=== PATIENT | female | born 1970 | race Two or more races ===

== ENCOUNTER → 2020-07-09 09:18 | Outpatient (BNVA) | payer MEDICAID, SELFPAY | PROVIDERS: PCP Nurse Practitioner Family; Visit Provider Internal Medicine Gastroenterology | DX: Z76.89 Persons encountering health services in other specified circumstances (principal) ==

== ENCOUNTER → 2020-07-12 07:48 | Outpatient (BNV) | payer MEDICAID, SELFPAY | PROVIDERS: PCP Nurse Practitioner Family; Visit Provider Internal Medicine | DX: I26.99 Other pulmonary embolism without acute cor pulmonale (principal) | CPT/HCPCS: 99213; 99214 ==

== ENCOUNTER → 2020-08-25 08:44 | Outpatient (REF) | payer MEDICAID, SELFPAY | LOC: HO.SL 08:44 | PROVIDERS: Visit Provider Nurse Practitioner Family | DX: G47.33 Obstructive sleep apnea (adult) (pediatric) (principal) | CPT/HCPCS: 95806 ==

== ENCOUNTER → 2020-10-22 08:18 | Outpatient (BNVA) | payer MEDICAID, SELFPAY | PROVIDERS: PCP Dentist; Visit Provider Internal Medicine Gastroenterology ==

== ENCOUNTER 2020-12-10 19:39 | Emergency (ER) | payer MEDICAID, SELFPAY ==
--- NOTE | ~2020-12-10 | XR_ITS ---
EXAMINATION: XR CHEST CLINICAL INFORMATION: Chest pain COMPARISON: Chest x-ray 12/18/2018 TECHNIQUE: Frontal view of the chest was obtained. FINDINGS: No significant abnormality is noted involving the heart, lungs, mediastinum, bony thorax or soft tissues. XR/XR chest 1V IMPRESSION: Unremarkable chest examination.
[2020-12-10 19:46] VITALS: BP 127/69; PULSE 76; RESP 16; TEMP 36.6; O2SAT 100; BMI 40.6
--- NOTE | 2020-12-10 19:53 | ECG_ITS ---
Test Reason : CHEST PAIN Blood Pressure : / mmHG Vent. Rate : 071 BPM Atrial Rate : 071 BPM P-R Int : 150 ms QRS Dur : 080 ms QT Int : 410 ms P-R-T Axes : 037 046 053 degrees QTc Int : 445 ms Normal sinus rhythm Normal ECG When compared with ECG of 18-DEC-2018 12:48, No significant change was found Referred By: Generic ED Physician Electronically Signed By:J CARLOS JIM
--- NOTE | 2020-12-10 20:22 | PC.NURSE ---
multimedia technician at bedside obtaining EKG. IV and labs obtained and sent for analysis. Awaiting primary MD ashley.
[2020-12-10 20:26] LABS: MANUAL DIFF FLAG NO
[2020-12-10 20:28] LABS: Basophils Absolute Auto 0.1 X10*3/uL (0.0-0.2); Basophils Percent Auto 0.6 % (0-2); Eosinophils Absolute Auto 0.2 X10*3/uL (0.0-0.4); Eosinophils Percent Auto 2.1 % (0-4); Hemoglobin 14.3 g/dl (12.0-16.0); Imm Gran Abs Auto 0.06 X10*3/uL (0.00-0.03); Imm Gran Pct Auto 0.6 % (0.0-0.4); Lymphocytes Absolute Auto 2.9 X10*3/uL (1.2-4.9); Lymphocytes Percent Auto 31.2 % (20-40); Mean Corpuscular HGB Conc 31.8 g/dl (31.0-35.0); Mean Corpuscular Volume 85.1 fL (80-98); Monocytes Absolute Auto 0.5 X10*3/uL (0.1-1.2); Neutrophils Absolute Auto 5.6 X10*3/uL (2.0-8.3); Neutrophils Percent Auto 60.5 % (45-73); Platelet Count 333 X10*3/uL (160-400); Red Blood Count 5.29 X10*6/uL (4.20-5.50); Red Cell Distribution Width 14.2 % (11.0-16.0); White Blood Count 9.3 X10*3/uL (4.8-10.8)
[2020-12-10 20:36] LABS: D Dimer 226 NG/ML
--- NOTE | 2020-12-10 21:01 | PC.NURSE ---
Provider at bedside with director of parks and recreation for primary eval.
[2020-12-10 21:02] LABS: Anion Gap 15 (12-20); Blood Urea Nitrogen 9 mg/dL (9-16); Calcium 9.2 mg/dL (8.4-10.2); Carbon Dioxide 20 mmol/L (22-29); Chloride 110 mmol/L (96-108); Creatinine Clr Calc Pharmacy 101.2; Estimated Glomerular Filt Rate > 60; Glucose Random 75 mg/dL (60-115); Potassium 4.4 mmol/L (3.3-5.1); Sodium 141 mmol/L (135-145)
--- NOTE | 2020-12-10 21:05 | ED.CHESTPAIN ---
HPI - Chest Pain General Chief Complaint: Chest Pain Stated Complaint: CHEST PAIN Time Seen by Provider: 12/10/20 20:59 Source: patient Mode of arrival: ambulatory History of Present Illness HPI narrative: 50-year-old female with a past medical history of hyperlipidemia, iron deficiency anemia, prediabetes, PE, vitamin B12 and D deficiency, presenting to the ED complaining of intermittent left-sided chest pain/pressure radiating down left arm since this morning. Admits pain waxes and wanes. Pain worse with deep inspiration. Denies SOB, nausea, vomiting, numbness, tingling, recent travel, oral OCP use, cigarette smoking. Patient is not on anticoagulation. MD complaint: chest pain Related Data Home Medications Medication Instructions Recorded Confirmed duloxetine 30 mg PO BID 07/12/20 07/12/20 ferrous sulfate 325 mg PO BID 07/12/20 07/12/20 Previous Rx's Medication Instructions Recorded tranexamic acid 650 mg tablet 1,300 mg PO BID #20 tab 06/18/20 pantoprazole 40 mg tablet,delayed 40 mg PO DAILY #30 tab 11/25/20 release Allergies Allergy/AdvReac Type Severity Reaction Status Date / Time No Known Allergies Allergy Verified 12/10/20 19:45 Review of Systems Review of Systems: Constitutional: No Fever, No Chills Cardiovascular: + Chest Pain, No SOB, No Dyspnea on Exertion, No Orthopnea, No Edema Respiratory: No Cough, No Sputum, No Wheezing, No Dyspnea Gastrointestinal: No Nausea, No Vomiting, No Diarrhea, No Abdominal pain Genitourinary: No Dysuria, No Hematuria, No Flank Pain Musculoskeletal: No joint pain, No Myalgias Skin: No Skin Lesions, No rash Neuro: No Weakness, No Numbness, No Paresthesias, No Dizziness Yes all other systems are reviewed and are negative PMFSH Past Medical History Attestation statement: The following information was validated with the patient. Medical History (Updated 12/10/20 @ 22:12 by CHETAN Perez) Hypertriglyceridemia STEVEN (iron deficiency anemia) Pre-diabetes Pulmonary embolism Sleep apnea Vitamin B12 deficiency Vitamin D deficiency Surgical History (Updated 07/13/20 @ 07:41 by Sumaya Gray MD) deliv NOS-unsp History of colonoscopy Hx of endoscopy Family History Family History (Updated 10/22/20 @ 08:22 by MARISSA Horta) Father No problems noted. Mother No problems noted. Paternal Uncle Stomach cancer Social History Social History (Updated 10/22/20 @ 08:23 by MARISSA Horta) Household Members: Spouse, Children and Other Alcohol intake: current Alcohol intake frequency: does not drink Smoking Status: Never smoker Advance Directives: No Advance Directives Information Provided: No Physical Exam Vital Signs: Vital Signs: Last Vital Signs Temp 97.8 F 12/10/20 19:46 Pulse 64 12/10/20 21:51 Resp 18 12/10/20 21:51 BP 112/60 12/10/20 21:51 Pulse Ox 100 12/10/20 21:51 Body Mass Index 40.6 Const: General: cooperative, healthy appearing and no acute distress Orientation/consciousness: patient oriented x3 Limitations: no limitations HENMT: Head: Yes normal to inspection Ears: hearing grossly normal bilaterally General nose exam: Normal external nose present Face and sinus: Yes normal facial exam Eyes: General: appearance normal, both eyes and all related structures EOM: EOMs intact bilaterally Neck: Neck: Yes normal visual inspection and Yes no meningeal signs Chest: Other: Left anterior chest wall tender to palpation reproducing subjective complaint Chest palpation & inspection: normal inspection of the chest, no crepitus and tenderness Resp: Effort & Inspection: normal respiratory effort Auscultation: clear to auscultation bilaterally, no crackles, no rales, no rhonchi and no wheezes Cardio: Rate: regular rate Heart sounds: S1 normal heart sound present and S2 normal heart sound present GI: Inspection: Yes normal to inspection Palpation (GI): Soft to palpation, nontender, no guarding and not rigid Skin: Rashes: no rashes Wounds: no wounds Neuro: General: patient oriented x3 and no meningeal signs Gait exam (Neuro): Normal gait present Extrem: General: Yes normal to inspection, Yes no pedal edema and Yes no calf tenderness Course Course Course Narrative: -no leukocytosis, troponin negative, D-dimer WNL XR chest 1V IMPRESSION: Unremarkable chest examination >> 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 Worrisome signs and symptoms and strict return precautions discussed, she verbalized understanding feel safe for discharge home MDM - Chest Pain MDM Narrative Medical decision making narrative: 50-year-old female with a past medical history of hyperlipidemia, iron deficiency anemia, prediabetes, PE, vitamin B12 and D deficiency, presenting to the ED complaining of intermittent left-sided chest pain/pressure radiating down left arm since this morning. On exam VSS, NAD/well-appearing, CP reproducible on exam, lungs CTA, no calf tenderness or LE edema. Concern for atypical ACS vs PE. Rule out pneumonia. Unlikely CHF Plan: EKG, labs, D-dimer, CXR, reassess Medical Records Data Attestation: I reviewed the patient's medical records. Lab Data Attestation: I reviewed the patient's lab results. Result diagrams: 12/10/20 20:21 12/10/20 20:21 Labs: Lab Results 12/10/20 12/10/20 12/10/20 Range/Units 20: 20:21 20:21 WBC 9.3 (4.8-10.8) X10*3/uL RBC 5.29 (4.20-5.50) X10*6/uL Hgb 14.3 (12.0-16.0) g/dl Hct 45.0 (37-47) % MCV 85.1 (80-98) fL MCH 27.0 (27.0-33.0) pg MCHC 31.8 (31.0-35.0) g/dl RDW 14.2 (11.0-16.0) % Plt Count 333 (160-400) X10*3/uL MPV 10.0 (9.4-12.3) fL Immature Gran % (Auto) 0.6 H (0.0-0.4) % Neut % (Auto) 60.5 (45-73) % Lymph % (Auto) 31.2 (20-40) % Adams % (Auto) 5.0 (2-11) % Eos % (Auto) 2.1 (0-4) % Baso % (Auto) 0.6 (0-2) % Lymph # (Auto) 2.9 (1.2-4.9) X10*3/uL Adams # (Auto) 0.5 (0.1-1.2) X10*3/uL Eos # (Auto) 0.2 (0.0-0.4) X10*3/uL Baso # (Auto) 0.1 (0.0-0.2) X10*3/uL Abs Immat Gran (auto) 0.06 H (0.00-0.03) X10*3/uL Absolute Neuts (auto) 5.6 (2.0-8.3) X10*3/uL Absolute Nucleated RBC 0.000 (0.0-0.012) X10*3/uL Nucleated RBC % (auto) 0.0 (0.0-0.2) /100WBC D-Dimer NG/ML Sodium 141 (135-145) mmol/L Potassium 4.4 (3.3-5.1) mmol/L Chloride 110 H (96-108) mmol/L Carbon Dioxide 20 L (22-29) mmol/L Anion Gap 15 (12-20) BUN 9 (9-16) mg/dL Creatinine 0.71 (0.5-1.4) mg/dL Estim Creat Clear Calc 101.2 Estimated GFR > 60 Random Glucose 75 (60-115) mg/dL Calcium 9.2 (8.4-10.2) mg/dL Troponin I High Sens < 3.5 (<3.5-17.0) ng/L 12/10/20 Range/Units 20:21 WBC (4.8-10.8) X10*3/uL RBC (4.20-5.50) X10*6/uL Hgb (12.0-16.0) g/dl Hct (37-47) % MCV (80-98) fL MCH (27.0-33.0) pg MCHC (31.0-35.0) g/dl RDW (11.0-16.0) % Plt Count (160-400) X10*3/uL MPV (9.4-12.3) fL Immature Gran % (Auto) (0.0-0.4) % Neut % (Auto) (45-73) % Lymph % (Auto) (20-40) % Adams % (Auto) (2-11) % Eos % (Auto) (0-4) % Baso % (Auto) (0-2) % Lymph # (Auto) (1.2-4.9) X10*3/uL Adams # (Auto) (0.1-1.2) X10*3/uL Eos # (Auto) (0.0-0.4) X10*3/uL Baso # (Auto) (0.0-0.2) X10*3/uL Abs Immat Gran (auto) (0.00-0.03) X10*3/uL Absolute Neuts (auto) (2.0-8.3) X10*3/uL Absolute Nucleated RBC (0.0-0.012) X10*3/uL Nucleated RBC % (auto) (0.0-0.2) /100WBC D-Dimer 226 NG/ML Sodium (135-145) mmol/L Potassium (3.3-5.1) mmol/L Chloride (96-108) mmol/L Carbon Dioxide (22-29) mmol/L Anion Gap (12-20) BUN (9-16) mg/dL Creatinine (0.5-1.4) mg/dL Estim Creat Clear Calc Estimated GFR Random Glucose (60-115) mg/dL Calcium (8.4-10.2) mg/dL Troponin I High Sens (<3.5-17.0) ng/L ECG Data ECG #1: Attestation: I personally reviewed and interpreted this ECG as follows: ECG interpretation date: 12/10/20 ECG interpretation time: 20:12 Interpretation: EKG normal sinus rhythm with rate of 71. QTC 445. No STEMI/nonischemic Discharge Plan Discharge Clinical Impression: Atypical chest pain Patient Disposition: Home, Self-Care Instructions: Chest Pain (ED) Additional Instructions: Your blood work and chest x-ray were reassuring today in the ED. It is important that you follow-up with her primary care doctor as well as Cardiology. If her symptoms persist or worsen, become more constant or severe please return to the ED. Ferguson an?lisis de bob y radiograf?a de t?rax fueron tranquilizadores hoy en el servicio de urgencias. Es importante que realice un seguimiento con ferguson m?dico de atenci?n primaria y con Cardiolog?a. Si penny s?ntomas persisten o empeoran, se vuelven m?s constantes o severos, regrese al servicio de urgencias. Prescriptions: No Action tranexamic acid 650 mg tablet 1,300 mg PO BID Qty: 20 RF: 2 pantoprazole 40 mg tablet,delayed release (DR/EC) 40 mg PO DAILY Qty: 30 RF: 3 ferrous sulfate 325 mg (65 mg iron) Tablet 325 mg PO BID RF: 0 duloxetine 30 mg Capsule,Delayed Release(Dr/Ec) 30 mg PO BID RF: 0 Referrals: Leonard Rincon MD [Physician] - 5 days Print Language: Kazakh
[2020-12-10 21:09] LABS: Troponin-I High Sensitivity < 3.5 ng/L (<3.5-17.0)
[2020-12-10 21:51] VITALS: BP 112/60; PULSE 64; RESP 18; O2SAT 100
== END 2020-12-10 22:38 | disposition home or self-care (01) ==
PROVIDERS: Emergency Provider Emergency Medicine
DX: R07.89 Other chest pain (principal); E78.5 Hyperlipidemia, unspecified; R73.03 Prediabetes; Z86.711 Personal history of pulmonary embolism
CPT/HCPCS: 36415; 71045; 80048; 84484; 85025; 85379; 93005; 99283; 99284

== ENCOUNTER → 2020-12-29 12:36 | Outpatient (BNVA) | payer MEDICAID, SELFPAY | PROVIDERS: Visit Provider Internal Medicine | DX: I26.99 Other pulmonary embolism without acute cor pulmonale (principal); R07.2 Precordial pain | CPT/HCPCS: 99202 ==

== ENCOUNTER → 2021-01-28 13:55 | Outpatient (REF) | payer MEDICAID, SELFPAY ==
--- NOTE | 2021-01-28 13:59 | CA_ITS ---
Transthoracic Echocardiogram Patient (Last, First, Middle): Barb Conklin, Gender: Female Date of : 1970 Age: 50 Procedure Date: 01/28/2021 Procedure Type: Transthoracic Echocardiogram Location: OP Height: 154.94 cm Weight: 97.98 kg BSA: 1.95 m2 Heart Rate: bpm BP: 122 / 80 mmHg Sexton Helper: Referring MD: Leonard Rincon MD Symptoms: R07.2 - Precordial pain Study Quality: Fair ECG Rhythm: Sinus Conclusions: - Normal biventricular function. - Cannot rule out basal inferior wall motion abnormality. Findings Left Ventricle Normal left ventricular size and systolic function. There is mildly increased left ventricular wall thickness. The visually estimated ejection fraction is between 60-65%. There is evidence of regional wall motion abnormalities. Diastolic function is normal for age. Wall Motion Rest Echo Findings The basal inferior segment is akinetic. Right Ventricle Normal right ventricular cavity size and systolic function. Atria Both atria are normal in size. There is no evidence of interatrial shunt by color Doppler. Aortic Valve Normal aortic valve structure and function. There is no aortic valve stenosis. There is no aortic valve regurgitation. Mitral Valve Normal mitral valve structure and function. There is no mitral valve regurgitation. There is no mitral valve stenosis. Pulmonic Valve Normal pulmonic valve structure and function. There is no pulmonic valve regurgitation. Tricuspid Valve Normal tricuspid valve structure and function. There is no tricuspid valve regurgitation. Normal right atrial pressure. There is no evidence of pulmonary hypertension. Great Vessels All visible segments of the aorta are normal in size. The visualized portions of the pulmonary artery and branches are normal. Venous The inferior vena cava is normal in size and collapses greater than 50% with inspiration. Pericardium/Pleural There is no evidence of pericardial effusion. Prior Study Comparison No prior study available for comparison. Measurements 2D Linear Measurements IVSd: 1.13 0.6-0.9/0.6-1.0 cm LVIDd: 3.64 3.9-5.3/4.2-5.9 cm LVIDd Index: 1.87 2.4-3.2/2.2-3.1 cm/m2 LVIDs: 2.41 2.0-3.6 cm LVPWd: 1.11 0.7-1.1 cm Ao Root: 2.70 2.1-3.5 cm LA Diam: 3.10 2.7-3.8/3.0-4.0 cm LAIDs Index: 1.59 1.5-2.3 cm/m2 LV Mass: 161.27 67-162/88-224 g LV Mass Index: 82.70 43-95/49-115 g/m2 LVOT Diam: 2.00 3.0+(-)1.3 cm 2D Systolic Function EF 4C: 52.30 >55% EF 2C: 60.80 >55% EF BiP: 58.00 >55% Mitral Valve MV Pk E: 0.93 MV PK A: 0.56 MV Decel Time: 163.00 E/A: 1.70 E'Lateral: 15.90 E'Medial: 8.81 E/E' Med: 10.50 E/E' Lat: 5.80 PHT: 48.00 MVA PHT: 4.58 Decel Potter: 5.69 Aortic Valve AoV Pk Vishnu: 1.22 AoV Mn Vishun: 0.78 AoV VTI: 0.30 AoV Pk Grad: 6.00 Aov Mn Grad: 3.00 ADELINA Cont.VTI: 2.50 LVOT LVOT Pk Vishnu: 1.04 LVOT Mn Vishnu: 0.60 LVOT VTI: 0.24 LVOT Pk Grad: 4.00 LVOT Mn Grad: 2.00 LVOT Diam: 2.00 LVOT Area: 3.14 Diastolic Function MV Pk E: 0.93 MV Pk A: 0.56 E/A: 1.70 E'Medial: 8.81 E/E' Med: 10.50 E' Laterial: 15.90 E/E' Lat: 5.80 Tricuspid Valve TR Pk Vishnu: 2.38 TR Pk Grad: 23.00 Great Vessels Aorta Ao Root-2D: 2.70 2.0-3.7 cm Ao Asc: 2.90 2.1-3.4 cm Pulmonary Valve PV Pk Vishnu: 0.88 Peak PV Grad: 3.00 Updated in Other Vendor System with Status of Final Iván Jurado MD electronically signed on 01/29/2021 5:06:52 PM with status of Final
== END ==
LOC: HO.CARD 13:55
PROVIDERS: Visit Provider Internal Medicine
DX: R07.2 Precordial pain (principal)
CPT/HCPCS: 93306

== ENCOUNTER → 2021-02-03 07:50 | Outpatient (REF) | payer MEDICAID, SELFPAY ==
--- NOTE | ~2021-02-03 | NM_ITS ---
Exercise Myocardial perfusion study Indication: Precordial chest pain to evaluate for myocardial ischemia Technique: The patient was brought in for an exercise perfusion study on 02/03/2021. Patient performed exercise as per Remington protocol and was injected 35 mCi of sestamibi was given intravenously one target HR was achieved. Images were obtained using the SPECT gamma camera interlaced with the gating device. Images were obtained in supine position. Resting perfusion study was performed on 02/08/2021. Patient was administered 35 mCi of sestamibi intravenously at rest. Images were then obtained in supine position. Images obtained with and without CT attenuation. Total DLP 129 mGy-cm. Images were processed with the software and compared side to side in short axis, horizontal long axis and vertical long axis views. Findings: The stress perfusion study showed nonattenuated images show normal uptake of radiotracer in all segments of LV myocardium. Attenuation corrected images show mildly reduced uptake in the apex of the myocardium.. The gated study shows normal LV systolic function with calculated LVEF of greater than 70 %. LV cavity is normal in in size. The gated study shows normal systolic wall thickening and contraction of all segments. There is no transient ischemic dilation. Resting study shows no change in perfusion pattern compared to stress perfusion study. Gating at rest reveals normal systolic wall motion with ejection fraction at 74%. The findings are consistent with normal myocardial perfusion. NM/NM cardiolite stress test Impression: 1. Normal myocardial perfusion 2. Gated LVEF is greater than 70% 3. Transient ischemic dilatation not present Stress EKG is negative for ischemia
--- NOTE | 2021-02-03 07:54 | CA_ITS ---
Acquisition Time: 2021-02-03 07:56:02 Total Exercise Time: 00:05:01 Test Indications: CP Medications: SEE CHART Protocol: MICHAEL Max HR: 155 BPM 91% of Pred: 170 BPM Max BP: 154/064 mmHG Max Work Load: 7.0 METS Exercise stress test with exercise 5 min 1 sec of Michael protocol, without anginal symptoms, without arrythmia, with normotensive response to exercise, without EKG changes meeting criteria for ischemia. Nuclear images pending. Test reviewed with Dr Cole. Referred By: Leonard Rincon Overread By: IRINA OVALLE
== END ==
LOC: HO.CARD 07:50
PROVIDERS: Visit Provider Internal Medicine
DX: R07.2 Precordial pain (principal)
CPT/HCPCS: 78452; 93017; A9500

== ENCOUNTER 2021-02-10 14:33 | Outpatient (REF) | payer MEDICAID, SELFPAY ==
--- NOTE | ~2021-02-10 | CT_ITS ---
EXAMINATION: CT ANGIOGRAM CHEST WITHOUT AND WITH CONTRAST (CT PULMONARY ANGIOGRAM FOR PE) CLINICAL INFORMATION: Left chest pain. Prior history PE. COMPARISON: Chest radiograph 12/10/2020, CTA chest 12/18/2018 TECHNIQUE: Prior to contrast administration, noncontrast localization images were obtained. Subsequently, multidetector volumetric imaging was performed from the thoracic inlet to below the diaphragms following the administration of 75 mL Omnipaque 350 intravenous contrast. No contrast reaction reported. Sagittal, coronal, and MIP oblique sagittal reformatted images were obtained on the CT workstation, uploaded to PACS, and reviewed. This CT examination was performed using dose optimization techniques as appropriate, variously including the following: *Automated exposure control *Adjustment of mA and/or kV according to patient size (this includes techniques or standardized protocols for targeted exams where dose is matched to indication/reason for exam; i.e. extremities or head) *Use of iterative reconstruction technique DLP: 177 mGy-cm FINDINGS: QUALITY OF STUDY/CONTRAST BOLUS: Satisfactory PULMONARY ARTERIES: No central or segmental pulmonary emboli. The small segmental emboli right lower lobe noted on prior CT 2019 are no longer demonstrated. THORACIC AORTA: No aneurysm or dissection. LUNG: No airspace consolidation or groundglass opacities. No mass. PLEURA: No pleural effusion or pneumothorax. MEDIASTINUM: Normal heart size. No pericardial effusion. No hilar or mediastinal lymphadenopathy. No evidence of septal bowing or right heart strain. CHEST WALL/AXILLA: No axillary or internal mammary lymphadenopathy. OSSEOUS STRUCTURES: No acute or suspicious osseous abnormality. UPPER ABDOMEN: There is some fatty infiltration in the mid body pancreas similar to prior exam. No peripancreatic inflammatory changes. Gallstone again noted. Prior gastric bypass surgery. No reflux of contrast into the hepatic veins to suggest elevated right heart pressures. CT/CT angio chest IMPRESSION: 1. No pulmonary embolism. Prior right lower lobe segmental PE on CT 2019 no longer demonstrated. 2. No thoracic aorta aneurysmal enlargement or dissection. 3. Lungs clear. No pneumothorax, infiltrate, or effusion. VTE: negative
[2021-02-10] MEDS: iohexoL 350 MG/ML 100 ML INFUS..BTL IV (15:57)
== END 2021-02-10 14:34 | disposition home or self-care (01) ==
LOC: HO.CT 14:33
PROVIDERS: Visit Provider Internal Medicine
DX: I26.99 Other pulmonary embolism without acute cor pulmonale (principal)
CPT/HCPCS: 71275; Q9967

== ENCOUNTER → 2021-02-25 11:27 | Outpatient (BNVA) | payer MEDICAID, SELFPAY | PROVIDERS: Visit Provider Advanced Practice Midwife ==

== ENCOUNTER → 2021-03-21 14:59 | Outpatient (REF) | payer MEDICAID, SELFPAY ==
--- NOTE | 2021-03-21 15:03 | CA_ITS ---
Transthoracic Echocardiogram Patient (Last, First, Middle): Barb Conklin, Gender: Female Date of : 1970 Age: 50 Procedure Date: 03/21/2021 Procedure Type: Transthoracic Echocardiogram Location: OP Height: 154.94 cm Weight: 97.07 kg BSA: 1.94 m2 Heart Rate: bpm BP: 114 / 70 mmHg Chief Physical Therapist: [facility] MD: Leonard Rincon MD Symptoms: R07.2 - Precordial pain Study Quality: Fair ECG Rhythm: Sinus Conclusions: - The left ventricular systolic function is normal. The calculated ejection fraction is 71% by biplane method. - There is no evidence of regional wall motion abnormalities. Findings Left Ventricle Normal left ventricular cavity size. The left ventricular systolic function is normal. The calculated ejection fraction is 71% by biplane method. There is no evidence of regional wall motion abnormalities. Prior Study Comparison Changes noted compared to prior study dated: 01/28/2021. Previously described wall motion abnormality not seen. Measurements 2D Systolic Function EF 4C: 72.60 >55% EF 2C: 69.40 >55% EF BiP: 70.80 >55% Updated in Other Vendor System with Status of Final Leonard Rincon MD electronically signed on 03/22/2021 12:33:19 PM with status of Final
== END ==
LOC: HO.CARD 14:59
PROVIDERS: Visit Provider Internal Medicine
DX: R07.2 Precordial pain (principal)
CPT/HCPCS: 93308; Q9957

== ENCOUNTER → 2021-03-29 14:18 | Outpatient (BNVA) | payer MEDICAID, SELFPAY | PROVIDERS: PCP Registered Nurse; Visit Provider Internal Medicine | DX: R07.2 Precordial pain (principal); Z86.711 Personal history of pulmonary embolism | CPT/HCPCS: 99212 ==

== ENCOUNTER → 2021-04-22 09:20 | Outpatient (BNVA) | payer MEDICAID, SELFPAY | PROVIDERS: Visit Provider Internal Medicine Gastroenterology ==

== ENCOUNTER → 2021-07-11 08:06 | Outpatient (REF) | payer MEDICAID, SELFPAY ==
--- NOTE | ~2021-07-11 | NM_ITS ---
EXAMINATION: NM RADIONUCLIDE SOLID FOOD GASTRIC EMPTYING 4-HOUR STUDY CLINICAL INFORMATION: Early satiety. COMPARISON: None. TECHNIQUE: A standard meal consisting of 4 oz of Egg Beaters brand tagged with 0.87 microcuries Tc-99m Sulfur Colloid, 8 oz water and 2 slices of toast with jelly was administered orally to the patient. Images were obtained using a dual head gamma camera in the anterior and posterior projections over of the stomach immediately post ingestion and at hourly intervals up to 4 hours post ingestion. The anterior and posterior counts at each time interval were averaged using the geometric mean and expressed as percentage of the immediate post ingestion counts. FINDINGS: There is good visualization of activity in the stomach immediately post ingestion. As the study progresses, there is good clearance of activity from the stomach and visualization of progressively increasing small bowel activity. By the end of the study, there is almost no retention noted in the stomach. Retention in the stomach at each time interval was: 1 hour - 28% (normal 37%-90%) 2 hours - 11% (normal 30%-60%) 3 hours - 1% 4 hours - None NM/NC gastric emptying study IMPRESSION: Normal 4-hour solid food gastric emptying study.
== END ==
LOC: HO.NUCMED 08:06
PROVIDERS: Visit Provider Internal Medicine Gastroenterology
DX: R68.81 Early satiety (principal)
CPT/HCPCS: 78264; A9541

== ENCOUNTER 2021-08-04 15:46 | Outpatient (REF) | payer MEDICAID, SELFPAY ==
--- NOTE | ~2021-08-04 | MM_ITS ---
EXAMINATION: MM SCREENING DIGITAL BREAST TOMOSYNTHESIS, BILATERAL CLINICAL INFORMATION: Screening. Asymptomatic. The lifetime risk of breast cancer based on the Tyrer-Cuzick Model is 11%. COMPARISON: Mammography: 01/07/2019, 10/03/2017, 09/21/2016 TECHNIQUE: Digital breast tomosynthesis is performed in both the craniocaudal and mediolateral oblique views along with computer-aided detection (CAD). Synthesized 2D images are generated from the tomosynthesis. Additional right MLO view is provided. FINDINGS: There are scattered areas of fibroglandular density (ACR BI-RADS breast composition Category b). There are no significant masses, abnormal calcifications, or other abnormalities. Skin contours are smooth. MM/MM tomosynthesis screening BI IMPRESSION: No mammographic evidence of malignancy. ASSESSMENT: BI-RADS 1: Negative RECOMMENDATION: Routine annual mammography screening. This patient's information was entered into a reminder system with a target due date for their next mammogram.
== END 2021-08-04 15:47 | disposition home or self-care (01) ==
LOC: HO.MAMMO 15:46
PROVIDERS: PCP Nurse Practitioner Primary Care; Visit Provider Nurse Practitioner Primary Care
DX: Z12.31 Encounter for screening mammogram for malignant neoplasm of breast (principal)
CPT/HCPCS: 77063; 77067

== ENCOUNTER 2021-11-18 17:46 | Outpatient (REF) | payer MEDICAID, SELFPAY ==
--- NOTE | ~2021-11-18 | MR_ITS ---
EXAMINATION: MR LUMBAR SPINE WITHOUT CONTRAST CLINICAL INFORMATION: 51-year-old with low back pain. COMPARISON: None TECHNIQUE: MRI of the lumbar spine was obtained using routine sequences without contrast. FINDINGS: CORONAL ALIGNMENT: Normal. SAGITTAL ALIGNMENT: There is trace anterolisthesis at L4-L5 without spondylolysis. Lumbar lordotic curvature is maintained. LUMBOSACRAL JUNCTION: Normal. Rudimentary S1-S2 intervertebral disc space. VERTEBRAL BODIES: Normal height. DISC SPACES AND ENDPLATES: Intervertebral disc space heights are remarkable for slight disc space height loss at L4-L5 with mild disc desiccation. There is disc desiccation at L5-S1 without significant disc space height loss. Mild anterior marginal spondylosis is noted throughout the lumbar spine and there is moderate anterior marginal spondylosis at T12-L1 and T11-T12. Endplates appear intact. SPINAL CANAL: Mildly prominent epidural fat at the lumbosacral junction. BONE MARROW: No significant marrow-replacing process or bone marrow edema. 1.9 cm benign vertebral hemangioma in the L3 vertebral body noted. CONUS MEDULLARIS: Terminates at L1. Morphology and signal is normal. INTRADURAL NERVE ROOTS: Within normal limits. L5-S1: Mild disc bulging noted with a central transverse annular fissure confined to the anterior epidural fat without thecal sac encroachment or neural impingement. Mild right-sided and moderate left-sided facet arthropathy is noted with no significant canal or neural foraminal stenosis. L4-L5: Slight unroofing of the posterior disc margin related to mild degenerative spondylolisthesis. No significant disc bulge or herniation. Moderate left-sided and moderate to severe right-sided facet arthropathy noted with mild ligamentum flavum thickening without significant canal stenosis. Mild foraminal narrowing noted on the right, with facet spurring abutting the exiting right L4 nerve root. L3-L4: No significant disc bulge or herniation. Mild facet arthropathy noted bilaterally. No canal or neural foraminal stenosis. L2-L3: No disc bulge or herniation. No significant facet arthrosis. Mild ligament of flavum thickening noted. No canal or neural foraminal stenosis. L1-L2: No disc bulge or herniation. No facet arthrosis, canal or neural foraminal stenosis. There is bilateral facet arthrosis at T12-L1 and T11-T12 without significant canal or neural foraminal stenosis. PARASPINAL/RETROPERITONEAL: The paravertebral soft tissues are unremarkable. MR/MR lumbar spine wo con IMPRESSION: 1. Mild grade 1 degenerative spondylolisthesis at L4-L5, with discogenic degenerative changes at L4-L5 and L5-S1 and multilevel thoracolumbar spondylosis. 2. Mild disc bulging with central to right paramedian transverse annular fissuring at L5-S1 without neural impingement or thecal sac encroachment . 3. Multilevel bilateral facet arthropathy, most apparent at L5-S1 and L4-L5 with mild right-sided foraminal narrowing at L4-L5, with facet spurring abutting the exiting right L4 nerve root. No significant spinal canal stenosis.
== END 2021-11-18 17:47 | disposition home or self-care (01) ==
LOC: HO.MRI 17:46
PROVIDERS: Visit Provider Nurse Practitioner Primary Care
DX: M54.50 Low back pain, unspecified (principal)
CPT/HCPCS: 72148

== ENCOUNTER 2022-01-19 08:39 | Outpatient (REF) | payer MEDICAID, SELFPAY ==
[2022-01-19 09:17] LABS: Hematocrit 37.7 % (37.0-47.0); Hemoglobin 11.3 g/dl (12.0-16.0); Mean Corpuscular Hemoglobin 22.4 pg (27.0-33.0); Mean Corpuscular Volume 74.8 fL (80.0-98.0); Mean Platelet Volume 9.1 fL (9.4-12.3); Platelet Count 448 X10*3/uL (160-400); Red Blood Count 5.04 X10*6/uL (4.20-5.50); Red Cell Distribution Width 17.8 % (11.0-16.0); White Blood Count 8.9 X10*3/uL (4.8-10.8)
[2022-01-19 09:24] LABS: Estimated Average Glucose 123 mg/dL; Hemoglobin A1C 125.3793 umol/L; Hemoglobin A1c % 5.9 %
[2022-01-19 09:38] LABS: Anion Gap 12 (12-20); Blood Urea Nitrogen 10 mg/dL (9-16); Carbon Dioxide 26 mmol/L (22-29); Chloride 107 mmol/L (96-108); Cholesterol 203 mg/dL; Estimated Glomerular Filt Rate > 60; Glucose Random 98 mg/dL (60-115); HDL Cholesterol 48 mg/dL; LDL Cholesterol Calculated 123 mg/dl; Potassium 4.6 mmol/L (3.3-5.1); Sodium 140 mmol/L (135-145); Triglycerides 161 mg/dL
[2022-01-19 10:01] LABS: Free T4 (Free Thyroxine) 0.92 ng/dL (0.71-1.85); Thyroid Stimulating Hormone 2.29 uIU/mL (0.32-4.0); Vitamin D 25-OH Total 20.5 ng/mL (>30)
[2022-01-19 10:22] LABS: Creatinine Urine 103.55 mg/dL; Microalbum/Creatinine Ratio Ur 4.8 ug/mg cr
[2022-01-19 11:03] LABS: Vitamin B12 198 pg/mL (200-900)
== END 2022-01-19 08:40 | disposition home or self-care (01) ==
LOC: HO.LAB 08:39
PROVIDERS: PCP Nurse Practitioner Primary Care; Visit Provider Nurse Practitioner Primary Care
DX: Z00.00 Encounter for general adult medical examination without abnormal findings (principal); R73.03 Prediabetes; L65.9 Nonscarring hair loss, unspecified; E78.1 Pure hyperglyceridemia
CPT/HCPCS: 36415; 80048; 80061; 82043; 82306; 82607; 82746; 83036; 84439; 84443; 85027

== ENCOUNTER 2022-02-01 13:49 | Outpatient (REF) | payer MEDICAID, SELFPAY ==
[2022-02-01 17:26] LABS: CT PCR NOT DETECTED (Not Detect.); NG PCR NOT DETECTED (Not Detect.)
[2022-02-02 13:50] LABS: BV Int Neg Control Negative (Negative); BV Int Pos Control Positive (Positive)
[2022-02-08 19:06] LABS: HPV mRNA E6/E7 rflx Not Detected (Not Detected)
== END 2022-02-01 13:50 | disposition home or self-care (01) ==
LOC: HO.LAB 13:49
PROVIDERS: Visit Provider Advanced Practice Midwife
DX: Z01.419 Encounter for gynecological examination (general) (routine) without abnormal findings (principal); Z11.3 Encounter for screening for infections with a predominantly sexual mode of transmission; Z11.51 Encounter for screening for human papillomavirus (HPV)
CPT/HCPCS: 87480; 87491; 87510; 87591; 87624; 87660; 88142

== ENCOUNTER 2022-02-04 09:28 | Outpatient (REF) | payer MEDICAID, SELFPAY ==
[2022-02-07 04:04] LABS: HBsAGNum1 0.19 S/CO (0.00-0.99); HIV AB/AG Nonreactive (Nonreactive); HIV Num 1 0.07 S/CO (0.00-0.99); ~HepC Num1 0.06 S/CO (0.00-0.79); ~Hepatitis C Antibody Nonreactive (Nonreactive)
[2022-02-07 04:05] LABS: Hepatitis B Surface Antigen Negative (Negative)
[2022-02-08 06:23] LABS: Syphilis Screen Nonreactive (Nonreactive)
== END 2022-02-04 09:29 | disposition home or self-care (01) ==
LOC: HO.LAB 09:28
PROVIDERS: PCP Nurse Practitioner Primary Care; Visit Provider Advanced Practice Midwife
DX: Z30.46 Encounter for surveillance of implantable subdermal contraceptive (principal)
CPT/HCPCS: 36415; 86780; 86803; 87340; 87389

== ENCOUNTER → 2022-02-23 13:04 | Outpatient (BNVA) | payer MEDICAID, SELFPAY | PROVIDERS: PCP Nurse Practitioner Primary Care; Visit Provider Advanced Practice Midwife | DX: Z30.46 Encounter for surveillance of implantable subdermal contraceptive (principal); B37.3 Candidiasis of vulva and vagina | CPT/HCPCS: 99212 ==

== ENCOUNTER → 2022-02-27 09:41 | Outpatient (BNVA) | payer MEDICAID, SELFPAY | PROVIDERS: PCP Nurse Practitioner Primary Care; Visit Provider Advanced Practice Midwife | DX: B37.3 Candidiasis of vulva and vagina (principal) | CPT/HCPCS: 99212 ==

== ENCOUNTER → 2022-05-08 13:19 | Outpatient (BNVA) | payer MEDICAID, SELFPAY | PROVIDERS: PCP Nurse Practitioner Primary Care; Visit Provider Internal Medicine Gastroenterology | DX: R68.81 Early satiety (principal) | CPT/HCPCS: 99212 ==

== ENCOUNTER → 2022-05-10 10:23 | Outpatient (BNVA) | payer MEDICAID, SELFPAY | PROVIDERS: PCP Nurse Practitioner Primary Care; Visit Provider Advanced Practice Midwife | DX: Z30.46 Encounter for surveillance of implantable subdermal contraceptive (principal); Z32.02 Encounter for pregnancy test, result negative | CPT/HCPCS: 11983; 81025; 99212; J7307 ==

== ENCOUNTER → 2022-05-17 19:30 | Outpatient (REF) | payer MEDICAID, SELFPAY | LOC: HO.SL 19:30 | PROVIDERS: Visit Provider Otolaryngology | DX: G47.33 Obstructive sleep apnea (adult) (pediatric) (principal) | CPT/HCPCS: 95811 ==

== ENCOUNTER 2022-09-22 07:14 | Outpatient (REF) | payer MEDICARE, SELFPAY | END 2022-09-22 07:15 | disposition home or self-care (01) | LOC: HO.HOSX 07:14 | PROVIDERS: Visit Provider Physician Assistant | DX: Z13.89 Encounter for screening for other disorder (principal) ==

== ENCOUNTER 2022-10-11 07:44 | Day surgery (SDC) | payer MEDICAID, SELFPAY ==
[2022-10-06 14:04] VITALS: BMI 45.7
[2022-10-11 07:52] VITALS: BMI 46.3
[2022-10-11 08:11] VITALS: BP 136/84; PULSE 98; RESP 16; TEMP 36.3; O2SAT 100
[2022-10-11] MEDS: Lactated Ringers 1,000 ML 80 ML IVCONT (08:18)
--- NOTE | 2022-10-11 08:31 | MHC.SHP ---
Pre-Procedural Eval Section A Date of Service: 10/11/22 Section B Chief Complaint: Early satiety, Epigastric pain Details of Present Illness: hx of polyps Relevant Family History (Specify if Yes): No Relevant Social History: None Present Medications: see Short Stay Collaborative assessment Medical History: Significant History (Fibromyalgia Hypertriglyceridemia STEVEN (iron deficiency anemia) Pre-diabetes Pulmonary embolism Sleep apnea Vitamin B12 deficiency Vitamin D deficiency) History of Previous Operations: Relevant previous surgery/procedure and date(s) ( deliv NOS-unsp Gastric bypass status for obesity History of colonoscopy Hx of endoscopy) Allergies: Allergies Allergy/AdvReac Type Severity Reaction Status Date / Time No Known Allergies Allergy Verified 10/11/22 08:11 Review of Systems Sugical H&P ROS: Negative: Constitution, Cardiovascular, Respiratory, Neurological, Psychiatric, Hem-Onc, Allergic/Immunologic, Gastrointestinal, Genitourinary, Musculoskeletal, Integumentary, Endocrine and Eyes/Ears/Nose/Throat Exam Surgical H&P Exam: Normal: HEENT, Normal: Heart, Normal: Lungs, Normal: Extremities, Normal: Abdomen, Normal: Skin and Normal: Neurological Plan Diagnosis/Plan: Unchanged I have reviewed the history and physical and performed a pertinent physical examination on my patient. No changes have occurred unless specified. Time Spent With Patient Time: Total time managing care of this patient today ____ minutes.
--- NOTE | 2022-10-11 08:33 | P.OP_ITS ---
Operative Note Operative Note Date of Service: 10/11/22 Narrative: Operative Information Procedure Description: EGD, Colonoscopy Indication: hx of atrophic gastritis, colon polyps Anesthesia: MAC FLEXIBLE TRANSORAL UPPER GASTROINTESTINAL ENDOSCOPY AND COLONOSCOPY PROCEDURE NOTE UPPER ENDOSCOPY Consent: Indications for the procedure and potential complications of bleeding, perforation, reaction to medications and missed diagnosis were discussed with the patient and informed consent was obtained. Instrument: Olympus GIF H 190 J mid size upper endoscope Monitoring: Vital signs and clinical assessment, continuous EKG monitoring, Pulse oximetry, Carbon Dioxide monitoring and blood pressure monitoring were done throughout the procedure. Procedure: The patient was placed in the left lateral decubitis position and pre-procedure medications were administered and a bite block was placed. The endoscope was inserted into the mouth and advanced under direct vision to the third part of duodenum. A careful inspection was made as the upper endoscope was withdrawn including a retroflexed examination of the proximal stomach; Findings and interventions are described below. Findings: Larynx:normal Esophagus: GE junction at 38 cm, diaphragm hiatus at 38 cm, irregular Z line, possible Barretts with mild esophagitis, bx taken from GEJ and distal esophagus Stomach: s/p sleeve gastrectomy, patchy erythema. Biopsies were obtained from antrum, angularis, body and fundus in separate jars. Grade 2 flap valve on retroflexed examination of the cardia. Duodenum: Normal bulb and descending duodenum, bx taken Intervention: Biopsies as noted above COLONOSCOPY Instrument: Olympus variable stiffness pediatric scope 190L Colonoscopy Monitoring: Vital signs and clinical assessment, continuous EKG monitoring, Pulse oximetry, Carbon Dioxide monitoring and blood pressure monitoring were done throughout the procedure. Colon withdrawal time was 11 minutes. Procedure: The patient was placed in the left lateral decubitis position and pre-procedure medications were administered. After a digital rectal examination of the ano-rectum, the video colonoscope was inserted into the rectum and advanced through the colon to the cecum/TI. The colonoscope was slowly withdrawn in a retrograde panoramic fashion and the colon mucosa was carefully examined including a retroflexed view of the rectum. Findings and interventions are described below. Procedure Difficulty:moderate due to looping and prep Findings: Terminal Ileum-not intubated Cecum:normal Ascending Colon: normal Transverse Colon -normal Descending Colon:normal Sigmoid Colon: normal Rectum: Retroflexion with small internal hemorrhoids, grade I Anorectum - normal Colon preparation: [place] Bowel Preparation Scale Right colon; 1-2 Transverse colon: 2 Left colon; 1 (0 = Unprepared colon segment with mucosa not seen due to solid stool that cannot be cleared. 1 = Portion of mucosa of the colon segment seen, but other areas of the colon segment not well seen due to staining, residual stool and/or opaque liquid. 2 = Minor amount of residual staining, small fragments of stool and/or opaque liquid, but mucosa of colon segment seen well. 3 = Entire mucosa of colon segment seen well with no residual staining, small fragments of stool or opaque liquid) Impression and Post Procedure Diagnosis: Endoscopy Findings: gastritis 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 s/p sleeve gastrectomy Colonoscopy Findings: internal hemorrhoids Plan: Await Pathology results Repeat Colonoscopy in 1 year due to fair to poor prep or earlier if clinically indicated High fiber diet leaflet avoid straining at stool, epsom salts and sitz bath, anusol supps or cream Above findings were reviewed with the patient and relevant handouts were provided if indicated.
--- NOTE | 2022-10-11 08:35 | PC.NURSE ---
Patient ate a single hot dog at [address] Christianson made aware.
--- NOTE | 2022-10-11 09:01 | HO.ANESPROP2 ---
HPI - Anesthesia Eval Consult details Narrative: morbid obese , smoker, asthma, ate hot dogs yesterday and comes for upper endo and colon . smoked today . swedish only speaking [facility] Active Problems Active Problems: All Active Problems (Updated 10/11/22 @ 08:13 by Nica John) Menorrhagia (Acute) Epigastric abdominal pain (Acute) Pulmonary embolism (Chronic) Precordial chest pain (Acute) Vaginal yeast infection (Acute) Early satiety (Acute) Encounter for gynecological examination with Papanicolaou smear of cervix (Acute) Screen for sexually transmitted diseases (Acute) Encounter for monitoring of etonogestrel implant (Acute) Encounter for removal and reinsertion of Nexplanon (Acute) Past Medical History Medical History (Updated 10/11/22 @ 08:13 by Nica John) Fibromyalgia Hypertension Hypertriglyceridemia STEVEN (iron deficiency anemia) Pre-diabetes Pulmonary embolism Sleep apnea Vitamin B12 deficiency Vitamin D deficiency Family History Family History Father No problems noted. Mother Stomach cancer Paternal Uncle Stomach cancer Pancreatic cancer Throat cancer Maternal Aunt Breast cancer Family history of problems with anesthesia: No Surgical History Surgical History (Updated 10/11/22 @ 08:02 by Nica John) deliv NOS-unsp Gastric bypass status for obesity H/O hernia repair History of colonoscopy Hx of endoscopy Social History Social History Household Members: Spouse and Children Housing: House Are you a primary career development associate to a significant other at home: No Do you presently have visiting nurse or other home services: No Alcohol intake: former Patient Tobacco Use Status: Current everyday Tobacco user Tobacco use type: Cigarette Cigarettes Per Day: 5 Years Smoked: 30 Smoked in Last 30 Days: Yes Use of substances other than those prescribed or required for medical reasons: No Are you DNR?: No Advance Directives: No Advance Directives Information Provided: Yes service: No Current occupational status: unemployed Meds Allergies Allergy/AdvReac Type Severity Reaction Status Date / Time No Known Allergies Allergy Verified 10/11/22 08:11 Active Medications: Current Medications Lactated Ringer's (Lr) 1,000 mls @ 80 mls/hr IVCONT .[id number] TESSY Last Admin: 10/11/22 08:18 Dose: 80 mls/hr Home Medications Medication Instructions Recorded Confirmed Last Taken Type acetaminophen 500 mg capsule 1,000 mg PO Q6H PRN Pain 12/29/20 10/11/22 Unknown History albuterol sulfate 90 mcg/actuation 1 inh inhalation Q4-6H PRN Wheezing 02/25/21 10/11/22 Unknown History breath activated powder inhaler,sensor clonazepam 0.25 mg disintegrating 0.25 mg PO DAILY 02/25/21 10/11/22 10/11/22 05:45 History tablet cyclobenzaprine 5 mg tablet 5 mg PO BEDTIME 02/25/21 10/11/22 Unknown History etonogestrel 68 mg subdermal See Rx Instructions .Route .COMPLEX 02/25/21 10/11/22 Unknown History implant (Nexplanon) topiramate 25 mg sprinkle capsule 25 mg PO DAILY 02/25/21 10/11/22 Unknown History (Topamax) sumatriptan succinate 50 mg tablet 1 tab PO DAILY migraine 07/12/21 10/11/22 Unknown History amlodipine 5 mg tablet 1 tab PO QAM 01/11/22 10/11/22 10/11/22 05:45 History ferrous sulfate 325 mg (65 mg 1 tab PO BID 01/11/22 10/11/22 10/11/22 05:45 History iron) tablet (FeroSul) gabapentin 400 mg capsule 1 cap PO TID 01/11/22 10/11/22 10/11/22 05:45 History cholecalciferol (vitamin D3) 50 50 mcg PO DAILY 02/01/22 10/11/22 10/11/22 05:45 History mcg (2,000 unit) capsule (Vitamin D3) duloxetine 30 mg capsule,delayed 30 mg PO DAILY 02/01/22 10/11/22 Unknown History release lidocaine 5 % topical patch 1 patch topical DAILY 02/01/22 10/11/22 Unknown History (Lidoderm) calcium citrate 1 tab PO QAM 04/18/22 10/11/22 10/11/22 05:45 History docusate sodium 100 mg capsule 1 cap PO DIRECTED 04/18/22 10/11/22 Unknown History (Dulcolax Stool Softener (docusate)) prazosin 1 mg capsule (Minipress) 1 mg PO BEDTIME 04/18/22 10/11/22 Unknown History cyanocobalamin (vitamin B-12) 1,000 mcg PO QPM 05/08/22 10/11/22 10/11/22 05:45 History 1,000 mcg tablet divalproex 250 mg tablet,extended 250 mg PO BID 05/08/22 10/11/22 10/11/22 05:45 History release 24 hr Exam Exam Date and Time: October 11, 2022900 Height,Weight and Vital Signs: Height 5 ft 1 in Weight 111.13 kg Last Vital Signs Temp 97.3 F 10/11/22 08:11 Pulse 98 10/11/22 08:11 Resp 16 10/11/22 08:11 BP 136/84 10/11/22 08:11 Pulse Ox 100 10/11/22 08:11 O2 Del Method 10/11/22 08:11 Airway Mallampati Class: II TM Dist: >3cm Neck ROM: Full Heart: rrr Lungs: diminished breath sounds Assessment and Plan Assessment Anesthesia Assessment: Anesthesia Plan Discussed and Chart Reviewed Final Anesthetic Review Family History of Problems with Anesthesia: No NPO: Yes (Ate hot dogs yesterday noon) ASA Class: III Final Preanesthetic Review: No Changes in Pt Med Stat, Meds/Allgs Chart Reviewed, Consent Obtained/Reviewed and Anes Risks/Benef Reviewed Patient Risk: Intermediate Procedure Risk: Intermediate Anesthetic Plan Anesthetic Plan: MAC: Disposition: Standard PACU
[2022-10-11 09:18] VITALS: BP 111/78; PULSE 97; RESP 18; TEMP 36.1; O2SAT 99
[2022-10-11 09:33] VITALS: BP 121/82; PULSE 94; RESP 16; TEMP 36.2; O2SAT 100
== END 2022-10-11 10:30 ==
LOC: HO.SSS 07:44
PROVIDERS: PCP Nurse Practitioner Primary Care; Visit Provider Internal Medicine Gastroenterology
PROC: (CPT 45378; principal; 2022-10-11 09:10)
DX: Z12.11 Encounter for screening for malignant neoplasm of colon (principal); Z86.010 Personal history of colon polyps; R68.81 Early satiety; K64.0 First degree hemorrhoids; K29.40 Chronic atrophic gastritis without bleeding; K20.80 Other esophagitis without bleeding; K22.89 Other specified disease of esophagus; K44.9 Diaphragmatic hernia without obstruction or gangrene; Z98.84 Bariatric surgery status; D50.9 Iron deficiency anemia, unspecified; I26.99 Other pulmonary embolism without acute cor pulmonale; R73.03 Prediabetes; E78.1 Pure hyperglyceridemia; M79.7 Fibromyalgia; E55.9 Vitamin D deficiency, unspecified; G47.30 Sleep apnea, unspecified; Z79.899 Other long term (current) drug therapy; F17.210 Nicotine dependence, cigarettes, uncomplicated
CPT/HCPCS: 45378; 43239; 88305; 88342

== ENCOUNTER → 2022-10-23 12:23 | Outpatient (BNVA) | payer MEDICAID, SELFPAY | PROVIDERS: PCP Nurse Practitioner Primary Care; Visit Provider Internal Medicine Gastroenterology | DX: J02.9 Acute pharyngitis, unspecified (principal); R10.13 Epigastric pain | CPT/HCPCS: 99212 ==

== ENCOUNTER 2022-11-10 09:35 | Outpatient (RCR) | payer MEDICAID, SELFPAY | END 2023-02-08 14:00 | disposition home or self-care (01) | LOC: HO.PT 09:35 | PROVIDERS: PCP Nurse Practitioner Primary Care; Visit Provider Nurse Practitioner Primary Care | DX: M79.7 Fibromyalgia (principal); M25.562 Pain in left knee; M25.561 Pain in right knee ==

== ENCOUNTER 2022-11-14 09:06 | Outpatient (REF) | payer MEDICAID, SELFPAY ==
--- NOTE | ~2022-11-14 | US_ITS ---
EXAMINATION: US ABDOMEN COMPLETE CLINICAL INFORMATION: Epigastric pain. COMPARISON: CT abdomen and pelvis 07/15/2012. Renal ultrasound 10/10/2010. TECHNIQUE: Real-time imaging of the abdominal viscera. FINDINGS: PANCREAS: Visualized portions of the pancreas are unremarkable. The pancreatic tail is obscured by bowel gas. ABDOMINAL AORTA: The proximal, mid, and distal segments are normal in caliber. INFERIOR VENA CAVA: Visualized portions are normal. LIVER: Liver is enlarged measuring 20.0 cm. The liver contour is normal. Mild diffuse increased echogenicity of liver parenchyma. No focal hepatic lesion. There is no intrahepatic biliary duct dilatation seen. GALLBLADDER: The gallbladder is physiologically distended. Multiple impacted gallstones are present. No evidence of gallbladder wall thickening or pericholecystic fluid. Positive sonographic Nelson's sign. COMMON BILE DUCT: Normal in caliber measuring 0.5 cm in diameter. RIGHT KIDNEY: Normal. No hydronephrosis. No renal calculi or focal parenchymal lesions. The kidney measures 10.4 cm in maximum dimension. LEFT KIDNEY: Normal. No hydronephrosis. No renal calculi or focal parenchymal lesions. The kidney measures 11.2 cm in maximum dimension. SPLEEN: Normal. The spleen measures 9.3 cm in maximum dimension. FREE FLUID: None. US/US abdomen complete IMPRESSION: 1. Cholelithiasis with positive sonographic Nelson's sign. No gallbladder wall thickening or pericholecystic fluid. Findings are equivocal for acute cholecystitis. 2. Hepatomegaly. Mild diffuse increased echogenicity of liver parenchyma likely reflects hepatic steatosis. The report will be called to the ordering clinician by a [facility] [employer].
== END 2022-11-14 09:07 | disposition home or self-care (01) ==
LOC: HO.US 09:06
PROVIDERS: PCP Nurse Practitioner Primary Care; Visit Provider Internal Medicine Gastroenterology
DX: R10.13 Epigastric pain (principal)
CPT/HCPCS: 76700

== ENCOUNTER 2022-12-11 11:00 | Outpatient (RCR) | payer MEDICAID, SELFPAY | END 2023-01-16 13:58 | disposition home or self-care (01) | LOC: HO.PT 11:00 | PROVIDERS: PCP Nurse Practitioner Primary Care; Visit Provider Nurse Practitioner Primary Care | DX: M17.0 Bilateral primary osteoarthritis of knee (principal) | CPT/HCPCS: 97110; 97140; 97161; 97164 ==

== ENCOUNTER 2022-12-13 10:14 | Emergency (ER) | payer MEDICAID, SELFPAY ==
--- NOTE | ~2022-12-13 | XR_ITS ---
EXAMINATION: XR CHEST CLINICAL INFORMATION: Chest pain COMPARISON: February 10, 2021 and December 10, 2020 TECHNIQUE: 2 views of the chest were obtained. FINDINGS: No significant abnormality is noted involving the heart, lungs, mediastinum, bony thorax or soft tissues. XR/XR chest 2V IMPRESSION: No acute disease.
[2022-12-13 10:30] VITALS: BP 152/87; PULSE 87; RESP 18; TEMP 36.4; O2SAT 98; BMI 46.3
--- NOTE | 2022-12-13 10:32 | ECG_ITS ---
Test Reason : cp to arm Blood Pressure : / mmHG Vent. Rate : 081 BPM Atrial Rate : 081 BPM P-R Int : 134 ms QRS Dur : 086 ms QT Int : 384 ms P-R-T Axes : 010 029 044 degrees QTc Int : 446 ms Normal sinus rhythm Normal ECG When compared with ECG of 10-DEC-2020 20:12, No significant change was found Referred By: Generic ED Physician Electronically Signed By:J CARLOS JIM
[2022-12-13 16:52] VITALS: BP 101/54; RESP 16; TEMP 36.8; O2SAT 100
--- NOTE | 2022-12-13 17:01 | ED.CHESTPAIN ---
HPI - Chest Pain General Chief Complaint: Chest Pain Stated Complaint: L Shoulder Arm Pain No Injury Time Seen by Provider: 12/13/22 16:48 Source: patient, family, RN notes reviewed and rocket engine mechanic ( interpreting services was present, but the patient preferred to use family) Mode of arrival: ambulatory Limitations: language barrier History of Present Illness HPI narrative: 52-year-old female presents for evaluation of left-sided chest pain that radiates to her left arm and shoulder. she noticed the pain initially yesterday afternoon the pain was mild and she did not do anything but went to bed and when she woke up this morning the pain was worse currently the pain is 7/10 and worse with deep breathing denies any cough, shortness of breath the patient reports that she had a history of PE approximately 2 years ago but is not currently anticoagulated denies any leg swelling Related Data Home Medications Medication Instructions Recorded Confirmed acetaminophen 500 mg capsule 1,000 mg PO Q6H PRN Pain 12/29/20 10/11/22 albuterol sulfate 90 mcg/actuation 1 inh inhalation Q4-6H PRN Wheezing 02/25/21 10/11/22 breath activated powder inhaler,sensor clonazepam 0.25 mg disintegrating 0.25 mg PO DAILY 02/25/21 10/11/22 tablet cyclobenzaprine 5 mg tablet 5 mg PO BEDTIME 02/25/21 10/11/22 etonogestrel 68 mg subdermal See Rx Instructions .Route .COMPLEX 02/25/21 10/11/22 implant (Nexplanon) topiramate 25 mg sprinkle capsule 25 mg PO DAILY 02/25/21 10/11/22 (Topamax) sumatriptan succinate 50 mg tablet 1 tab PO DAILY migraine 07/12/21 10/11/22 amlodipine 5 mg tablet 1 tab PO QAM 01/11/22 10/11/22 ferrous sulfate 325 mg (65 mg 1 tab PO BID 01/11/22 10/11/22 iron) tablet (FeroSul) cholecalciferol (vitamin D3) 50 50 mcg PO DAILY 02/01/22 10/11/22 mcg (2,000 unit) capsule (Vitamin D3) duloxetine 30 mg capsule,delayed 30 mg PO DAILY 02/01/22 10/11/22 release lidocaine 5 % topical patch 1 patch topical DAILY 02/01/22 10/11/22 (Lidoderm) calcium citrate 1 tab PO QAM 04/18/22 10/11/22 docusate sodium 100 mg capsule 1 cap PO DIRECTED 04/18/22 10/11/22 (Dulcolax Stool Softener (docusate)) prazosin 1 mg capsule (Minipress) 1 mg PO BEDTIME 04/18/22 10/11/22 cyanocobalamin (vitamin B-12) 1,000 mcg PO QPM 05/08/22 10/11/22 1,000 mcg tablet divalproex 250 mg tablet,extended 250 mg PO BID 05/08/22 10/11/22 release 24 hr gabapentin 600 mg tablet 600 mg PO TID 11/29/22 11/29/22 Previous Rx's Medication Instructions Recorded pantoprazole 40 mg tablet,delayed 40 mg PO QAM #30 tabs 05/08/22 release Allergies Allergy/AdvReac Type Severity Reaction Status Date / Time No Known Allergies Allergy Verified 11/29/22 10:29 Review of Systems Constitutional: Constitutional: Reports as per HPI, Denies chills, Denies fatigue, Denies fever(s) and Denies headache(s) ENT: Denies headache(s) Cardiovascular: Cardiovascular: Reports chest pain and Denies dyspnea Respiratory: Respiratory: Denies cough, Reports pain on inspiration and Denies dyspnea Gastrointestinal: Gastrointestinal: Denies abdominal pain, Denies constipation and Denies vomiting Genitourinary: Genitourinary: Denies dysuria Neurologic: Denies headache(s) and Denies focal weakness Endocrine: Endocrine: Denies fatigue [facility] Past Medical History Medical History (Updated 12/13/22 @ 19:58 by Peter Rizzo) Fibromyalgia Hypertension Hypertriglyceridemia STEVEN (iron deficiency anemia) Pre-diabetes Pulmonary embolism Sleep apnea Vitamin B12 deficiency Vitamin D deficiency Surgical History deliv NOS-unsp Gastric bypass status for obesity H/O hernia repair History of colonoscopy Hx of endoscopy Family History Family History Father No problems noted. Mother Stomach cancer Paternal Uncle Stomach cancer Pancreatic cancer Throat cancer Maternal Aunt Breast cancer Social History Social History Household Members: Spouse and Children Housing: House Are you a primary care tech to a significant other at home: No Do you presently have visiting nurse or other home services: No Alcohol intake: former Patient Tobacco Use Status: Current everyday Tobacco user Tobacco use type: Cigarette Cigarettes Per Day: 5 Years Smoked: 30 Advance Directives: No Advance Directives Information Provided: Yes service: No Current occupational status: unemployed Physical Exam Vital Signs: Vital Signs: Last Vital Signs Temp 98.6 F 12/13/22 18:31 Pulse 75 12/13/22 18:31 Resp 16 12/13/22 18:31 BP 111/62 12/13/22 18:31 Pulse Ox 100 12/13/22 18:31 O2 Del Method Room Air 12/13/22 18:31 BMI result Body Mass Index 46.3 Const: General: healthy appearing, comfortable, no acute distress, alert and awake Nutritional Appearance: well nourished Orientation/consciousness: patient oriented x3 HEENT: Head: Yes normocephalic and Yes atraumatic Neck: Neck: Yes full ROM Chest: Other: patient does have left anterior chest wall tenderness without crepitus or deformity Resp: Effort & Inspection: normal respiratory effort, able to speak in complete sentences, no audible wheezes and not labored Auscultation: clear to auscultation bilaterally Cardio: Rate: regular rate Rhythm: regular rhythm GI: Inspection: No distended Palpation (GI): Soft to palpation, not firm, nontender, no guarding and not rigid Auscultation: normoactive bowel sounds Skin: General skin exam: no rashes or lesions noted and elasticity normal Neuro: General: patient oriented x3 Cranial nerves: Yes Bilaterally intact EOM present Cognition (Neuro): normal cognition Course Reevaluation(s) Reevaluation #1: labs unremarkable including a negative D-dimer, the patient is stable for discharge. patient's family reports the patient has a son who was recently had leg amputation so she is helping him get around and helping lift him which may cause a left chest strain. Time: 19:57 Medical Decision Making Medical Decision Making MDM Narrative: 52-year-old female presents for evaluation of chest pain that radiates to her left arm. The pain is reminiscent of when she was diagnosed with a PE couple of years ago. We will check labs including troponin and a D-dimer. The patient has no other risk factors except for history of PE, her vital signs are stable she is not tachycardic or hypoxic. Patient's EKG is sinus rhythm at a rate of 81 beats per minute. No ischemic changes when compared to December of 2020. ACS is less likely, for troponin is negative and this is ruled out her pain started 24 hours ago. it is reassuring that her pain is reproducible on exam Differential Diagnosis chest wall pain ACS less likely PE Muscle strain Anxiety GERD Lab Data [facility] Lab Attestation statement: I reviewed the patient's lab results. 12/13/22 18:33 12/13/22 18:33 Labs: Lab Results 12/13/22 12/13/22 12/13/22 Range/Units 18:33 18:33 18:33 WBC 9.2 (4.8-10.8) X10*3/uL RBC 4.92 (4.20-5.50) X10*6/uL Hgb 11.5 L (12.0-16.0) g/dl Hct 36.2 L (37.0-47.0) % MCV 73.6 L (80.0-98.0) fL MCH 23.4 L (27.0-33.0) pg MCHC 31.8 (31.0-35.0) g/dl RDW 16.1 H (11.0-16.0) % Plt Count 508 H (160-400) X10*3/uL MPV 9.0 L (9.4-12.3) fL Immature Gran % (Auto) 0.5 H (0.0-0.4) % Neut % (Auto) 55.8 (45-73) % Lymph % (Auto) 32.5 (20-40) % [place] % (Auto) 6.1 (2-11) % Eos % (Auto) 4.3 H (0-4) % Baso % (Auto) 0.8 (0-2) % Lymph # (Auto) 3.0 (1.2-4.9) X10*3/uL [place] # (Auto) 0.6 (0.1-1.2) X10*3/uL Eos # (Auto) 0.4 (0.0-0.4) X10*3/uL Baso # (Auto) 0.1 (0.0-0.2) X10*3/uL Abs Immat Gran (auto) 0.05 H (0.00-0.03) X10*3/uL Absolute Neuts (auto) 5.2 (2.0-8.3) x10*3/uL Absolute Nucleated RBC 0.000 (0.0-0.012) X10*3/uL Nucleated RBC % (auto) 0.0 (0.0-0.2) /100WBC PT (10.0-13.1) SEC INR (0.9-1.1) APTT (26.0-36.4) SEC D-Dimer High Sensitivty 159 NG/ML Sodium 141 (135-145) mmol/L Potassium 4.3 (3.3-5.1) mmol/L Chloride 108 (96-108) mmol/L Carbon Dioxide 25 (22-29) mmol/L Anion Gap 12 (12-20) BUN 6 L (9-16) mg/dL Creatinine 0.72 (0.5-1.4) mg/dL Estim Creat Clear Calc 105.5 Estimated GFR > 60 Random Glucose 98 (60-115) mg/dL Calcium 9.4 (8.4-10.2) mg/dL Total Bilirubin 0.7 (0.0-1.0) mg/dL AST 17 (5-31) U/L ALT 20 (0-31) U/L Alkaline Phosphatase 114 (39-117) U/L Troponin I High Sens (<3.5-17.0) ng/L B-Natriuretic Peptide (<100) pg/mL Total Protein 7.1 (6.5-8.0) g/dL Albumin 3.9 (3.5-5.0) g/dL Lipase 51 (8-78) U/L 12/13/22 12/13/22 12/13/22 Range/Units 18:33 18:33 18:33 WBC (4.8-10.8) X10*3/uL RBC (4.20-5.50) X10*6/uL Hgb (12.0-16.0) g/dl Hct (37.0-47.0) % MCV (80.0-98.0) fL MCH (27.0-33.0) pg MCHC (31.0-35.0) g/dl RDW (11.0-16.0) % Plt Count (160-400) X10*3/uL MPV (9.4-12.3) fL Immature Gran % (Auto) (0.0-0.4) % Neut % (Auto) (45-73) % Lymph % (Auto) (20-40) % [place] % (Auto) (2-11) % Eos % (Auto) (0-4) % Baso % (Auto) (0-2) % Lymph # (Auto) (1.2-4.9) X10*3/uL [place] # (Auto) (0.1-1.2) X10*3/uL Eos # (Auto) (0.0-0.4) X10*3/uL Baso # (Auto) (0.0-0.2) X10*3/uL Abs Immat Gran (auto) (0.00-0.03) X10*3/uL Absolute Neuts (auto) (2.0-8.3) x10*3/uL Absolute Nucleated RBC (0.0-0.012) X10*3/uL Nucleated RBC % (auto) (0.0-0.2) /100WBC PT 11.7 (10.0-13.1) SEC INR 1.0 (0.9-1.1) APTT 26.5 (26.0-36.4) SEC D-Dimer High Sensitivty NG/ML Sodium (135-145) mmol/L Potassium (3.3-5.1) mmol/L Chloride (96-108) mmol/L Carbon Dioxide (22-29) mmol/L Anion Gap (12-20) BUN (9-16) mg/dL Creatinine (0.5-1.4) mg/dL Estim Creat Clear Calc Estimated GFR Random Glucose (60-115) mg/dL Calcium (8.4-10.2) mg/dL Total Bilirubin (0.0-1.0) mg/dL AST (5-31) U/L ALT (0-31) U/L Alkaline Phosphatase (39-117) U/L Troponin I High Sens 8.2 (<3.5-17.0) ng/L B-Natriuretic Peptide < 10 (<100) pg/mL Total Protein (6.5-8.0) g/dL Albumin (3.5-5.0) g/dL Lipase (8-78) U/L Discharge Plan Discharge Clinical Impression: Chest pain Patient Disposition: Home, Self-Care Instructions: Chest Wall Pain (ED) Additional Instructions: your workup in the emergency department today was reassuring. Your pain related to a muscle strain use ibuprofen or Tylenol for the pain and follow-up with your primary doctor Prescriptions: No Action sumatriptan succinate 50 mg tablet 1 tab PO DAILY amlodipine 5 mg tablet 1 tab PO QAM ferrous sulfate [FeroSul] 325 mg (65 mg iron) tablet 1 tab PO BID prazosin [Minipress] 1 mg Capsule 1 mg PO BEDTIME docusate sodium [Dulcolax Stool Softener (dss)] 100 mg capsule 1 cap PO DIRECTED calcium citrate 250 mg calcium tablet 1 tab PO QAM gabapentin 600 mg tablet 600 mg PO TID acetaminophen 500 mg capsule 1,000 mg PO Q6H PRN (Reason: Pain) Nexplanon 68 mg implant See Rx Instructions .ROUTE .COMPLEX Rx Instructions: unit placed in left arm. cyclobenzaprine 5 mg tablet 5 mg PO BEDTIME topiramate [Topamax] 25 mg capsule, sprinkle 25 mg PO DAILY albuterol sulfate 90 mcg/actuation aero powdr breath act w/sensor 1 inh inhalation Q4-6H PRN (Reason: Wheezing) clonazepam 0.25 mg tablet,disintegrating 0.25 mg PO DAILY cholecalciferol (vitamin D3) [Vitamin D3] 50 mcg (2,000 unit) capsule 50 mcg PO DAILY duloxetine 30 mg capsule,delayed release(DR/EC) 30 mg PO DAILY lidocaine [Lidoderm] 5 % adhesive patch,medicated 1 patch topical DAILY Rx Instructions: leave on most painful area for up to 12 hrs cyanocobalamin (vitamin B-12) 1,000 mcg tablet 1,000 mcg PO QPM divalproex 250 mg tablet extended release 24 hr 250 mg PO BID pantoprazole 40 mg tablet,delayed release (DR/EC) 40 mg PO QAM Qty: 30 3RF
[2022-12-13 18:31] VITALS: BP 111/62; PULSE 75; RESP 16; TEMP 37; O2SAT 100
[2022-12-13 18:48] LABS: MANUAL DIFF FLAG NO
[2022-12-13 18:57] LABS: Basophils Absolute Auto 0.1 X10*3/uL (0.0-0.2); Basophils Percent Auto 0.8 % (0-2); Eosinophils Absolute Auto 0.4 X10*3/uL (0.0-0.4); Eosinophils Percent Auto 4.3 % (0-4); Hematocrit 36.2 % (37.0-47.0); Hemoglobin 11.5 g/dl (12.0-16.0); Imm Gran Abs Auto 0.05 X10*3/uL (0.00-0.03); Imm Gran Pct Auto 0.5 % (0.0-0.4); Lymphocytes Percent Auto 32.5 % (20-40); Mean Corpuscular HGB Conc 31.8 g/dl (31.0-35.0); Mean Corpuscular Hemoglobin 23.4 pg (27.0-33.0); Mean Corpuscular Volume 73.6 fL (80.0-98.0); Monocytes Absolute Auto 0.6 X10*3/uL (0.1-1.2); Monocytes Percent Auto 6.1 % (2-11); Neutrophils Absolute Auto 5.2 x10*3/uL (2.0-8.3); Neutrophils Percent Auto 55.8 % (45-73); Platelet Count 508 X10*3/uL (160-400); Red Blood Count 4.92 X10*6/uL (4.20-5.50); Red Cell Distribution Width 16.1 % (11.0-16.0); White Blood Count 9.2 X10*3/uL (4.8-10.8)
[2022-12-13 19:07] LABS: Alanine Aminotransferase 20 U/L (0-31); Albumin Level 3.9 g/dL (3.5-5.0); Alkaline Phosphatase 114 U/L (39-117); Anion Gap 12 (12-20); Aspartate Amino Transferase 17 U/L (5-31); Bilirubin Total 0.7 mg/dL (0.0-1.0); Blood Urea Nitrogen 6 mg/dL (9-16); Calcium 9.4 mg/dL (8.4-10.2); Carbon Dioxide 25 mmol/L (22-29); Chloride 108 mmol/L (96-108); Creatinine Clr Calc Pharmacy 105.5; Estimated Glomerular Filt Rate > 60; Glucose Random 98 mg/dL (60-115); Lipase 51 U/L (8-78); Potassium 4.3 mmol/L (3.3-5.1); Sodium 141 mmol/L (135-145); Total Protein 7.1 g/dL (6.5-8.0)
[2022-12-13 19:08] LABS: Prothrombin Time 11.7 SEC (10.0-13.1)
[2022-12-13 19:11] LABS: D Dimer High Sensitivity 159 NG/ML; Partial Thromboplastin Time 26.5 SEC (26.0-36.4)
[2022-12-13 19:14] LABS: B Type Natriuretic Peptide < 10 pg/mL (<100)
[2022-12-13 19:15] LABS: Troponin-I High Sensitivity 8.2 ng/L (<3.5-17.0)
[2022-12-13 20:05] VITALS: BP 130/71; PULSE 76; RESP 17; TEMP 37.1; O2SAT 97
== END 2022-12-13 20:06 | disposition home or self-care (01) ==
PROVIDERS: Physician Assistant; Emergency Provider Internal Medicine; PCP Nurse Practitioner Primary Care
DX: R07.9 Chest pain, unspecified (principal); R06.02 Shortness of breath; F17.210 Nicotine dependence, cigarettes, uncomplicated; Z79.899 Other long term (current) drug therapy
CPT/HCPCS: 36415; 71046; 80053; 83690; 83880; 84484; 85025; 85379; 85610; 85730; 93005; 99283; 99284

== ENCOUNTER → 2022-12-27 10:58 | Outpatient (BNVA) | payer MEDICAID, SELFPAY | PROVIDERS: PCP Nurse Practitioner Primary Care; Visit Provider Surgery | DX: K80.20 Calculus of gallbladder without cholecystitis without obstruction (principal); K43.9 Ventral hernia without obstruction or gangrene; E66.01 Morbid (severe) obesity due to excess calories; Z68.42 Body mass index [BMI] 45.0-49.9, adult; Z98.84 Bariatric surgery status | CPT/HCPCS: 99202 ==

== ENCOUNTER 2023-02-19 12:43 | Outpatient (REF) | payer MEDICAID, SELFPAY ==
--- NOTE | ~2023-02-19 | MM_ITS ---
EXAMINATION: MM SCREENING DIGITAL BREAST TOMOSYNTHESIS, BILATERAL CLINICAL INFORMATION: Screening. Asymptomatic. The lifetime risk of breast cancer based on the Tyrer-Cuzick Model is 10.2%. COMPARISON: Mammography: This study is compared with prior exams dating back to 2018. TECHNIQUE: Digital breast tomosynthesis is performed in both the craniocaudal and mediolateral oblique views along with computer-aided detection (CAD). Synthesized 2D images are generated from the tomosynthesis. FINDINGS: The breasts are almost entirely fatty (ACR BI-RADS breast composition Category a). There are no significant masses, abnormal calcifications, or other abnormalities. MM/MM tomosynthesis screening BI IMPRESSION: No mammographic evidence of malignancy. ASSESSMENT: BI-RADS BI-RADS 1 - Negative RECOMMENDATION: Routine annual mammography screening. 1 year F/U This examination should not preclude the clinical evaluation of a suspicious palpable abnormality. This patient's information was entered into a reminder system with a target due date for their next mammogram.
== END 2023-02-19 12:44 | disposition home or self-care (01) ==
LOC: HO.MAMMO 12:43
PROVIDERS: PCP Nurse Practitioner Primary Care; Visit Provider Registered Nurse
DX: Z12.31 Encounter for screening mammogram for malignant neoplasm of breast (principal)
CPT/HCPCS: 77063; 77067

== ENCOUNTER → 2023-02-19 13:45 | Outpatient (BNV) | payer MEDICAID, SELFPAY | PROVIDERS: PCP Nurse Practitioner Primary Care; Visit Provider Radiology Diagnostic Radiology | DX: Z12.31 Encounter for screening mammogram for malignant neoplasm of breast (principal) | CPT/HCPCS: 77063; 77067 ==

== ENCOUNTER 2023-03-13 11:06 | Outpatient (REF) | payer MEDICAID, SELFPAY | END 2023-03-13 11:07 | disposition home or self-care (01) | LOC: HO.MDS 11:06 | PROVIDERS: Visit Provider Internal Medicine | DX: D50.8 Other iron deficiency anemias (principal) | CPT/HCPCS: 96365; J1756 ==

== ENCOUNTER 2023-03-22 02:00 | Outpatient (REF) | payer MEDICAID, SELFPAY | END 2023-03-22 02:01 | disposition home or self-care (01) | LOC: HO.MDS 02:00 | PROVIDERS: Visit Provider Internal Medicine | DX: D50.8 Other iron deficiency anemias (principal) | CPT/HCPCS: 96365; J1756 ==

== ENCOUNTER 2023-03-23 11:26 | Outpatient (AMB) | payer MEDICAID, SELFPAY ==
--- NOTE | 2023-03-23 11:29 | MHC.OFFVIS ---
Intake Vital Signs 03/23/23 11:33 Height 5 ft 1 in Weight 245 lb BMI 46.3 BP 133/67 Blood Pressure Location Lt brachial Position Sitting Pulse 90 Intake Visit Reasons: 4 month follow up Intake Note: Patient follow up for epigastric pain. Patient cc: abdominal pain, acid reflex and between diarrhea and constipation. Denies any other GI issues. Jack Machine Operator Required: Yes Jack Machine Operator Name: [facility] interpeter Accompanied by: Self / Same As Patient Allergies No Known Allergies Allergy (Verified 03/23/23 11:29) HPI 4 month follow up HPI Details 52 yr old f here for f/u ? RECAP: ? She had labs 02/2019 with HGB 11, and iron sat 5 %, ferritin 35. Hx of gastric bypass ? 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 work up ongoing with hematology, on xarelto ? grand dad and paternal and mother uncle with stomach cancer ? she also has heavy periods ? never had EGD or colonoscopy ? denied abdo pain unless eats rice or overeats in epigastrium ? [employer] shows h pylori in past, but she doesn;t knwo anything about it ? EGD/colonoscopy; diverticulosis, hemerrhoids with red wood, polyp, atrophic gastritis, mild esophagitis, bx:::mild chronic gastritis, no h pylori ? capsule-- normal ? (rept colon in 2-3 yrs due to fair prep) ? ? ? labs: 02/2020 ? HGB 10.4 ? MCV--72.8 ? plts: 458 ? iron sat 5% ? I reviewed results with her, and she was going to see enterprise application architect for menorrhagia, ? endorses heavy periods, clots, uses 5-6/day pads for 13 days! ? was on iron supplements ? ? ? labs:03/2020 ? HGB- 10 ? MCV 72 ? pls 451 ?? ? labs: 07/2020 HGB 13.5 plt 317 wcc 6.7 I placed her on tranexamic acid whilst she was awaiting enterprise application architect review, she felt this helped reduce her heavy periods and was improved after she stopped xarelto for PTE I increased her PPI dose to pantoprazole 40 mg daily due to upset stomach, possibly related to her grandmothers but she stopped this as her heartburn improved GES 07/26: rapid emptying EGD/colo: 10/2022 Endoscopy Findings: gastritis 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 s/p sleeve gastrectomy Colonoscopy Findings: internal hemorrhoids path: moderate inflammation stomach, GEJ inflammation ?INTERIM: She has ongoing crampy upper abd pains, epigastrium and RUQ worse with greasy foods, appetite and weight are stable no blood in stool, no melena she is getting IV iron due to anemia from periods EXAM: GENERAL: The patient is well developed and nontoxic. VITAL SIGNS:see workflow HEENT: Nonicteric sclerae, PERRLA, EOMI. Oropharynx red. Moist mucous membranes. Conjunctivae appear well perfused. No thyroid mass. CHEST: Chest wall is nontender. HEART: Regular rate and rhythm without murmurs. LUNGS: Clear to auscultation bilaterally. ABDOMEN: Soft, positive bowel sounds, tender RUQ, no organomegaly.no flank tenderness SKIN: No rash, no excessive bruising, petechiae, or purpura. NEUROLOGIC: Cranial nerves II-XII intact without motor/sensory deficit. ? Assessment & Plan 1/ Gastritis, ran out of PPI-was helping 2/ Abdominal pain, suspected 2/2 gallstones ? Plan: 1/ Reviewed Dr Neil note, still not had CT_-will talk to his office about it 2/ refilled on PPI 3/ advised on low fat diet, in interim [facility] Medical History Fibromyalgia Hypertension Hypertriglyceridemia STEVEN (iron deficiency anemia) Morbid obesity Pre-diabetes Pulmonary embolism Sleep apnea Ventral hernia Vitamin B12 deficiency Vitamin D deficiency Surgical History deliv NOS-unsp Gastric bypass status for obesity H/O hernia repair History of colonoscopy Hx of endoscopy Family History Father No problems noted. Mother Stomach cancer Paternal Uncle Stomach cancer Pancreatic cancer Throat cancer Maternal Aunt Breast cancer Social History Household Members: Spouse and Children Housing: House Are you a primary transitional care manager to a significant other at home: No Do you presently have visiting nurse or other home services: No Alcohol intake: former Patient Tobacco Use Status: Current everyday Tobacco user Tobacco use type: Cigarette Cigarettes Per Day: 5 Years Smoked: 30 service: No Current occupational status: unemployed Female Reproductive History Menstrual Age of Menarche: 10 Physical Exam Vital Signs: Last Vital Signs Pulse 90 03/23/23 11:33 BP 133/67 03/23/23 11:33 BMI result Body Mass Index 46.3 Assessment & Plan Assessment & Plan (1) Gallstone: Code(s): K80.20 - Calculus of gallbladder without cholecystitis without obstruction (2) Epigastric abdominal pain: Code(s): R10.13 - Epigastric pain Medications: Refilled pantoprazole 40 mg PO QAM 90 tabs 3RF Coding Level of Care Code Est Pt Level 3 (73139) Diagnoses Gallstone K80.20 Epigastric abdominal pain R10.13
[2023-03-23 11:33] VITALS: BP 133/67; PULSE 90; BMI 46.3
== END 2023-03-23 12:05 | disposition home or self-care (01) ==
PROVIDERS: PCP Nurse Practitioner Primary Care; Visit Provider Internal Medicine Gastroenterology
DX: K80.20 Calculus of gallbladder without cholecystitis without obstruction (principal); R10.13 Epigastric pain
CPT/HCPCS: 99213

== ENCOUNTER → 2023-03-23 11:26 | Outpatient (BNVA) | payer MEDICAID, SELFPAY | PROVIDERS: PCP Nurse Practitioner Primary Care; Visit Provider Internal Medicine Gastroenterology | DX: K80.20 Calculus of gallbladder without cholecystitis without obstruction (principal); R10.13 Epigastric pain | CPT/HCPCS: 99212 ==

== ENCOUNTER 2023-03-29 13:40 | Outpatient (REF) | payer MEDICAID, SELFPAY | END 2023-03-29 13:41 | disposition home or self-care (01) | LOC: HO.MDS 13:40 | PROVIDERS: Visit Provider Internal Medicine | DX: D50.8 Other iron deficiency anemias (principal) | CPT/HCPCS: 96365; J1756 ==

== ENCOUNTER 2023-05-01 09:15 | Outpatient (REF) | payer MEDICAID, SELFPAY ==
--- NOTE | ~2023-05-01 | CT_ITS ---
EXAMINATION: CT ABDOMEN AND PELVIS WITHOUT CONTRAST CLINICAL INFORMATION: Ventral hernia without obstruction or gangrene. COMPARISON: CT abdomen and pelvis 07/15/2012. TECHNIQUE: Multidetector volumetric imaging was performed from the superior aspect of the liver through the pubic symphysis. Sagittal and coronal reformatted images were obtained on the technologist's workstation. This CT examination was performed using dose optimization techniques as appropriate, variously including the following: *Automated exposure control *Adjustment of mA and/or kV according to patient size (this includes techniques or standardized protocols for targeted exams where dose is matched to indication/reason for exam; i.e. extremities or head) *Use of iterative reconstruction technique DLP: 798 mGy-cm FINDINGS: LUNG BASES: The visualized lung bases are unremarkable. LIVER, GALLBLADDER, AND BILIARY TREE: The liver is normal in size, shape, and attenuation. No focal hepatic lesion or biliary ductal dilatation is present. Cholelithiasis. PANCREAS: No discrete pancreatic mass. No ductal dilatation. SPLEEN: Normal ADRENAL GLANDS: No adrenal mass. KIDNEYS AND URETERS: Punctate nonobstructing calculus in the lower pole of the left kidney. No focal renal lesion. No hydroureteronephrosis. BLADDER: Unremarkable. GASTROINTESTINAL TRACT: Sleeve gastrectomy. The small bowel is normal in caliber. The appendix appears normal. The large bowel is unremarkable. ABDOMINAL WALL: The patient has undergone ventral hernia repair since the prior study of 07/15/2012. There is a questionable small fat-containing periumbilical hernia. Nonspecific soft tissue nodule in the subcutaneous fat 1.2 x 1.1 cm in size an approximately 2.3 cm above the umbilicus. This could possibly represent a suture granuloma given the presence of prior surgery. Clinical correlation is necessary. LYMPH NODES: No adenopathy. VASCULAR: No aortic aneurysm. Minimal aortoiliac atherosclerosis. Duplicated infrarenal IVC. PELVIC VISCERA: Unremarkable. OSSEOUS STRUCTURES: Degenerative changes in the spine. CT/CT abdomen pelvis wo IV con IMPRESSION: Previous ventral hernia repair. Questionable small fat-containing periumbilical hernia. Nonspecific 1.2 cm soft tissue nodule in the subcutaneous fat 2 cm above the umbilicus. This may represent a suture granuloma given the presence of prior surgery. Clinical correlation is necessary. Fleischner guidelines were followed.
== END 2023-05-01 09:16 | disposition home or self-care (01) ==
LOC: HO.CT 09:15
PROVIDERS: PCP Nurse Practitioner Primary Care; Visit Provider Surgery
DX: K43.9 Ventral hernia without obstruction or gangrene (principal)
CPT/HCPCS: 74176

== ENCOUNTER 2023-05-10 10:01 | Outpatient (AMB) | payer MEDICAID, SELFPAY ==
--- NOTE | 2023-05-10 10:12 | MHC.OFFVIS ---
Intake Intake Visit Reasons: Ct-Scan follow-up Intake Note: This patient presents for a follow-up assessment for Ct-Scan results. Patient c/o; reports no changes. Swimming Pool Installer And Servicer Required: Yes Swimming Pool Installer And Servicer Language: Filling Machine Operator Name: Melva Information Interpreted: non-clinical & clinical Accompanied by: Self / Same As Patient Allergies No Known Allergies Allergy (Verified 05/10/23 10:17) Medication List - Last Reconciled 05/10/23 by Anmol Neil MD acetaminophen 1,000 mg PO Q6H PRN albuterol sulfate 90 mcg/actuation 1 inh inhalation Q4-6H PRN amlodipine 1 tab PO QAM calcium citrate 1 tab PO QAM cholecalciferol (vitamin D3) (Vitamin D3) 50 mcg PO DAILY clonazepam 0.25 mg PO DAILY cyanocobalamin (vitamin B-12) 1,000 mcg PO QPM cyclobenzaprine 5 mg PO BEDTIME divalproex ER 250 mg PO BID docusate sodium (Dulcolax Stool Softener (docusate)) 1 cap PO DIRECTED duloxetine 30 mg PO DAILY etonogestrel (Nexplanon) unit placed in left arm. ferrous sulfate (FeroSul) 1 tab PO BID gabapentin 600 mg PO TID lidocaine 5% (Lidoderm) 1 patch topical DAILY pantoprazole 40 mg PO QAM prazosin (Minipress) 1 mg PO BEDTIME sumatriptan succinate 1 tab PO DAILY topiramate (Topamax) 25 mg PO DAILY HPI Ct-Scan follow-up HPI Details I had seen her last Dec, 2022 because of what she felt was a recurrence of her incisional hernia on the area above the umbilicus. She has a history of gastric bypass surgery and had hernia surgeries thereafter. She felt that she had recurrence of this hernia as she was having some pain on that area periodically I had sent her for a CT scan therefore to evaluate this. She says she continues to have that periodic pain localized on the same area with some induration. She denies GI complaints. She also had noted to have gallstones but she states that she does not have any issues with regards to the right upper quadrant. [facility] Medical History (Updated 04/17/23 @ 11:50 by [employer] [place]) Ventral hernia Morbid obesity Hypertension Fibromyalgia Vitamin D deficiency Pre-diabetes Hypertriglyceridemia Vitamin B12 deficiency Sleep apnea STEVEN (iron deficiency anemia) Pulmonary embolism Surgical History H/O hernia repair Gastric bypass status for obesity deliv NOS-unsp Hx of endoscopy History of colonoscopy Family History Father No problems noted. Mother Stomach cancer Paternal Uncle Stomach cancer Pancreatic cancer Throat cancer Maternal Aunt Breast cancer Social History Household Members: Spouse and Children Housing: House Are you a primary ocular care technician to a significant other at home: No Do you presently have visiting nurse or other home services: No Alcohol intake: former Patient Tobacco Use Status: Current everyday Tobacco user Tobacco use type: Cigarette Cigarettes Per Day: 5 Years Smoked: 30 service: No Current occupational status: unemployed Female Reproductive History Menstrual Age of Menarche: 10 Review of Systems Const Denies chills and Denies fever(s) Card Denies chest pain Resp Denies cough GI Denies nausea and Denies vomiting Denies post void dribbling Physical Exam Const Other: Morbidly obese General: comfortable and no acute distress Resp Effort & Inspection: normal respiratory effort Cardio Rate: regular rate GI Other: Obese, Palpation (GI): Soft to palpation, not firm, nontender (Some tenderness on the area about the umbilicus with no obvious hernia or f) and no guarding Assessment & Plan Assessment & Plan (1) Ventral hernia: Code(s): K43.9 - Ventral hernia without obstruction or gangrene Plan: I have reviewed her CAT scan this does not reveal any recurrent hernia on the area just above the umbilicus. There was note of what may be a suture granuloma on this area however. I explained to her that she does not require any surgery at this time for this area of her previous hernia repair. (2) Gallstone: Code(s): K80.20 - Calculus of gallbladder without cholecystitis without obstruction Plan: She does have a known history of gallstones. She says she does not have any problems with the right upper quadrant this time. I did tell her that if this becomes symptomatic, she will benefit from cholecystectomy. She does have morbid obesity after previous bypass surgery. She says she is actually interested in an intragastric balloon device for weight loss and she is waiting for a call back from the weight management clinic for this. Coding Level of Care Code Est Pt Level 3 (33069) Diagnoses Ventral hernia K43.9 Gallstone K80.20
== END 2023-05-10 10:27 | disposition home or self-care (01) ==
PROVIDERS: PCP Nurse Practitioner Primary Care; Visit Provider Surgery
DX: K43.9 Ventral hernia without obstruction or gangrene (principal); K80.20 Calculus of gallbladder without cholecystitis without obstruction
CPT/HCPCS: 99213

== ENCOUNTER → 2023-05-10 10:01 | Outpatient (BNVA) | payer MEDICAID, SELFPAY | PROVIDERS: PCP Nurse Practitioner Primary Care; Visit Provider Surgery | DX: K43.2 Incisional hernia without obstruction or gangrene (principal); K80.20 Calculus of gallbladder without cholecystitis without obstruction; Z98.84 Bariatric surgery status | CPT/HCPCS: 99212 ==

== ENCOUNTER 2023-05-30 10:25 | Outpatient (AMB) | payer MEDICAID, SELFPAY ==
--- NOTE | 2023-05-30 10:38 | MHC.OFFVIS ---
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 She is doing well with no concerns. Confirms hot flashes. Attempting to eat a healthy diet with calcium and vitamin D and stays active with exercise walking and going up and down stairs. Currently sexually active. Denies any vaginal dryness or irritation. STI testing offered; she accepts. Last pap smear; 02/01/2022. Last mammogram; 02/19/2023. Colonoscopy is UTD. Denies any family history of breast, ovarian or colon cancer. Confirms a history of smoking. Patient has a significant medical history of a pulmonary embolism in 12/18/2018. She was prescribed Xarelto but is not longer taking it. She reports bleeding for one month and then two months with no bleeding. She does not want to remove the Nexplanon due to concerns for getting . During the time the Nexplanon was she confirms longer bleeding patterns lasting for about 10 days. Since reinsertion of the Nexplanon she is not bleeding. Confirms weight gain with the Nexplanon. Confirms hot flashes. Reports chronic pain on the right lower quadrant pain. [facility] Medical History Ventral hernia Morbid obesity Hypertension Fibromyalgia Vitamin D deficiency Pre-diabetes Hypertriglyceridemia Vitamin B12 deficiency Sleep apnea STEVEN (iron deficiency anemia) Pulmonary embolism Surgical History H/O hernia repair Gastric bypass status for obesity deliv NOS-unsp Hx of endoscopy History of colonoscopy Family History Father No problems noted. Mother Stomach cancer Paternal Uncle Stomach cancer Pancreatic cancer Throat cancer Maternal Aunt Breast cancer Paternal Aunt Breast cancer Paternal Uncle Stomach cancer Maternal Grandmother Colon cancer Social History Household Members: Spouse and Children Housing: House Are you a primary rn progressive care unit to a significant other at home: No Do you presently have visiting nurse or other home services: No Alcohol intake: former Patient Tobacco Use Status: Current everyday Tobacco user Tobacco use type: Cigarette Cigarettes Per Day: 5 Years Smoked: 30 service: No Current occupational status: unemployed Sexual orientation: Straight/Heterosexual Gender identity: Female Female Reproductive History Menstrual Age of Menarche: 10 control method: implanted (Nexplanon 05/27) Total pregnancies: 5 Full term: 3 Number of Living Children: 3 Ab spontaneous: 2 Date of last pap smear: 02/01/22 (neg pap and hpv) Date of Mammogram: 02/19/23 (Birad 1) Review of Systems Const All systems reviewed & are unremarkable except as noted in HPI and below GI Reports abdominal pain (right lower quadrant) Reports other (small irritation lower left labia) Physical Exam Vital Signs: Last Vital Signs BP 122/80 05/30/23 10:39 BMI result Body Mass Index 44.6 Const General: cooperative, healthy appearing, no acute distress, well developed and alert Nutritional Appearance: obese (rounded) Orientation/consciousness: patient oriented x3 HEENT Head: Yes normal to inspection Eyes General: appearance normal, both eyes and all related structures Neck Neck: Yes normal visual inspection Thyroid: Thyroid normal Chest Chest palpation & inspection: normal inspection of the chest Breast/axilla inspection: normal inspection of the breasts (no puckering, dimpling, peau de orange, retraction, discharge, masses) Breast/axilla palpation: normal palpation of the breasts Resp Effort & Inspection: normal respiratory effort GI Inspection: Yes normal to inspection Palpation (GI): Soft to palpation Rectal Exam - Female: deferred General: Yes bladder normal to inspection and Yes bladder normal to palpation External Female Exam: normal external appearance and normal appearance of the urethra Speculum Exam - Vagina: normal appearance of the vagina, normal palpation and other (left lower labia small divot on the skin) Speculum Exam - Cervix: normal palpation Bimanual exam- vagina & uterus: normal bimanual exam, normal palpation, uterine size normal, bladder normal to palpation and normal palpation Bimanual Exam- Adnexa, other: normal adnexae and no masses Skin General skin exam: no rashes or lesions noted Neuro General: patient oriented x3 Cognition (Neuro): normal cognition Extrem General: Yes normal to inspection Psych Attitude: cooperative Thought process: Normal thought process present Assessment & Plan Assessment & Plan (1) Encounter for annual routine gynecological examination: Code(s): Z01.419 - Encounter for gynecological examination (general) (routine) without abnormal findings Plan: STD blood work ordered. Await results and treat accordingly. We discussed a warm compress to be applied to the lower left labia for the small divot noted on exam. ANNUAL: Discussed: Current recommendations for pap smears per ASCCP guidelines. Breast awareness and periodic self breast exams. Encouraged yearly mammograms. Maintaining a healthy lifestyle including a well balanced diet including Calcium and Vitamin D and routine exercise. Contact office with any PMB. All of her questions and concerns were addressed to the best of my ability. She will return in one year for AG. (2) Hot flashes: Code(s): R23.2 - Flushing Plan: Counseled on hot flashes. Discussed work up including FSH and TSH. She is agreeable and will have workup done. Avoid spicy foods and alcohol. Wear light, layered clothing. Sleep with fan on. Can also try a cooling pillow or mattress. Stay well hydrated. Return in 1-2 weeks for test results. (3) Pelvic pain: Code(s): R10.2 - Pelvic and perineal pain Plan: Discussed work up including pelvic US. She agrees to have work up done. Pelvic US ordered. Will await results and treat accordingly. Instructed to go to ER with any increased pain. Can take Tylenol and use heating pad prn for pain. Return in 2 weeks for test results. Orders: Orders Follicle Stimulating Hormone Today R23.2 - Flushing Syphilis Screen Today Z20.2 - Contact with and (suspected) exposure to infections with a predominantly sexual mode of transmission Bacterial Vaginosis Panel Today R10.2 - Pelvic and perineal pain CT NG by PCR Today R10.2 - Pelvic and perineal pain Thyroid Stimulating Hormone Today R23.2 - Flushing US pelvic and transvaginal Today R10.2 - Pelvic and perineal pain Hepatitis C Antibody Today Z20.2 - Contact with and (suspected) exposure to infections with a predominantly sexual mode of transmission Hepatitis B Core Antibody Today Z20.2 - Contact with and (suspected) exposure to infections with a predominantly sexual mode of transmission HIV Ab/Ag Today Z20.2 - Contact with and (suspected) exposure to infections with a predominantly sexual mode of transmission Coding Level of Care Code Est Pt Prev Care 40-64y(32919) Diagnoses Encounter for annual routine gynecological examination Z01.419 Hot flashes R23.2 Pelvic pain R10.2
[2023-05-30 10:39] VITALS: BP 122/80; BMI 44.6
== END 2023-05-30 11:26 | disposition home or self-care (01) ==
PROVIDERS: PCP Nurse Practitioner Primary Care; Visit Provider Advanced Practice Midwife
DX: Z01.419 Encounter for gynecological examination (general) (routine) without abnormal findings (principal); R23.2 Flushing; R10.2 Pelvic and perineal pain
CPT/HCPCS: 99396

== ENCOUNTER 2023-05-30 10:25 | Outpatient (REF) | payer MEDICAID, SELFPAY ==
[2023-05-30 13:04] LABS: HBc Num1 0.09 S/CO (0.00-0.79); HIV AB/AG Nonreactive (Nonreactive); HIV Num 1 0.04 S/CO (0.00-0.99); Hepatitis B Core Antibody Nonreactive (Nonreactive); ~HepC Num1 0.06 S/CO (0.00-0.79); ~Hepatitis C Antibody Nonreactive (Nonreactive)
[2023-05-30 13:06] LABS: Syphilis Screen Nonreactive (Nonreactive)
[2023-05-30 18:46] LABS: CT PCR NOT DETECTED (Not Detect.); NG PCR NOT DETECTED (Not Detect.)
[2023-05-31 13:38] LABS: BV Int Neg Control Negative (Negative); BV Int Pos Control Positive (Positive)
[2023-06-01 08:14] LABS: Follicle Stimulating Hormone 19.4 mIU/mL
== END 2023-05-30 10:26 | disposition home or self-care (01) ==
LOC: HO.LAB 10:25
PROVIDERS: PCP Nurse Practitioner Primary Care; Visit Provider Advanced Practice Midwife
DX: Z01.419 Encounter for gynecological examination (general) (routine) without abnormal findings (principal); R10.2 Pelvic and perineal pain; R23.2 Flushing; Z20.2 Contact with and (suspected) exposure to infections with a predominantly sexual mode of transmission
CPT/HCPCS: 0353U; 36415; 83001; 86704; 86780; 86803; 87389; 87480; 87510; 87660; 99396

== ENCOUNTER 2023-05-30 11:34 | Outpatient (REF) | payer MEDICAID, SELFPAY | END 2023-05-30 11:35 | disposition home or self-care (01) | LOC: HO.LNP 11:34 | PROVIDERS: Visit Provider Advanced Practice Midwife | DX: Z13.89 Encounter for screening for other disorder (principal) ==

== ENCOUNTER 2023-06-20 10:46 | Outpatient (REF) | payer MEDICAID, SELFPAY ==
--- NOTE | ~2023-06-20 | US_ITS ---
EXAMINATION: US PELVIC AND TRANSVAGINAL CLINICAL INFORMATION: Pelvic and perineal pain COMPARISON: CT abdomen and pelvis 05/01/2023. TECHNIQUE: Ultrasound of the pelvis is performed using both transabdominal and transvaginal transducers along with Doppler. Transvaginal imaging is performed due to inadequate visualization transabdominally. FINDINGS: Uterus: The uterus is anteverted and measures 11.1 x 3.5 x 4.3 cm for a volume of 87.5 mL. The double wall endometrial thickness is 5 mm. The uterus is smooth in contour and has normal myometrial echogenicity. No visible fibroid. Nabothian cysts are present. Trace fluid is present in the endocervical canal. Adnexa: Both ovaries are visualized. There is normal color flow to the adnexa. There is no ovarian torsion. There is no pelvic ascites or fluid collection. Right ovary measures 3.2 x 1.9 x 1.2 cm for a volume of 3.8 mL. Left ovary measures 2.4 x 1.8 x 1.0 cm for a volume of 2.3 mL. US/US pelvic and transvaginal IMPRESSION: Negative study.
== END 2023-06-20 10:47 | disposition home or self-care (01) ==
LOC: HO.US 10:46
PROVIDERS: PCP Nurse Practitioner Primary Care; Visit Provider Advanced Practice Midwife
DX: R10.2 Pelvic and perineal pain (principal)
CPT/HCPCS: 76830; 76856

== ENCOUNTER 2023-07-06 11:04 | Outpatient (AMB) | payer MEDICAID, SELFPAY ==
[2023-07-06 11:05] VITALS: BP 112/76; BMI 44.6
--- NOTE | 2023-07-06 11:05 | MHC.OFFVIS ---
Intake Vital Signs 07/06/23 11:05 Height 5 ft 1 in Weight 235 lb 14.314 oz BMI 44.6 BP 112/76 Intake Visit Reasons: US follow up/ Follow up Hydropress Operator Required: Yes Hydropress Operator Language: [employer] Director Name: Rosa ANN Information Interpreted: non-clinical & clinical Air Valve Mechanic: Air Valve Mechanic Present Accompanied by: Self / Same As Patient Allergies No Known Allergies Allergy (Verified 07/06/23 11:06) Is last menstrual period known: No (Nexplanon) HPI HPI Comments History of Present Illness Details Patient is here for an ultrasound follow-up due to right lower quadrant pain intermittently. She has a Nexplanon implant which is placed low near the axillary area she states it did not migrate anywhere, it is where it was placed. History of mother and brother thromboembolic disorders. She has a known history of pulmonary embolus. [facility] Medical History Ventral hernia Morbid obesity Hypertension Fibromyalgia Vitamin D deficiency Pre-diabetes Hypertriglyceridemia Vitamin B12 deficiency Sleep apnea STEVEN (iron deficiency anemia) Pulmonary embolism Surgical History H/O hernia repair Gastric bypass status for obesity deliv NOS-unsp Hx of endoscopy History of colonoscopy Family History (Updated 07/06/23 @ 13:37 by Rosa Oliver [facility]) Father No problems noted. Mother Stomach cancer Blood disorder Paternal Uncle Stomach cancer Pancreatic cancer Throat cancer Maternal Aunt Breast cancer Paternal Aunt Breast cancer Paternal Uncle Stomach cancer Maternal Grandmother Colon cancer Brother Blood disorder Social History Household Members: Spouse and Children Housing: House Are you a primary child day care provider to a significant other at home: No Do you presently have visiting nurse or other home services: No Alcohol intake: former Patient Tobacco Use Status: Current everyday Tobacco user Tobacco use type: Cigarette Cigarettes Per Day: 5 Years Smoked: 30 service: No Current occupational status: unemployed Sexual orientation: Straight/Heterosexual Gender identity: Female Female Reproductive History Menstrual Age of Menarche: 10 control method: implanted Review of Systems ENT Reports no additional complaints Neuro Reports no additional complaints Psych Reports no additional complaints Endo Reports no additional complaints Physical Exam Vital Signs: Last Vital Signs BP 112/76 07/06/23 11:05 BMI result Body Mass Index 44.6 Extrem Other: Nexplanon implants found in the upper inner left humerus area near sulcus, closer to the axillary region. Office Procedures Contraception Insert/Removal Details Details: The patient is here today for a Nexplanon insertion. She was counseled regarding the risks and benefits for the Nexplanon device. She denies any risks to . Anticipatory guidance for the insertion procedure was reviewed. The urine test is negative. The consent form was signed and the patient request that the Nexplanon device be removed today. Insert X plan on removal Nexplanon Removal Procedure: The patient was placed in a supine position with her non dominant left hand resting under her head. The insertion site was located: 8-10cm from the medial epicondyle notch of the humerus, posterior to the sulcus, between the triceps and biceps muscle. The area of the previous implant was identified and the distal tip located. This area was cleansed with an alcohol prep and 1 ml of 1% Lidocaine on a 25 gauge needle and syringe was utilized for adequate anesthesia to the insertion site. After ascertaining adequate anesthesia, the area was prepped with Betadine solution. The skin over the distal tip was incised with a #11 blade scalpel and the capsule was located and entered freeing the implant from the canal. The implant was removed with a gentle tug using a mosquito clamp and removed intact. Direct pressure was applied to the insertion site for hemostasis, minimal bleeding was observed. Steri strips, Tegaderm covering, gauze pads, and Anastasiia wrap dressing were secured with paper tape. The patient tolerated the procedure well and left the office in good condition. Nexplanon Post-insertion Care: You can expect mild tenderness, swelling, and bruising from the area. If no allergies, you may use a mild over the counter analgesic like Tylenol or Advil (follow the manufacturers recommendations on dosing and frequency of use). Call the office if any symptoms and including: fever (over 100.4), flu like symptoms, signs of infection-redness, pus drainage, pain (beyond usual healing), for any medical changes, suspected , heavy or prolonged vaginal bleeding Use a back up method of contraception. Keep the pressure dressing on and clean and dry for 24 hours, then remove it. You may take the steri strips and Tegaderm off in 5-7days, or sooner if peeling off on its own. [address]195 - Removal Results Reviewed Results Reviewed: [address] [address] Ultrasound Report Signed Patient: Barb Conklin MR#: [id number] : 1970 Acct:[id number] Age/Sex: 52 / F ADM Date: 06/20/23 Loc: HO.US Attending Dr: Narda Byrd CNM Ordering Physician: Narda Byrd CNM Date of Service: 06/20/23 Procedure(s): US pelvic and transvaginal Accession Number(s): [id number] cc: Narda Byrd CNM; CAROLINA BAILEY NP~ EXAMINATION: US PELVIC AND TRANSVAGINAL CLINICAL INFORMATION: Pelvic and perineal pain COMPARISON: CT abdomen and pelvis 05/01/2023. TECHNIQUE: Ultrasound of the pelvis is performed using both transabdominal and transvaginal transducers along with Doppler. Transvaginal imaging is performed due to inadequate visualization transabdominally. FINDINGS: Uterus: The uterus is anteverted and measures 11.1 x 3.5 x 4.3 cm for a volume of 87.5 mL. The double wall endometrial thickness is 5 mm. The uterus is smooth in contour and has normal myometrial echogenicity. No visible fibroid. Nabothian cysts are present. Trace fluid is present in the endocervical canal. Adnexa: Both ovaries are visualized. There is normal color flow to the adnexa. There is no ovarian torsion. There is no pelvic ascites or fluid collection. Right ovary measures 3.2 x 1.9 x 1.2 cm for a volume of 3.8 mL. Left ovary measures 2.4 x 1.8 x 1.0 cm for a volume of 2.3 mL. US/US pelvic and transvaginal IMPRESSION: Negative study. Assessment & Plan Assessment & Plan (1) Encounter to discuss test results: Code(s): Z71.2 - Person consulting for explanation of examination or test findings Plan: Patient was counseled about risks of control category 3 per CDC guidelines. She opts to have the Nexplanon implant removed. She agrees to have an FSH drawn after 7 days of removal. And will return to the office for plan of care. Observe for bleeding at this time. (2) Nexplanon removal: Code(s): Z30.46 - Encounter for surveillance of implantable subdermal contraceptive Plan: See procedure note. Plan Options if needed for BC would include ParaGard. Obtain FSH in 7-10 days. Patient scheduled for follow-up in 2 weeks. All of her questions and concerns were addressed to the best of my ability and shared decision making. She is agreeable to the plan of care. Orders: Orders Follicle Stimulating Hormone Today R23.2 - Flushing Coding Level of Care Code Procedure Only Diagnoses Encounter to discuss test results Z71.2 Nexplanon removal Z30.46 CPT Codes Details - Contraception: 13416 - Removal ([id number])
== END 2023-07-06 12:27 | disposition home or self-care (01) ==
PROVIDERS: PCP Nurse Practitioner Primary Care; Visit Provider Advanced Practice Midwife
DX: Z71.2 Person consulting for explanation of examination or test findings (principal); Z30.46 Encounter for surveillance of implantable subdermal contraceptive
CPT/HCPCS: 11982

== ENCOUNTER → 2023-07-06 11:04 | Outpatient (BNVA) | payer MEDICAID, SELFPAY | PROVIDERS: PCP Nurse Practitioner Primary Care; Visit Provider Advanced Practice Midwife | DX: Z30.46 Encounter for surveillance of implantable subdermal contraceptive (principal); Z71.2 Person consulting for explanation of examination or test findings | CPT/HCPCS: 11982 ==

== ENCOUNTER 2023-07-16 07:13 | Outpatient (REF) | payer MEDICAID, SELFPAY ==
[2023-07-16 09:10] LABS: Thyroid Stimulating Hormone 2.97 uIU/mL (0.32-4.0)
[2023-07-17 10:03] LABS: Follicle Stimulating Hormone 22.8 mIU/mL
== END 2023-07-16 07:14 | disposition home or self-care (01) ==
LOC: HO.LAB 07:13
PROVIDERS: PCP Nurse Practitioner Primary Care; Visit Provider Advanced Practice Midwife
DX: R23.2 Flushing (principal)
CPT/HCPCS: 36415; 83001; 84443

== ENCOUNTER 2023-07-20 09:44 | Outpatient (AMB) | payer MEDICAID, SELFPAY ==
--- NOTE | 2023-07-20 10:03 | A.OFFVIS_ITS ---
Intake Vital Signs 07/20/23 10:06 Height 5 ft 1 in Weight 222 lb 10.67 oz BMI 42.1 BP 124/82 Intake Visit Reasons: Lab results Cook Syrup Maker Required: Yes Cook Syrup Maker Language: Valve Steamer Name: Rosa ANN Information Interpreted: non-clinical & clinical Customer Resource Specialist: Customer Resource Specialist Present Accompanied by: Self / Same As Patient Allergies No Known Allergies Allergy (Verified 07/20/23 10:07) Is last menstrual period known: Yes HPI HPI Comments History of Present Illness Details Patient is here today for lab follow-up. She recently had her Nexplanon removed. No menses since. She is still concerned if there was a chance of . PFSH Medical History Ventral hernia Morbid obesity Hypertension Fibromyalgia Vitamin D deficiency Pre-diabetes Hypertriglyceridemia Vitamin B12 deficiency Sleep apnea STEVEN (iron deficiency anemia) Pulmonary embolism Surgical History H/O hernia repair Gastric bypass status for obesity deliv NOS-unsp Hx of endoscopy History of colonoscopy Family History Father No problems noted. Mother Stomach cancer Blood disorder Paternal Uncle Stomach cancer Pancreatic cancer Throat cancer Maternal Aunt Breast cancer Paternal Aunt Breast cancer Paternal Uncle Stomach cancer Maternal Grandmother Colon cancer Brother Blood disorder Social History Household Members: Spouse and Children Housing: House Are you a primary intensive care unit nurse to a significant other at home: No Do you presently have visiting nurse or other home services: No Alcohol intake: former Patient Tobacco Use Status: Current everyday Tobacco user Tobacco use type: Cigarette Cigarettes Per Day: 5 Years Smoked: 30 service: No Current occupational status: unemployed Sexual orientation: Straight/Heterosexual Gender identity: Female Female Reproductive History Menstrual Age of Menarche: 10 Review of Systems Const All systems reviewed & are unremarkable except as noted in HPI and below Endo Reports no additional complaints Physical Exam Vital Signs: Last Vital Signs BP 124/82 07/20/23 10:06 BMI result Body Mass Index 42.1 Const General: cooperative, healthy appearing and no acute distress Psych Appearance: well kempt Attitude: cooperative Thought process: Normal thought process present Assessment & Plan Assessment & Plan (1) Encounter to discuss test results: Code(s): Z71.2 - Person consulting for explanation of examination or test findings Plan: Discussed: TSH-2.97, FSH-22.8 Ranges reviewed with patient. Advised to continue to use condoms for now if suspected any risk to did do a home test and follow-up here for evaluation. Also monitor if there is any bleeding cycling if anything irregular are abnormally spaced she would was advised to call for further evaluation including a possible EMB. All of her questions and concerns were addressed to the best of my ability and shared decision making. She is agreeable to the plan of care. Return to the office May 2024 for annual exam or p.r.n. Coding Level of Care Code Est Pt Level 3 (85793) Diagnoses Encounter to discuss test results Z71.2
[2023-07-20 10:06] VITALS: BP 124/82; BMI 42.1
== END 2023-07-20 10:47 | disposition home or self-care (01) ==
PROVIDERS: PCP Nurse Practitioner Primary Care; Visit Provider Advanced Practice Midwife
DX: Z71.2 Person consulting for explanation of examination or test findings (principal)
CPT/HCPCS: 99213

== ENCOUNTER → 2023-07-20 09:44 | Outpatient (BNVA) | payer MEDICAID, SELFPAY | PROVIDERS: PCP Nurse Practitioner Primary Care; Visit Provider Advanced Practice Midwife | DX: Z71.2 Person consulting for explanation of examination or test findings (principal) | CPT/HCPCS: 99212 ==

== ENCOUNTER 2023-07-23 10:01 | Outpatient (AMB) | payer MEDICAID, SELFPAY ==
[2023-07-23 10:20] VITALS: BP 140/71; PULSE 87; BMI 44.2
--- NOTE | 2023-07-23 10:20 | A.OFFVIS_ITS ---
Intake Vital Signs 07/23/23 10:20 Height 5 ft 1 in Weight 233 lb 11.04 oz BMI 44.2 BP 140/71 H Blood Pressure Location Lt brachial Position Sitting Pulse 87 Intake Visit Reasons: 4 month fu Intake Note: Barb presents in the office as a 4 month follow up. CC: She states that she is not having any concerns at this time that have have to do with the stomach or her esophagus. She is having pains in the lower let hip. She states that it goes all the way down to her left foot. The right leg she has a vein that is coming out in her leg that is concerning her. Sampler Ovens Required: Yes Sampler Ovens Name: Juan [id number] Allergies No Known Allergies Allergy (Verified 07/23/23 10:21) HPI 4 month fu HPI Details 52 yr old f here for f/u RECAP: She had labs 02/2019 with HGB 11, and iron sat 5 %, ferritin 35. Hx of gastric bypass she also had acute spontanoeus PTE 12/2018, no precipitants, no smoking hx work up ongoing with hematology, on xarelto grand dad and paternal and mother uncle with stomach cancer she also has heavy periods never had EGD or colonoscopy denied abdo pain unless eats rice or overeats in epigastrium meditech shows h pylori in past, but she doesn;t knwo anything about it EGD/colonoscopy; diverticulosis, hemerrhoids with red wood, polyp, atrophic gastritis, mild esophagitis, bx:::mild chronic gastritis, no h pylori capsule-- normal (rept colon in 2-3 yrs due to fair prep) I placed her on tranexamic acid 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, she felt this helped reduce her heavy periods and was improved after she stopped xarelto for PTE I increased her PPI dose to pantoprazole 40 mg daily due to upset stomach, possibly related to her grandmothers but she stopped this as her heartburn improved TESTS: GES 07/26: rapid emptying EGD/colo: 10/2022 Endoscopy Findings: gastritis 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 s/p sleeve gastrectomy Colonoscopy Findings: internal hemorrhoids path: moderate inflammation stomach, GEJ inflammation INTERIM: her stomach is doing much better with PPI main concern is pain from her left side into her leg and a varicose vein on her right leg--occ numbness in left leg she has no issues with walking but can be painful never had PT for hips or back no nausea or vomiting no diarrhea or constipation no periods for last few months no perineal numbness, can control bladder and bowels EXAM: GENERAL: The patient is overweight VITAL SIGNS:see workflow HEENT: Nonicteric sclerae, PERRLA, EOMI. Oropharynx red. Moist mucous membranes. Conjunctivae appear well perfused. No thyroid mass. CHEST: Chest wall is nontender. HEART: Regular rate and rhythm without murmurs. LUNGS: Clear to auscultation bilaterally. ABDOMEN: Soft, positive bowel sounds, tender RUQ, no organomegaly.no flank tenderness SKIN: tender bruised vein around back of her right knee NEUROLOGIC: Cranial nerves II-XII intact without motor/sensory deficit. MS: leg raise reduced left leg--gives pain--tender lower back Assessment & Plan 1/ Gastritis, controlled wt PPI 2/ Varicose vein, thrombophelbitis 3/ sciatica Plan: 1/ cont with PPI--should be on MV and Vi t D supplement 2/ refer vascular for rx of varicose vei ns, can try diclofenac gel meantime 3/ refer PT for her sciatica, PFSH Medical History Ventral hernia Morbid obesity Hypertension Fibromyalgia Vitamin D deficiency Pre-diabetes Hypertriglyceridemia Vitamin B12 deficiency Sleep apnea STEVEN (iron deficiency anemia) Pulmonary embolism Surgical History H/O hernia repair Gastric bypass status for obesity deliv NOS-unsp Hx of endoscopy History of colonoscopy Family History Father No problems noted. Mother Stomach cancer Blood disorder Paternal Uncle Stomach cancer Pancreatic cancer Throat cancer Maternal Aunt Breast cancer Paternal Aunt Breast cancer Paternal Uncle Stomach cancer Maternal Grandmother Colon cancer Brother Blood disorder Social History Household Members: Spouse and Children Housing: House Are you a primary health care sanitary technician to a significant other at home: No Do you presently have visiting nurse or other home services: No Alcohol intake: former Patient Tobacco Use Status: Current everyday Tobacco user Tobacco use type: Cigarette Cigarettes Per Day: 5 Years Smoked: 30 service: No Current occupational status: unemployed Sexual orientation: Straight/Heterosexual Gender identity: Female Female Reproductive History Menstrual Age of Menarche: 10 Physical Exam Vital Signs: Last Vital Signs Pulse 87 07/23/23 10:20 BP 140/71 H 07/23/23 10:20 BMI result Body Mass Index 44.2 Assessment & Plan Assessment & Plan (1) Varicose veins of both lower extremities with pain: Code(s): I83.813 - Varicose veins of bilateral lower extremities with pain Plan: Assessment & Plan 1/ Gastritis, controlled wt PPI 2/ Varicose vein, thrombophelbitis 3/ sciatica Plan: 1/ cont with PPI 2/ refer vascular for rx of varicose veins, can try diclofenac gel meantime 3/ refer PT for her sciatica, (2) Sciatica: Code(s): M54.30 - Sciatica, unspecified side Plan: Assessment & Plan 1/ Gastritis, controlled wt PPI 2/ Varicose vein, thrombophelbitis 3/ sciatica Plan: 1/ cont with PPI 2/ refer vascular for rx of varicose veins, can try diclofenac gel meantime 3/ refer PT for her sciatica, (3) Gastritis: Code(s): K29.70 - Gastritis, unspecified, without bleeding Plan: Assessment & Plan 1/ Gastritis, controlled wt PPI 2/ Varicose vein, thrombophelbitis 3/ sciatica Plan: 1/ cont with PPI 2/ refer vascular for rx of varicose veins, can try diclofenac gel meantime 3/ refer PT for her sciatica, Orders: Orders PT Evaluation and Treatment Today I83.813 - Varicose veins of bilateral lower extremities with pain, K29.70 - Gastritis, unspecified, without bleeding, M54.30 - Sciatica, unspecified side Referrals Vascular Surgery Referral I83.813 - Varicose veins of bilateral lower extremities with pain, K29.70 - Gastritis, unspecified, without bleeding, M54.30 - Sciatica, unspecified side Medications: New diclofenac sodium 1% (Arthritis Pain (diclofenac)) apply to single knee, ankle, foot; for foot includes sole/toes/top of foot 4 grams topical QID 100 grams 0RF Coding Level of Care Code Est Pt Level 4 (69915) Diagnoses Varicose veins of both lower extremities with pain I83.813 Sciatica M54.30 Gastritis K29.70
== END 2023-07-23 11:03 | disposition home or self-care (01) ==
PROVIDERS: PCP Nurse Practitioner Primary Care; Visit Provider Internal Medicine Gastroenterology
DX: I83.813 Varicose veins of bilateral lower extremities with pain (principal); M54.30 Sciatica, unspecified side; K29.70 Gastritis, unspecified, without bleeding
CPT/HCPCS: 99214

== ENCOUNTER → 2023-07-23 10:01 | Outpatient (BNVA) | payer MEDICAID, SELFPAY | PROVIDERS: PCP Nurse Practitioner Primary Care; Visit Provider Internal Medicine Gastroenterology | DX: I83.813 Varicose veins of bilateral lower extremities with pain (principal); M54.30 Sciatica, unspecified side; K29.70 Gastritis, unspecified, without bleeding | CPT/HCPCS: 99212 ==

== ENCOUNTER 2023-08-04 16:42 | Emergency (ER) | payer MEDICAID, SELFPAY ==
[2023-08-04] VITALS (7 sets, daily range): BP systolic 120–147; BP diastolic 64–86; PULSE 74–86; RESP 15–24; TEMP 36.6–37.1; O2SAT 94–98; BMI 44.4
--- NOTE | 2023-08-04 | ECG_ITS ---
Test Reason : HIGH TROPONIN Blood Pressure : / mmHG Vent. Rate : 074 BPM Atrial Rate : 074 BPM P-R Int : 124 ms QRS Dur : 080 ms QT Int : 422 ms P-R-T Axes : 047 043 069 degrees QTc Int : 468 ms Normal sinus rhythm Normal ECG When compared with ECG of 04-AUG-2023 17:05, No significant change was found Referred By: Tulio Mckeon Electronically Signed By:J CARLOS IJM
--- NOTE | ~2023-08-04 | CT_ITS ---
EXAMINATION: CT HEAD WITHOUT CONTRAST CLINICAL INFORMATION: Headache. COMPARISON: CT brain dated 06/17/2019. TECHNIQUE: Contiguous axial imaging was performed from the skull base to vertex without intravenous administration of contrast. This CT examination was performed using dose optimization techniques as appropriate, variously including the following: *Automated exposure control *Adjustment of mA and/or kV according to patient size (this includes techniques or standardized protocols for targeted exams where dose is matched to indication/reason for exam; i.e. extremities or head) *Use of iterative reconstruction technique DLP: 686 mGy-cm FINDINGS: There is no acute intracranial hemorrhage or evidence of territorial infarction. No abnormal mass effect or midline shift is seen. Monique to white matter differentiation is well preserved. There is no abnormal attenuation within the brain parenchyma. The ventricles are normal in size. No extra-axial fluid collections are identified. The calvarium and scalp soft tissues are normal. The middle ear cavity and mastoid air cells are clear. The visualized paranasal sinuses are clear. CT/CT head/brain wo IV con IMPRESSION: No acute intracranial pathology.
--- NOTE | ~2023-08-04 | XR_ITS ---
EXAMINATION: CHEST 2 VIEWS CLINICAL INFORMATION: Chest pain. COMPARISON: 12/13/2022. TECHNIQUE: PA and lateral views of the chest obtained. FINDINGS: The lungs are well expanded. No focal infiltrate, effusion, edema, or pneumothorax. Cardiac and mediastinal silhouettes are within normal limits for technique. No acute bony abnormality seen XR/XR chest 2V IMPRESSION: No evidence of acute disease
--- NOTE | 2023-08-04 16:58 | ECG_ITS ---
Test Reason : CP Blood Pressure : / mmHG Vent. Rate : 093 BPM Atrial Rate : 093 BPM P-R Int : 126 ms QRS Dur : 076 ms QT Int : 372 ms P-R-T Axes : 047 012 055 degrees QTc Int : 462 ms Normal sinus rhythm Normal ECG When compared with ECG of 13-DEC-2022 10:31, No significant change was found Referred By: Peter Rizzo Electronically Signed By:J CARLOS JIM
[2023-08-04 18:33] LABS: MANUAL DIFF FLAG NO
[2023-08-04 18:34] LABS: Basophils Absolute Auto 0.1 X10*3/uL (0.0-0.2); Basophils Percent Auto 0.6 % (0-2); Eosinophils Absolute Auto 0.3 X10*3/uL (0.0-0.4); Eosinophils Percent Auto 2.3 % (0-4); Hematocrit 46.6 % (37.0-47.0); Hemoglobin 15.1 g/dl (12.0-16.0); Imm Gran Abs Auto 0.07 X10*3/uL (0.00-0.03); Imm Gran Pct Auto 0.6 % (0.0-0.4); Lymphocytes Absolute Auto 2.7 X10*3/uL (1.2-4.9); Lymphocytes Percent Auto 24.7 % (20-40); Mean Corpuscular HGB Conc 32.4 g/dl (31.0-35.0); Mean Corpuscular Hemoglobin 27.2 pg (27.0-33.0); Mean Platelet Volume 8.8 fL (9.4-12.3); Monocytes Absolute Auto 0.5 X10*3/uL (0.1-1.2); Monocytes Percent Auto 4.9 % (2-11); Neutrophils Absolute Auto 7.3 x10*3/uL (2.0-8.3); Neutrophils Percent Auto 66.9 % (45-73); Platelet Count 467 X10*3/uL (160-400); Red Blood Count 5.55 X10*6/uL (4.20-5.50); White Blood Count 10.9 X10*3/uL (4.8-10.8)
[2023-08-04 18:47] LABS: Alanine Aminotransferase 46 U/L (0-31); Albumin Level 4.2 g/dL (3.5-5.0); Alkaline Phosphatase 107 U/L (39-117); Anion Gap 16 (12-20); Aspartate Amino Transferase 38 U/L (5-31); Bilirubin Total 0.5 mg/dL (0.0-1.0); Blood Urea Nitrogen 8 mg/dL (9-16); Calcium 9.7 mg/dL (8.4-10.2); Carbon Dioxide 26 mmol/L (22-29); Chloride 105 mmol/L (96-108); Creatinine Clr Calc Pharmacy 93.8; Estimated Glomerular Filt Rate > 60; Glucose Random 135 mg/dL (60-115); Potassium 4.6 mmol/L (3.3-5.1); Sodium 142 mmol/L (135-145); Total Protein 8.3 g/dL (6.5-8.0)
[2023-08-04 19:03] LABS: Troponin-I High Sensitivity 385.6 ng/L (<3.5-17.0)
--- NOTE | 2023-08-04 19:41 | ED_ITS ---
HPI - Chest Pain General Chief Complaint: Chest Pain Stated Complaint: Chest pain Time Seen by Provider: 08/04/23 19:24 Source: patient and family Mode of arrival: ambulatory Limitations: no limitations History of Present Illness HPI narrative: 52-year-old female came in for evaluation of chest pain. Started at 04:30 today pain is localized to the left side of the chest, pain is intermittent comes and goes, reach to 10/10, no radiation, pain is worse with touching her left side of the chest and movement or taking a deep breath, no clear relieving factors, no fever, no chills. Patient is complaining of occipital headache started about 2 hours ago while she is waiting in the waiting room, no nausea, no vomiting, no neck stiffness, no photophobia. Related Data Home Medications Medication Instructions Recorded Confirmed albuterol sulfate 90 mcg/actuation 1 inh inhalation Q4-6H PRN Wheezing 02/25/21 05/10/23 breath activated powder inhaler,sensor clonazepam 0.25 mg disintegrating 0.25 mg PO DAILY 02/25/21 05/10/23 tablet cyclobenzaprine 5 mg tablet 5 mg PO BEDTIME 02/25/21 05/10/23 etonogestrel 68 mg subdermal See Rx Instructions .Route .COMPLEX 02/25/21 05/10/23 implant (Nexplanon) sumatriptan succinate 50 mg tablet 1 tab PO DAILY migraine 07/12/21 05/10/23 ferrous sulfate 325 mg (65 mg 1 tab PO BID 01/11/22 05/10/23 iron) tablet (FeroSul) duloxetine 30 mg capsule,delayed 30 mg PO DAILY 02/01/22 05/10/23 release lidocaine 5 % topical patch 1 patch topical DAILY 02/01/22 05/10/23 (Lidoderm) docusate sodium 100 mg capsule 1 cap PO DIRECTED 04/18/22 05/10/23 (Dulcolax Stool Softener (docusate)) prazosin 1 mg capsule (Minipress) 1 mg PO BEDTIME 04/18/22 05/10/23 cyanocobalamin (vitamin B-12) 1,000 mcg PO QPM 05/08/22 05/10/23 1,000 mcg tablet divalproex 250 mg tablet,extended 250 mg PO BID 05/08/22 05/10/23 release 24 hr gabapentin 600 mg tablet 600 mg PO TID 11/29/22 05/10/23 acetaminophen 650 mg 650 mg PO Q8H PRN mild pain 07/23/23 tablet,extended release amlodipine 10 mg tablet 10 mg PO QAM 07/23/23 calcium carbonate 600 mg-vitamin 1 tab PO QAM 07/23/23 D3 10 mcg (400 unit) tablet fluticasone propionate 50 2 spray intranasal DAILY 07/23/23 mcg/actuation nasal spray,suspension Previous Rx's Medication Instructions Recorded pantoprazole 40 mg tablet,delayed 40 mg PO QAM #90 tabs 03/23/23 release diclofenac sodium 1 % topical gel 4 g topical QID #100 grams 07/23/23 (Arthritis Pain (diclofenac)) Allergies Allergy/AdvReac Type Severity Reaction Status Date / Time No Known Allergies Allergy Verified 08/04/23 18:18 Review of Systems 2 Review of Systems: All other systems are reviewed and are negative Constitutional: Reports as per HPI and Reports no additional constitutional complaints Eyes: Reports as per HPI and Reports no additional eye complaints Reports system reviewed and no additional complaints, except as documented Cardiovascular: Reports as per HPI and Reports no additional cardiovascular complaints Respiratory: Reports as per HPI and Reports no additional respiratory complaints Gastrointestinal: Reports as per HPI and Reports no additional gastrointestinal complaints Genitourinary: Reports no additional female genitourinary complaints Musculoskeletal: Reports no additional musculoskeletal complaints Skin/Breast: Reports system reviewed and no additional complaints, except as docu Psychiatric: Reports no additional psychiatric complaints Endocrine: Reports no additional endocrine complaints Hematologic/Lymphatic: Reports no additional hematologic/lymphatic complaints Allergic/Immunologic: Reports no additional allergic/immunologic complaints Reports system reviewed and no additional complaints, except as documented and Reports Abnormal speech present [facility] Past Medical History Medical History Ventral hernia Morbid obesity Hypertension Fibromyalgia Vitamin D deficiency Pre-diabetes Hypertriglyceridemia Vitamin B12 deficiency Sleep apnea STEVEN (iron deficiency anemia) Pulmonary embolism Surgical History H/O hernia repair Gastric bypass status for obesity deliv NOS-unsp Hx of endoscopy History of colonoscopy Family History Family History Father No problems noted. Mother Stomach cancer Blood disorder Paternal Uncle Stomach cancer Pancreatic cancer Throat cancer Maternal Aunt Breast cancer Paternal Aunt Breast cancer Paternal Uncle Stomach cancer Maternal Grandmother Colon cancer Brother Blood disorder Social History Social History Household Members: Spouse and Children Housing: House Are you a primary managed care liaison to a significant other at home: No Do you presently have visiting nurse or other home services: No Alcohol intake: former Patient Tobacco Use Status: Current everyday Tobacco user Tobacco use type: Cigarette Cigarettes Per Day: 5 Years Smoked: 30 Advance Directives: No Advance Directives Information Provided: No service: No Current occupational status: unemployed Sexual orientation: Straight/Heterosexual Gender identity: Female Physical Exam 2 Vital Signs: Vital Signs: Last Vital Signs Temp 97.9 F 08/04/23 22:45 Pulse 86 08/05/23 00:11 Resp 24 H 08/04/23 22:45 BP 133/75 08/05/23 00:11 Pulse Ox 94 08/04/23 22:45 O2 Del Method Room Air 08/04/23 22:45 BMI result Body Mass Index 44.4 Vital signs have been reviewed and appear to be correct. Blood pressure elevated. Heart rate normal. Respiratory rate normal. Temperature normal. Oxygen saturation normal. Appearance: Alert. Oriented X3. No acute distress. Head: Normal external exam. Normocephalic. Atraumatic. No Schumacher signs noted. No raccoon eyes noted Eyes: PERRLA. EOMI. Conjunctiva and sclera normal. Eyelids normal. ENT: TM's Normal. Pharynx normal. Uvula midline. Moist mucous membranes. No trismus noted. No drooling noted. No muffled voice noted. Neck: Normal inspection. Neck supple. FROM. No adenopathy. Thyroid Normal. No meningeal signs. No neck mass noted. CVS: Normal heart rate and rhythm. Heart sound normal. No murmurs noted. Pulses normal throughout. Respiratory: No respiratory distress. Painless inspiration. Breath sounds normal. No wheezes/rales/rhonchi noted. Chest nontender. No accessory muscle usage noted or decreased air movement noted. Abdomen: Soft and nontender. Bowel sounds normal in all 4 quadrants. No distention noted. No organomegaly noted. No visible injury noted. Back: No CVA tenderness. Full range of motion noted. Skin: Skin warm and dry. Normal skin color. Normal skin turgor. No rashes/lesions/lacerations noted. Extremities: No lower extremity edema. Extremities exhibit normal range of motion. Extremities nontender. Neuro: Oriented X 3. Cranial nerve exam: II-XII are grossly intact No motor deficit. No sensory deficit. Reflexes normal. Course Reevaluation(s) Reevaluation #1: Non ST-elevation [place] with normal EKG and elevated troponin. Case discussed with Dr. Rincon advised to transfer to [facility]. Case discussed with Dr. Gonsalez at [facility] who accepted the patient recommended to start the patient on heparin/nitro drip Had a head CT for the headache before start on heparin to rule out intracranial bleed. Time: 21:15 Medications Administered Generic Name Dose Route Start Last Admin Trade Name Freq PRN Reason Stop Dose Admin Heparin Sodium/Sodium Chloride 25,000 unit in 250 mls @ 0 mls/hr 08/04/23 21:00 08/04/23 21:48 Heparin Sodium,Porcine/1/2ns IVCONT 9.38 units/kg/hr .Q0M TESSY 10 mls/hr Administration Protocol Per Protocol Nitroglycerin/Dextrose 100 mg in 250 mls @ 0 mls/hr 08/04/23 23:15 08/05/23 00:11 Nitroglycerin/D5w IVCONT 40 mcg/min .Q0M TESSY 6 mls/hr Titration Protocol Per Protocol Discontinued Medications Generic Name Dose Route Start Last Admin Trade Name Freq PRN Reason Stop Dose Admin Aspirin 81 mg 08/04/23 20:53 08/04/23 21:40 Aspirin 81 Mg Tab.Chew PO 08/04/23 20:54 81 mg ONCE ONE Administration Heparin Sodium (Porcine) 4,000 unit 08/04/23 20:53 08/04/23 21:38 Heparin Sodium,Porcine 5,000 Unit/Ml Vial IVPUSH 08/04/23 20:54 4,000 unit ONCE ONE Administration Morphine Sulfate 1 mg 08/04/23 21:11 08/04/23 21:39 Morphine Sulfate 2 Mg/Ml Cartridge IVPUSH 08/04/23 21:12 1 mg ONCE ONE Administration Protocol Nitroglycerin 0.5 inch 08/04/23 20:53 08/04/23 21:32 Nitroglycerin 2 % Oint 1 Gm Packet TRANSDERMA 08/04/23 20:54 0.5 inch ONCE ONE Administration Ondansetron HCl 4 mg 08/04/23 21:50 08/04/23 21:51 Ondansetron Hcl 4 Mg/2 Ml Vial IVPUSH 08/04/23 21:51 4 mg ONCE ONE Administration Medical Decision Making Differential Diagnosis Differential Diagnoses: The differential diagnosis associated with the presentation includes (Non ST-elevation NJ, electrolyte abnormality, intracranial bleed, severe anemia.) Admission/Observation Consideration of admission/observation: Escalation of care including admission/observation considered Consult Healthcare Provider Management of the patient was discussed with: [employer]er (Dr. Rincon/Dr. Gonsalez) Lab Data MDM Lab Attestation statement: I reviewed the patient's lab results. 08/04/23 21:36 08/04/23 18:29 Labs: Lab Results 08/04/23 08/04/23 Range/Units 18:29 21:36 WBC 10.9 H 10.3 (4.8-10.8) X10*3/uL RBC 5.55 H 5.38 (4.20-5.50) X10*6/uL Hgb 15.1 D 14.6 (12.0-16.0) g/dl Hct 46.6 D 44.4 (37.0-47.0) % MCV 84.0 82.5 (80.0-98.0) fL MCH 27.2 27.1 (27.0-33.0) pg MCHC 32.4 32.9 (31.0-35.0) g/dl RDW 15.0 15.0 (11.0-16.0) % Plt Count 467 H 445 H (160-400) X10*3/uL MPV 8.8 L 8.8 L (9.4-12.3) fL Immature Gran % (Auto) 0.6 H (0.0-0.4) % Neut % (Auto) 66.9 (45-73) % Lymph % (Auto) 24.7 (20-40) % Mckenzie % (Auto) 4.9 (2-11) % Eos % (Auto) 2.3 (0-4) % Baso % (Auto) 0.6 (0-2) % Lymph # (Auto) 2.7 (1.2-4.9) X10*3/uL Mckenzie # (Auto) 0.5 (0.1-1.2) X10*3/uL Eos # (Auto) 0.3 (0.0-0.4) X10*3/uL Baso # (Auto) 0.1 (0.0-0.2) X10*3/uL Abs Immat Gran (auto) 0.07 H (0.00-0.03) X10*3/uL Absolute Neuts (auto) 7.3 (2.0-8.3) x10*3/uL Absolute Nucleated RBC 0.000 0.000 (0.0-0.012) X10*3/uL Nucleated RBC % (auto) 0.0 0.0 (0.0-0.2) /100WBC PT 12.7 (11.1-13.3) SEC INR 1.0 (0.9-1.1) aPTT Heparin Protocol 27.6 L (53-77.9) SEC Sodium 142 (135-145) mmol/L Potassium 4.6 (3.3-5.1) mmol/L Chloride 105 (96-108) mmol/L Carbon Dioxide 26 (22-29) mmol/L Anion Gap 16 (12-20) BUN 8 L (9-16) mg/dL Creatinine 0.79 (0.5-1.4) mg/dL Estim Creat Clear Calc 93.8 Estimated GFR > 60 Random Glucose 135 H (60-115) mg/dL Calcium 9.7 (8.4-10.2) mg/dL Total Bilirubin 0.5 (0.0-1.0) mg/dL AST 38 H (5-31) U/L ALT 46 H (0-31) U/L Alkaline Phosphatase 107 (39-117) U/L Troponin I High Sens 385.6 H* D 619.3 H* D (<3.5-17.0) ng/L Total Protein 8.3 H (6.5-8.0) g/dL Albumin 4.2 (3.5-5.0) g/dL Independent Interpretation I performed an independent interpretation of an: Plain X-Ray (No acute intrathoracic pathology.) and CT Scan (Head: No acute intracranial pathology.) Radiology Impression Discussion of test interpretation with radiology: I have reviewed the radiologist's reading. Chronic Conditions Patient?s care impacted by: Hypertension and Other (Cigarette smoking history) Critical Care Time Critical Care Time Critical Care Time: Yes Total Critical Care Time: 60 Attestation: I spent 60 minutes providing critical care service to the patient, this including time spent at the bedside to evaluate the patient, reassess the patient, monitoring vital signs, review labs, and radiographic studies, counseling the patient/family, discussing the case with consultants, disposition the patient. Discharge Plan Discharge Clinical Impression: Non-ST elevated myocardial infarction (non-STEMI), Headache Patient Disposition: [facility] Transfer Details: M5 Prescriptions: No Action sumatriptan succinate 50 mg tablet 1 tab PO DAILY ferrous sulfate [FeroSul] 325 mg (65 mg iron) tablet 1 tab PO BID prazosin [Minipress] 1 mg Capsule 1 mg PO BEDTIME docusate sodium [Dulcolax Stool Softener (dss)] 100 mg capsule 1 cap PO DIRECTED gabapentin 600 mg tablet 600 mg PO TID Nexplanon 68 mg implant See Rx Instructions .ROUTE .COMPLEX Rx Instructions: unit placed in left arm. cyclobenzaprine 5 mg tablet 5 mg PO BEDTIME albuterol sulfate 90 mcg/actuation aero powdr breath act w/sensor 1 inh inhalation Q4-6H PRN (Reason: Wheezing) clonazepam 0.25 mg tablet,disintegrating 0.25 mg PO DAILY duloxetine 30 mg capsule,delayed release(DR/EC) 30 mg PO DAILY lidocaine [Lidoderm] 5 % adhesive patch,medicated 1 patch topical DAILY Rx Instructions: leave on most painful area for up to 12 hrs cyanocobalamin (vitamin B-12) 1,000 mcg tablet 1,000 mcg PO QPM divalproex 250 mg tablet extended release 24 hr 250 mg PO BID pantoprazole 40 mg tablet,delayed release (DR/EC) 40 mg PO QAM Qty: 90 3RF amlodipine 10 mg tablet 10 mg PO QAM calcium carbonate-vitamin D3 600 mg-10 mcg (400 unit) tablet 1 tab PO QAM fluticasone propionate 50 mcg/actuation spray,suspension 2 spray intranasal DAILY acetaminophen 650 mg tablet extended release 650 mg PO Q8H PRN (Reason: mild pain) diclofenac sodium [Arthritis Pain (diclofenac)] 1 % gel 4 g topical QID Qty: 100 0RF Rx Instructions: apply to single knee, ankle, foot; for foot includes sole/toes/top of foot
[2023-08-04] MEDS: Nitroglycerin 2 % Oint 1 GM Packet 0.5 INCH TRANSDERMA (21:32)
[2023-08-04] MEDS: Heparin Sodium,Porcine 5,000 UNIT/ML VIAL 4000 UNIT IVPUSH (21:38)
[2023-08-04] MEDS: Morphine Sulfate 2 MG/ML CARTRIDGE 1 MG IVPUSH (21:39)
[2023-08-04] MEDS: Aspirin 81 MG TAB.CHEW PO (21:40)
[2023-08-04 21:47] LABS: Hematocrit 44.4 % (37.0-47.0); Hemoglobin 14.6 g/dl (12.0-16.0); Mean Corpuscular HGB Conc 32.9 g/dl (31.0-35.0); Mean Corpuscular Hemoglobin 27.1 pg (27.0-33.0); Mean Corpuscular Volume 82.5 fL (80.0-98.0); Mean Platelet Volume 8.8 fL (9.4-12.3); Platelet Count 445 X10*3/uL (160-400); Red Blood Count 5.38 X10*6/uL (4.20-5.50); White Blood Count 10.3 X10*3/uL (4.8-10.8)
[2023-08-04] MEDS: Heparin Sodium,Porcine/1/2NS 25,000 UNIT/250 ML IV.SOLN 10 UNIT IVCONT (21:48)
[2023-08-04] MEDS: ondansetron HCL 4 MG/2 ML VIAL IVPUSH (21:51)
[2023-08-04 21:52] LABS: Prothrombin Time 12.7 SEC (11.1-13.3)
[2023-08-04 21:55] LABS: PTT Heparin Drip 27.6 SEC (53-77.9)
[2023-08-04 22:13] LABS: Troponin-I High Sensitivity 619.3 ng/L (<3.5-17.0)
--- NOTE | 2023-08-04 22:28 | PC.NURSE ---
Report to Howie ROSARIO at [facility]
[2023-08-04] MEDS: Nitroglycerin/D5W 100 MG/250 ML INFUS..BTL IVCONT (23:46)
[2023-08-05 00:11] VITALS: BP 133/75; PULSE 86
== END 2023-08-05 00:35 | disposition short-term general hospital (02) ==
PROVIDERS: Emergency Provider Emergency Medicine; PCP Nurse Practitioner Primary Care
DX: I21.4 Non-ST elevation (NSTEMI) myocardial infarction (principal); R07.89 Other chest pain; R51.9 Headache, unspecified; F17.210 Nicotine dependence, cigarettes, uncomplicated; Z71.6 Tobacco abuse counseling; Z79.899 Other long term (current) drug therapy
CPT/HCPCS: 36415; 70450; 71046; 80053; 84484; 85025; 85027; 85610; 85730; 93005; 96365; 96375; 99285; J1644; J2270; J2305; J2405

== ENCOUNTER → 2023-08-04 16:58 | Outpatient (BNV) | payer MEDICAID, SELFPAY | PROVIDERS: Emergency Provider Emergency Medicine; PCP Nurse Practitioner Primary Care; Visit Provider Internal Medicine | DX: R07.9 Chest pain, unspecified (principal); R79.89 Other specified abnormal findings of blood chemistry | CPT/HCPCS: 93010 ==

== ENCOUNTER 2023-09-04 09:17 | Outpatient (AMB) | payer MEDICAID, SELFPAY ==
--- NOTE | 2023-09-04 09:22 | A.OFFVIS_ITS ---
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 Pt states both of her legs become painful after walking a longer period of time. Pt denies any swelling. 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 Complaints include pain over varicosities, swelling of lower extremities, cramping, fatigue, and heaviness of the lower extremities. It has been affecting there daily activities including walking. It is noted more so in left leg. Smoke 3-4 cigarettes daily Patient denies any previous venous surgery or injections. Patient was on Xarelto for PE dating back to 12/18/2018 Patient denies any history of phlebitis. Trial of compression includes - [id number] They now present for vascular evaluation regarding their varicose veins. [facility] Medical History Ventral hernia Morbid obesity Hypertension Fibromyalgia Vitamin D deficiency Pre-diabetes Hypertriglyceridemia Vitamin B12 deficiency Sleep apnea STEVEN (iron deficiency anemia) Pulmonary embolism Surgical History H/O hernia repair Gastric bypass status for obesity deliv NOS-unsp Hx of endoscopy History of colonoscopy Family History Father No problems noted. Mother Stomach cancer Blood disorder Paternal Uncle Stomach cancer Pancreatic cancer Throat cancer Maternal Aunt Breast cancer Paternal Aunt Breast cancer Paternal Uncle Stomach cancer Maternal Grandmother Colon cancer Brother Blood disorder Social History Household Members: Spouse and Children Housing: House Are you a primary home care specialist to a significant other at home: No Do you presently have visiting nurse or other home services: No Alcohol intake: former Patient Tobacco Use Status: Current everyday Tobacco user Tobacco use type: Cigarette Years Smoked: 30 Use of substances other than those prescribed or required for medical reasons: No Have you been hit, kicked, punched, or otherwise hurt by someone within the past year? If so, by whom?: No Do you feel safe in your current relationship?: Yes Do you have thoughts of harming others: None Do you have a plan to hurt others: No Plan Do you have the means to hurt others: No Recently lost weight without trying: No service: No Current occupational status: unemployed Sexual orientation: Straight/Heterosexual Gender identity: Female Female Reproductive History Menstrual Age of Menarche: 10 Review of Systems Const Reports as per HPI ENT Reports no additional complaints Card Denies chest pain, Denies chest pain at rest and Denies chest pain with activity Resp Denies chest congestion and Denies cough GI Reports no additional complaints Musc Details: pain over varicosities, aching of lower extremities, swelling, cramping, heaviness and tiredness, itching Denies abnormal gait Skin/Breast Reports pruritus and Denies wounds Neuro Reports no additional complaints and Denies abnormal gait Psych Denies no additional complaints Physical Exam Vital Signs: Last Vital Signs Pulse 74 09/04/23 09:23 BP 134/70 09/04/23 09:23 Pulse Ox 99 09/04/23 09:23 Oxygen Delivery Method Room Air 09/04/23 09:23 BMI result Body Mass Index 44.4 Const General: cooperative, healthy appearing and comfortable Orientation/consciousness: oriented to person, oriented to place and oriented to time Neck Carotids: no bruits Chest Chest palpation & inspection: normal inspection of the chest and normal palpation of entire chest wall Resp Effort & Inspection: normal respiratory effort and able to speak in complete sentences Cardio Rate: regular rate Heart sounds: S1 normal heart sound present and S2 normal heart sound present Peripheral pulses: Peripheral pulses 2+ throughout GI Inspection: Yes normal to inspection Skin Other: +2 edema, large rope-like varicosities greater than 4 mm CEAP Classification C4 - skin color changes Ep - Etiology Primary As - superficial veins P - reflux General skin exam: dry skin Neuro General: oriented to person, oriented to place and oriented to time Extrem Right lower extremity: full ROM, normal capillary refill and edema Left lower extremity: full ROM, normal capillary refill and edema Psych Mental Status: mental status grossly normal Assessment & Plan Assessment & Plan (1) Varicose veins of left lower extremity with inflammation: Code(s): I83.12 - Varicose veins of left lower extremity with inflammation Plan: In short, the patient has evidence of venous insufficiency. I have discussed the pathophysiology with the patient. In addition I have provided informati onal material regarding venous disease to the patient. We have discussed conservative measures including compression, elevation, and exercise. I have also provided a handout regarding appropriate use of compression stockings and where to purchase good compression stockings as well. I have taken the liberty of ordering venous insufficiency testing with the patient. They will follow up with me after testing. The patient had an opportunity to ask questions regarding the treatment plan. All questions were answered. Imaging studies, laboratory studies and physical exam results were discussed and reviewed in detail. No major barriers to understanding were identified. The patient expressed understanding and agreement with the above treatment plan. The patient is aware they should conta ct our office by phone for worsening of the current condition or the appearance of new symptoms. Thank you for allowing me to participate in the vascular care of this patient. If you have any questions or concerns regarding the treatment for the above condition please do not hesitate to contact me. The office telephone contact is [phone]. This note is constructed using voice recognition software. While every effort has been made to ensure accuracy, disbursement clerk errors may have been included. Thank you for allowing me to participate in the care of your patient. Yours sincerely, Daniel Pierson MD, FACS, R.P.V.I. Coding Level of Care Code New Pt Level 4 (58436) Diagnoses Varicose veins of left lower extremity with inflammation I83.12
[2023-09-04 09:23] VITALS: BP 134/70; PULSE 74; O2SAT 99; BMI 44.4
== END 2023-09-04 09:42 | disposition home or self-care (01) ==
PROVIDERS: PCP Nurse Practitioner Primary Care; Visit Provider Surgery Vascular Surgery
DX: I83.12 Varicose veins of left lower extremity with inflammation (principal)
CPT/HCPCS: 99203

== ENCOUNTER → 2023-09-04 09:17 | Outpatient (BNVA) | payer MEDICAID, SELFPAY | PROVIDERS: PCP Nurse Practitioner Primary Care; Visit Provider Surgery Vascular Surgery | DX: I83.12 Varicose veins of left lower extremity with inflammation (principal) | CPT/HCPCS: 99202 ==

== ENCOUNTER 2023-09-07 07:21 | Outpatient (REF) | payer MEDICAID, SELFPAY ==
[2023-09-07 08:27] LABS: Estimated Average Glucose 131 mg/dL; Hemoglobin A1c % 6.2 % (<6.0)
[2023-09-07 08:54] LABS: Alanine Aminotransferase 34 U/L (0-31); Alkaline Phosphatase 101 U/L (39-117); Aspartate Amino Transferase 25 U/L (5-31); Bilirubin Direct 0.3 mg/dL (0.0-0.5); Bilirubin Total 0.7 mg/dL (0.0-1.0); Cholesterol 125 mg/dL (<200); Glucose Random 149 mg/dL (60-115); HDL Cholesterol 31 mg/dL (>40); LDL Cholesterol Calculated 50 mg/dL (<100); Total Protein 7.4 g/dL (6.5-8.0); Triglycerides 223 mg/dL (<150)
[2023-09-07 11:15] LABS: Reflex LDLD? No
== END 2023-09-07 07:22 | disposition home or self-care (01) ==
LOC: HO.LAB 07:21
PROVIDERS: PCP Nurse Practitioner Primary Care; Visit Provider Internal Medicine
DX: R73.03 Prediabetes (principal); I21.4 Non-ST elevation (NSTEMI) myocardial infarction
CPT/HCPCS: 36415; 80061; 80076; 82947; 83036

== ENCOUNTER 2023-09-14 08:00 | Outpatient (RCR) | payer MEDICAID, SELFPAY ==
--- NOTE | 2023-08-24 12:02 | MHC.PT.EP ---
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 THE Pt HAS DECR POSTURAL AWARENESS W POSTERIOR CHAIN TISSUE TENSION; STRENGTH DEFICITS OIN MIDBACK/ LUMBOPELVIC/ POST RC; (+) TTP JOVANA THORACOLUMB PS MM, AND FLUCTUATING PAIN IN HER MID> LOW BACK. SHE WOULD BENEFIT FROM PT, Pt REQUESTING 1 x WK, TO ADDRESS THE ABOVE, IMPROVE POSTURE/ BODY MECH TO REDUCE TISSUE TENSION AND DEV A HEP FOR SX SELF-MGMT. 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 Manual therapy to restore motion and function. Therapeutic exercise to improve strength and flexibility. Neuromuscular re-education for posture and balance. Therapeutic activities to return to functional activities of daily living. Electronically signed by: ALEXANDREA MARCOS,PT Please sign and return to therapist. Thank you for your referral.
--- NOTE | 2023-11-30 11:54 | MHC.PT.DC ---
[facility] [place] [facility] [place] [facility] [place] [facility] [address] Chris Magana [address] [phone] F: [phone] F: [phone] F: [phone] F: [phone] Physical Therapy Discharge Report Diagnosis: BACK PAIN WITH SCIATICA; VARICOSE VEINS, GASTRITIS Date of Surgery: Date of Evaluation: 08/24/23 Date of Discharge: 11/30/23 Treatments to Date: 3 Cancellations to Date: 0 No Shows to Date: 0 Discharge Status: Achieved Goals Improved Function Independent with HEP Discharge Summary: EFRAIN MET HER PT GOALS AT THIS TIME->GOOD PERF OF EXS/STRETCHES AND SHE HAS RETURNED TO THE GYM ON FRIDAYS WITH HER DTR. SHE AGREES WITH DISCHARGE FROM PT AT THIS TIME- SHE FEELS HER LBP IS SIGNIFICANTLY LESS AND HAS BEEN ABLE TO INCREASE HER ACTIVITY TOLERANCE. Electronically signed by: ALEXANDREA MARCOS,PT Please sign and return to therapist. Thank you for your referral.
== END 2023-11-30 11:55 | disposition home or self-care (01) ==
LOC: HO.PT 08:00
PROVIDERS: PCP Nurse Practitioner Primary Care; Visit Provider Internal Medicine Gastroenterology
DX: M54.30 Sciatica, unspecified side (principal); I83.813 Varicose veins of bilateral lower extremities with pain; K29.70 Gastritis, unspecified, without bleeding
CPT/HCPCS: 97110; 97162; 97530

== ENCOUNTER 2023-09-25 07:36 | Outpatient (AMB) | payer MEDICAID, SELFPAY ==
[2023-09-25 08:43] VITALS: BP 110/68; BMI 43.3
--- NOTE | 2023-09-25 08:43 | A.OFFVIS_ITS ---
Intake Vital Signs 09/25/23 08:43 Height 5 ft 1 in Weight 229 lb 4.492 oz BMI 43.3 BP 110/68 Blood Pressure Location Lt brachial Position Sitting Intake Visit Reasons: [facility] dc fu 4-6 wks Intake Note: [facility] follow up Burn Crew Member Required: Yes Burn Crew Member Language: Staff Nurse Anesthetist Name: [id number] Accompanied by: Self / Same As Patient Allergies No Known Allergies Allergy (Verified 09/25/23 08:45) Medication List - Last Reviewed 09/25/23 by Callie Mi acetaminophen ER 650 mg PO Q8H PRN albuterol sulfate 90 mcg/actuation 1 inh inhalation Q4-6H PRN aspirin (Adult Aspirin Regimen) 81 mg PO DAILY atorvastatin 40 mg PO BEDTIME calcium carbonate-vitamin D3 600 mg-10 mcg (400 unit) 1 tab PO QAM clonazepam 0.25 mg PO DAILY cyanocobalamin (vitamin B-12) 1,000 mcg PO QPM cyclobenzaprine 5 mg PO BEDTIME diclofenac sodium 1% (Arthritis Pain (diclofenac)) 4 grams topical QID divalproex ER 250 mg PO BID docusate sodium (Dulcolax Stool Softener (docusate)) 1 cap PO DIRECTED duloxetine 30 mg PO DAILY ferrous sulfate (FeroSul) 1 tab PO BID fluticasone propionate 50 mcg/actuation 2 sprays intranasal DAILY gabapentin 600 mg PO TID lidocaine 5% (Lidoderm) 1 patch topical DAILY metformin 500 mg PO BID metoprolol succinate ER 25 mg PO DAILY pantoprazole 40 mg PO QAM prazosin (Minipress) 1 mg PO BEDTIME sumatriptan succinate 1 tab PO DAILY HPI HPI Comments History of Present Illness Details Barb is here for follow-up after recent hospitalization at [facility]. Recently hospitalized for NSTEMI. Intermittent chest pain for about 3 days prior to presentation. Echocardiogram with wall motion abnormality in the apex. Subsequently, underwent cardiac catheterization. She was noted to have LAD disease but not clearly thought to be the culprit. No interventions performed. Then discharged for outpatient care. She states she is feeling fine. No new symptoms. Otherwise, history of spontaneous right lower lobe pulmonary embolism in 2019. Took Xarelto for some time that time. [facility] Medical History (Updated 09/25/23 @ 09:02 by Leonard Rincon MD) Atherosclerotic cardiovascular disease Ventral hernia Morbid obesity Hypertension Fibromyalgia Vitamin D deficiency Pre-diabetes Hypertriglyceridemia Vitamin B12 deficiency Sleep apnea STEVEN (iron deficiency anemia) Pulmonary embolism Surgical History H/O hernia repair Gastric bypass status for obesity deliv NOS-unsp Hx of endoscopy History of colonoscopy Family History Father No problems noted. Mother Stomach cancer Blood disorder Paternal Uncle Stomach cancer Pancreatic cancer Throat cancer Maternal Aunt Breast cancer Paternal Aunt Breast cancer Paternal Uncle Stomach cancer Maternal Grandmother Colon cancer Brother Blood disorder Social History Household Members: Spouse and Children Housing: House Are you a primary anesthesiologist and critical care to a significant other at home: No Do you presently have visiting nurse or other home services: No Alcohol intake: former Patient Tobacco Use Status: Current everyday Tobacco user Tobacco use type: Cigarette Years Smoked: 30 service: No Current occupational status: unemployed Sexual orientation: Straight/Heterosexual Gender identity: Female Female Reproductive History Menstrual Age of Menarche: 10 Review of Systems Const Denies weakness ENT Denies dizziness Card Denies chest pain, Denies chest pain with activity, Denies syncope, Denies rapid heart rate, Denies pedal edema, Denies edema, Denies leg edema, Denies lighthe adedness, Denies palpitations, Denies dyspnea, Denies dyspnea on exertion and Denies orthopnea Resp Denies cough, Denies dyspnea and Denies dyspnea on exertion GI Denies hematochezia and Denies change in stool character Musc Denies abnormal gait, Denies muscle cramps, Denies muscle weakness, Denies numbness, Denies radiating pain into limb and Denies tingling Neuro Denies abnormal gait, Denies dizziness, Denies syncope, Denies numbness, Denies tingling and Denies weakness Endo Denies palpitations Physical Exam Vital Signs: Last Vital Signs BP 110/68 09/25/23 08:43 BMI result Body Mass Index 43.3 Const General: comfortable and no acute distress Orientation/consciousness: patient oriented x3 HEENT Other: Unremarkable Head: Yes normal to inspection Neck Neck: Yes normal visual inspection Chest Chest palpation & inspection: normal inspection of the chest Resp Auscultation: clear to auscultation bilaterally Cardio Palpation: normal PMI Heart sounds: S1 normal heart sound present, S2 normal heart sound present, no gallops, no murmurs and no rubs GI Palpation (GI): Soft to palpation Back/Spine/Pelvis Other: unremarkable Skin General skin exam: no rashes or lesions noted Neuro General: patient oriented x3 Extrem General: Yes normal to inspection Psych Mental Status: mental status grossly normal Assessment & Plan Assessment & Plan (1) Atherosclerotic cardiovascular disease: Code(s): I25.10 - Atherosclerotic heart disease of [place] coronary artery without angina pectoris (2) Non-ST elevated myocardial infarction (non-STEMI): Code(s): I21.4 - Non-ST elevation (NSTEMI) myocardial infarction Plan Cardiac data reviewed. Peak troponin 620. Echocardiogram with LVEF of 55-60%. Distal apex hypokinetic. Otherwise un remarkable. Cardiac catheterization 08/2023-mid LAD 60% stenosis but with normal flow. IFR was within normal limits. Patient was apparently still having chest pain even though flow is normal and hence etiology was not very clear. Otherwise normal coronary arteries. For medications, continue aspirin. Statins. Beta-blockers. Smoking cessation. We will pursue an exercise stress perfusion imaging study to assess the degree of ischemia in the LAD territory, as recommended by the cath team. Echocardiogram to reassess for wall motion-if any recovery or not. Follow-up after the above. Orders: Orders CA echo transthoracic complete Today I25.10 - Atherosclerotic heart disease of [place] coronary artery without angina pectoris CA stress test Today I25.10 - Atherosclerotic heart disease of [place] coronary artery without angina pectoris, R07.2 - Precordial pain NM cardiolite stress test Today I25.10 - Atherosclerotic heart disease of [place] coronary artery without angina pectoris, R07.2 - Precordial pain Coding Level of Care Code Est Pt Level 4 (25827) Diagnoses Atherosclerotic cardiovascular disease I25.10 Non-ST elevated myocardial infarction (non-STEMI) I21.4
== END 2023-09-25 09:11 | disposition home or self-care (01) ==
PROVIDERS: PCP Nurse Practitioner Primary Care; Visit Provider Internal Medicine
DX: I25.10 Atherosclerotic heart disease of native coronary artery without angina pectoris (principal); I21.4 Non-ST elevation (NSTEMI) myocardial infarction
CPT/HCPCS: 99214

== ENCOUNTER → 2023-09-25 07:36 | Outpatient (BNVA) | payer MEDICAID, SELFPAY | PROVIDERS: PCP Nurse Practitioner Primary Care; Visit Provider Internal Medicine | DX: I25.10 Atherosclerotic heart disease of native coronary artery without angina pectoris (principal); I21.4 Non-ST elevation (NSTEMI) myocardial infarction | CPT/HCPCS: 99212 ==

== ENCOUNTER 2023-10-05 07:46 | Outpatient (REF) | payer MEDICAID, SELFPAY ==
--- NOTE | ~2023-10-05 | US_ITS ---
EXAMINATION: US LOWER EXTREMITY VENOUS (REFLUX EXAM), BILATERAL CLINICAL INDICATION: Lower extremity varicose veins with inflammation COMPARISON: None. TECHNIQUE: Color flow triplex imaging and compression Doppler was performed to evaluate both the deep and the superficial systems bilaterally. To evaluate the superficial system, the examination was performed in the upright position. Color-flow Doppler ultrasound and compression ultrasound were utilized. In addition, maneuvers were utilized to demonstrate reflux. FINDINGS: 1. DEEP VENOUS ULTRASOUND OF THE RIGHT LOWER EXTREMITY: Common Femoral Vein: Compressible, normal respiratory variation and augmented flow. Femoral Vein: Compressible, normal color flow and augmentation. Popliteal Vein: Compressible, normal augmentation. Deep Reflux: There is no evidence of reflux in the deep system in either the common femoral vein, superficial femoral or the popliteal vein. There is no evidence of a Zamudio's cyst. 2. SUPERFICIAL ULTRASOUND WITH DOPPLER OF RIGHT LOWER EXTREMITY: GREAT SAPHENOUS VEIN: Saphenofemoral Junction: 0.6 cm; Reflux: 0 ms Proximal Thigh: 0.6 cm; Reflux: 0 ms Mid Thigh: 0.3 cm; Reflux: 0 ms Above Knee: 0.3 cm; Reflux: 0 ms At Knee: 0.4 cm; Reflux: 0 ms Below Knee: 0.3 cm; Reflux: 0 ms Mid Calf: 0.2 cm; Reflux: 0 ms Ankle: 0.2 cm; Reflux: 0 ms DUPLICATED MEDIAL GREAT SAPHENOUS VEIN: Diameter: 0.4 cm Reflux: None DUPLICATED LATERAL GREAT SAPHENOUS VEIN: Diameter: None imaged Reflux: NA SMALL SAPHENOUS VEIN: Saphenopopliteal Junction: 0.1 cm; Reflux: 0 ms Proximal: 0.2 cm; Reflux: 0 ms Distal: 0.2 cm; Reflux: 0 ms VEIN OF GIACOMINI: Size: NA Reflux: NA PERFORATORS: Location: None significant Size: NA Reflux: NA VARICOSITIES: Location: Proximal thigh Size: 0.3 cm Reflux: None 3. DEEP VENOUS ULTRASOUND OF THE LEFT LOWER EXTREMITY: Common Femoral Vein: Compressible, normal respiratory variation and augmented flow. Femoral Vein: Compressible, normal color flow and augmentation. Popliteal Vein: Compressible, normal augmentation. Deep Reflux: There is no evidence of reflux in the deep system in either the common femoral vein, superficial femoral or the popliteal vein. There is no evidence of a Zamudio's cyst. 4. SUPERFICIAL ULTRASOUND WITH DOPPLER OF LEFT LOWER EXTREMITY: GREAT SAPHENOUS VEIN: Saphenofemoral Junction: 0.7 cm; Reflux: 0 ms Proximal Thigh: Duplicated with 0.4 and 0.4 cm; Reflux: 0 ms Mid Thigh: 0.3 cm; Reflux: 0 ms Above Knee: 0.3 cm; Reflux: 0 ms At Knee: 0.3 cm; Reflux: 0 ms Below Knee: 0.2 cm; Reflux: 0 ms Mid Calf: 0.1 cm; Reflux: 0 ms Ankle: 0.2 cm; Reflux: 0 ms DUPLICATED MEDIAL GREAT SAPHENOUS VEIN: Diameter: None imaged Reflux: NA DUPLICATED LATERAL GREAT SAPHENOUS VEIN: Diameter: None imaged Reflux: NA SMALL SAPHENOUS VEIN: Saphenopopliteal Junction: 0.1 cm; Reflux: 0 ms Proximal: 0.2 cm; Reflux: 0 ms Distal: 0.3 cm; Reflux: 0 ms VEIN OF GIACOMINI: Size: NA Reflux: NA PERFORATORS: Location: None significant Size: NA Reflux: NA VARICOSITIES: Location: None significant Size: NA Reflux: NA US/US venous duplex LE BI IMPRESSION: Right: No significant venous insufficiency or reflux in the great saphenous vein or small saphenous vein Left: No significant venous insufficiency or reflux in the great saphenous vein or small saphenous vein
[2023-10-05 09:27] LABS: Estimated Average Glucose 131 mg/dL; Hemoglobin A1C 151.7602 umol/L; Hemoglobin A1c % 6.2 % (<6.0)
[2023-10-05 09:31] LABS: Creatinine Urine 146.87 mg/dL
[2023-10-05 09:33] LABS: Alanine Aminotransferase 38 U/L (0-31); Alkaline Phosphatase 108 U/L (39-117); Anion Gap 14 (12-20); Aspartate Amino Transferase 27 U/L (5-31); Bilirubin Total 0.8 mg/dL (0.0-1.0); Blood Urea Nitrogen 12 mg/dL (9-16); Calcium 9.3 mg/dL (8.4-10.2); Carbon Dioxide 25 mmol/L (22-29); Chloride 108 mmol/L (96-108); Cholesterol 151 mg/dL (<200); Estimated Glomerular Filt Rate > 60; Glucose Random 110 mg/dL (60-115); HDL Cholesterol 33 mg/dL (>40); LDL Cholesterol Calculated 71 mg/dL (<100); Sodium 143 mmol/L (135-145); Total Protein 7.5 g/dL (6.5-8.0); Triglycerides 235 mg/dL (<150)
== END 2023-10-05 07:47 | disposition home or self-care (01) ==
LOC: HO.US 07:46
PROVIDERS: Absent Provider Nurse Practitioner Primary Care; PCP Nurse Practitioner Primary Care; Visit Provider Surgery Vascular Surgery
DX: E11.69 Type 2 diabetes mellitus with other specified complication (principal); E78.5 Hyperlipidemia, unspecified; I10 Essential (primary) hypertension; I83.12 Varicose veins of left lower extremity with inflammation
CPT/HCPCS: 36415; 80053; 80061; 82043; 82570; 83036; 93970

== ENCOUNTER → 2023-10-29 07:37 | Outpatient (REF) | payer MEDICAID, SELFPAY ==
--- NOTE | ~2023-10-29 | NM_ITS ---
EXERCISE MYOCARDIAL PERFUSION STUDY INDICATION: Chest pain, assess for coronary disease and ischemia TECHNIQUE: The patient was brought in for an exercise perfusion study on 10/29/2023. Patient performed exercise as per [facility]ington protocol and was injected 25 mCi of sestamibi once target heart rate was achieved. Images were obtained using the SPECT gamma camera interlaced with the gating device. Images were obtained in supine position. Resting perfusion study was performed on 10/31/2023. Patient was administered 25 mCi of sestamibi intravenously at rest. Images were then obtained in supine position. Images were processed with the software and compared side to side in short axis, horizontal long axis and vertical long axis views. Total DLP 187mGy-cm. FINDINGS: Raw images were reviewed. The stress perfusion study showed no significant perfusion abnormality. Both uncorrected as well as CT attenuation corrected images were reviewed. The gated study shows normal LV systolic function with calculated LVEF of 68%. LV cavity is normal in size. The gated study shows normal wall thickening and contraction of segments. Resting study shows no significant perfusion abnormality. Gating at rest reveals normal wall motion with ejection fraction at 68%. The findings are consistent with no reversible or fixed perfusion abnormality. VT/NM cardiolite stress test IMPRESSION: 1. Myocardial perfusion imaging study shows normal myocardial perfusion. 2. Gated LVEF is 58% during stress and rest. 3. Transient ischemic dilatation not present. EKG component of the test reported separately.
--- NOTE | 2023-10-29 07:47 | CA_ITS ---
Acquisition Time: 2023-10-29 09:02:14 Total Exercise Time: 00:06:36 Test Indications: Chest Pain Medications: SEE H Protocol: MICHAEL Max HR: 164 BPM 98% of Pred: 167 BPM Max BP: 140/080 mmHG Max Work Load: 7.9 METS Exercise stress test exercise 6 min 36 sec of Michael protocol achieving 98% MPHR, with mild SOB, no chest discomfort, without arrhythmias, with normotensive response to exercise, without EKG changes. Breathing returned to normal with rest.Nuclear images pending. Test reviewed with Dr. Jurado. Referred By: Leonard Rincon Overread By: Fabiola Hardy
--- NOTE | 2023-10-29 07:47 | CA_ITS ---
Transthoracic Echocardiogram Patient (Last, First, Middle): Barb Conklin, Gender: Female Date of : 1970 Age: 53 Procedure Date: 10/29/2023 Procedure Type: Transthoracic Echocardiogram Location: OP Height: 154.94 cm Weight: 104.33 kg BSA: 2.00 m2 Heart Rate: bpm BP: 122 / 80 mmHg Type Soldering Machine Tender: Referring MD: Leonard Rincon MD Symptoms: I25.10 - Atherosclerotic heart disease of [place] coronary artery without... Study Quality: Adequate ECG Rhythm: Sinus Conclusions: - The left ventricular systolic function is normal. The calculated ejection fraction is 60% by biplane method. - No obvious valvular pathology seen on this study. Findings Left Ventricle Normal left ventricular cavity size. There is mildly increased left ventricular wall thickness. The left ventricular systolic function is normal. The calculated ejection fraction is 60% by biplane method. There is no evidence of regional wall motion abnormalities. Diastolic function is normal for age. Right Ventricle Normal right ventricular cavity size. There is low normal right ventricular systolic function. Atria Both atria are normal in size. Aortic Valve There is a normal trileaflet aortic valve. There is no aortic valve stenosis. There is no aortic valve regurgitation. Mitral Valve The mitral valve appears normal. There is no mitral valve regurgitation. There is no mitral valve stenosis. Pulmonic Valve The pulmonic valve is likely normal. Tricuspid Valve Normal tricuspid valve structure. There is mild tricuspid valve regurgitation. There is no evidence of pulmonary hypertension. Great Vessels The asc aorta is normal in size. Venous The inferior vena cava is normal in size and collapses greater than 50% with inspiration. Pericardium/Pleural There is no evidence of pericardial effusion. Prior Study Comparison No significant change compared to prior study dated: 03/21/2021. Recommendations, Care & Conclusions No obvious valvular pathology seen on this study. Measurements 2D Linear Measurements IVSd: 1.07 0.6-0.9/0.6-1.0 cm LVIDd: 3.67 3.9-5.3/4.2-5.9 cm LVIDd Index: 1.84 2.4-3.2/2.2-3.1 cm/m2 LVIDs: 2.55 2.0-3.6 cm LVPWd: 1.03 0.7-1.1 cm Ao Root: 2.70 2.1-3.5 cm LA Diam: 3.40 2.7-3.8/3.0-4.0 cm LAIDs Index: 1.70 1.5-2.3 cm/m2 LV Mass: 148.38 67-162/88-224 g LV Mass Index: 74.19 43-95/49-115 g/m2 LVOT Diam: 1.90 3.0+(-)1.3 cm 2D Systolic Function EF 4C: 62.70 >55% EF 2C: 58.90 >55% EF BiP: 60.20 >55% Mitral Valve MV Pk E: 0.77 MV PK A: 0.57 MV Decel Time: 142.00 E/A: 1.30 E'Lateral: 10.10 E'Medial: 8.70 E/E' Med: 8.90 E/E' Lat: 7.60 PHT: 42.00 MVA PHT: 5.24 Decel Murray: 5.42 Aortic Valve AoV Pk Vishnu: 1.30 AoV Mn Vishnu: 0.86 AoV VTI: 0.31 AoV Pk Grad: 7.00 Aov Mn Grad: 3.00 ADELINA Cont.VTI: 2.09 LVOT LVOT Pk Vishnu: 1.00 LVOT Mn Vishnu: 0.66 LVOT VTI: 0.23 LVOT Pk Grad: 4.00 LVOT Mn Grad: 2.00 LVOT Diam: 1.90 LVOT Area: 2.84 Diastolic Function MV Pk E: 0.77 MV Pk A: 0.57 E/A: 1.30 E'Medial: 8.70 E/E' Med: 8.90 E' Laterial: 10.10 E/E' Lat: 7.60 Right Ventricle TAPSE (mm): 19.00 TVS' Vishnu: 9.00 Tricuspid Valve TR Pk Vishnu: 2.43 TR Pk Grad: 24.00 RA Press: 3.00 RVSP: 27.00 Great Vessels Aorta Ao Root-2D: 2.70 2.0-3.7 cm Ao Asc: 2.80 2.1-3.4 cm Pulmonary Valve PV Pk Vishnu: 0.84 Peak PV Grad: 3.00 Updated in Other Vendor System with Status of Final Leonard Rincon MD electronically signed on 10/29/2023 12:27:53 PM with status of Final
== END ==
LOC: HO.CARD 07:37
PROVIDERS: PCP Nurse Practitioner Primary Care; Visit Provider Internal Medicine
DX: I25.10 Atherosclerotic heart disease of native coronary artery without angina pectoris (principal); R07.2 Precordial pain
CPT/HCPCS: 78452; 93017; 93306; A9500

== ENCOUNTER → 2023-10-29 07:47 | Outpatient (BNV) | payer MEDICAID, SELFPAY | PROVIDERS: PCP Nurse Practitioner Primary Care; Visit Provider Internal Medicine | DX: R07.9 Chest pain, unspecified (principal) | CPT/HCPCS: 78452; 93016; 93018; 93350 ==

== ENCOUNTER 2023-11-13 07:49 | Outpatient (REF) | payer MEDICAID, SELFPAY ==
[2023-11-13 11:44] LABS: Alanine Aminotransferase 38 U/L (0-31); Albumin Level 4.1 g/dL (3.5-5.0); Alkaline Phosphatase 100 U/L (39-117); Anion Gap 13 (12-20); Aspartate Amino Transferase 29 U/L (5-31); Bilirubin Total 0.8 mg/dL (0.0-1.0); Blood Urea Nitrogen 9 mg/dL (9-16); Calcium 9.7 mg/dL (8.4-10.2); Carbon Dioxide 23 mmol/L (22-29); Chloride 109 mmol/L (96-108); Cholesterol 183 mg/dL (<200); Estimated Glomerular Filt Rate > 60; Glucose Random 88 mg/dL (60-115); HDL Cholesterol 36 mg/dL (>40); LDL Cholesterol Calculated 86 mg/dL (<100); Potassium 4.3 mmol/L (3.3-5.1); Sodium 141 mmol/L (135-145); Total Protein 7.8 g/dL (6.5-8.0); Triglycerides 307 mg/dL (<150)
== END 2023-11-13 07:50 | disposition home or self-care (01) ==
LOC: HO.LAB 07:49
PROVIDERS: PCP Nurse Practitioner Primary Care; Visit Provider Nurse Practitioner Family
DX: R07.2 Precordial pain (principal); I25.10 Atherosclerotic heart disease of native coronary artery without angina pectoris; I21.4 Non-ST elevation (NSTEMI) myocardial infarction; I10 Essential (primary) hypertension; Z98.890 Other specified postprocedural states
CPT/HCPCS: 36415; 80053; 80061; 99212

== ENCOUNTER 2023-11-13 07:49 | Outpatient (AMB) | payer MEDICAID, SELFPAY ==
[2023-11-13 08:42] VITALS: BP 114/72; PULSE 67; BMI 43.2
--- NOTE | 2023-11-13 08:42 | MHC.OFFVIS ---
Intake Vital Signs 11/13/23 08:42 Height 5 ft 1 in Weight 228 lb 6.382 oz BMI 43.2 BP 114/72 Blood Pressure Location Rt brachial Position Sitting Pulse 67 Pulse Source Pulse Oximeter Intake Visit Reasons: 2 month follow up Lotus Notes Administrator Required: Yes Lotus Notes Administrator Language: Anode Rebuilder Name: [facility] Allergies No Known Allergies Allergy (Verified 11/13/23 08:44) Medication List - Last Reconciled 11/13/23 by MICHAEL Luna acetaminophen ER 650 mg PO Q8H PRN albuterol sulfate 90 mcg/actuation 1 inh inhalation Q4-6H PRN aspirin (Adult Aspirin Regimen) 81 mg PO DAILY atorvastatin 40 mg PO BEDTIME calcium carbonate-vitamin D3 600 mg-10 mcg (400 unit) 1 tab PO QAM clonazepam 0.25 mg PO DAILY cyanocobalamin (vitamin B-12) 1,000 mcg PO QPM cyclobenzaprine 5 mg PO BEDTIME diclofenac sodium 1% 4 - 6 grams topical QID PRN divalproex ER 250 mg PO BID docusate sodium (Dulcolax Stool Softener (docusate)) 1 cap PO DIRECTED duloxetine 30 mg PO DAILY ferrous sulfate (FeroSul) 1 tab PO BID fluticasone propionate 50 mcg/actuation 2 sprays intranasal DAILY gabapentin 600 mg PO TID lidocaine 5% (Lidoderm) 1 patch topical DAILY metformin 500 mg PO BID metoprolol succinate ER 25 mg PO DAILY pantoprazole 40 mg PO QAM prazosin (Minipress) 1 mg PO BEDTIME sumatriptan succinate 1 tab PO DAILY HPI 2 month follow up HPI Details Barb is a 53-year-old female past medical history hypertension, pre diabetes, hyperlipidemia, obesity who presented to [facility] with chest discomfort and ruled in for NSTEMI, who was transferred to [facility] and underwent cardiac catheterization showing only moderate LAD stenosis with normal IFR. She was managed medically. On last visit a nuclear stress test and echocardiogram were ordered and she now presents for follow-up. Today she reports she has been feeling well with no concerning symptoms. She has not had recurrent chest discomfort. She has no shortness of breath, palpitations, lightheadedness, presyncope, syncope, PND, orthopnea or edema. She is taking meds as directed. She tells me she goes to the gym routinely and using bike and treadmill. Certified patient relations representative used. PFSH Medical History Atherosclerotic cardiovascular disease Ventral hernia Morbid obesity Hypertension Fibromyalgia Vitamin D deficiency Pre-diabetes Hypertriglyceridemia Vitamin B12 deficiency Sleep apnea STEVEN (iron deficiency anemia) Pulmonary embolism Surgical History H/O hernia repair Gastric bypass status for obesity deliv NOS-unsp Hx of endoscopy History of colonoscopy Family History Father No problems noted. Mother Stomach cancer Blood disorder Paternal Uncle Stomach cancer Pancreatic cancer Throat cancer Maternal Aunt Breast cancer Paternal Aunt Breast cancer Paternal Uncle Stomach cancer Maternal Grandmother Colon cancer Brother Blood disorder Social History Household Members: Spouse and Children Housing: House Are you a primary career based intervention coordinator to a significant other at home: No Do you presently have visiting nurse or other home services: No Alcohol intake: former Patient Tobacco Use Status: Current everyday Tobacco user Tobacco use type: Cigarette Years Smoked: 30 service: No Current occupational status: unemployed Sexual orientation: Straight/Heterosexual Gender identity: Female Female Reproductive History Menstrual Age of Menarche: 10 Review of Systems Const All systems reviewed & are unremarkable except as noted in HPI and below ENT Denies dizziness Card Denies chest pain, Denies chest pain at rest, Denies chest pain with activity, Denies rapid heart rate, Denies pedal edema, Denies edema, Denies leg edema, Denies lightheadedness, Denies palpitations, Denies dyspnea, Denies dyspnea on exertion and Denies orthopnea Resp Denies cough, Denies dyspnea and Denies dyspnea on exertion GI Denies hematochezia and Denies change in stool character Musc Denies abnormal gait, Denies limited range of motion, Denies muscle cramps, Denies muscle weakness, Denies numbness, Denies radiating pain into limb, Denies stiffness and Denies tingling Neuro Denies abnormal gait, Denies dizziness, Denies numbness and Denies tingling Endo Denies palpitations Physical Exam Vital Signs: Last Vital Signs Pulse 67 11/13/23 08:42 BP 114/72 11/13/23 08:42 BMI result Body Mass Index 43.2 Const General: cooperative, healthy appearing, comfortable and no acute distress Orientation/consciousness: patient oriented x3 Neck Neck: Yes normal visual inspection and Yes no JVD Resp Effort & Inspection: normal respiratory effort Auscultation: clear to auscultation bilaterally, no crackles, no rales, no rhonchi and no wheezes Cardio Jugular venous distension: no JVD Rate: regular rate Rhythm: regular rhythm Heart sounds: S1 normal heart sound present, S2 normal heart sound present, no murmurs and no rubs Neuro General: patient oriented x3 Extrem General: Yes normal to inspection and No no pedal edema Psych Appearance: grossly normal Mental Status: mental status grossly normal Speech and movement: Normal speech and movement present Assessment & Plan Assessment & Plan (1) Non-ST elevated myocardial infarction (non-STEMI): Code(s): I21.4 - Non-ST elevation (NSTEMI) myocardial infarction Plan: Presented to [facility] [id number] with chest discomfort. She ruled in for NSTEMI. Troponin 619.3. She was managed medically then transferred to [facility] where she underwent cardiac catheterization on 08/07/2023 showing moderate mid LAD stenosis with normal IFR. Unclear if this was the cause of her NSTEMI. She was still having chest discomfort with visible normal flow. She was managed medically. Outpatient nuclear stress test done on 10/31/2023 showed normal myocardial perfusion imaging, EF 58%. An echocardiogram done 10/29/2023 showed EF 60%, no valve abnormalities and no regional wall motion abnormalities. At this time she denies any anginal sounding symptoms. She will continue on aspirin indefinitely. Continue atorvastatin with ideal LDL goal less than 70. Continue metoprolol. Ongoing physical activity as tolerated. Will order fasting lipids and LFTs. Patient informed. Signs and symptoms of angina reviewed with her. Cardiology follow-up 6 months, sooner if needed (2) Precordial chest pain: Code(s): R07.2 - Precordial pain Plan: As above (3) Hypertension: Code(s): I10 - Essential (primary) hypertension Plan: Well controlled at this time. No medication changes have been made. (4) S/P cardiac catheterization: Comment: 08/07/2023, mid LAD 65% stenosis, MARTIN 3 flow, remaining vessels normal Code(s): Z98.890 - Other specified postprocedural states Plan: As above Plan Time spent on chart review, documentation, interview and assessment Orders: Orders Comprehensive Met. Panel Today I25.10 - Atherosclerotic heart disease of chilkoot coronary artery without angina pectoris Lipid Panel Today I25.10 - Atherosclerotic heart disease of chilkoot coronary artery without angina pectoris Medications: New atorvastatin 40 mg PO BEDTIME 90 tabs 3RF aspirin (Adult Aspirin Regimen) 81 mg PO DAILY 90 tabs 3RF metoprolol succinate ER 25 mg PO DAILY 90 tabs 3RF Coding Level of Care Code Est Pt Level 3 (28042) Diagnoses Non-ST elevated myocardial infarction (non-STEMI) I21.4 Precordial chest pain R07.2 Hypertension I10 S/P cardiac catheterization Z98.890 Time Spent (min) 24
== END 2023-11-13 09:16 | disposition home or self-care (01) ==
PROVIDERS: PCP Nurse Practitioner Primary Care; Visit Provider Nurse Practitioner Family
DX: I21.4 Non-ST elevation (NSTEMI) myocardial infarction (principal); R07.2 Precordial pain; I10 Essential (primary) hypertension; Z98.890 Other specified postprocedural states
CPT/HCPCS: 99213

== ENCOUNTER 2023-12-03 08:34 | Outpatient (AMB) | payer MEDICAID, SELFPAY ==
[2023-12-03 08:39] VITALS: BP 97/57; PULSE 66; BMI 42.9
--- NOTE | 2023-12-03 08:39 | A.OFFVIS_ITS ---
Vital Signs 12/03/23 08:39 Height 5 ft 1 in Weight 227 lb 1.218 oz BMI 42.9 BP 97/57 L Blood Pressure Location Rt brachial Position Sitting Pulse 66 Intake Visit Reasons: 4 month follow up Intake Note: Barb presents in the office as a 4 month follow up. CC: She is not having any concerns at this time. Industrial Arts Teacher Required: Yes Industrial Arts Teacher Name: Kimberlee [id number] Allergies No Known Allergies Allergy (Verified 12/03/23 09:01) HPI HPI 4 month follow up: Details: 52 yr old f here for f/u RECAP: She had labs 02/2019 with HGB 11, and iron sat 5 %, ferritin 35. Hx of gastric bypass she also had acute spontanoeus PTE 12/2018, no precipitants, no smoking hx work up ongoing with hematology, on xarelto grand dad and paternal and mother uncle with stomach cancer she also has heavy periods never had EGD or colonoscopy denied abdo pain unless eats rice or overeats in epigastrium meditech shows h pylori in past, but she doesn;t knwo anything about it EGD/colonoscopy; diverticulosis, hemerrhoids with red wood, polyp, atro phic gastritis, mild esophagitis, bx:::mild chronic gastritis, no h pylori capsule-- normal (rept colon in 2-3 yrs due to fair prep) I placed her on tranexamic acid whilst she was awaiting fundraiser review, she felt this helped reduce her heavy periods and was improved after she stopped xarelto for PTE I increased her PPI dose to pantoprazole 40 mg daily due to upset stomach, possibly related to her grandmothers but she stopped this as her heartburn improved TESTS: GES 07/26: rapid emptying EGD/colo: 10/2022 Endoscopy Findings: gastritis 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 Oropharynx red. Moist mucous membranes. Conjunctivae appear well perfused. No thyroid mass. CHEST: Chest wall is nontender. HEART: Regular rate and rhythm without murmurs. LUNGS: Clear to auscultation bilaterally. ABDOMEN: Soft, positive bowel sounds, tender RUQ, no organomegaly.no flank ten derness SKIN: tender bruised vein around back of her right knee NEUROLOGIC: Cranial nerves II-XII intact without motor/sensory deficit. MS: leg raise reduced left leg--gives pain--tender lower back Assessment & Plan 1/ Gastritis, controlled wt PPI 2/ fatty liver 3/ asymptomatic gallstones Plan: 1/ cont with PPI--taking MV and Vit D supplement 2/ can repeat US and LFT next year, advised on weight loss, low fat diet, more veg and exercise PFSH Medical History Atherosclerotic cardiovascular disease Ventral hernia Morbid obesity Hypertension Fibromyalgia Vitamin D deficiency Pre-diabetes Hypertriglyceridemia Vitamin B12 deficiency Sleep apnea STEVEN (iron deficiency anemia) Pulmonary embolism Surgical History H/O hernia repair Gastric bypass status for obesity deliv NOS-unsp Hx of endoscopy History of colonoscopy Family History Father No problems noted. Mother Stomach cancer Blood disorder Paternal Uncle Stomach cancer Pancreatic cancer Throat cancer Maternal Aunt Breast cancer Paternal Aunt Breast cancer Paternal Uncle Stomach cancer Maternal Grandmother Colon cancer Brother Blood disorder Social History Household Members: Spouse and Children Housing: House Are you a primary pet care attendant to a significant other at home: No Do you presently have visiting nurse or other home services: No Alcohol intake: former Patient Tobacco Use Status: Current everyday Tobacco user Tobacco use type: Cigarette Years Smoked: 30 service: No Current occupational status: unemployed Sexual orientation: Straight/Heterosexual Gender identity: Female Female Reproductive History Menstrual Age of Menarche: 10 Physical Exam Vital Signs: Last Vital Signs Pulse 66 12/03/23 08:39 BP 97/57 L 12/03/23 08:39 BMI result Body Mass Index 42.9 Assessment & Plan Assessment & Plan (1) NAFLD (nonalcoholic fatty liver disease): Code(s): K76.0 - Fatty (change of) liver, not elsewhere classified Category: Medical Plan: see above Coding Level of Care Code Est Pt Level 3 (62836) Diagnoses NAFLD (nonalcoholic fatty liver disease) K76.0
== END 2023-12-03 09:31 | disposition home or self-care (01) ==
PROVIDERS: PCP Nurse Practitioner Primary Care; Referring Provider Nurse Practitioner Primary Care; Visit Provider Internal Medicine Gastroenterology
DX: K76.0 Fatty (change of) liver, not elsewhere classified (principal)
CPT/HCPCS: 99213

== ENCOUNTER → 2023-12-03 08:34 | Outpatient (BNVA) | payer MEDICAID, SELFPAY | PROVIDERS: PCP Nurse Practitioner Primary Care; Visit Provider Internal Medicine Gastroenterology | DX: K76.0 Fatty (change of) liver, not elsewhere classified (principal); Z98.890 Other specified postprocedural states; Z98.84 Bariatric surgery status | CPT/HCPCS: 99212 ==

== ENCOUNTER 2024-01-22 12:07 | Outpatient (AMB) | payer MEDICAID, SELFPAY ==
--- NOTE | 2024-01-22 13:16 | A.OFFVIS_ITS ---
Intake Visit Reasons: f/u s/p 10/05/23 Intake Note: Patient presents for follow up 10/05/23 . Patient has no complaints. Accompanied by: Child Allergies No Known Allergies Allergy (Verified 01/22/24 13:17) HPI HPI f/u s/p 10/05/23: Details: Very pleasant 53-year-old female presents for follow-up regarding venous disease. She does have a prior history of a PE dating back to 2019 and she does have some swelling and heaviness of the lower extremities. She now presents for follow-up with venous insufficiency testing. Her main concern has been some spider telangiectasias. She is now for routine follow-up. [facility] Medical History Atherosclerotic cardiovascular disease Ventral hernia Morbid obesity Hypertension Fibromyalgia Vitamin D deficiency Pre-diabetes Hypertriglyceridemia Vitamin B12 deficiency Sleep apnea STEVEN (iron deficiency anemia) Pulmonary embolism Surgical History H/O hernia repair Gastric bypass status for obesity deliv NOS-unsp Hx of endoscopy History of colonoscopy Family History Father No problems noted. Mother Stomach cancer Blood disorder Paternal Uncle Stomach cancer Pancreatic cancer Throat cancer Maternal Aunt Breast cancer Paternal Aunt Breast cancer Paternal Uncle Stomach cancer Maternal Grandmother Colon cancer Brother Blood disorder Social History Household Members: Spouse and Children Housing: House Are you a primary patient care director to a significant other at home: No Do you presently have visiting nurse or other home services: No Alcohol intake: former Patient Tobacco Use Status: Current everyday Tobacco user Tobacco use type: Cigarette Years Smoked: 30 service: No Current occupational status: unemployed Sexual orientation: Straight/Heterosexual Gender identity: Female Female Reproductive History Menstrual Age of Menarche: 10 Review of Systems Const All systems reviewed & are unremarkable except as noted in HPI and below Reports no additional complaints ENT Reports Normal hearing present Card Denies chest pain, Denies chest pain at rest, Denies chest pain with activity and Denies pedal edema Resp Denies cough GI Denies abdominal pain Musc Denies abnormal gait, Denies muscle cramps and Denies radiating pain into limb Skin/Breast Denies skin ulcer and Denies wounds Neuro Reports Normal hearing present and Denies abnormal gait Psych Reports no additional complaints Physical Exam Const General: cooperative, healthy appearing and comfortable Orientation/consciousness: oriented to person, oriented to place and oriented to time HEENT Head: Yes normal to inspection Neck Neck: Yes normal visual inspection Carotids: no bruits Chest Chest palpation & inspection: normal inspection of the chest Resp Effort & Inspection: normal respiratory effort and able to speak in complete sentences Auscultation: clear to auscultation bilaterally, no crackles, no rales, no rhonchi and no wheezes Cardio Rate: regular rate Rhythm: regular rhythm Heart sounds: S1 normal heart sound present and S2 normal heart sound present Bruits: no carotid bruits Peripheral pulses: Peripheral pulses 2+ throughout GI Inspection: Yes normal to inspection Skin Wounds: no wounds Hair: normal Neuro General: oriented to person, oriented to place and oriented to time Cranial nerves: Yes CN's II-XII intact bilaterally and Yes Normal hearing present Cognition (Neuro): normal cognition Motor exam (neuro): 5/5 motor strength present throughout Extrem Other: venous exam: +1 edema with some spider telangiectasias General: No clubbing, No cyanosis and Yes edema Psych Appearance: grossly normal Mental Status: mental status grossly normal Speech and movement: Normal speech and movement present Results Reviewed Results Reviewed: Brief summary of venous insufficiency testing is as follows: right great saphenous vein: negative right small saphenous vein: negative right accessory vein: none present left great saphenous vein: negative left small saphenous vein: negative left accessory vein: none present Please note there is no evidence of any venous aneurysms or significant tortuosity Assessment & Plan Assessment & Plan (1) Varicose veins of left lower extremity with inflammation: Code(s): I83.12 - Varicose veins of left lower extremity with inflammation Category: Medical Plan: In short patient is negative for any significant venous insufficiency. I do believe that she may have an element of deep reflux due to her prior history of DVT/PE. At the current time would only recommend conservative measures including compression elevation and exercise. She did demonstrate some concern about her spider telangiectasias but that would be more of a cosmetic issue. At the current time no intervention is indicated. She will follow up with us on an as-needed basis. Thank you for allowing us to assist in her care. Coding Level of Care Code Est Pt Level 3 (10787) Diagnoses Varicose veins of left lower extremity with inflammation I83.12
== END 2024-01-22 13:27 | disposition home or self-care (01) ==
LOC: HO.HVS 12:07
PROVIDERS: PCP Nurse Practitioner Primary Care; Visit Provider Surgery Vascular Surgery
DX: I83.12 Varicose veins of left lower extremity with inflammation (principal)
CPT/HCPCS: 99213

== ENCOUNTER → 2024-01-22 12:07 | Outpatient (BNVA) | payer MEDICAID, SELFPAY | PROVIDERS: PCP Nurse Practitioner Primary Care; Visit Provider Surgery Vascular Surgery | DX: I83.12 Varicose veins of left lower extremity with inflammation (principal) | CPT/HCPCS: 99212 ==

== ENCOUNTER 2024-02-25 11:50 | Outpatient (REF) | payer MEDICAID, SELFPAY | END 2024-02-25 11:51 | disposition home or self-care (01) | LOC: HO.MAMMO 11:50 | PROVIDERS: PCP Nurse Practitioner Primary Care; Visit Provider Nurse Practitioner Primary Care | DX: Z12.31 Encounter for screening mammogram for malignant neoplasm of breast (principal) | CPT/HCPCS: 77063; 77067 ==

== ENCOUNTER → 2024-02-25 12:45 | Outpatient (BNV) | payer MEDICAID, SELFPAY | PROVIDERS: PCP Nurse Practitioner Primary Care; Visit Provider Radiology Diagnostic Radiology | DX: Z12.31 Encounter for screening mammogram for malignant neoplasm of breast (principal) | CPT/HCPCS: 77063; 77067 ==

== ENCOUNTER 2024-04-22 18:16 | Outpatient (REF) | payer MEDICAID, SELFPAY ==
[2024-04-23 13:14] LABS: Bacterial Vaginosis PCR POSITIVE (Negative); Candida Group PCR NOT DETECTED (Not Detect); Candida glab krusei PCR NOT DETECTED (Not Detect); Trichomonas vaginalis PCR NOT DETECTED (Not Detect)
== END 2024-04-22 18:17 | disposition home or self-care (01) ==
LOC: HO.LNP 18:16
PROVIDERS: Visit Provider Advanced Practice Midwife
DX: N90.89 Other specified noninflammatory disorders of vulva and perineum (principal)
CPT/HCPCS: 0352U

== ENCOUNTER 2024-05-15 12:54 | Outpatient (AMB) | payer MEDICAID, SELFPAY ==
[2024-05-15 12:57] VITALS: BP 90/62; PULSE 79; BMI 42.2
--- NOTE | 2024-05-15 12:57 | MHC.OFFVIS ---
Vital Signs 05/15/24 12:57 Height 5 ft 1 in Weight 223 lb 1.725 oz BMI 42.2 BP 90/62 Blood Pressure Location Rt brachial Position Sitting Pulse 79 Pulse Source Pulse Oximeter Intake Visit Reasons: r/s from am Deposit Clerk Required: Yes Deposit Clerk Language: Counselor Supervisor Name: ania Allergies No Known Allergies Allergy (Verified 05/15/24 13:00) Medication List - Last Reconciled 05/15/24 by MICHAEL Luna acetaminophen ER 650 mg PO Q8H PRN albuterol sulfate 90 mcg/actuation 1 inh inhalation Q4-6H PRN aspirin (Adult Aspirin Regimen) 81 mg PO DAILY atorvastatin 80 mg PO BEDTIME calcium carbonate-vitamin D3 600 mg-10 mcg (400 unit) 1 tab PO QAM clonazepam 0.25 mg PO DAILY cyanocobalamin (vitamin B-12) 1,000 mcg PO QPM cyclobenzaprine 5 mg PO BEDTIME diclofenac sodium 1% 4 - 6 grams topical QID PRN divalproex ER 250 mg PO BID docusate sodium (Dulcolax Stool Softener (docusate)) 1 cap PO DIRECTED duloxetine 30 mg PO DAILY ezetimibe (Zetia) 10 mg PO DAILY ferrous sulfate (FeroSul) 1 tab PO BID fluticasone propionate 50 mcg/actuation 2 sprays intranasal DAILY gabapentin 600 mg PO TID lidocaine 5% (Lidoderm) 1 patch topical DAILY metformin 500 mg PO BID metoprolol succinate ER 25 mg PO DAILY pantoprazole 40 mg PO QAM prazosin (Minipress) 1 mg PO BEDTIME sumatriptan succinate 1 tab PO DAILY HPI HPI r/s from am: Details: Barb is a 53-year-old female past medical history hypertension, pre diabetes, hyperlipidemia, obesity who presented to [facility] [place]/04[place] with chest discomfort and ruled in for NSTEMI, who was transferred to [facility] and underwent cardiac catheterization showing only moderate LAD stenosis with normal IFR. She was managed medically. An outpt nuclear stress test was normal. She now presents for follow-up. Today she reports she has been feeling well with no concerning symptoms. She has not had any chest discomfort at rest or with exertion. She has no shortness of breath, lightheadedness, presyncope, syncope, PND, orthopnea or edema.On one day a few weeks ago, she recalls feeling her heart beating fast and hard for a few minutes. She drinks 1 caffeinated drink per day. She is taking meds as directed. She has not been doing anything exertional recently. She does her housework. Certified analytics intern used. [facility] Medical History Atherosclerotic cardiovascular disease Ventral hernia Morbid obesity Hypertension Fibromyalgia Vitamin D deficiency Pre-diabetes Hypertriglyceridemia Vitamin B12 deficiency Sleep apnea STEVEN (iron deficiency anemia) Pulmonary embolism Surgical History H/O hernia repair Gastric bypass status for obesity deliv NOS-unsp Hx of endoscopy History of colonoscopy Family History Father No problems noted. Mother Stomach cancer Blood disorder Paternal Uncle Stomach cancer Pancreatic cancer Throat cancer Maternal Aunt Breast cancer Paternal Aunt Breast cancer Paternal Uncle Stomach cancer Maternal Grandmother Colon cancer Brother Blood disorder Social History Household Members: Spouse and Children Housing: House Are you a primary floor care specialist to a significant other at home: No Do you presently have visiting nurse or other home services: No Alcohol intake: former Patient Tobacco Use Status: Current everyday Tobacco user Tobacco use type: Cigarette Years Smoked: 30 service: No Current occupational status: unemployed Sexual orientation: Straight/Heterosexual Gender identity: Female Female Reproductive History Menstrual Age of Menarche: 10 Review of Systems Const All systems reviewed & are unremarkable except as noted in HPI and below ENT Denies dizziness Card Denies chest pain, Denies chest pain at rest, Denies chest pain with activity, Reports rapid heart rate (on one occassion few weeks ago), Denies pedal edema, Denies edema, Denies leg edema, Denies lightheadedness, Denies palpitations, Denies dyspnea, Denies dyspnea on exertion and Denies orthopnea Resp Denies cough, Denies dyspnea and Denies dyspnea on exertion GI Denies hematochezia and Denies change in stool character Musc Denies abnormal gait, Denies limited range of motion, Denies muscle cramps, Denies muscle weakness, Denies numbness, Denies radiating pain into limb, Denies stiffness and Denies tingling Neuro Denies abnormal gait, Denies dizziness, Denies numbness and Denies tingling Endo Denies palpitations Physical Exam Vital Signs: Last Vital Signs Pulse 79 05/15/24 12:57 BP 90/62 05/15/24 12:57 BMI result Body Mass Index 42.2 Const General: cooperative, healthy appearing, comfortable and no acute distress Orientation/consciousness: patient oriented x3 Neck Neck: Yes normal visual inspection and Yes no JVD Resp Effort & Inspection: normal respiratory effort Auscultation: clear to auscultation bilaterally, no crackles, no rales, no rhonchi and no wheezes Cardio Jugular venous distension: no JVD Rate: regular rate Rhythm: regular rhythm Heart sounds: S1 normal heart sound present, S2 normal heart sound present, no murmurs and no rubs Neuro General: patient oriented x3 Extrem General: Yes normal to inspection and No no pedal edema Psych Appearance: grossly normal Mental Status: mental status grossly normal Speech and movement: Normal speech and movement present Assessment & Plan Assessment & Plan (1) Non-ST elevated myocardial infarction (non-STEMI): Code(s): I21.4 - Non-ST elevation (NSTEMI) myocardial infarction Category: Medical Plan: Presented to [facility] 08/04/23 with chest discomfort. She ruled in for NSTEMI. Troponin 619.3. She was managed medically then transferred to [facility] where she underwent cardiac catheterization on 08/07/2023 showing moderate mid LAD stenosis with normal IFR. Unclear if this was the cause of her NSTEMI. She was still having chest discomfort with visible normal flow. She was managed medically. Outpatient nuclear stress test done on 10/31/2023 showed normal myocardial perfusion imaging, EF 58%. An echocardiogram done 10/29/2023 showed EF 60%, no valve abnormalities and no regional wall motion abnormalities. Today she reports that she has been doing well since her last visit in November. She denies chest discomfort at rest or with activity. Diagnosis of nonobstructive coronary artery disease reviewed with her. Risk factor modification discussed. Continue on aspirin indefinitely. Continue atorvastatin with ideal LDL goal less than 70. Labs done 11/13/2023 showed LDL 86. Will add Zetia 10 mg daily with fasting lipid profile in 2-3 months. Continue metoprolol. Blood pressure on low side, asymptomatic. Recheck done by me 98/62. Continue physical activity as tolerated. Signs and symptoms of angina reviewed with her. Cardiology follow-up 6 months, sooner if needed (2) Hypertension: Code(s): I10 - Essential (primary) hypertension Category: Medical Plan: BP low, asymptomatic. Continue low-dose metoprolol. Discussed good hydration. (3) S/P cardiac catheterization: Comment: 08/07/2023, mid LAD 65% stenosis, MARTIN 3 flow, remaining vessels normal Code(s): Z98.890 - Other specified postprocedural states Category: Surgical Plan: As above Plan Time spent on chart review, documentation, interview and assessment Orders: Orders Lipid Panel 2 Months I83.12 - Varicose veins of left lower extremity with inflammation Comprehensive Met. Panel 2 Months I25.10 - Atherosclerotic heart disease of [place] coronary artery without angina pectoris Medications: New ezetimibe (Zetia) New Cholesterol lowering medication 10 mg PO DAILY 30 tabs 6RF Coding Level of Care Code Est Pt Level 4 (04490) Complex EM visit Add On G2211 Diagnoses Non-ST elevated myocardial infarction (non-STEMI) I21.4 Hypertension I10 S/P cardiac catheterization Z98.890 Time Spent (min) 28
== END 2024-05-15 13:32 | disposition home or self-care (01) ==
PROVIDERS: PCP Nurse Practitioner Primary Care; Visit Provider Nurse Practitioner Family
DX: I21.4 Non-ST elevation (NSTEMI) myocardial infarction (principal); I10 Essential (primary) hypertension; Z98.890 Other specified postprocedural states
CPT/HCPCS: 99214

== ENCOUNTER → 2024-05-15 12:54 | Outpatient (BNVA) | payer MEDICAID, SELFPAY | PROVIDERS: PCP Nurse Practitioner Primary Care; Visit Provider Nurse Practitioner Family | DX: I10 Essential (primary) hypertension (principal); I21.4 Non-ST elevation (NSTEMI) myocardial infarction; R73.03 Prediabetes; E78.5 Hyperlipidemia, unspecified; E66.9 Obesity, unspecified; I83.12 Varicose veins of left lower extremity with inflammation; I25.10 Atherosclerotic heart disease of native coronary artery without angina pectoris; F17.210 Nicotine dependence, cigarettes, uncomplicated; Z68.41 Body mass index [BMI] 40.0-44.9, adult; Z98.890 Other specified postprocedural states | CPT/HCPCS: 99212 ==

== ENCOUNTER 2024-07-01 05:33 | Outpatient (REF) | payer MEDICAID, SELFPAY ==
--- NOTE | 2024-07-01 | EMG_ITS ---
Bilateral median and ulnar motor and sensory studies were performed. Bilateral radial sensory and median and lateral antecubital brachial sensory studies were performed and needle examination was performed. IMPRESSION: 1. Mild to moderate right and mild left median neuropathy across carpal tunnel. 2. Bilateral Vinicio-Sanam anastomoses are normal variant. MD NATHEN Andrade/CELESTINO / [phone]
== END 2024-07-01 05:34 | disposition home or self-care (01) ==
LOC: HO.NEURO 05:33
PROVIDERS: PCP Nurse Practitioner Primary Care; Visit Provider Nurse Practitioner Primary Care
DX: R20.0 Anesthesia of skin (principal); R20.2 Paresthesia of skin
CPT/HCPCS: 95886; 95913

== ENCOUNTER 2024-07-22 10:04 | Outpatient (REF) | payer MEDICAID, SELFPAY ==
[2024-07-22 18:14] LABS: Bacterial Vaginosis PCR NEGATIVE (Negative); Candida Group PCR NOT DETECTED (Not Detect); Candida glab krusei PCR NOT DETECTED (Not Detect); Trichomonas vaginalis PCR NOT DETECTED (Not Detect)
== END 2024-07-22 10:05 | disposition home or self-care (01) ==
LOC: HO.LNP 10:04
PROVIDERS: PCP Nurse Practitioner Primary Care; Visit Provider Advanced Practice Midwife
DX: Z01.419 Encounter for gynecological examination (general) (routine) without abnormal findings (principal); N89.8 Other specified noninflammatory disorders of vagina
CPT/HCPCS: 0352U; 99396

== ENCOUNTER 2024-07-22 10:04 | Outpatient (AMB) | payer MEDICAID, SELFPAY ==
--- NOTE | 2024-07-22 10:19 | MHC.OFFVIS ---
Vital Signs 07/22/24 10:22 Height 5 ft 1 in Weight 227 lb BMI 42.9 BP 100/62 Intake Visit Reasons: Annual Supervisor Lending Activities Required: Yes Supervisor Lending Activities Language: Hide Curer Services: Supervisor Lending Activities Present Supervisor Lending Activities Name: Rosa Information Interpreted: non-clinical & clinical Media Reconciliation Specialist: Media Reconciliation Specialist Present (Rosa) Allergies No Known Allergies Allergy (Verified 07/22/24 10:22) HPI Comments Details: She is a postmenopausal woman presenting for her annual senior research engineer examination. She is doing well with concerns: Rash under the breast and groins prone to yeast infections of the skin. Currently sexually active. Denies any vaginal dryness or irritation. STI testing offered; she declines. Attempting to eat a healthy diet with calcium and vitamin D and stays active with exercise. Last pap smear; 2021. Last mammogram; 2023. Colonoscopy is UTD. Family history of breast and colon cancer. [facility] Medical History Atherosclerotic cardiovascular disease Ventral hernia Morbid obesity Hypertension Fibromyalgia Vitamin D deficiency Pre-diabetes Hypertriglyceridemia Vitamin B12 deficiency Sleep apnea STEVEN (iron deficiency anemia) Pulmonary embolism Surgical History H/O hernia repair Gastric bypass status for obesity deliv NOS-unsp Hx of endoscopy History of colonoscopy Family History Father No problems noted. Mother Stomach cancer Blood disorder Paternal Uncle Stomach cancer Pancreatic cancer Throat cancer Maternal Aunt Breast cancer Paternal Aunt Breast cancer Paternal Uncle Stomach cancer Maternal Grandmother Colon cancer Brother Blood disorder Social History Household Members: Spouse and Children Housing: House Are you a primary rental boats caretaker to a significant other at home: No Do you presently have visiting nurse or other home services: No Alcohol intake: former Patient Tobacco Use Status: Current everyday Tobacco user Tobacco use type: Cigarette Cigarettes Per Day: 5 Years Smoked: 30 service: No Current occupational status: unemployed Sexual orientation: Straight/Heterosexual Gender identity: Female Female Reproductive History Menstrual Age of Menarche: 10 Total pregnancies: 5 Full term: 3 Number of Living Children: 3 Ab spontaneous: 2 Date of last pap smear: 02/01/22 (neg pap and hpv) Date of Mammogram: 02/25/24 (Birad 1) Review of Systems Const All systems reviewed & are unremarkable except as noted in HPI and below Reports as per HPI Eyes Reports no additional complaints ENT Reports no additional complaints Card Reports no additional complaints Resp Reports no additional complaints GI Reports as per HPI and Reports no additional complaints Reports as per HPI Musc Reports no additional complaints Skin/Breast Reports as per HPI Neuro Reports no additional complaints Psych Reports no additional complaints Endo Reports no additional complaints Duncan/Lymph Reports no additional complaints Aller/Immun Reports no additional complaints Physical Exam Const General: cooperative, healthy appearing, no acute distress, well developed and alert Orientation/consciousness: patient oriented x3 HEENT Head: Yes normal to inspection Eyes General: appearance normal, both eyes and all related structures Neck Neck: Yes normal visual inspection Thyroid: Thyroid normal Chest Chest palpation & inspection: normal inspection of the chest and other (no puckering, dimpling, peau de orange, retraction, discharge, masses) Breast/axilla inspection: normal inspection of the breasts Breast/axilla palpation: normal palpation of the breasts Resp Effort & Inspection: normal respiratory effort GI Inspection: Yes normal to inspection, Yes Abdominal panniculus present (Rash under fold) and Yes obesity Palpation (GI): Soft to palpation Rectal Exam - Female: deferred General: Yes bladder normal to palpation External Female Exam: normal external appearance and normal appearance of the urethra Speculum Exam - Vagina: normal appearance of the vagina, normal palpation, abnormal vaginal discharge (Increased white discharge) and vagina atrophic Speculum Exam - Cervix: normal appearance of the cervix and normal palpation Bimanual exam- vagina & uterus: normal bimanual exam, normal palpation, uterine size normal, bladder normal to palpation, normal palpation and non-tender Bimanual Exam- Adnexa, other: no masses Skin Other: Fungal appearing rash under the breast and in the pannus fold Rashes: no rashes Neuro General: patient oriented x3 Cognition (Neuro): normal cognition Extrem General: Yes normal to inspection Psych Attitude: cooperative Thought process: Normal thought process present Assessment & Plan Assessment & Plan (1) Encounter for well woman exam with routine gynecological exam: Code(s): Z01.419 - Encounter for gynecological examination (general) (routine) without abnormal findings Category: Medical (2) Family history of breast cancer: Code(s): Z80.3 - Family history of malignant neoplasm of breast Category: Medical Plan Discussed: Current recommendations for pap smears per ASCCP guidelines. Breast awareness, periodic self breast exams and yearly mammogram. Maintain a healthy lifestyle, well balanced diet including Calcium 1,200 mg and Vitamin D 600 IU daily, and routine exercise. Contact the office with any postmenopausal bleeding. Treat for a skin fungal with topical cream, BV panel obtained, await results for plan of care. Patient verbalizes understanding and agrees to the plan of care. She was given opportunity to ask questions and all questions were answered to the best of my ability. RTO in 1 year for annual senior research engineer exam. This note is constructed using voice recognition software. While every effort has been made to ensure accuracy, information operator errors may have been included. Orders: Orders Bacterial Vaginosis Panel Today N89.8 - Other specified noninflammatory disorders of vagina Referrals Breast Surgery Referral Z80.3 - Family history of malignant neoplasm of breast Medications: New clotrimazole-betamethasone 1-0.05 % 1 appl topical BID 7 days 45 grams 1RF fungal rash Coding Level of Care Code Est Pt Prev Care 40-64y(91652) Diagnoses Encounter for well woman exam with routine gynecological exam Z01.419 Family history of breast cancer Z80.3
[2024-07-22 10:22] VITALS: BP 100/62; BMI 42.9
== END 2024-07-22 10:51 | disposition home or self-care (01) ==
PROVIDERS: PCP Nurse Practitioner Primary Care; Visit Provider Advanced Practice Midwife
DX: Z01.419 Encounter for gynecological examination (general) (routine) without abnormal findings (principal); Z80.3 Family history of malignant neoplasm of breast
CPT/HCPCS: 99396

== ENCOUNTER 2024-07-29 13:09 | Outpatient (AMB) | payer MEDICAID, SELFPAY ==
--- NOTE | 2024-07-29 13:25 | A.OFFVIS_ITS ---
Vital Signs 07/29/24 13:34 Height 5 ft 1 in Weight 246 lb BMI 46.5 BP 106/58 L Blood Pressure Location Lt brachial Position Sitting Pulse 87 Intake Visit Reasons: Family history of malignant neoplasm of breast Intake Note: Patient seen in office for family history of malignant neoplasm of breast. Pt c/o: denies any concerns regarding her breast, has fm hx of multiple cancer, is interested in genetic testing mm:02/25/24 Senior Business Objects Developer Required: Yes Senior Business Objects Developer Language: Roadability Machine Operator Services: Senior Business Objects Developer Present Senior Business Objects Developer Name: Luz ANN Information Interpreted: non-clinical & clinical Industrial Registered Nurse: Industrial Registered Nurse Present Accompanied by: Self / Same As Patient Allergies No Known Allergies Allergy (Verified 07/29/24 13:33) HPI Comments Details: 53-year-old female patient with a strong family history of breast cancer, stomach cancer, colon cancer and pancreatic cancer. She has a past history of fibromyalgia, morbid obesity, vitamin-D deficiency, iron deficiency anemia, pulmonary embolism, obstructive sleep apnea. She denies any current breast symptoms or previous history of breast surgery. She is 5 para 3 living children, and 2 spontaneous abortions. She reports her mother developed stomach cancer a paternal uncle developed pancreatic and stomach cancer, a maternal aunt with breast cancer, paternal aunt with breast cancer, and a maternal grandmother with colon cancer. She is uncertain if any of a relative's underwent genetic testing. She denies any current breast symptoms including pain, skin changes, nipple discharge or palpable masses. Her last mammogram dated 02/25/2024 revealed no mammographic evidence of malignancy (BI-RADS 1). She presents today to discuss genetic testing given her strong family history of cancers. [facility] Medical History Family history of breast cancer Atherosclerotic cardiovascular disease Ventral hernia Morbid obesity Hypertension Fibromyalgia Vitamin D deficiency Pre-diabetes Hypertriglyceridemia Vitamin B12 deficiency Sleep apnea STEVEN (iron deficiency anemia) Pulmonary embolism Surgical History H/O hernia repair Gastric bypass status for obesity deliv NOS-unsp Hx of endoscopy History of colonoscopy Family History Father No problems noted. Mother Stomach cancer Blood disorder Paternal Uncle Stomach cancer Pancreatic cancer Throat cancer Maternal Aunt Breast cancer Paternal Aunt Breast cancer Paternal Uncle Stomach cancer Maternal Grandmother Colon cancer Brother Blood disorder Social History Household Members: Spouse and Children Housing: House Are you a primary day care attendant to a significant other at home: No Do you presently have visiting nurse or other home services: No Alcohol intake: former Patient Tobacco Use Status: Current everyday Tobacco user Tobacco use type: Cigarette Cigarettes Per Day: 5 Years Smoked: 30 service: No Current occupational status: unemployed Sexual orientation: Straight/Heterosexual Gender identity: Female Female Reproductive History Menstrual Age of Menarche: 10 Review of Systems Const All systems reviewed & are unremarkable except as noted in HPI and below Denies chills, Denies fever(s), Denies headache(s), Denies poor appetite and Denies weakness ENT Denies headache(s) Card Denies chest pain, Denies irregular heart rhythm, Denies palpitations and Denies dyspnea Resp Denies cough, Denies excessive phlegm production and Denies dyspnea GI Denies abdominal pain, Denies bloating, Denies change in bowel habits, Denies constipation, Denies heartburn, Denies diarrhea, Denies nausea and Denies vomiting Denies urinary frequency Musc Reports back pain, Denies muscle weakness and Denies numbness Skin/Breast Denies changing lesions and Denies unusual bruising Neuro Denies headache(s), Denies numbness, Denies paresthesias and Denies weakness Psych Denies anxiety and Denies depression Endo Denies palpitations Duncan/Lymph Denies lymphadenopathy Physical Exam Const General: cooperative and no acute distress Nutritional Appearance: well nourished Orientation/consciousness: patient oriented x3 Limitations: no limitations HEENT Head: Yes normocephalic and Yes atraumatic Ears: hearing grossly normal bilaterally Chest Other: Left breast: No skin change, no nipple retraction, no nipple discharge, no palpable mass, no enlarged lymph nodes. Right breast: No skin change, no nipple retraction, no nipple discharge, no palpable mass, no enlarged lymph nodes Resp Effort & Inspection: normal respiratory effort, no audible wheezes, no cough and no respiratory distress Cardio Jugular venous distension: no JVD GI Inspection: Yes normal to inspection Skin Other: Warm, dry, no rash Neuro General: patient oriented x3 Extrem General: Yes no clubbing, cyanosis or edema Assessment & Plan Assessment & Plan (1) Family history of breast cancer: Code(s): Z80.3 - Family history of malignant neoplasm of breast Category: Medical Plan 53-year-old female patient with a strong family history of multiple cancers including breast, gastric, and colon cancers. Examination today revealed no suspicious findings in either breast and her most recent mammogram of 02/25/2024 revealed no mammographic evidence of malignancy (BI-RADS 1). I recommended proceeding with genetic testing and reviewed the procedure, risks and alternatives. She agrees to the testing and will set up another appointment to review the results. Coding Level of Care Code New Pt Level 4 (41654) Diagnoses Family history of breast cancer Z80.3
[2024-07-29 13:34] VITALS: BP 106/58; PULSE 87; BMI 46.5
== END 2024-07-29 13:46 | disposition home or self-care (01) ==
PROVIDERS: PCP Nurse Practitioner Primary Care; Visit Provider Surgery
DX: Z80.3 Family history of malignant neoplasm of breast (principal)
CPT/HCPCS: 99204

== ENCOUNTER → 2024-07-29 13:09 | Outpatient (BNVA) | payer MEDICAID, SELFPAY | PROVIDERS: PCP Nurse Practitioner Primary Care; Visit Provider Surgery | DX: Z80.3 Family history of malignant neoplasm of breast (principal) | CPT/HCPCS: 99202 ==

== ENCOUNTER → 2024-08-12 10:23 | Outpatient (BNVA) | payer MEDICAID, SELFPAY | PROVIDERS: PCP Nurse Practitioner Primary Care; Visit Provider Surgery ==

== ENCOUNTER 2024-08-29 09:24 | Outpatient (AMB) | payer MEDICAID, SELFPAY ==
--- NOTE | 2024-08-29 09:30 | MHC.OFFVIS ---
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 She expresses difficulty with lifting, gripping, and grasping. This causes difficulty with her daily activities such as opening jars/bottles and holding objects in her hand which she has dropped due to not being able to grasp. Hx of diabetes. Last A1c is unknown. EMG done on 07/01/2024 IMPRESSION: 1. Mild to moderate right and mild left median neuropathy across carpal tunnel. 2. Bilateral Vinicio-Sanam anastomoses are normal variant. 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 She expresses difficulty with lifting, gripping, and grasping. This causes difficulty with her daily activities such as opening jars/bottles and holding objects in her hand which she has dropped due to not being able to grasp. Hx of diabetes. Last A1c is unknown. EMG done on 07/01/2024 IMPRESSION: 1. Mild to moderate right and mild left median neuropathy across carpal tunnel. 2. Bilateral Vinicio-Sanam anastomoses are normal variant. [facility]LY [facility] Medical History Family history of breast cancer Atherosclerotic cardiovascular disease Ventral hernia Morbid obesity Hypertension Fibromyalgia Vitamin D deficiency Pre-diabetes Hypertriglyceridemia Vitamin B12 deficiency Sleep apnea STEVEN (iron deficiency anemia) Pulmonary embolism Surgical History H/O hernia repair Gastric bypass status for obesity deliv NOS-unsp Hx of endoscopy History of colonoscopy Family History Father No problems noted. Mother Stomach cancer Blood disorder Paternal Uncle Stomach cancer Pancreatic cancer Throat cancer Maternal Aunt Breast cancer Paternal Aunt Breast cancer Paternal Uncle Stomach cancer Maternal Grandmother Colon cancer Brother Blood disorder Social History Household Members: Spouse and Children Housing: House Are you a primary care center manager to a significant other at home: No Do you presently have visiting nurse or other home services: No Alcohol intake: former Patient Tobacco Use Status: Current everyday Tobacco user Tobacco use type: Cigarette Cigarettes Per Day: 5 Years Smoked: 30 service: No Current occupational status: unemployed Sexual orientation: Straight/Heterosexual Gender identity: Female Female Reproductive History Menstrual Age of Menarche: 10 Review of Systems Const All systems reviewed & are unremarkable except as noted in HPI and below Physical Exam Vital Signs: BMI result Body Mass Index 42.5 Extrem Other: Neuro: Normal sensation of the tips of all digits in the office today No thenar or intrinsic wasting. Good APB muscle firing and good finger cross. Vascular: Capillary refill brisk. ROM: Patient can make a fist and extend all their digits. Skin: No lacerations or abrasions noted. General: No ecchymosis. No erythema or evidence of infection. Assessment & Plan Assessment & Plan (1) Bilateral carpal tunnel syndrome: Code(s): G56.03 - Carpal tunnel syndrome, bilateral upper limbs Category: Medical Plan 1. Bilateral carpal tunnel syndrome Symptoms intermittent, daily, worse at night Patient is educated about this condition Patient is educated about the treatment options available, namely surgery After long discussion and patient education for what the surgery would entail, preoperative preparation, and recovery period, the patient states that she would like to have some time to think about whether or not she would like to pursue surgical intervention at this time Patient was educated on the potential risks of prolonging the treatment time table for carpal tunnel syndrome, namely dense numbness and increased risk of not getting normal sensation back Patient states understanding of these risks Patient will follow-up when she has made her decision about whether she would like to pursue carpal tunnel surgery or not, sooner with any acute concerns Coding Level of Care Code New Pt Level 4 (83159) Diagnoses Bilateral carpal tunnel syndrome G56.03
[2024-08-29 09:33] VITALS: BMI 42.5
== END 2024-08-29 09:53 | disposition home or self-care (01) ==
PROVIDERS: PCP Nurse Practitioner Primary Care
DX: G56.03 Carpal tunnel syndrome, bilateral upper limbs (principal)
CPT/HCPCS: 99204

== ENCOUNTER → 2024-08-29 09:24 | Outpatient (BNVA) | payer MEDICAID, SELFPAY | PROVIDERS: PCP Nurse Practitioner Primary Care | DX: G56.03 Carpal tunnel syndrome, bilateral upper limbs (principal) | CPT/HCPCS: 99212 ==

== ENCOUNTER 2024-09-23 09:39 | Outpatient (AMB) | payer MEDICAID, SELFPAY ==
--- OUTSIDE RECORDS SUMMARY | 2024-09-23 10:22 | XMS_ITS | Encounter Summary ---
Author Organization [employer] [facility] Address [address] [place] [address] [address] [place] [address] Care Team Providers Care Piping Drafter Name Role Phone Clarisa Mars Primary Care Provider [phone] Reason for Visit * Reason Comments Med Refill Encounter Details Date Type Department Care Team ([facility] Contact Info) Description 10/21/2022 Refill [facility] MEDICINE [address] [place] [address] Clarisa Mars ANP [address] [place] [address] Social History Tobacco Use Types Packs/Day Years Used Date Smoking Tobacco: Every Day Cigarettes 0.3 0.5 Passive Smoke Exposure: Current Smokeless Tobacco: Former Alcohol Use Standard Drinks/Week Comments Never 0 (1 standard drink = 0.6 oz pur e alcohol) Socially Comments Unknown Sex and Gender Information Value Date Recorded Sex Assigned at Female 06/05/2022 10:15 AM EDT Legal Sex Female 10:15 AM EDT Gender Identity Female 06/05/2022 10:15 AM EDT Sexual Orientation Straight 06/05/2022 10 :15 AM EDT COVID-19 Exposure Response Date Recorded In the last 10 days, have yo u been in contact with someone who was confirmed or suspected to have Coronavirus/COVID-19? No / Unsure 10/03/2022 10:05 AM EST documented as of this encounter Plan of Treatment Upcoming Encounters Date Type Department Care Team ([facility] Contact Info) Description 09/24/2024 8:00 AM EST Office Visit [facility] ADULT DENTAL [address] [place] [address] Guille Arce, DDS [address] [place] [address] 09/29/2024 10:00 AM EST Office Visit [facility] ADULT DENTAL [address] [place] [address] Gladys Dunne, DDS [address] [place] [address] 10/13/2024 9:00 AM EDT Office Visit [facility] OPTOMETRY [address] [place] [address] Mandy Roy, OD [address] [place] [address] 03/05/2025 8:00 AM EDT Office Visit [facility] ADULT DENTAL [address] [place] [address] Hannah Ernst documented as of this encounter Visit Diagnoses Not on filedocumented in this encounter Care Teams Piping Drafter Relationship Specialty Start Date End Date Clarisa Mars ANP [address] [place] [address] PCP - General Family Medicine 03/25/21 documented as of this encounter
--- OUTSIDE RECORDS SUMMARY | 2024-09-23 10:22 | XMS_ITS | Encounter Summary ---
Author Organization [employer] Address [address] [facility] [address] [place] [address] Care Team Providers Care Director Of Community Education Name Role Phone Clarisa Mars ANDREEA Primary Care Provider [phone] Reason for Visit * Reason Comments Med Refill Encounter Details Date Type Department Care Team ([facility] st Contact Info) Description 09/01/2024 Refill [facility] MEDICINE [address] [place] [address] Kashif Piedra MD [address] [place] [address] Prediabetes Social History Tobacco Use Types Packs/Day Years Used Date Smoking Tobacco: Every Day Cigarettes Passive Smoke Exposure: Past Smokeless Tobacco: Former Alcohol Use Standard Drinks/Week Comments Never 0 (1 standard drink = 0.6 oz pur e alcohol) Socially Depression Answer Date Recorded Patient Health Questionnaire-9 Score 8 02/29/2024 Patient Health Questionnaire-9 Score 8 02/29/2024 Last PHQ-9: Questionnaire Data Not on file 0 02/29/2024 Housing Stability Answer Date Recorded What is your housing situation today? I have tato caraballo 05/21/[address] you li ve. Do you have problems with any of the following? None of the above 05/21/2023 Food Insecurity Answer Date Recorded Within the past 12 months, y ou worried that your food would run out before you got money to buy more: Never True 08/09/2023 Within the past 12 months,th e food you bought just didn't last and you didn't have enough money to get more: Never True 11/2023 Transportation Answer Date Recorded In the past 12 months, has l ack of transportation kept you from medical appts, meetings, work or from getting things needed for daily living? No 05/21/2023 Utilities Answer Date Recorded In the past 12 months, has t he electric, gas, oil or water company threatened to shut off services in your home? No 05/21/2023 Depression Answer Date Recorded Patient Health Questionnaire-2 Score 2 02/29/2024 Comments No Sex and Gender Information Value Date Recorded Sex Assigned at Female 06/05/2022 10:15 AM EDT Legal Sex Female 10:15 AM EDT Gender Identity Female 06/05/2022 10:15 AM EDT Sexual Orientation Straight 06/05/2022 10 :15 AM EDT documented as of this encounter Plan of Treatment Upcoming Encounters Date Type Department Care Team (Late st Contact Info) Description 09/24/2024 8:00 AM EST Office Visit [facility] ADULT DENTAL [address] [place] [address] Guille Arce, DDS [address] [place] [address] 09/29/2024 10:00 AM EST Office Visit [facility] ADULT DENTAL [address] [place] [address] Gladys Dunne, DDS [address] [place] [address] 10/13/2024 9:00 AM EDT Office Visit [facility] OPTOMETRY [address] [place] [address] Kirill, Mandy, OD [address] [place] [address] 03/05/2025 8:00 AM EDT Office Visit [facility] ADULT DENTAL [address] [place] [address] Hannah Ernst documented as of this encounter Goals Goal Patient Goal Type Associated Problems Recent Progress Patient-Stated? Author Blood Pressure < 140/90 Blood Pressure 121/84( 025 10:08 AM EST) No Delores Romero, PharmD documented as of this encounter Visit Diagnoses Diagnosis Prediabetes Other abnormal glucose documented in this encounter Additional Health Concerns Assessment Noted Time PHQ-9 Depression Total Score: 8 02/29/20 24 9:53 AM EDT documented as of this encounter Care Teams Director Of Community Education Relationship Specialty Start Date End Date Clarisa Mars ANP [address] [place] [address] PCP - General Family Medicine 03/25/21 documented as of this encounter
--- NOTE | 2024-09-23 10:23 | A.OFFVIS_ITS ---
Vital Signs 09/23/24 10:33 Height 5 ft 1 in Weight 225 lb BMI 42.5 BP 133/60 Blood Pressure Location Lt brachial Pulse 68 Intake Visit Reasons: genetic testing results Intake Note: Patient is seen in office for genetic testing results. Pt c/o: here for results Chief Radiology Required: Yes Chief Radiology Language: Napper Tender Services: Chief Radiology Present Chief Radiology Name: Chey ANN Information Interpreted: non-clinical & clinical Caltrans Equipment Operator: Caltrans Equipment Operator Present Accompanied by: Self / Same As Patient Allergies No Known Allergies Allergy (Verified 09/23/24 10:34) HPI Comments Details: 53-year-old female patient with a strong family history of breast cancer, stomach cancer, colon cancer and pancreatic cancer. She has a past history of fibromyalgia, morbid obesity, vitamin-D deficiency, iron deficiency anemia, pulmonary embolism, obstructive sleep apnea. She denies any current breast symptoms or previous history of breast surgery. She is 5 para 3 living children, and 2 spontaneous abortions. She reports her mother developed stomach cancer a paternal uncle developed pancreatic and stomach cancer, a maternal aunt with breast cancer, paternal aunt with breast cancer, and a maternal grandmother with colon cancer. She is uncertain if any of a relative's underwent genetic testing. She denies any current breast symptoms including pain, skin changes, nipple discharge or palpable masses. Her last mammogram dated 02/25/2024 revealed no mammographic evidence of malignancy (BI-RADS 1). She returns today to review her genetic testing which was performed on 08/12/2024. This revealed no clinically significant mutations and no variance of uncertain significance. Her breast cancer risk score for her remaining lifetime was calculated at 8.8 % which was well below the 20% threshold of high risk. She was provided with a copy of this genetic testing for her records. [facility] Medical History Family history of breast cancer Atherosclerotic cardiovascular disease Ventral hernia Morbid obesity Hypertension Fibromyalgia Vitamin D deficiency Pre-diabetes Hypertriglyceridemia Vitamin B12 deficiency Sleep apnea STEVEN (iron deficiency anemia) Pulmonary embolism Surgical History H/O hernia repair Gastric bypass status for obesity deliv NOS-unsp Hx of endoscopy History of colonoscopy Family History Father No problems noted. Mother Stomach cancer Blood disorder Paternal Uncle Stomach cancer Pancreatic cancer Throat cancer Maternal Aunt Breast cancer Paternal Aunt Breast cancer Paternal Uncle Stomach cancer Maternal Grandmother Colon cancer Brother Blood disorder Social History Household Members: Spouse and Children Housing: House Are you a primary healthcare facility administrator to a significant other at home: No Do you presently have visiting nurse or other home services: No Alcohol intake: former Patient Tobacco Use Status: Current everyday Tobacco user Tobacco use type: Cigarette Cigarettes Per Day: 5 Years Smoked: 30 service: No Current occupational status: unemployed Sexual orientation: Straight/Heterosexual Gender identity: Female Female Reproductive History Menstrual Age of Menarche: 10 Review of Systems Const All systems reviewed & are unremarkable except as noted in HPI and below Physical Exam Vital Signs: Last Vital Signs Pulse 68 09/23/24 10:33 BP 133/60 09/23/24 10:33 BMI result Body Mass Index 42.5 Const Other: Exam deferred Assessment & Plan Assessment & Plan (1) Family history of breast cancer: Code(s): Z80.3 - Family history of malignant neoplasm of breast Category: Medical Plan 54-year-old female patient with a family history of breast cancer presenting to review the genetic testing performed on 08/12/2024. Genetic testing revealed no clinically significant mutations and no variance of unknown significance. Her breast cancer risk score was 8.8% well below the 20% threshold of high risk. I recommended routine screening including yearly clinical breast examination and annual mammograms. She should follow up as needed. Coding Level of Care Code Est Pt Level 3 (70785) Diagnoses Family history of breast cancer Z80.3
--- OUTSIDE RECORDS SUMMARY | 2024-09-23 10:23 | XMS_ITS | Clinical Summary ---
Author Organization [employer] Address [address] [facility] [address] [place] [address] Care Team Providers Care Retail Office Associate Name Role Phone Carolina Bailey Primary Care Provider [phone] Allergies No known active allergies Medications divalproex (Depakote ER) 250 MG 24 hr tablet Take 250 mg by mouth 2 times daily. Do not crush, chew, or split. Active Diclofenac Sodium 1 % gel APPLY 4 GRAMS TO 1 KNEE, ANKLE, OR FOOT FOUR TIMES DAILY NEEDED 023 Active pantoprazole (ProtoNix) 40 MG EC tablet Take 40 mg by mouth in the morning. 023 Active Aspirin Low Dose 81 MG EC tabletIndications :NSTEMI (non-ST elevated myocardial infarction) (CMS/HCC) Take 1 tablet (81 mg) by mouth in the morning. 30 tablet 3 024 Active Blood Glucose Monitoring Suppl (FreeStyle Lite) w/Device kitIndications:Pr ediabetes 1 Device in the morning. 1 kit 024 Active Ventolin HFA 108 (90 Base) MCG/ACT inhaler INHALE 2 PUFFS BY MOUTH EVERY 4 TO 6 HOURS NEEDED 18 g 024 Active metoprolol succinate XL (Toprol-XL) 25 MG 24 hr tabletIndications :NSTEMI (non-ST elevated myocardial infarction) (CMS/HCC) TAKE 1 TABLET BY MOUTH EVERY MORNING 90 tablet 024 Active Icosapent Ethyl (Vascepa) 1 g capsuleIndication s:Hypertriglyceri demia Take 2 capsules (2 g) by mouth with breakfast and with evening meal. 120 capsule 11 024 2024 Active metFORMIN XR (Glucophage-XR) 500 MG 24 hr tabletIndications :Type 2 diabetes mellitus with hyperlipidemia (CMS/HCC) (CMS/HCC) TAKE 1 TABLET TWICE DAILY IN THE MORNING AND IN THE EVENING. DO NOT BREAK, CRUSH, DISSOLVE OR CHEW 90 tablet 3 024 Active cyclobenzaprine (Flexeril) 5 MG tabletIndications :Fibromyalgia TAKE 1 TABLET BY MOUTH AT BEDTIME 30 tablet 2 024 Active gabapentin (Neurontin) 300 MG capsuleIndication s:Fibromyalgia Take 1 capsule (300 mg) by mouth at bedtime. In addition to 600mg TID doses 90 capsule 1 024 2024 Active isosorbide mononitrate ER (Imdur) 60 MG 24 hr tablet Take 60 mg by mouth in the morning. Active rizatriptan (Maxalt) 10 MG tablet TAKE 1 TABLET BY MOUTH ONCE DAILY NEEDED FOR MIGRAINE Active atorvastatin (Lipitor) 80 MG tablet Take 80 mg by mouth at bedtime. Active cyanocobalamin (Vitamin B-12) 1000 MCG tabletIndications :Cyanocobalamin deficiency TAKE 1 TABLET BY MOUTH EVERY EVENING 90 tablet 1 024 Active gabapentin (Neurontin) 600 MG tabletIndications :Fibromyalgia TAKE 1 TABLET BY MOUTH THREE TIMES DAILY IN THE MORNING, EVENING, AND BEDTIME 90 tablet 2 024 Active DULoxetine (Cymbalta) [address] capsuleIndication s:Depression, unspecified depression type TAKE 1 CAPSULE BY MOUTH TWICE DAILY IN THE MORNING AND IN THE EVENING 60 capsule 2 024 Active acetaminophen (Tylenol 8 Hour) 650 MG ER tabletIndications :Fibromyalgia TAKE 1 TABLET EVERY 8 HOURS NEEDED MOST PAINFUL AREA 90 tablet 1 024 Active nitroglycerin (Nitrostat) 0.4 MG SL tabletIndications :Chest pain, unspecified type DISSOLVE 1 TABLET UNDER THE TONGUE EVERY 5 MINUTES NEEDED FOR CHEST PAIN. CALL 911 IF NO RELIEF 25 tablet 1 024 Active Calcium Carb-Cholecalcife rol 600-10 MG-MCG tabletIndications :Vitamin D deficiency TAKE 1 TABLET BY MOUTH EVERY MORNING 90 tablet 1 024 Active docusate sodium (Colace) 100 MG capsuleIndication s:Constipation, unspecified constipation type TAKE 1 CAPSULE BY MOUTH TWICE DAILY IN THE MORNING AND IN THE EVENING 180 capsule 3 024 Active prazosin (Minipress) 1 MG capsuleIndication s:Depression, unspecified depression type TAKE 2 CAPSULES BY MOUTH AT BEDTIME 180 capsule 1 024 Active TRUEplus Lancets 33G miscIndications:P rediabetes TEST BLOOD SUGAR IN THE MORNING DIRECTED 100 each 3 025 Active clotrimazole (Lotrimin) 1 % creamIndications: Intertrigo APPLY TOPICALLY TO THE AFFECTED AREA(S) TWICE DAILY NEEDED FOR RASH 30 g 025 Active Dulaglutide (Trulicity) 0.75 MG/0.5ML solution auto-injectorIndi cations:Type 2 diabetes mellitus with hyperlipidemia (CMS/HCC) (CMS/HCC) Inject 0.5 mL under the skin 1 (one) time per week. 2 mL 025 Active fluticasone (Flonase) 50 MCG/ACT nasal spray Administer 2 sprays into each nostril in the morning. 023 2024 Discontinued(M ed list cleanup (will not trigger notification to Pharmacy)) FreeStyle lancetsIndication s:Prediabetes 1 each by Other route in the morning. 100 each 3 024 2024 Discontinued clotrimazole (Lotrimin) 1 % creamIndications: Intertrigo APPLY TOPICALLY TO THE AFFECTED AREA(S) TWICE DAILY NEEDED FOR RASH 30 g 024 2024 Discontinued(R eorder (will not trigger notification to Pharmacy)) lidocaine (Lidoderm) 5 % patch APPLY 1 PATCH TOPICALLY TO SKIN, LEAVE ON FOR 12 HOURS AND OFF FOR 12 HOURS DIRECTED 30 patch 2 024 2024 Discontinued(M ed list cleanup (will not trigger notification to Pharmacy)) acetaminophen (Tylenol 8 Hour) 650 MG ER tablet Take 1 tablet (650 mg) by mouth every 8 (eight) hours if needed for moderate pain for up to 10 days. Do not crush, chew, or split. 15 tablet 025 2024 Dulaglutide (Trulicity) 0.75 MG/0.5ML solution auto-injectorIndi cations:Type 2 diabetes mellitus with hyperlipidemia (CMS/HCC) (CMS/HCC) Inject 0.5 mL under the skin 1 (one) time per week. 2 mL 025 2024 Discontinued(R eorder (will not trigger notification to Pharmacy)) Active Problems Problem Noted Date Diagnosed Date Caries of cervical margin of tooth 07/25/2024 Varicose veins of both lower extremities with in flammation 02/29/2024 Overview (06/05/2024): Has seen Dr. Pierson 01/2024 who noted negative for any significant venous insufficiency. I do believe that she may have an element of deep reflux due to her prior history of DVT/PE. At the current time would only recommend conservative measures including compression elevation and exercise. Did have US that showed significant venous insufficiency on R. History of pulmonary embolism 02/29/2024 Overview (02/29/2024): From Heme This is a 53-year-old woman with spontaneous right lower lobe small pulmonary emboli diagnosed in December 2018. This occurred spontaneously, her only risk factor being obesity. No family history of thromboembolism. She has had both endoscopy and colonoscopy in 2018. Thrombophilia workup was negative. D-dimer not elevated. She discontinued Xarelto in July 2019. CT angiogram performed in February 2021 showed no pulmonary embolism, prior right lower lobe segmental PE no longer demonstrated. She had non ST elevated SD in July 2023. She is now on baby aspirin. [....] 3. Thrombocytosis. She has persistent thrombocytosis in spite of correction of iron deficiency anemia. She recently had an SD and has a history of pulmonary embolism which raises suspicion for myeloproliferative disorder such as essential thrombocytosis. JAK2 mutations as well as reflex testing for CALR/MPL mutations were all negative. Hospital discharge follow-up 08/21/2023 Assessment & Plan (08/21/2023 9:48 AM EST): Patient of Carolina DORAN here for a HDF Patient [place] [facility] [place] c/o left sided chest pain which started on day of arrival. Described as 10/10, no radiation, worse with movement and breathing. EKG was normal with elevated troponin (619.3 ng/L and 385.6 ng/L) believed to be NSTEMI. Patient started on heparin/nitroglycerin drip and was transferred [place] [facility] Pt was admitted [place] [facility] [place] 08/04/23-08/07/23 as [place] [facility] [place] concerns of [place]. Initial EKG unremarkable, ECG showed hypokinesis of distal apex. Troponin 90 ng/L, Developed mild CP treated with NTG drip which was complicated by hypotension and tachycardia which resolved with weaning of drip. Hypotension continued and amlodipine was discontinued. Performed cardiac cath on 08/07/23 which was also unremarkable outside of moderate stenosis of mid LAD which did not explain patient symptoms with no evidence of NSTEMI. Patient started on aspirin and metoprolol, and recommended to follow with cardiology. He was recommended to start high intensity statin however no rx was sent to the Pharmacy Also found to have A1c of 6.6% and recommended to follow up outpatient. Patient discharged home with self-care. NSTEMI (non-ST elevated myocardial infarction) 0 08/21/2023 Overview (02/29/2024): presented [place] [facility] [place] with chest discomfort and ruled in for NSTEMI, Troponin 619.3, who was transferred to [facility] and underwent cardiac catheterization showing moderate LAD stenosis with normal IFR. She was managed medically. Outpatient nuclear stress test done on 10/31/2023 showed normal myocardial perfusion imaging, EF 58%. An echocardiogram done 10/29/2023 showed EF 60%, no valve abnormalities and no regional wall motion abnormalities. She is to cont on ASA indefinitely, atorvastatin w/ LDL goal < 70, metoprolol Follows w/ [facility] [place] Myles Kapadia NP 12/28/23 communication from Pt's cost specialist 11/30/23: normal myocardial perfusion imaging on 10/30 stress test. Cath 08/07/23 showed moderate LAD stenosis with normal IFR. An echocardiogram done 10/29/2023 showed EF 60%, no valve abnormalities and no regional wall motion abnormalities. No clear findings of ischemia. Can try SL nitroglycerin for sx, cont ASA and atorvastatin, DAPT not indicated. If BP allows, can trial amlodipine as 2nd antianginal. Assessment & Plan (08/21/2023 9:56 AM EST): Patient of Carolina Schwarz ANP here for a HDF Patient presented [place] [facility] [place]04[place]23 c/o left sided chest pain which started on day of arrival. Described as 10/10, no radiation, worse with movement and breathing. EKG was normal with elevated troponin (619.3 ng/L and 385.6 ng/L) believed to be NSTEMI. Patient started on heparin/nitroglycerin drip and was transferred to [facility]. Pt was admitted [place] [facility] [place] 08/04/23-08/07/23 as [place] [facility] [place] concerns of [place]I. Initial EKG unremarkable, ECG showed hypokinesis of distal apex. Troponin 90 ng/L, Developed mild CP treated with NTG drip which was complicated by hypotension and tachycardia which resolved with weaning of drip. Hypotension continued and amlodipine was discontinued. Performed cardiac cath on 08/07/23 which was also unremarkable outside of moderate stenosis of mid LAD which did not explain patient symptoms with no evidence of NSTEMI. Patient started on aspirin and metoprolol, and recommended to follow with cardiology. He was recommended to start high intensity statin however no rx was sent to the Pharmacy Also found to have A1c of 6.6% and recommended to follow up outpatient. Patient discharged home with self-care. Smoker 08/21/2023 Assessment & Plan (08/21/2023 10:00 AM EST): Pt using Nicotine Patches Routine adult health maintenance 01/10/2023 Overview (02/29/2024): Colonoscopy 10/11/22 w/ normal w/ internal hemorrhoids but fair prep, to repeat 2- 3 years 10/11/22 EGD possible Barretts with mild esophagitis Mammo 02/19/23 BI-RADS 1 - Negative Pap HPV- 01/2022 w/ [facility] [place] Keeley Oneida Assessment & Plan (01/10/2023 10:35 AM EDT): PHQ: 15 already has psychiatrist and therapist. Here at [facility] Dr. Naylor? Contraception: nexplanon Didn't have period for 4 months, then in december got period for 6 days. Pap: 02/01/2022 repeat 3 years. Assessment Plan (1) Encounter for gynecological examination with Papanicolaou smear of cervix: Code(s): Z01.419 - Encounter for gynecological examination (general) (routine) without abnormal findings (2) Screen for sexually transmitted diseases: Code(s): Z11.3 - Encounter for screening for infections with a predominantly sexual mode of transmission (3) Encounter for monitoring of etonogestrel implant: Code(s): Z30.46 - Encounter for surveillance of implantable subdermal contraceptive Smoking status: cigarettes = 5 -6 a day. Drugs = denies. ETOH = occasional, special occasions. Lipids: labs ordered Mammo: last mammogram 08/2021. IMPRESSION: 08/04/2021 No mammographic evidence of malignancy. ASSESSMENT: BI-RADS 1: Negative RECOMMENDATION: Routine annual mammography screening. Colonoscopy: 10/11/2022 EGD findings: gastritis, 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, s/p sleeve gastrectomy. Colonoscopy findings: internal hemorrhoids. Path: moderate inflammation stomach, GEJ inflammation. Repeat colonoscopy in 1 year recommended by GI for fair to poor prep. Eye exam: Goes to [facility], she reports her glasses are working well. Dental home: This year, extracted tooth, [facility] dental. Anemia 01/10/2023 Assessment & Plan (01/10/2023 1:21 PM EDT): Component Ref Range & Units 4 wk ago 5 mo ago 2 yr ago White Blood Count 4.8 - 10.8 X10*3/uL 9.2 Red Blood Count 4.20 - 5.50 X10*6/uL 4.92 Hemoglobin 12.0 - 16.0 g/dl 11.5??Low?? 11.7 R 13.8 R Hematocrit 37.0 - 47.0 % 36.2??Low?? 37.5 R 42.9 R Mean Corpuscular Volume 80.0 - 98.0 fL 73.6??Low?? Mean Corpuscular Hemoglobin 27.0 - 33.0 pg 23.4??Low?? Mean Corpuscular HGB Conc 31.0 - 35.0 g/dl 31.8 Colonoscopy: 10/11/2022 EGD findings: gastritis, 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, s/p sleeve gastrectomy. Colonoscopy findings: internal hemorrhoids. Path: moderate inflammation stomach, GEJ inflammation. Repeat colonoscopy in 1 year recommended by GI for fair to poor prep. Ordered iron panel, b12/folate and retic count Patient reports taking her iron. Gingival bleeding 08/22/2022 Localized gingival recession 08/22/2022 Teeth missing 08/22/2022 Essential hypertension 08/11/2022 Assessment & Plan (08/21/2023 9:54 AM EST): Pt's blood pressure today within normal limits on Toprol XL 25 mg po daily Amlodipine was discontinued while in the Hospital Fibromyalgia 07/15/2022 Overview (06/05/2024): She takes duloxetine 30mg BID, Gabapentin 600mg TID, cyclobenzaprine at bedtime. Will increase gabapentin to 900mg at bedtime (300mg capsule plus 600mg). Encouraging exercise and depression tx optimization. Pt in therapy and on wait list for psych. Assessment & Plan (01/10/2023 10:34 AM EDT): Patient reports that her bones hurt, she displayed tenderness anywhere I touched her. She is already prescribed Cymbalta Advised exercise if possible. Cardiovascular event risk 07/15/2022 Chronic low back pain 02/08/2018 Prediabetes 02/08/2018 Overview (06/05/2024): Tipped into DM w/ A1c 6.6% 08/11/22 but has been < DM range since. Started on metformin 500mg XR BID Eye exam 11/08/23 no ocular DM/HTN complications Lab Results Component Value Date HGBA1C 6.0 06/05/2024 HGBA1C 6.2 (A) 02/29/2024 HGBA1C 6.2 (H) 10/05/2023 HGBA1C 6.2 (H) 09/07/2023 Assessment & Plan (08/21/2023 9:55 AM EST): Hgb A1c while in the Hospital 6.6 Will repeat FBS and A1c Follow up with PCP Glucometer sent to his pharmacy Migraine 02/08/2018 GERD (gastroesophageal reflux disease) 8 Depression 02/08/2018 CTS (carpal tunnel syndrome) 02/08/2018 Intestinal malabsorption following gastrectomy 0 01/17/2018 Hypertriglyceridemia 07/29/2015 Overview (06/05/2024): Vascepa and atorvastatin 80 Lifestyle recommendations to improve heart health & lower cholesterol: be as active as able, ideally exercise 150min moderate intensity or 75min vigorous intensity weekly; increase intake of vegetables, fruits, whole grains, fish. Try to minimize intake of sugary or greasy food and drink. Use olive oil or vegetable, peanut, canola, or similar oil for cooking. Decrease or stop drinking alcohol if you drink, quit/decrease smoking if you smoke. Morbid obesity 07/29/2015 Obstructive sleep apnea syndrome 07/29/2015 Overview (06/05/2024): Pt cont to benefit from and require CPAP/APAP/BiPAP therapy. Vitamin D deficiency 07/29/2015 Resolved Problems Problem Noted Date Diagnosed Date Resolved Date Impaired glucose tolerance 07/29/2015 0 11/30/2023 Encounters Date Type Department Care Team Description 09/19/2024 Refill [facility] [address] [place] [phone] Carolina Bailey ANP Type 2 diabetes mellitus with hyperlipidemia (CMS/HCC) (CMS/HCC) 09/19/2024 Telephone [facility] ADULT DENTAL [address] [place] [phone] Guille Arec DDS rs cancelled appt 09/08/2024 Telephone [facility] [address] [place] [phone] Carolina Bailey ANP Durable Medical Equipment 09/04/2024 10:15 AM EST Office Visit [facility] [address] [place] [phone] Carolina Bailey ANP Essential hypertension (Primary Dx); Type 2 diabetes mellitus with hyperlipidemia (CMS/HCC) (CMS/HCC); Bilateral carpal tunnel syndrome; Great toe pain, left; Chronic pain of both knees; Intertrigo 09/04/2024 Travel 09/03/2024 Telephone [facility] [address] [place] [phone] Madeleine Mcknight MA chart prep 09/01/2024 3:00 PM EST Office Visit [facility] ADULT DENTAL [address] [place] [address] Hannah Ernst Dental plaque (Primary Dx); Dental calculus 09/01/2024 Refill [facility] [address] [place] [phone] Kashif Piedra MD Prediabetes 08/22/2024 8:00 AM EST Office Visit [facility] ADULT DENT[facility] [address] [place] [address] Gladys Dunne DDS Encounter for dental examination (Primary Dx); Dental caries; Dental plaque; Dental calculus 08/13/2024 Telephone [facility] [address] [place] [phone] Marie Barrios RN Referral 08/13/2024 Orders Only [address] [address] Carolina Bailey ANP Right median nerve neuropathy (Primary Dx); Left median nerve neuropathy 08/01/[address] [address] Carolina Bailey ANP 08/01/[address] [address] Tawanna Choudhury MA DME for CPAP from [facility] home care 07/31/[address] [phone] Carolina Bailey ANP Durable Medical Equipment 07/28/2024 1:00 PM EST Office Visit [facility] ADULT DENT[facility] [address] [place] [address] Gladys Dunne DDS Dental caries (Primary Dx); Dental abscess 07/25/2024 9:00 AM EST Office Visit [facility] ADULT DENT[facility] [address] [place] [address] Guille Arce DDS Caries of cervical margin of tooth (Primary Dx) 07/25/2024 8:00 AM EST Office Visit [facility] ADULT DENT[facility] [address] [place] [address] Light-RobinGladys, DDS Loss of retention of dental crown (Primary Dx) 07/24/2024 Telephone [facility] [address] [place] [address] NolviaRobinGladys miguel DDS 07/22/2024 Orders Only GENERIC EXTERNAL DATA DEPARTMENT Provider, Generic External Data 07/22/[address] [address] Carolina Bailey ANP Vitamin D deficiency; Constipation, unspecified constipation type; Depression, unspecified depression type 07/20/2024 Refill [facility] [address] [place] [address] Carolina Bailey ANP Chest pain, unspecified type 07/18/2024 8:00 AM EST Office Visit [facility] ADULT DENT[facility] [address] [place] [address] Light-Gladys Robin, DDS Dental caries (Primary Dx); Loss of retention of dental crown 06/28/[address] [address] Carolina Bailey ANP Fibromyalgia 06/27/[address] [address] Carolina Bailey ANP Fibromyalgia; Depression, unspecified depression type 06/26/[address] [phone] Carolina Bailey ANP Durable Medical Equipment from Last 3 Months Immunizations Name Administration Dates Next Due Hep A, Adult 08/29/2022,03/25/2016 Hep B, adult 08/24/2016,05/11/2016,04/11/2016 Influenza injectable quadriv alent IIV4 with preservative 04/24/2019,05/16/2018,05/04/2017 Influenza injectable quadriv alent preservative free 09/20/2023,05/02/2022,05/19/2021 Influenza, seasonal, injecta ble, preservative free 06/05/2024 Moderna Covid-19 Vaccine 12+ 03/02/2022, 08/10/2021,12/24/2020,2020 Moderna Covid-19 Vaccine 6+ Bivalent 08/29/2022 Pfizer Covid-19 Vaccine 12+ 06/05/2024 Pneumococcal Conjugate PCV 20 08/29/2022 Tdap 07/29/2015 Zoster, Recombinant 08/18/2021,06/14/2021 Family History Medical History Relation Name Comments Stomach cancer Father's Brother Breast cancer Father's Sister Colon cancer Maternal Grandmother Stomach cancer Mother's Brother Relation Name Status Comments Father's Brother Father's Sister Maternal Grandmother Mother's Brother Social History Tobacco Use Types Packs/Day Years Used Date Smoking Tobacco: Every Day Cigarettes Passive Smoke Exposure: Past Smokeless Tobacco: Former Tobacco Cessation:Ready to Q uit: Not Asked; Counseling Given: Not Answered Alcohol Use Standard Drinks/Week Comments Never 0 (1 standard drink = 0.6 oz pur e alcohol) Socially Depression Answer Date Recorded Patient Health Questionnaire-9 Score 8 02/29/2024 Patient Health Questionnaire-9 Score 8 02/29/2024 Last PHQ-9: Questionnaire Data Not on file 0 02/29/2024 Housing Stability Answer Date Recorded What is your housing situation today? I have tato caraballo 09/04/[address] you li ve. Do you have problems with any of the following? None of the above 09/04/2024 Food Insecurity Answer Date Recorded Within the past 12 months, y ou worried that your food would run out before you got money to buy more: Never True 09/04/2024 Within the past 12 months,th e food you bought just didn't last and you didn't have enough money to get more: Never True Transportation Answer Date Recorded In the past 12 months, has l ack of transportation kept you from medical appts, meetings, work or from getting things needed for daily living? No 09/04/2024 Utilities Answer Date Recorded In the past 12 months, has t he electric, gas, oil or water company threatened to shut off services in your home? No 09/04/2024 Depression Answer Date Recorded Patient Health Questionnaire-2 Score 2 02/29/2024 Internet Access Answer Date Recorded Internet Access Q1 Yes 09/04/2024 Internet Access Q2 Not on file 09/04/2024 Comments No Sex and Gender Information Value Date Recorded Sex Assigned at Female 06/05/2022 10:15 AM EDT Legal Sex Female 10:15 AM EDT Gender Identity Female 06/05/2022 10:15 AM EDT Sexual Orientation Straight 06/05/2022 10 :15 AM EDT Last Filed Vital Signs Vital Sign Reading Time Taken Comments Blood Pressure 121/84 09/04/2024 10:08 AM EST Pulse 78 09/04/2024 10:08 AM EST Temperature 36.6 ??C (97.8 ??F) 09/04/2024 10:[address] Respiratory Rate 16 09/04/2024 10:08 AM EST Oxygen Saturation 96% 09/04/2024 10:08 AM EST Inhaled Oxygen Concentration - - Weight 103 kg (227 lb) 09/04/2024 10:08 AM EST Height 154.9 cm (5' 1 ) 09/04/2024 10:08 AM EST Body Mass Index 42.89 09/04/2024 10:08 AM EST Plan of Treatment Upcoming Encounters Date Type Department Care Team (Late st Contact Info) Description 09/24/2024 8:00 AM EST Office Visit [facility] ADULT DENTAL [address] [place] [address] Guille Arce, DDS [address] [place] [address] 09/29/2024 10:00 AM EST Office Visit [facility]ULT DENT[facility] [address] [place] [address] Gladys Dunne, DDS [address] [place] [address] 10/13/2024 9:00 AM EDT Office Visit [facility] OPTOMETRY [address] [place] [address] KirillMandy borrego, OD [address] [place] [address] 03/05/2025 8:00 AM EDT Office Visit [facility] ADULT DENTAL [address] [place] [address] Hannah Ernst Health Maintenance Due Date Last Done Comments CT Colonography 1970 FIT DNA/Cologuard 1970 FIT 1970 FOBT 1970 Sigmoidoscopy 1970 Diabetes: Foot Exam 1980 Alcohol/Substance Use Screening 1982 Diabetes: Urine Protein Screening 10/04/2024 10/05/2023, 01/19/2022, 11/25/2020 Colonoscopy 10/11/2024 Colorectal Cancer Screening 10/11/2024 Lipid Panel 11/12/2024 11/13/2023, 03/0 08/2023, 09/07/2023, Additional history exists Diabetes: Hemoglobin A1C 12/03/2024 024, 02/29/2024, 10/05/2023, Additional history exists Dental Oral Exam 02/20/2025 08/22/2024, , 07/25/2022 Mammogram 02/24/2025 02/25/2024, 02/03, 08/04/2021, Additional history exists Depression Screening 02/28/2025 02/29/2024, 02/29/20 Dental Prophylaxis 03/02/2025 09/01/2024, 08/22/2022 DTaP/Tdap/Td Vaccines (2 - Td or Tdap) 07/29/2025 07/29/2015 Dental X-Ray: Bitewings 08/23/2025 08/22/2024, 07/25 SDOH Screening 09/04/2025 09/04/2024 Tobacco Screening 09/04/2025 09/04/2024 Eye Exam 11/07/2025 11/08/2023 Cervical Cancer Screening 02/01/2027 HPV/Cotest 02/01/2027 02/01/2022, 01/05, 04/24/2019 Pap Smear 02/01/2027 02/01/2022 Dental X-Ray: Full Mouth 07/29/2027 07/28/2024 RSV Patients and Patients Aged 60 years or older (1 - 1-dose 75+ series) 2045 Hepatitis B Vaccines Completed 08/24/2016, 05/11/2016, 04/11/2016 Zoster Vaccines Completed 08/18/2021, 06/14/2021 Hepatitis A Vaccines Completed 08/29/2022, 03/25/20 16 Pneumococcal Vaccine: 50+ Years Completed 08/29/2022 HIV Screening Completed 05/30/2023, 02/04/2022 Hepatitis C Screening Completed 05/30/2023 , 01/23/2023, 02/04/2022 COVID-19 Vaccine Completed 06/05/2024, , 03/02/2022, Additional history exists Influenza Vaccine Completed 06/05/2024, , 05/02/2022, Additional history exists HIB Vaccines Aged Out No longer eligi ble based on patient's age to complete this topic HPV Vaccines Aged Out No longer eligi ble based on patient's age to complete this topic IPV Vaccines Aged Out No longer eligi ble based on patient's age to complete this topic Meningococcal Vaccine Aged Out No anushka [place] eligible based on patient's age to complete this topic RSV under 20 months Aged Out No longe r eligible based on patient's age to complete this topic Rotavirus Vaccines Aged Out No longer eligible based on patient's age to complete this topic Goals Goal Patient Goal Type Associated Problems Recent Progress Patient-Stated? Author Blood Pressure < 140/90 Blood Pressure 121/84( 025 10:08 AM EST) No Delores Romero, Reynaldo Procedures Procedure Name Priority Date/Time Associated Diagnosis Comments CASE PRESENTATION, DETAILED AND EXTENSIVE TREATMENT PLANNING Routine 09/01/2024 3:00 PM EST ORAL HYGIENE INSTRUCTIONS Routine 09/01/2024 3:00 PM EST Dental plaque Dental calculus PROPHYLAXIS - ADULT Routine 09/01/2024 3 :00 PM EST Dental plaque Dental calculus CASE PRESENTATION, DETAILED AND EXTENSIVE TREATMENT PLANNING Routine 08/22/2024 8:00 AM EST Encounter for dental examination Dental caries Dental plaque Dental calculus INTRAORAL - PERIAPICAL EACH ADDITIONAL RADIOGRAPHIC IMAGE Routine 08/22/2024 8:00 AM EST Encounter for dental examination Dental caries Dental plaque Dental calculus INTRAORAL - PERIAPICAL FIRST RADIOGRAPHIC IMAGE Routine 08/22/2024 8:00 AM EST Encounter for dental examination Dental caries Dental plaque Dental calculus BITEWINGS - 4 RADIOGRAPHIC IMAGES Routine 08/22/2024 8:00 AM EST Encounter for dental examination Dental caries Dental plaque Dental calculus PERIODIC ORAL EVALUATION - ESTABLISHED PATIENT Routine 08/22/2024 8:00 AM EST Encounter for dental examination Dental caries Dental plaque Dental calculus CASE PRESENTATION, DETAILED AND EXTENSIVE TREATMENT PLANNING Routine 07/28/2024 1:00 PM EST Dental caries Dental abscess PANORAMIC RADIOGRAPHIC IMAGE Routine 07/28/2024 1:00 PM EST Dental caries Dental abscess PALLIATIVE (EMERGENCY) TREATMENT OF DENTAL PAIN - MINOR PROCEDURE Routine 07/28/2024 1:00 PM EST Dental caries Dental abscess 5 EXTRACTION, ERUPTED TOOTH REQ REMOVAL OF BONE AND/OR SECTIONING OF TOOTH Routine 07/25/2024 9:00 AM EST CASE PRESENTATION, DETAILED AND EXTENSIVE TREATMENT PLANNING Routine 07/25/2024 9:00 AM EST INTRAORAL - PERIAPICAL EACH ADDITIONAL RADIOGRAPHIC IMAGE Routine 07/25/2024 8:00 AM EST Loss of retention of dental crown INTRAORAL - PERIAPICAL FIRST RADIOGRAPHIC IMAGE Routine 07/25/2024 8:00 AM EST Loss of retention of dental crown CASE PRESENTATION, DETAILED AND EXTENSIVE TREATMENT PLANNING Routine 07/25/2024 8:00 AM EST Loss of retention of dental crown 6 RE-CEMENT OR RE-COVINGTON CROWN Routine 07/25/2024 8:00 AM EST Loss of retention of dental crown BACTERIAL VAGINOSIS PANEL Routine 07/22/2024 10:04 AM EST CASE PRESENTATION, DETAILED AND EXTENSIVE TREATMENT PLANNING Routine 07/18/2024 8:00 AM EST Dental caries Loss of retention of dental crown INTRAORAL - PERIAPICAL FIRST RADIOGRAPHIC IMAGE Routine 07/18/2024 8:00 AM EST Dental caries Loss of retention of dental crown LIMITED ORAL EVALUATION - PROBLEM FOCUSED Routine 07/18/2024 8:00 AM EST Dental caries Loss of retention of dental crown POCT GLYCATED HEMOGLOBIN, TOTAL Routine 06/05/2024 1:37 PM EDT Prediabetes BI MAMMOGRAM SCREENING TOMOSYNTHESIS BILATERAL Routine 02/25/2024 12:44 PM EDT LIPID PANEL, STANDARD Routine 11/13/2023 10:30 AM EDT ALBUMIN, RANDOM URINE W/CREATININE Routine 10/05/2023 8:00 AM EST Type 2 diabetes mellitus with hyperlipidemia (CMS/HCC) Essential hypertension HEPATITIS C ANTIBODY Routine 05/30/2023 11:44 AM EDT HIV ANTIBODY/ANTIGEN (ID DPH) Routine 05/30/2023 11:44 AM EDT ZZZ HISTORICAL HPV E6/E7 RFLX VAISHNAVI 16 18/45 Routine 02/01/2022 1:49 PM EDT PAP SMEAR Routine 02/01/2022 from Last 3 Months or Most Recently Relevant to Health Maintenance Results * Bacterial Vaginosis (07/22/2024 10:04 AM EST) TRICHOMONAS VAGINALIS DETECTION BY PCR NOT DETECTED Not Detect [facility] BACTERIAL VAGINOSIS DETECTION BY PCR NEGATIVE Negative [facility] Comment:The BV organism targ ets of the Xpert Xpress MVP test can becommensal in women; Xpert Xpress MVP positive results forbacterial vaginosis should be considered in conjunction withother clinical and patient information to determine thedisease status. Organisms that are not detected by the XpertXpress MVP test have also been reported to be associatedwith BV and aerobic vaginitis.The Xpert Xpress MVP test performance has not been evaluatedin patients under the age of 14. BOBBI GROUP DETECTION BY PCR NOT DETECTED Not Detect [facility] Bobbi glab krusei PCR NOT DETECTED Not Detect [facility] 07/22/2024 10:0 4 AM EST 07/22/2024 1:17 PM EST us Generic External Data Provider LAB MICROBIOLOGY - GENERAL ORDERABLES Final Result [facility] [address] [place] [address] [phone] * POCT HGB A1C (06/05/2024 1:37 PM EDT) Hemoglobin A1C 6.0 4.0 - 6.0 % QC Media Lot # [id number] Lot# Expiration Date [id number] Blood 06/05/2024 1:37 PM EDT us Carolina DORAN POINT OF CARE TEST ENTER/EDIT OR DERABLES Final Result * BI Mammogram Screening Tomosynthesis Bilateral (02/25/2024 12:44 PM EDT) Anatomical Region Laterality Modality Breast Bilateral Mammography 02/25/2024 12:4 4 PM EDT Narrative 03/18/2024 9:38 PM EDT ? [facility] [place] ? [address] ?[place] [address] ? Mammography Report ? Signed ? Patient: Conklin,Barb ?MR#: [id number] ?? 7 ? : 1970 ?Acct:[id number] ? Age/Sex: 53 / F ?ADM Date: 02/25/24 ? Loc: HO.MAMMO ? Attending Dr: Carolina Bailey HOME ENERGY INSPECTOR ? Ordering Physician: CAROLINA BAILEY NP ?Results: 1Negative ? Date of Service: 02/24/ ?Follow Up: 1 Year From Orig ?? inal Mammogram ? Procedure(s): MM tomosynthesis screening BI ?? Accession Number(s): [id number] ? cc: LEO,CAROLINA HEADLEY ? EXAMINATION: ?? MM SCREENING DIGITAL BREAST TOMOSYNTHESIS, BILATERAL ? CLINICAL INFORMATION: ? Screening. Asymptomatic. ? COMPARISON: ?? Mammography: This study is compared with prior exams dating back to ?? 2018. ? TECHNIQUE: ?? Digital breast tomosynthesis is performed in both the craniocaudal and ?? mediolateral oblique views along with computer-aided detection (CAD). ?? Synthesized 2D images are generated from the tomosynthesis. ? FINDINGS: ?? The breasts are almost entirely fatty (ACR BI-RADS breast composition ?? Category a). ? There are no significant masses, abnormal calcifications, or other ?? abnormalities. ? MM/MM tomosynthesis screening BI ?? IMPRESSION: ?? No mammographic evidence of malignancy. ? ASSESSMENT: ? BI-RADS BI-RADS 1 - Negative ? RECOMMENDATION: ?? Routine annual mammography screening. ? 1 year F/U ? This examination should not preclude the clinical evaluation of a ?? suspicious palpable abnormality. ? This patient's information was entered into a reminder system with a ?? target due date for their next mammogram. ? Dictated By: ?Vicki Stoddard MD ? Signed By: ?<Electronically signed by Vicki Stoddard MD in OV> ? 03/18/244 ? DD/ 1244 ? TD/TT: ? Scientific Artist: ? Procedure Note [place], Adelaide - 03/18/2024 [facility] [address] [place], [place] [address] Mammography Report Signed Patient: Sam Conklin#: [id number] 7 : 1970Acct:[id number] Age/Sex: 53 / FADM Date: 02/25/24 Loc: [facility] Attending Dr: Carolina Bailey HOME ENERGY INSPECTOR Ordering Physician: CAROLINA BAILEYults: 1Negative Date of Service: 02/25/24Follow Up: 1 Year From Orig inal Mammogram Procedure(s): MM tomosynthesis screening BI Accession Number(s): [id number] cc: CAROLINA BAILEY NP EXAMINATION: MM SCREENING DIGITAL BREAST TOMOSYNTHESIS, BILATERAL CLINICAL INFORMATION: Screening. Asymptomatic. COMPARISON: Mammography: This study is compared with prior exams dating back to 2018. TECHNIQUE: Digital breast tomosynthesis is performed in both the craniocaudal and mediolateral oblique views along with computer-aided detection (CAD). Synthesized 2D images are generated from the tomosynthesis. FINDINGS: The breasts are almost entirely fatty (ACR BI-RADS breast composition Category a). There are no significant masses, abnormal calcifications, or other abnormalities. MM/MM tomosynthesis screening BI IMPRESSION: No mammographic evidence of malignancy. ASSESSMENT: BI-RADS BI-RADS 1 - Negative RECOMMENDATION: Routine annual mammography screening. 1 year F/U This examination should not preclude the clinical evaluation of a suspicious palpable abnormality. This patient's information was entered into a reminder system with a target due date for their next mammogram. Dictated By: Vicki Stoddard MD Signed By: <Electronically signed by Vicki Stoddard MD in OV> 03/18/24 2134 DD/ 1244 TD/TT: Scientific Artist: Carolina Bailey ANP IMG BI PROCEDURES Edited Result - Final * (ABNORMAL) Lipid Panel, Standard (11/13/2023 10:30 AM EDT) Triglycerides 307(H) <150 mg/dL [facility] Comment:Desirable Triglyceri de: less than 150 mg/dLBorderline High Triglyceride 150-199 mg/dLHigh Triglyceride: 200-499 mg/dLVery High Triglyceride: greater than or equal to 5OO mg/dL Cholesterol 183 <200 mg/dL [facility] Comment:Desirable Cholestero l: less than 200 mg/dLBorderline High Cholesterol: 200-239 mg/dLHigh Cholesterol: greater than 239 mg/dL LDL Cholesterol Calculated 86 <100 mg/dL [facility] Comment:Desirable LDL: less than 100 mg/dLNear Optimal/Above Optimal LDL: 110- 129 mg/dLBorderline High LDL: 130-159 mg/dLHigh LDL: 160-189 mg/dLVery High LDL: greater than or equal to 190 mg/dL HDL Cholesterol 36(L) >40 mg/dL [facility] Comment:Desirable HDL: great er than 40 mg/dL Note: This HDL assay may give artificially low results in patients with liver disease. 11/13/2023 10:3 0 AM EDT 11/13/2023 10:30 AM EDT Generic External Data Provider LAB BLOOD ORDERAB LES Final Result Performing Organization Address [facility] Co de Phone Number [facility] [address] [place] [address] [phone] * Albumin, Random Urine W/Creatinine (10/05/2023 8:00 AM EST) Creatinine, Urine 146.87 mg/dL [facility] Microalbumin Urine 6.0 mg/L [facility] Microalbum Creatinine Ratio Ur 4.0 <30 ug/mg cr [facility] Comment:Albumin/Creatinine R atio Reference Ranges: Normal: < 30 ug/mg creatinine Microalbuminuria: 30 - 300 ug/mg creatinineClinical Albuminuria: > 300 ug/mg creatinine Urine (Urine, Random) 10/05/2023 8:00 AM EST 10/05/2023 8:48 AM EST [facility] LAB URINE ORDERABLES Final Resul t Performing Organization Address [facility] de Phone Number [facility] [address] [place] [phone] * Hepatitis C Ab (05/30/2023 11:44 AM EDT) Hepatitis C Antibody Nonreactive Nonreactive [facility] Comment:Antibodies to HCV no t detected; does not exclude early acuteHCV infection. 05/30/2023 11:4 4 AM EDT 05/30/2023 11:44 AM EDT Generic External Data Provider LAB BLOOD ORDERAB LES Final Result Performing Organization Address [facility] Co de Phone Number [facility] [address] [place] [address] [phone] * HIV Ab/Ag ([place] DP) (05/30/2023 11:44 AM EDT) HIV AB/AG Nonreactive Nonreactive [facility] Comment:HIV-1 p24 Ag and/or HIV-1/HIV-2 Ab not detected.A test result that is nonreactive does not exclude thepossibility of exposure to or infection with HIV-1 and/orHIV-2. Nonreactive results in this assay for individualswith prior exposure to HIV-1 and/or HIV-2 may be due toantigen and antibody levels that are below the limit ofdetection of this assay.The [employer] HIV Ag/Ab Combo assay result andsupplemental assay results should be interpreted inconjunction with the patient's clinical presentation,history and other laboratory results. If the results areinconsistent with clinical evidence, additional testing issuggested to confirm the result. 05/30/2023 11:4 4 AM EDT 05/30/2023 11:44 AM EDT us Generic External Data Provider LAB BLOOD ORDERAB LES Final Result Performing Organization Address [facility] Co de Phone Number [facility] [address] [place] [address] [phone] * HPV E6/E7 RFLX VAISHNAVI 16 18/45 (02/01/2022 1:49 PM EDT) HPV mRNA E6/E7 rflx Not Detected Not Detected [facility] Comment: Methodology: [employer] Consultant-Mediated Amplification This assay detects E6/E7 viral messenger RNA (mRNA) from 14 high-risk HPV types (16,18,31,33,35,39,45,51,52,56,58,59,66,68). Cervical sources are required for HPV testing. If a vaginal source from a patient who has had a total hysterectomy with removal of cervix was submitted, please contact the testing laboratory for alternative testing options. For additional information, please refer to http://education.Já Entendi/faq/ZHE268l8 (This link if provided for information/ educational purposes only.) THIS TEST WAS PERFORMED AT: [facility] [address] [place] [address] [address] [place], [place] ??[phone] ROBERT HARMAN MD 02/01/2022 1:49 PM EDT [facility] [place] HISTORICAL/NON ORDERABLE LABS Fi nal Result [facility] [address] * Pap Smear (02/01/2022) Pap Smear 1. NILM 1. NILM Comment:NIL/HPV negative Swab 02/01/2022 Historical Provider LAB CYTOLOGY ORDERABLES F inal Result from Last 3 Months or Most Recently Relevant to Health Maintenance Insurance [address] [place] [address] DENTAL-[facility] MEDICAID STAND ADULT [facility] C3 [facility] ADULT [address] [place] [address] Care Teams Retail Office Associate Relationship Specialty Start Date End Date Carolina Bailey ANP [address] [place] [address] PCP - General Family Medicine 03/25/21
--- OUTSIDE RECORDS SUMMARY | 2024-09-23 10:23 | XMS_ITS | Encounter Summary ---
Author Organization [facility] Address [address] [place] [address] Care Team Providers Care Senior Economist Name Role Phone Jerad Clarisa DORAN Primary Care Provider [phone] Reason for Visit * Reason Comments Routine Cleaning Encounter Details Date Type Department Care Team (Late st Contact Info) Description 09/01/2024 3:00 PM EST Office Visit [facility] ADULT DENTAL [address] [place] [address] Hannah Ernst Dental plaque (Primary Dx); Dental calculus Social History Tobacco Use Types Packs/Day Years [...] AM EDT documented as of this encounter Progress Notes * Hannah Ernst - 09/01/2024 3:00 PM EST Patient ID: Barb Conklin is a 54 y.o. female. Time Out: Timeout Date: 09/01/24, Timeout Time: 1504 (Dental Prophy Adult) Location: [facility] Tooth: Maxilla and Mandible Procedure: [place] Verified the above with patient, shipping assistant, and provider. Confirmed via patient's chart, intraorally and by radiographs. Qualitative Field Project Manager: not applicable Medical Hx: Vitals: There were no vitals taken for this visit. Medications, Med Hx reviewed with patient and updated in chart. Treatment Provided Dental procedures in this visit D1110 - PROPHYLAXIS - ADULT (Completed) Service provider: Hannah Multani provider: Gladys Dunne DDS D1330 - ORAL HYGIENE INSTRUCTIONS (Completed) Service provider: Hannah Multani provider: Gladys Dunne DDS D9450 - ADJUNCTIVE GENERAL SERVICES - PROFESSIONAL VISITS - CASE PRESENTATION, SUBSEQUENT TO DETAILED AND EXTENSIVE TREATMENT PLANNING (Completed) Service provider: Hannah Multani provider: Gladys Dunne DDS Instruments Used: Ultrasonic Scalers, Hand Scalers, Prophy angle, and floss Fluoride: N/A Oral Cancer Screening: No lesions Head/Neck Exam: No Lesions Calculus: Moderate and Generalized Plaque: Moderate and Generalized Stain: Moderate and Generalized Bleeding: Light and Generalized Gingiva: Perio Charting Completed and Recession- generalized OH: Poor Perio Chart: Completed Oral hygiene instructions provided to patient including brushing technique and flossing. Recommendations: [place] two times daily, modified rashid technique, Floss daily, Electric toothbrush, Soft bristle toothbrush, [place] Tongue, Anti-sensitivity toothpaste Recall Frequency: 6 mo NV: 6mrc Hygienist: Hannah Ernst RDH * Gladys Dunne DDS - 09/01/2024 3:00 PM EST I have reviewed the documentation and dental procedures made by the rendering provider, Hannah Ernst RDH , and approve their chart entries for this visit. Gladys Dunne DDS documented in this encounter Plan of Treatment Upcoming Encounters Date Type Department Care Team (Late st Contact Info) Description 09/24/2024 8:00 AM EST Office Visit [facility] ADULT DENTAL [address] [place] [address] Guille Arce, DDS [address] [place] [address] 09/29/2024 10:00 AM EST Office Visit [facility] ADULT DENTAL [address] [place] [address] Gladys Dunne DDS [address] [place] [address] 10/13/2024 9:00 AM EDT Office Visit [facility] OPTOMETRY [address] [place] [address] Kirill, Mandy, OD [address] [place] [address] 03/05/2025 8:00 AM EDT Office Visit [facility] ADULT DENTAL [address] [place] [address] Hannah Ernst Scheduled Orders Name Type Priority Associated Diagnoses Orde r Schedule PROPHYLAXIS - ADULT Dental Routine 1 [facility] starting 09/01/2024 documented as of this encounter Goals Goal Patient Goal Type Associated Problems Recent Progress Patient-Stated? Author Blood Pressure < 140/90 Blood Pressure 121/84( 025 10:08 AM EST) No Delores Romero, Reynaldo documented as of this encounter Procedures Procedure Name Priority Date/Time Associated Diagnosis Comments PROPHYLAXIS - ADULT Routine 09/01/2024 3 :00 PM EST Dental plaque Dental calculus ORAL HYGIENE INSTRUCTIONS Routine 09/01/2024 3:00 PM EST Dental plaque Dental calculus CASE PRESENTATION, DETAILED AND EXTENSIVE TREATMENT PLANNING Routine 09/01/2024 3:00 PM EST documented in this encounter Visit Diagnoses Diagnosis Dental plaque- Primary Accretions on teeth Dental calculus Accretions on teeth documented in this encounter Additional Health Concerns Assessment Noted Time PHQ-9 Depression Total Score: 8 02/29/20 24 9:53 AM EDT documented as of this encounter Care Teams Senior Economist Relationship Specialty Start Date End Date Clarisa Mars ANP [address] [place] [phone] PCP - General Family Medicine 03/25/21 documented as of this encounter
--- OUTSIDE RECORDS SUMMARY | 2024-09-23 10:23 | XMS_ITS | Encounter Summary ---
Author Organization [facility] Address [address] [facility] [address] [facility] [address] [place] [address] Care Team Providers Care Financial Report Service Sales Agent Name Role Phone Clarisa Mars Primary Care Provider [phone] Reason for Visit * Reason Onset Date Comments Med Refill 09/19/2024 Encounter Details Date Type Department Care Team (Late st Contact Info) Description 09/19/2024 Refill [facility] [address] [place] [address] Clarisa Mars ANP [address] [place] [address] Type 2 diabetes mellitus with hyperlipidemia ([facility]/HCC) ([facility]) Social History Tobacco Use Types Packs/Day Years [...] is your housing situation today? I have tatobradley caraballo 09/04/[address] you [...] AM EDT documented as of this encounter Miscellaneous Notes * Telephone Encounter - Alicia Parker LPN - 09/19/2024 1:59 PM EST Last seen 09/04/24. * Telephone Encounter - Lis Stacy - 09/19/2024 1:56 PM EST TC from pt requesting medication refill. Medications needing refill : Dulaglutide (Trulicity) 0.75 MG/0.5ML solution auto-injector To be sent to: [facility] Pharmacy documented in this encounter Plan of Treatment Upcoming Encounters Date Type Department Care Team (Late st Contact Info) Description 09/24/2024 8:00 AM EST Office Visit [facility] ADULT DENTAL [address] [place] [address] Guille Arce DDS [address] [place] [address] 09/29/2024 10:00 AM EST Office Visit [facility] ADULT DENTAL [address] [place] [address] Light-Robin, Gladys, DDS [address] [place] [address] 10/13/2024 9:00 AM EDT Office Visit [facility] OPTOMETRY [address] [place] [address] Kirill, Mandy, OD [address] [place] [address] 03/05/2025 8:00 AM EDT Office Visit [facility] ADULT DENTAL [address] [place] [address] Hannah Ernst documented as of this encounter Goals Goal Patient Goal Type Associated Problems Recent Progress Patient-Stated? Author Blood Pressure < 140/90 Blood Pressure 121/84( 025 10:08 AM EST) Delores Rojas, PharmD documented as of this encounter Visit Diagnoses Diagnosis Type 2 diabetes mellitus with hyperlipidemia (CMS/HCC) (CMS/HCC) documented in this encounter Additional Health Concerns Assessment Noted Time PHQ-9 Depression Total Score: 8 02/29/20 24 9:53 AM EDT documented as of this encounter Care Teams Financial Report Service Sales Agent Relationship Specialty Start Date End Date Clarisa Mars ANP [address] [place], [place] [phone] PCP - General Family Medicine 03/25/21 documented as of this encounter
--- OUTSIDE RECORDS SUMMARY | 2024-09-23 10:23 | XMS_ITS | Encounter Summary ---
Author Organization [employer] Address [address] [facility] 7t [place] [address] Care Team Providers Care Substance Abuse Services Director Name Role Phone Clarisa Mars ANDREEA Primary Care Provider [phone] Reason for Visit * Reason Onset Date Comments rs cancelled appt 09/19/2024 Encounter Details Date Type Department Care Team ([facility] Contact Info) Description 09/19/2024 Telephone [facility] [address] [place] [address] Guille Arce DDS [address] [place] [address] rs cancelled appt Social History Tobacco Use Types Packs/Day Years [...] encounter Miscellaneous Notes * Telephone Encounter - Marlene Quigley - 09/19/2024 1:26 PM EST Pt call the office wanting to reschedule her appointment . lm for pt to contact the office to assist her with the reschedule of her appointment * Telephone Encounter - Elma Gregg - 09/19/2024 1:11 PM EST Patient cancelled appt on 09/24 due to her having appt same day and unable to come. Provider schedule no availability. Please reach out to patient for rescheduling DR documented in this encounter Plan of Treatment Upcoming Encounters Date Type Department Care Team (Late st Contact Info) Description 09/24/2024 8:00 AM EST Office Visit [facility] [address] [place] [address] Guille Arce DDS [address] [place] [address] 09/29/2024 10:00 AM EST Office Visit [facility] [address] [place] [address] Light-Robin, Gladys, DDS [address] [place] [address] 10/13/2024 9:00 AM EDT Office Visit [facility] [address] [place] [address] Kirill, Mandy, OD [address] [place] [address] 03/05/2025 8:00 AM EDT Office Visit [facility] [address] [place] [address] Hannah Ernst documented as of this encounter Goals Goal Patient Goal Type Associated Problems Recent Progress Patient-Stated? Author Blood Pressure < 140/90 Blood Pressure 121/84( 025 10:08 AM EST) No Delores Romero, PharmD documented as of this encounter Visit Diagnoses Not on filedocumented in this encounter Additional Health Concerns Assessment Noted Time PHQ-9 Depression Total Score: 8 02/29/20 24 9:53 AM EDT documented as of this encounter Care Teams Substance Abuse Services Director Relationship Specialty Start Date End Date Clarisa Mars ANP [address] [place] [address] PCP - General Family Medicine 03/25/21 documented as of this encounter
--- OUTSIDE RECORDS SUMMARY | 2024-09-23 10:23 | XMS_ITS | Encounter Summary ---
Author Organization [employer] Address [address] [facility] 7[address] [place] [address] Care Team Providers Care Professor Of Oceanography Name Role Phone Clarisa Mars Primary Care Provider [phone] Reason for Visit * Reason Onset Date Comments Durable Medical Equipment 09/08/2024 Encounter Details Date Type Department Care Team ([facility] st Contact Info) Description 09/08/2024 Telephone [facility] [address] [place] [address] Clarisa Mars ANP [address] [place] [address] Durable Medical Equipment Social History Tobacco Use Types Packs/Day Years [...] encounter Miscellaneous Notes * Telephone Encounter - Marsha Nickerson - 09/23/2024 9:33 AM EST RX for Brace signed and faxed to [facility] on 09/19. Confirmation received and sent to scan. If patient calls to check status on above, please advise them to contact [facility] at [phone]. * Telephone Encounter - ANDREEA Sheehan - 09/17/2024 3:13 PM EST All set! * Telephone Encounter - Marsha Nickerson - 09/17/2024 11:32 AM EST DME RXs for knee Brace and left wrist splint generated and will be placed on pcp desk for review and signature. Please include dx on office visit notes to support the need for knee brace. Thank you * Telephone Encounter - Amarjit Gómez - 09/08/2024 1:13 PM EST TC from pt was seen on 09/04/24 and was to get prescribed Left Wrist brace and a knee brace. documented in this encounter Plan of Treatment Upcoming Encounters Date Type Department Care Team (Late st Contact Info) Description 09/24/2024 8:00 AM EST Office Visit [facility] [address] [place] [address] Guille Arce, DDS [address] [place] [address] 09/29/2024 10:00 AM EST Office Visit [facility] [address] [place] [address] Gladys Dunne, S [address] [place] [address] 10/13/2024 9:00 AM EDT Office Visit [facility] [address] [facility] [place] [address] Kirill, Mandy, OD [address] [place] [address] 03/05/2025 8:00 AM EDT Office Visit [facility] [address] [place] [address] Hannah Ernst documented as of this encounter [...] documented as of this encounter Care Teams Professor Of Oceanography Relationship Specialty Start Date End Date Clarisa Mars ANP [address] [place] [address] PCP - General Family Medicine 03/25/21 documented as of this encounter
--- OUTSIDE RECORDS SUMMARY | 2024-09-23 10:23 | XMS_ITS | Encounter Summary ---
Author Organization [employer] Address [address] [place] [address] 7t [place] [address] Care Team Providers Care Intern Product Marketing Manager Name Role Phone Clarisa Mars Primary Care Provider [phone] Encounter Details Date Type Department Care Team (Latest Contact Info) Description 10/06/2020 Abstract [facility] CONVERSIONS Dental, Provider, DDS Social History Tobacco Use Types Packs/Day Years Used Date Smoking Tobacco: Never Assessed Comments Unknown Sex and Gender Information Value [...] Description 09/24/2024 8:00 AM EST Office Visit [facility] [address] [place] [address] Guille Arce, DDS [address] [place] [address] 09/29/2024 10:00 AM EST Office Visit [facility] [address] [place] [address] Gladys Dunne, DDS [address] [place] [address] 10/13/2024 9:00 AM EDT Office Visit [facility] [address] [place] [address] Mandy Roy, OD [address] [place] [address] 03/05/2025 8:00 AM EDT Office Visit [facility] [address] [place] [address] Hannah Ernst documented as of this encounter Visit Diagnoses Not on filedocumented in this encounter Care Teams Intern Product Marketing Manager Relationship Specialty Start Date End Date Clarisa Mars ANP [address] [place] [address] PCP - General Family Medicine 03/25/21 documented as of this encounter
--- OUTSIDE RECORDS SUMMARY | 2024-09-23 10:23 | XMS_ITS | Encounter Summary ---
Author Organization [employer] Address [address] [facility] 7[address] [place] [address] Care Team Providers Care Child Welfare Social Worker Name Role Phone Jerad Clarisa DORAN Primary Care Provider [phone] Reason for Visit * Reason Onset Date Comments chart prep 09/03/2024 Encounter Details Date Type Department Care Team (Late st Contact Info) Description 09/03/2024 Telephone [facility] [address] [place] [address] Madeleine Mcknight MA chart prep Social History Tobacco Use Types Packs/Day Years [...] encounter Miscellaneous Notes * Telephone Encounter - Madeleine Mcknight MA - 09/03/2024 10:29 AM EST Chart Prep Labs: not applicable Images: done Vaccines due: none Referrals: appt 10/03/23 Screenings: colonoscopy , Foot Exam Overdue care gaps: SDOH documented in this encounter Plan of Treatment Upcoming Encounters Date Type Department Care Team (Late st Contact Info) Description 09/24/2024 8:00 AM EST Office Visit [facility] [address] [place] [address] Guille Arce, DDS [address] [place] [address] 09/29/2024 10:00 AM EST Office Visit [facility] [address] [place] [address] Light-RobinGladys miguel, DDS [address] [place] [address] 10/13/2024 9:00 AM EDT Office Visit [facility] [address] [place] [address] Kirill, Mandy, OD [address] [place] [address] 03/05/2025 8:00 AM EDT Office Visit [facility] [address] [place] [address] Hannah Ernst documented as of this encounter [...] documented as of this encounter Care Teams Child Welfare Social Worker Relationship Specialty Start Date End Date Clarisa Mars ANP [address] [place] [address] PCP - General Family Medicine 03/25/21 documented as of this encounter
--- OUTSIDE RECORDS SUMMARY | 2024-09-23 10:23 | XMS_ITS | Encounter Summary ---
Author Organization [employer] Address [address] [facility] 7t [place] [address] Care Team Providers Care Health Plan Manager Name Role Phone Clarisa Mars Primary Care Provider [phone] Encounter Details Date Type Department Care Team (Latest Contact Info) Description 11/19/2018 Abstract [facility] CONVERSIONS Dental, Provider, DDS Social History [...] Description 09/24/2024 8:00 AM EST Office Visit [facility] [address] [place] [address] Guille Arce, DDS [address] [place] [address] 09/29/2024 10:00 AM EST Office Visit [facility] [address] [place] [address] Gladys Dunne, DDS [address] [place] [address] 10/13/2024 9:00 AM EDT Office Visit [facility] [address] [place], [place] [address] Mandy Roy, OD [address] [place] [address] 03/05/2025 8:00 AM EDT Office Visit [facility] [address] [place] [address] Hannah Ernst documented as of this encounter Visit Diagnoses Not on filedocumented in this encounter Care Teams Health Plan Manager Relationship Specialty Start Date End Date Clarisa Mars ANP [address] [place], [place] [id number] PCP - General Family Medicine 03/25/21 documented as of this encounter
--- OUTSIDE RECORDS SUMMARY | 2024-09-23 10:23 | XMS_ITS | Encounter Summary ---
Author Organization [employer] Address [address] [facility] [address]t [place] [address] Care Team Providers Care Caddy/Caddie Supervisor Name Role Phone Clarisa Mars ANDREEA Primary Care Provider [phone] Reason for Visit * Reason Comments Dental Exam Periodic exam and xr ays Encounter Details Date Type Department Care Team (Late st Contact Info) Description 08/22/2024 8:00 AM EST Office Visit [facility]ULT [facility] [address] [place] [address] Gladys Gaona DDS [address] [place] [address] Encounter for dental examination (Primary Dx); Dental caries; Dental plaque; Dental calculus Social History Tobacco Use Types [...] is your housing situation today? I have ttao caraballo 05/21/[address] [...] as of this encounter Progress Notes * Gladys Gaona DDS - 08/22/2024 8:00 AM EST Dental procedures in this visit D0120 - PERIODIC ORAL EVALUATION - ESTABLISHED PATIENT (Completed) Service provider: Gladys Gaona DDS Billing provider: Gladys Gaona DDS D0274 - BITEWINGS - 4 RADIOGRAPHIC IMAGES (Completed) Service provider: Gladys Gaona DDS Billing provider: Gladys Gaona DDS D0220 - INTRAORAL - PERIAPICAL FIRST RADIOGRAPHIC IMAGE (Completed) Service provider: Gladys Gaona DDS Billing provider: Gladys Gaona DDS D0230 - INTRAORAL - PERIAPICAL EACH ADDITIONAL RADIOGRAPHIC IMAGE (Completed) Service provider: Gladys Gaona DDS Billing provider: Gladys Gaona DDS [id number] - ADJUNCTIVE GENERAL SERVICES - PROFESSIONAL VISITS - CASE PRESENTATION, SUBSEQUENT TO DETAILED AND EXTENSIVE TREATMENT PLANNING (Completed) Service provider: Gladys Gaona DDS Billing provider: Gladys Gaona DDS Patient ID: Barb Conklin is a 54 y.o. female. Time Out: Timeout Date: 08/22/24, Timeout Time: 0806 (periodic and exam) Location: [facility] Tooth: Maxilla and Mandible Procedure: Exam and X-rays Verified the above with patient, hr assistant, and provider. Confirmed via patient's chart, intraorally and by radiographs. Watershed Manager: not applicable Chief Complaint Patient presents with Dental Exam Periodic exam and xrays Medical Hx: Vitals: There were no vitals taken for this visit. Past Medical History: Diagnosis Date Arthritis Diabetes mellitus (CMS/HCC) Fibromyalgia History of pulmonary embolism 02/29/2024 From [facility] This is a 53-year-old woman with spontaneous right lower lobe small pulmonary emboli diagnosed in December 2018. This occurred spontaneously, her only risk factor being obesity. No family history of thromboembolism. She has had both endoscopy and colonoscopy in 2019. Thrombophilia workup was negative. D-dimer not elevated. She discontinued Xarelto in July 2019. CT Hypertension Medications: Outpatient Encounter Medications as of 08/22/2024 Medication Sig Dispense Refill acetaminophen (Tylenol 8 Hour) 650 MG ER tablet TAKE 1 TABLET EVERY 8 HOURS NEEDED MOST PAINFUL AREA 90 tablet 1 Aspirin Low Dose 81 MG EC tablet Take 1 tablet (81 mg) by mouth in the morning. 30 tablet 3 atorvastatin (Lipitor) 80 MG tablet Take 80 mg by mouth at bedtime. Blood Glucose Monitoring Suppl (FreeStyle Lite) w/Device kit 1 Device in the morning. 1 kit 0 Calcium Carb-Cholecalciferol 600-10 MG-MCG tablet TAKE 1 TABLET BY MOUTH EVERY MORNING 90 tablet 1 cyanocobalamin (Vitamin B-12) 1000 MCG tablet TAKE 1 TABLET BY MOUTH EVERY EVENING 90 tablet 1 cyclobenzaprine (Flexeril) 5 MG tablet TAKE 1 TABLET BY MOUTH AT BEDTIME 30 tablet 2 Diclofenac Sodium 1 % gel APPLY 4 GRAMS TO 1 KNEE, ANKLE, OR FOOT FOUR TIMES DAILY NEEDED divalproex (Depakote ER) 250 MG 24 hr tablet Take 250 mg by mouth 2 times daily. Do not crush, chew, or split. docusate sodium (Colace) 100 MG capsule TAKE 1 CAPSULE BY MOUTH TWICE DAILY IN THE MORNING AND IN THE EVENING 180 capsule 3 DULoxetine (Cymbalta) [address] capsule TAKE 1 CAPSULE BY MOUTH TWICE DAILY IN THE MORNING AND IN THE EVENING 60 capsule 2 gabapentin (Neurontin) 300 MG capsule Take 1 capsule (300 mg) by mouth at bedtime. In addition to 600mg TID doses 90 capsule 1 gabapentin (Neurontin) 600 MG tablet TAKE 1 TABLET BY MOUTH THREE TIMES DAILY IN THE MORNING, EVENING, AND BEDTIME 90 tablet 2 Icosapent Ethyl (Vascepa) 1 g capsule Take 2 capsules (2 g) by mouth with breakfast and with evening meal. 120 capsule 11 isosorbide mononitrate ER (Imdur) 60 MG 24 hr tablet Take 60 mg by mouth in the morning. metFORMIN XR (Glucophage-XR) 500 MG 24 hr tablet TAKE 1 TABLET TWICE DAILY IN THE MORNING AND IN THE EVENING. DO NOT BREAK, CRUSH, DISSOLVE OR CHEW 90 tablet 3 nitroglycerin (Nitrostat) 0.4 MG SL tablet DISSOLVE 1 TABLET UNDER THE TONGUE EVERY 5 MINUTES NEEDED FOR CHEST PAIN. CALL 911 IF NO RELIEF 25 tablet 1 pantoprazole (ProtoNix) 40 MG EC tablet Take 40 mg by mouth in the morning. prazosin (Minipress) 1 MG capsule TAKE 2 CAPSULES BY MOUTH AT BEDTIME 180 capsule 1 rizatriptan (Maxalt) 10 MG tablet TAKE 1 TABLET BY MOUTH ONCE DAILY NEEDED FOR MIGRAINE Ventolin HFA 108 (90 Base) MCG/ACT inhaler INHALE 2 PUFFS BY MOUTH EVERY 4 TO 6 HOURS NEEDED 18 g 0 clotrimazole (Lotrimin) 1 % cream APPLY TOPICALLY TO THE AFFECTED AREA(S) TWICE DAILY NEEDED FORRASH (Patient not taking: Reported on 08/22/2024) 30 g 0 fluticasone (Flonase) 50 MCG/ACT nasal spray Administer 2 sprays into each nostril in the morning. (Patient not taking: Reported on 08/22/2024) [] FreeStyle lancets 1 each by Other route in the morning. 100 each 3 [] FREESTYLE LITE test strip Test daily 100 each 3 lidocaine (Lidoderm) 5 % patch APPLY 1 PATCH TOPICALLY TO SKIN, LEAVE ON FOR 12 HOURS AND OFF FOR 12 HOURS DIRECTED (Patient not taking: Reported on 08/22/2024) 30 patch 2 metoprolol succinate XL (Toprol-XL) 25 MG 24 hr tablet TAKE 1 TABLET BY MOUTH EVERY MORNING (Patient not taking: Reported on 08/22/2024) 90 tablet 0 No facility-administered encounter medications on file as of 08/22/2024. Objective HPI Soft Tissue Exam No findings documented this visit Head and Neck Exam: Lymph Nodes, Lips, Palate, Buccal Mucosa, Floor of Mouth, Tongue, Tonsils, Alveolar Ridges, Oropharynx, Salivary Ducts, and Vestibules - no significant findings observed OCS: negative Dental Exam Radiographic Interpretation: Associated radiographs for today's visit were reviewed and finding(s) were discussed with the patient. Findings include: caries, broken teteh missing teeth, poor OH, calculus, dental plaque Hard Tissue Exam: Gross/rampant decay and Decay noted - see charting and treatment plan Reference tooth chart for additional findings. Oral Cancer Risk: Low Risk Oral Hygiene Instructions: Staples two times daily, modified rashid technique, Floss daily, Soft bristle toothbrush, Staples Tongue Caries Risk Assessment: High- two or more risk factors Assessment/Plan Exts RCT, POC and crown PAD and perio eval RPDs Patient tolerated procedure well, all questions answered and expressed understanding. Dismissed in good condition. NV: [facility] Director: Delia Gonzalez Dentist: Gladys Gaona DDS documented in this encounter Miscellaneous Notes * Addendum Note - Gladys Gaona DDS - 08/22/2024 8:00 AM ESTAddended by: GLADYS GAONA on: 09/01/2024 03:07 PM Modules accepted: Orders documented in this encounter Plan of Treatment Upcoming Encounters Date Type Department Care Team (Late st Contact Info) Description 09/24/2024 8:00 AM EST Office Visit [facility]ULT DENT[facility] [address] [place] [address] Guille Arce DDS [address] [place] [address] 09/29/2024 10:00 AM EST Office Visit [facility] [address] [place] [address] Light-Robin, Gladys, DDS [address] [place] [address] 10/13/2024 9:00 AM EDT Office Visit [facility] [address] [place] [address] Kirill, Mandy, OD [address] [place] [address] 03/05/2025 8:00 AM EDT Office Visit [facility] [address] [place] [address] Hannah Ernst Scheduled Orders Name Type Priority Associated Diagnoses Orde r Schedule 2,4,12,13,15 2,4,12,13,15 MAXILLARY PARTIAL DENTURE - RESIN BASE (INCLUDING, RETENTIVE/CLASPING MATERIALS, RESTS, AND TEETH) Dental Routine [address] arting 08/22/2024 19,30,31,20 19,30,31,20 MANDIBULAR PARTIAL DENTURE - RESIN BASE (INCLUDING, RETENTIVE/CLASPING MATERIALS, RESTS, AND TEETH) Dental Routine [address] arting 08/22/2024 20 20 EXTRACTION, ERUPTED TOOTH OR EXPOSED ROOT (ELEVATION AND/OR FORCEPS REMOVAL) Dental Routine 1 Occurrences s tarting 08/22/2024 11 11 CROWN PREP Dental Routine 1 Occurr ences starting 08/22/2024 documented as of this encounter Goals Goal Patient Goal Type Associated Problems Recent Progress Patient-Stated? Author Blood Pressure < 140/90 Blood Pressure 121/84( 025 10:08 AM EST) No Delores Romero, PharmD documented as of this encounter Procedures Procedure Name Priority Date/Time Associated Diagnosis Comments PERIODIC ORAL EVALUATION - ESTABLISHED PATIENT Routine [...] examination Dental caries Dental plaque Dental calculus documented in this encounter Visit Diagnoses Diagnosis Encounter for dental examination- Primary Dental caries Unspecified dental caries Dental plaque Accretions on teeth Dental calculus Accretions on teeth documented in this encounter Additional Health Concerns Assessment Noted Time PHQ-9 Depression Total Score: 8 02/29/20 24 9:53 AM EDT documented as of this encounter Care Teams Caddy/Caddie Supervisor Relationship Specialty Start Date End Date Clarisa Mars ANP [address] [place] [address] PCP - General Family Medicine 03/25/21 documented as of this encounter
--- OUTSIDE RECORDS SUMMARY | 2024-09-23 10:23 | XMS_ITS | Encounter Summary ---
Author Organization [employer] Address [address] [facility] 7t [place] [address] Care Team Providers Care Coloring Room Man Name Role Phone Clarisa Mars Primary Care Provider Encounter Details Date Type Department Care Team (Latest Contact Info) Description 11/23/2021 Abstract [facility] CONVERSIONS Dental, Provider, DDS Social History [...] Description 09/24/2024 8:00 AM EST Office Visit [facility] ADULT DENTAL [address] [place] [address] Guille Arce, DDS [address] [place] [address] 09/29/2024 10:00 AM EST Office Visit [facility] ADULT DENTAL [address] [place] [address] Gladys Dunne, DDS [address] [place] [address] 10/13/2024 9:00 AM EDT Office Visit [facility] OPTOMETRY [address] [place] [address] Mandy Roy, OD [address] [place] [address] 03/05/2025 8:00 AM EDT Office Visit [facility] ADULT DENTAL [address] [place] [address] Hannah Ernst documented as of this encounter Visit Diagnoses Not on filedocumented in this encounter Care Teams Coloring Room Man Relationship Specialty Start Date End Date Clarisa Mars ANP [address] [place] [address] PCP - General Family Medicine 03/25/21 documented as of this encounter
--- OUTSIDE RECORDS SUMMARY | 2024-09-23 10:23 | XMS_ITS | Encounter Summary ---
Author Organization [employer] Address [address] [facility] [address] 7[address] [place] [address] Care Team Providers Care Drop Hammer Mechanic Name Role Phone Clarisa Mars Primary Care Provider [phone] Encounter Details Date Type Department Care Team (Latest Contact Info) Description 09/04/2024 Travel Social History Tobacco Use Types Packs/Day Years [...] 8:00 AM EST Office Visit [facility] ADULT DENTAL [address] [place] [address] Guille Arce, DDS [address] [place] [address] 09/29/2024 10:00 AM EST Office Visit [facility] ADULT DENTAL [address] [place] [address] Light-Robin, Gladys, DDS [address] [place] [address] 10/13/2024 9:00 AM EDT Office Visit [facility] OPTOMETRY [address] [place] [address] Kirill, Mandy, OD [address] [place] [address] 03/05/2025 8:00 AM EDT Office Visit [facility] ADULT DENTAL [address] [place] [address] Hannah Ernst documented as of this encounter Goals Goal Patient Goal Type Associated Problems Recent Progress Patient-Stated? Author Blood Pressure < 140/90 Blood Pressure 121/84( 025 10:08 AM EST) No Delores Romero, Reynaldo documented as of this encounter Visit Diagnoses Not on filedocumented in this encounter Additional Health Concerns Assessment Noted Time PHQ-9 Depression Total Score: 8 02/29/20 24 9:53 AM EDT documented as of this encounter Care Teams Drop Hammer Mechanic Relationship Specialty Start Date End Date Clarisa Mars ANP [address] [place] [address] PCP - General Family Medicine 03/25/21 documented as of this encounter
--- OUTSIDE RECORDS SUMMARY | 2024-09-23 10:23 | XMS_ITS | Encounter Summary ---
Author Organization [employer] Address [address] [facility] 7t [place] [address] Care Team Providers Care Market Reporter Name Role Phone Clarisa Mars Primary Care Provider [phone] Encounter Details Date Type Department Care Team (Latest Contact Info) Description 09/04/2024 10:15 AM EST Office Visit [facility] MEDICINE [address] [place] [address] Clarisa Mars ANP [address] [place] [address] Essential hypertension (Primary Dx); Type 2 diabetes mellitus with hyperlipidemia (CMS/HCC) (CMS/HCC); Bilateral carpal tunnel syndrome; Great toe pain, left; Chronic pain of both knees; Intertrigo Social History Tobacco Use Types Packs/Day Years [...] AM EDT documented as of this encounter Last Filed Vital Signs Vital Sign Reading [...] Mass Index 42.89 09/04/2024 10:08 AM EST documented in this encounter Progress Notes * ANDREEA Sheehan - 09/04/2024 10:15 AM EST Subjective Patient ID: Barb Conklin is a 54 y.o. female who presents for follow-up. HPI PMH hypertension, diabetes A1c 6.6% Aug 2022 (though at preDM range since), UMAIR, fibromyalgia, hyperlipidemia, anemia, depression, migraine, chronic low back pain, GERD, obesity s/p gastrectomy, h/o pulm embolism s/p eliquis (discontinued Jul 2019), s/p NSTEMI 08/04/2023 Follows with: [facility] Myles Kapadia NP [facility] JEAN-CLAUDE Christianson [facility] Dr. Gray She is eager to lose weight. She has DM and tries to eat healthy. Tries to stay active as much as possible. Also having knee pain and wrist pain. Has carpal tunnel but needs new rx for L wrist splint for carpal tunnel She did PT for her knees but didn't help. She does not want to do injections. We will check XR. James do exercises at home. She would like knee braces - we will send rx. Also w/ L great toe pain. No known trauma. Lab Results Component Value Date HGBA1C 6.0 06/05/2024 HGBA1C 6.2 (A) 02/29/2024 HGBA1C 6.2 (H) 10/05/2023 HGBA1C 6.2 (H) 09/07/2023 HGBA1C 6.6 (H) 08/11/2022 HGBA1C 5.4 11/25/2020 Smoking 5 cigs/d Review of Systems Constitutional: Negative for chills and fever. HENT: Negative for sore throat. Respiratory: Negative for cough and shortness of breath. Cardiovascular: Negative for chest pain. Gastrointestinal: Negative for constipation and diarrhea. Endocrine: Negative for polydipsia, polyphagia and polyuria. Genitourinary: Negative for dysuria. Musculoskeletal: Positive for arthralgias. Objective BP 121/84 (BP Location: Right arm, Patient Position: Sitting, BP Cuff Size: Large adult) Pulse 78 Temp 97.8 ??F (36.6 ??C) (Temporal) Resp 16 Ht 5' 1 (1.549 m) Wt 227 lb (103 kg) SpO2 96% BMI 42.89 kg/m?? Physical Exam Vitals reviewed. Constitutional: Appearance: Normal appearance. She is obese. HENT: Head: Normocephalic and atraumatic. Eyes: General: No scleral icterus. Extraocular Movements: Extraocular movements intact. Pupils: Pupils are equal, round, and reactive to light. Cardiovascular: Rate and Rhythm: Normal rate and regular rhythm. Pulmonary: Effort: Pulmonary effort is normal. Neurological: Mental Status: She is alert and oriented to person, place, and time. Psychiatric: Mood and Affect: Mood normal. Behavior: Behavior normal. Assessment/Plan Diagnoses and all orders for this visit: Essential hypertension At/near goal today, </= 130/80. Continue to encourage low salt diet, regular exercise, home BP monitoring, compliance with medications. Call clinic if BP is frequently >150/90 Go to ED/call 911 if > 170/100 and having sx such as FUNEZ, visual changes, chest pain, SOB Last renal function: Lab Results Component Value Date GLUCOSE 88 11/13/2023 NA 141 11/13/2023 K 4.3 11/13/2023 CO2 23 11/13/2023 CL 109 (H) 11/13/2023 BUN 9 11/13/2023 CREATININE 0.64 11/13/2023 EGFR >60 11/13/2023 Lab Results Component Value Date MICROALBCREA 4 11/25/2020 Lab Results Component Value Date MICROALBCREU 4.0 10/05/2023 Type 2 diabetes mellitus with hyperlipidemia (CMS/HCC) ([facility]) Trulicity start Reviewed w/ pt side effects of GLP1 and how to mitigate incl eating small portions and do not eat through sensation of fullness. No personal or family h/o papillary thyroid cancer. No personal h/o pancreatitis. Does not have retinopathy. Refrigerate but do not freeze. Trulicity is ok out of fridge for up to 14d. Increase exercise Increase water - Dulaglutide (Trulicity) 0.75 MG/0.5ML solution auto-injector; Inject 0.5 mL under the skin 1 (one) time per week. - Lipid Panel, Standard; Future - Comprehensive Metabolic Panel; Future - Albumin, Random Urine W/Creatinine; Future Bilateral carpal tunnel syndrome Wrist brace, ice, stretching, declines OT. Needs new rx for L wrist splint for carpal tunnel Great toe pain, left On exam appears normal, without bruising or swelling, but limited ROM d/t pain - XR Foot 1-2 Views Left; Future Chronic pain of both knees She did PT for her knees but didn't help. She does not want to do injections. We will check XR. Shewill do exercises at home. She would like knee braces - we will send rx - XR Knee 1-2 Views Left; Future - XR Knee 1-2 Views Right; Future Intertrigo Comments: resolved at present but pt wants refill for prn use Orders: - clotrimazole (Lotrimin) 1 % cream; APPLY TOPICALLY TO THE AFFECTED AREA(S) TWICE DAILY NEEDED FOR RASH documented in this encounter Plan of Treatment Upcoming Encounters Date Type Department Care Team (Late st Contact Info) Description 09/24/2024 8:00 AM EST Office Visit [facility] ADULT DENTAL [address] [place] [address] Guille Arce, DDS [address] [place] [address] 09/29/2024 10:00 AM EST Office Visit [facility] ADULT DENTAL [address] [place] [address] Gladys Dunne, DDS [address] [place] [address] 10/13/2024 9:00 AM EDT Office Visit [facility] OPTOMETRY [address] [place] [address] Kirill, Mandy, OD [address] [place] [address] 03/05/2025 8:00 AM EDT Office Visit [facility] ADULT DENTAL [address] [place] [address] Hannah Ernst Scheduled Orders Name Type Priority Associated Diagnoses Orde r Schedule Lipid Panel, Standard Lab Routine Type 2 diabetes mellitus with hyperlipidemia (CMS/HCC) ([facility]/HCC) Expected: 09/04/2024 (Approximate), Expires: 09/04/2025 Comprehensive Metabolic Panel Lab Routine Type 2 diabetes mellitus with hyperlipidemia (CMS/HCC) (CMS/HCC) Expected: 09/04/2024 (Approximate), Expires: 09/04/2025 Albumin, Random Urine W/Creatinine Lab Routine Type 2 diabetes mellitus with hyperlipidemia (CMS/HCC) (CMS/HCC) Expected: 09/04/2024 (Approximate), Expires: 09/04/2025 XR Foot 1-2 Views Left Imaging Routine Great toe pain, left Expected: 09/04/2024, Expires: 09/04/2025 XR Knee 1-2 Views Left Imaging Routine Chronic pain of both knees Expected: 09/04/2024, Expires: 09/04/2025 XR Knee 1-2 Views Right Imaging Routine Chronic pain of both knees Expected: 09/04/2024, Expires: 09/04/2025 documented as of this encounter Goals Goal Patient Goal Type Associated Problems Recent Progress Patient-Stated? Author Blood Pressure < 140/90 Blood Pressure 121/84( 025 10:08 AM EST) No Delores Romero, AggieD documented as of this encounter Visit Diagnoses Diagnosis Essential hypertension- Primary Unspecified essential hypertension Type 2 diabetes mellitus with hyperlipidemia (CMS/HCC) (CMS/HCC) Bilateral carpal tunnel syndrome Carpal tunnel syndrome Great toe pain, left Chronic pain of both knees Intertrigo Other specified erythematous condition documented in this encounter Additional Health Concerns Assessment Noted Time PHQ-9 Depression Total Score: 8 02/29/20 24 9:53 AM EDT documented as of this encounter Care Teams Market Reporter Relationship Specialty Start Date End Date Clarisa Mars ANP [address] [place] [address] PCP - General Family Medicine 03/25/21 documented as of this encounter
--- OUTSIDE RECORDS SUMMARY | 2024-09-23 10:23 | XMS_ITS | Encounter Summary ---
Author Organization [employer] Address [address] [facility] [address] [place] [address] Care Team Providers Care Director Name Role Phone Clarisa Mars Primary Care Provider [phone] Encounter Details Date Type Department Care Team ([facility] Contact Info) Description 05/26/2024 Telephone [facility] MEDICINE [address] [place] [address] Clarisa Mars ANP [address] [place] [address] Social History Tobacco Use Types Packs/Day Years [...] Description 09/24/2024 8:00 AM EST Office Visit [facility] ADULT DENTAL [address] [place] [address] Guille Arce, DDS [address] [place] [address] 09/29/2024 10:00 AM EST Office Visit [facility] ADULT DENTAL [address] [place] [address] Gladys Dunne, DDS [address] [place] [address] 10/13/2024 9:00 AM EDT Office Visit [facility] OPTOMETRY [address] [place] [address] Kirill, Mandy, OD [address] [place] [address] 03/05/2025 8:00 AM EDT Office Visit [facility] ADULT DENTAL [address] [place] [address] Hannah Ernst documented as of this encounter [...] as of this encounter Care Teams Director Relationship Specialty Start Date End Date Clarisa Mars ANP [address] [place] [address] PCP - General Family Medicine 03/25/21 documented as of this encounter
[2024-09-23 10:33] VITALS: BP 133/60; PULSE 68; BMI 42.5
== END 2024-09-23 10:44 | disposition home or self-care (01) ==
PROVIDERS: PCP Nurse Practitioner Primary Care; Visit Provider Surgery
DX: Z80.3 Family history of malignant neoplasm of breast (principal)
CPT/HCPCS: 99213

== ENCOUNTER → 2024-09-23 09:39 | Outpatient (BNVA) | payer MEDICAID, SELFPAY | PROVIDERS: PCP Nurse Practitioner Primary Care; Visit Provider Surgery | DX: Z80.3 Family history of malignant neoplasm of breast (principal); Z80.0 Family history of malignant neoplasm of digestive organs | CPT/HCPCS: 99212 ==

== ENCOUNTER 2024-11-20 13:49 | Outpatient (REF) | payer MEDICAID, SELFPAY ==
[2024-11-20 16:28] LABS: Alanine Aminotransferase 32 U/L (0-31); Anion Gap 12 (12-20); Aspartate Amino Transferase 27 U/L (5-31); Bilirubin Total 0.7 mg/dL (0.0-1.0); Blood Urea Nitrogen 6 mg/dL (9-16); Calcium 9.2 mg/dL (8.4-10.2); Carbon Dioxide 30 mmol/L (22-29); Chloride 103 mmol/L (96-108); Cholesterol 160 mg/dL (<200); Estimated Glomerular Filt Rate > 60; Glucose Random 81 mg/dL (60-115); HDL Cholesterol 45 mg/dL (>40); LDL Cholesterol Calculated 68 mg/dL (<100); Potassium 4.5 mmol/L (3.3-5.1); Sodium 140 mmol/L (135-145); Total Protein 7.3 g/dL (6.5-8.0); Triglycerides 236 mg/dL (<150)
[2024-11-20 16:33] LABS: Creatinine Urine 20.11 mg/dL; Microalbumin Urine < 5.0 mg/L
[2024-11-20 16:37] LABS: Alkaline Phosphatase 94 U/L (39-117)
--- OUTSIDE RECORDS SUMMARY | 2024-11-20 17:31 | XMS_ITS | Encounter Summary ---
Author Organization [employer] Address [address] [facility] [address]t [place] [address] Care Team Providers Care Mechanical Product Design Engineer Name Role Phone Clarisa Mars Primary Care Provider [phone] Encounter Details Date Type Department Care Team (Latest Contact Info) Description 10/06/[address] [facility] CONVERSIONS Dental, Provider, DDS Social History [...] Care Team (Late st Contact Info) Description 11/27/2024 10:00 AM EDT Office Visit [facility] ADULT DENTAL [address] [place] [address] Gladys Dunne DDS [address] [place] [address] 12/09/2024 11:30 AM EDT Office Visit [facility] MEDICINE [address] [place] [address] Clarisa Mars ANP [address] [place] [address] 03/05/2025 8:00 AM EDT Office Visit [facility] ADULT DENTAL [address] [place] [address] Delicia Borrego [address] [place], [place] [id number] documented as of this encounter Visit Diagnoses Not on filedocumented in this encounter Care Teams Mechanical Product Design Engineer Relationship Specialty Start Date End Date Clarisa Mars ANP [address] [place] [address] PCP - General Family Medicine 03/25/21 documented as of this encounter
--- OUTSIDE RECORDS SUMMARY | 2024-11-20 17:31 | XMS_ITS | Encounter Summary ---
Author Organization [employer] Address [address] [facility] [address]t [place] [address] Care Team Providers Care Cv Rn Name Role Phone Clarisa Mars Primary Care Provider [phone] Reason for Visit * Reason Comments Med Refill Encounter Details Date Type Department Care Team ([facility] Contact Info) Description 10/21/2022 Refill [facility] MEDICINE [address] [place] [address] Clarisa Mars ANP [address] [place] [address] Social History Tobacco Use Types Packs/Day Years [...] Upcoming Encounters Date Type Department Care Team ([facility] Contact Info) Description 11/27/2024 10:00 AM EDT Office Visit [facility] ADULT DENTAL [address] [place] [address] Gladys Dunne, DDS [address] [place] [address] 12/09/2024 11:30 AM EDT Office Visit [facility] MEDICINE [address] [place] [address] Clarisa Mars ANP [address] [place] [address] 03/05/2025 8:00 AM EDT Office Visit [facility] ADULT DENTAL [address] [place] [address] Delicia Borrgeo [address] [place] [address] [id number] documented as of this encounter Visit Diagnoses Not on filedocumented in this encounter Care Teams Cv Rn Relationship Specialty Start Date End Date Clarisa Mars ANP [address] [place] [address] PCP - General Family Medicine 03/25/21 documented as of this encounter
--- OUTSIDE RECORDS SUMMARY | 2024-11-20 17:31 | XMS_ITS | Encounter Summary ---
Author Organization [employer] Address [address] [facility] 7t [place] [address] Care Team Providers Care Drafting Instructor Name Role Phone Clarisa Mars Primary Care Provider [phone] Encounter Details Date Type Department Care Team (Latest Contact Info) Description 11/19/2018 Abstract [facility] CONVERSIONS Dental, Provider, DDS Social History [...] 10:00 AM EDT Office Visit [facility] ADULT DENTAL [address] [place] [address] Gladys Dunne DDS [address] [place] [address] 12/09/2024 11:30 AM EDT Office Visit [facility] MEDICINE [address] [place] [address] Clarisa Mars ANP [address] [place] [address] 03/05/2025 8:00 AM EDT Office Visit [facility] ADULT DENTAL [address] [place] [address] Delicia Borrego [address] [place] [address] [phone] documented as of this encounter Visit Diagnoses Not on filedocumented in this encounter Care Teams Drafting Instructor Relationship Specialty Start Date End Date Clarisa Mars ANP [address] [place] [address] PCP - General Family Medicine 03/25/21 documented as of this encounter
--- OUTSIDE RECORDS SUMMARY | 2024-11-20 17:31 | XMS_ITS | Encounter Summary ---
Author Organization [employer] Address [address] [facility] 7t [place] [address] Care Team Providers Care Firebreak Cutter Name Role Phone Clarisa Mars Primary Care Provider [phone] Encounter Details Date Type Department Care Team (Latest Contact Info) Description 11/23/2021 Abstract [facility] CONVERSIONS Dental, Provider, DDS Social History Tobacco [...] Description 11/27/2024 10:00 AM EDT Office Visit [facility] ADULT DENTAL [address] [place] [address] Gladys Dunne DDS [address] [place] [address] 12/09/2024 11:30 AM EDT Office Visit [facility] MEDICINE [address] [place] [address] Clarisa Mars ANP [address] [place] [address] 03/05/2025 8:00 AM EDT Office Visit [facility] ADULT DENTAL [address] [place] [address] Delicia Borrego [address] [place], [place] [phone] documented as of this encounter Visit Diagnoses Not on filedocumented in this encounter Care Teams Firebreak Cutter Relationship Specialty Start Date End Date Clarisa Mars ANP [address] [place] [address] PCP - General Family Medicine 03/25/21 documented as of this encounter
--- OUTSIDE RECORDS SUMMARY | 2024-11-20 17:32 | XMS_ITS | Encounter Summary ---
Demographics Address [address] [place] [address] Mobile Phone Work Phone Home Phone Email Address Preferred Language es Marital Status Adventist Affiliation Unknown Race Other Race Ethnic Group or Author Organization [employer] Address [address] [facility] [address] [place] [address] Care Team Providers Care Manager Unit Name Role Phone Clarisa Mars ANDREEA Primary Care Provider [phone] Encounter Details Date Type Department Care Team (Late st Contact Info) Description 11/20/2024 Orders Only GENERIC EXTERNAL DATA DEPARTMENT Provider, Generic External Data Social History Tobacco Use Types Packs/Day Years [...] your housing situation today? I have tato ilya 09/04/[address] you li [...] Description 11/27/2024 10:00 AM EDT Office Visit [facility] ADULT DENTAL [address] [place] [id number] Gladys Dunne, DDS [address] [place] [address] 12/09/2024 11:30 AM EDT Office Visit [facility] MEDICINE [address] [place] [address] Clarisa Mars, ANP [address] [place] [address] 03/05/2025 8:00 AM EDT Office Visit [facility] ADULT DENTAL [address] [place] [address] Delicia Borrego [address] [place] [address] [phone] documented as of this encounter Goals Goal Patient Goal Type Associated Problems Recent Progress Patient-Stated? Author Blood Pressure < 140/90 Blood Pressure 142/78( 025 8:51 AM EDT) No Delores Romero, PharmD documented as of this encounter Procedures Procedure Name Priority Date/Time Associated Diagnosis Comments LIPID PANEL, STANDARD Routine 11/20/2024 2:38 PM EDT COMPREHENSIVE METABOLIC PANEL Routine 11/20/2024 2:38 PM EDT documented in this encounter Results * (ABNORMAL) Lipid Panel, Standard (11/20/2024 2:38 PM EDT) Triglycerides 236(H) <150 mg/dL [facility] Comment:Desirable Triglyceri de: less than 150 mg/dLBorderline High Triglyceride 150-199 mg/dLHigh Triglyceride: 200-499 mg/dLVery High Triglyceride: greater than or equal to 5OO mg/dL Cholesterol 160 <200 mg/dL [facility] Comment:Desirable Cholestero l: less than 200 mg/dLBorderline High Cholesterol: 200-239 mg/dLHigh Cholesterol: greater than 239 mg/dL LDL Cholesterol Calculated 68 <100 mg/dL [facility] Comment:Desirable LDL: less than 100 mg/dLNear Optimal/Above Optimal LDL: 110- 129 mg/dLBorderline High LDL: 130-159 mg/dLHigh LDL: 160-189 mg/dLVery High LDL: greater than or equal to 190 mg/dL HDL Cholesterol 45 >40 mg/dL [facility] Comment:Desirable HDL: great er than 40 mg/dL Note: This HDL assay may give artificially low results in patients with liver disease. 11/20/2024 2:38 PM EDT 11/20/2024 2:38 PM EDT us Generic External Data Provider LAB BLOOD ORDERAB LES Final Result [facility] [address] [place] [phone] * (ABNORMAL) Comprehensive Metabolic Panel (11/20/2024 2:38 PM EDT) Sodium 140 135 - 145 mmol/L [facility] Potassium 4.5 3.3 - 5.1 mmol/L [facility] Chloride 103 96 - 108 mmol/L [facility] Carbon Dioxide 30(H) 22 - 29 mmol/L [facility] Anion Gap 12 12 - 20 [facility] Urea Nitrogen (BUN) 6(L) 9 - 16 mg/dL [facility] Creatinine, Serum 0.66 0.5 - 1.4 mg/dL [facility] Estimated Glomerular Filt Rate >60 [facility] Comment:Chronic Kidney Disea se: Estimated GFR < 60 mL/min/1.55o9Siwbmy Kidney Disease: Estimated GFR < 15 mL/min/1.73m2 Glucose 81 60 - 115 mg/dL [facility] Calcium 9.2 8.4 - 10.2 mg/dL [facility] Bilirubin, Total 0.7 0.0 - 1.0 mg/dL [facility] Aspartate Amino Transferase 27 5 - 31 U/L [facility] Alanine Aminotransferase 32(H) 0 - 31 U/L [facility] Total Protein 7.3 6.5 - 8.0 g/dL [facility] Albumin Level 4.0 3.5 - 5.0 g/dL [facility] Alkaline Phosphatase 94 39 - 117 U/L [facility] 11/20/2024 2:38 PM EDT 11/20/2024 2:38 PM EDT us Generic External Data Provider LAB BLOOD ORDERAB LES Final Result [facility] [address] [place] [phone] documented in this encounter Visit Diagnoses Not on filedocumented in this encounter Additional Health Concerns Assessment Noted Time PHQ-9 Depression Total Score: 8 02/29/20 24 9:53 AM EDT documented as of this encounter Care Teams Manager Unit Relationship Specialty Start Date End Date Clarisa Mars ANP [address] [place] [phone] PCP - General Family Medicine 03/25/21 documented as of this encounter
--- OUTSIDE RECORDS SUMMARY | 2024-11-20 17:32 | XMS_ITS | Clinical Summary ---
Demographics Address [address] [place] [address] Mobile Phone Work Phone Home Phone Email Address Preferred Language es Marital Status Hindu Affiliation Unknown Race Other Race Ethnic Group or Author Organization [employer] Address [address] [place] [address] Care Team Providers [employer] Name Role Phone Carolina Bailey ANDREEA Primary Care Provider [phone] Allergies No known active allergies Medications divalproex (Depakote ER) 250 MG 24 hr tablet Take 250 mg by mouth 2 times daily. Do not crush, chew, or split. Active Diclofenac Sodium 1 % gel APPLY 4 GRAMS TO 1 KNEE, ANKLE, OR FOOT FOUR TIMES DAILY NEEDED 07/23/20 23 Active pantoprazole (ProtoNix) 40 MG EC tablet Take 40 mg by mouth in the morning. 06/21/20 23 Active Aspirin Low Dose 81 MG EC tabletIndications :NSTEMI (non-ST elevated myocardial infarction) (CMS/HCC) Take 1 tablet (81 mg) by mouth in the morning. 30 tablet 3 08/21/19 24 Active Blood Glucose Monitoring Suppl (FreeStyle Lite) w/Device kitIndications:Pr ediabetes 1 Device in the morning. 1 kit 08/21/19 24 Active metoprolol succinate XL (Toprol-XL) 25 MG 24 hr tabletIndications :NSTEMI (non-ST elevated myocardial infarction) (CMS/HCC) TAKE 1 TABLET BY MOUTH EVERY MORNING 90 tablet 11/12/19 24 Active metFORMIN XR (Glucophage-XR) 500 MG 24 hr tabletIndications :Type 2 diabetes mellitus with hyperlipidemia (CMS/HCC) (CMS/HCC) TAKE 1 TABLET TWICE DAILY IN THE MORNING AND IN THE EVENING. DO NOT BREAK, CRUSH, DISSOLVE OR CHEW 90 tablet 3 12/25/19 24 Active cyclobenzaprine (Flexeril) 5 MG tabletIndications :Fibromyalgia TAKE 1 TABLET BY MOUTH AT BEDTIME 30 tablet 2 12/28/19 24 Active isosorbide mononitrate ER (Imdur) 60 MG 24 hr tablet Take 60 mg by mouth in the morning. 04/10/20 24 Active rizatriptan (Maxalt) 10 MG tablet TAKE 1 TABLET BY MOUTH ONCE DAILY NEEDED FOR MIGRAINE 05/22/20 24 Active atorvastatin (Lipitor) 80 MG tablet Take 80 mg by mouth at bedtime. 03/04/20 24 Active cyanocobalamin (Vitamin B-12) 1000 MCG tabletIndications :Cyanocobalamin deficiency TAKE 1 TABLET BY MOUTH EVERY EVENING 90 tablet 1 06/23/20 24 Active DULoxetine (Cymbalta) [address] capsuleIndication s:Depression, unspecified depression type TAKE 1 CAPSULE BY MOUTH TWICE DAILY IN THE MORNING AND IN THE EVENING 60 capsule 2 06/27/20 24 Active nitroglycerin (Nitrostat) 0.4 MG SL tabletIndications :Chest pain, unspecified type DISSOLVE 1 TABLET UNDER THE TONGUE EVERY 5 MINUTES NEEDED FOR CHEST PAIN. CALL 911 IF NO RELIEF 25 tablet 1 07/21/20 24 Active Calcium Carb-Cholecalcife rol 600-10 MG-MCG tabletIndications :Vitamin D deficiency TAKE 1 TABLET BY MOUTH EVERY MORNING 90 tablet 1 07/22/20 24 Active docusate sodium (Colace) 100 MG capsuleIndication s:Constipation, unspecified constipation type TAKE 1 CAPSULE BY MOUTH TWICE DAILY IN THE MORNING AND IN THE EVENING 180 capsule 3 07/22/20 24 Active prazosin (Minipress) 1 MG capsuleIndication s:Depression, unspecified depression type TAKE 2 CAPSULES BY MOUTH AT BEDTIME 180 capsule 1 07/22/20 24 Active TRUEplus Lancets 33G miscIndications:P rediabetes TEST BLOOD SUGAR IN THE MORNING DIRECTED 100 each 3 09/01/19 25 Active gabapentin (Neurontin) 600 MG tabletIndications :Fibromyalgia TAKE 1 TABLET BY MOUTH THREE TIMES DAILY IN THE MORNING, EVENING, AND BEDTIME 90 tablet 2 09/28/19 25 Active ezetimibe (Zetia) 10 MG tablet Take 10 mg by mouth in the morning. 09/01/19 25 Active fluPHENAZine (Prolixin) 2.5 MG tablet Take 1 tablet by mouth twice daily in the morning and in the evening 09/01/19 25 Active FREESTYLE LITE test stripIndications: Prediabetes TEST BLOOD SUGAR TWICE A DAY DIRECTED 50 strip 11 10/02/19 25 Active albuterol (Ventolin HFA) 108 (90 Base) MCG/ACT inhaler Inhale 2 puffs every 4 (four) hours if needed for wheezing or shortness of breath. 18 g 10/02/19 25 Active clotrimazole (Lotrimin) 1 % creamIndications: Intertrigo APPLY TOPICALLY TO THE AFFECTED AREA(S) TWICE DAILY NEEDED FOR RASH 30 g 10/02/19 25 Active Dulaglutide 1.5 MG/0.5ML solution auto-injectorIndi cations:Type 2 diabetes mellitus with hyperlipidemia (CMS/HCC) ([facility]) Inject 1.5 mg under the skin 1 (one) time per week. 2 mL 2 10/24/19 25 Active acetaminophen (Tylenol 8 Hour) 650 MG ER tabletIndications :Severe dental caries,Non-restor able tooth Take 1 tablet (650 mg) by mouth every 8 (eight) hours if needed for mild pain. Do not crush, chew, or split. 30 tablet 10/30/19 25 Active gabapentin (Neurontin) 300 MG capsuleIndication s:Fibromyalgia TAKE 1 CAPSULE BY MOUTH AT BEDTIME 30 capsule 5 11/18/19 25 Active lidocaine (Lidoderm) 5 % patch APPLY 1 PATCH TOPICALLY TO SKIN, LEAVE ON FOR 12 HOURS AND OFF FOR 12 HOURS DIRECTED 30 patch 2 11/20/19 25 Active gabapentin (Neurontin) 300 MG capsuleIndication s:Fibromyalgia Take 1 capsule (300 mg) by mouth at bedtime. In addition to 600mg TID doses 90 capsule 1 06/05/20 24 025 Discontinued Dulaglutide (Trulicity) 0.75 MG/0.5ML solution auto-injectorIndi cations:Type 2 diabetes mellitus with hyperlipidemia (CMS/HCC) ([facility]) Inject 0.5 mL under the skin 1 (one) time per week. 2 mL 09/19/19 25 025 Discontinued amoxicillin (Amoxil) 500 MG capsule Take 1 capsule (500 mg) by mouth every 8 (eight) hours for 7 days. 21 capsule 10/18/19 25 025 acetaminophen (Tylenol 8 Hour) 650 MG ER tablet Take 1 tablet (650 mg) by mouth every 8 (eight) hours if needed for moderate pain for up to 10 days. Do not crush, chew, or split. 15 tablet 10/18/19 25 025 chlorhexidine (Peridex) 0.12 % solution Use 15 mL in the mouth or throat if needed (for mouthwash 15 ml for 30 seconds, swish and spit) for up to 14 days. 473 mL 10/18/19 25 025 amoxicillin (Amoxil) 500 MG capsuleIndication s:Severe dental caries,Non-restor able tooth Take 1 capsule (500 mg) by mouth every 8 (eight) hours for 7 days. 21 capsule 10/30/19 25 025 lidocaine (Lidoderm) 5 % patch APPLY 1 PATCH TOPICALLY TO SKIN, LEAVE ON FOR 12 HOURS AND OFF FOR 12 HOURS DIRECTED 09/25/19 25 025 Discontinued Active Problems Problem Noted Date Diagnosed Date Non-restorable tooth 10/29/2024 Alcohol use disorder 09/29/2024 Type 2 diabetes mellitus 09/29/2024 Chronic anemia 09/29/2024 Severe obesity 09/29/2024 Current smoker 09/29/2024 Severe dental caries 07/25/2024 Varicose veins of both lower extremities [...] longer demonstrated. She had non ST elevated MA in July 2023. She is now on baby aspirin. [....] 3. Thrombocytosis. She has persistent thrombocytosis in spite of correction of iron deficiency anemia. She recently had an MA and has a history of pulmonary embolism which raises suspicion for myeloproliferative disorder such as essential thrombocytosis. JAK2 mutations as well as reflex testing for CALR/MPL mutations were all negative. Hospital discharge follow-up 08/21/2023 Assessment & Plan (08/21/2023 9:48 AM EST): Patient of Carolina DORAN here for a HDF Patient presented to [facility] 08/04/2023 c/o left sided chest pain which started on day of arrival. Described as 10/10, no radiation, worse with movement and breathing. EKG was normal with elevated troponin (619.3 ng/L and 385.6 ng/L) believed to be NSTEMI. Patient started on heparin/nitroglycerin drip and was transferred to [facility]. Pt was admitted to [facility] from 08/04/23-08/07/23 as transfer from [facility] for concerns of NSTEMI. Initial EKG unremarkable, [...] infarction) 0 08/21/2023 Overview (02/29/2024): presented to [facility] 08/04/23 with chest discomfort and ruled in for NSTEMI, Troponin 619.3, who was transferred to [facility] and underwent cardiac catheterization showing moderate LAD stenosis with normal IFR. She was managed medically. Outpatient nuclear stress test done on 10/31/2023 showed normal myocardial perfusion imaging, EF 58%. An echocardiogram done 10/29/2023 showed EF 60%, no valve abnormalities and no regional wall motion abnormalities. She is to cont on ASA indefinitely, atorvastatin w/ LDL goal < 70, metoprolol Follows w/ [facility] Nayeli Steffi HEADLEY 12/28/23 communication from Pt's office director 11/30/23: normal myocardial perfusion imaging on 10/30 [...] (08/21/2023 9:56 AM EST): Patient of Carolina DORAN here for a HDF Patient presented to [facility] 08/04/2023 c/o left sided chest pain which started on day of arrival. Described as 10/10, no radiation, worse with movement and breathing. EKG was normal with elevated troponin (619.3 ng/L and 385.6 ng/L) believed to be NSTEMI. Patient started on heparin/nitroglycerin drip and was transferred to [facility]. Pt was admitted to [facility] from 08/04/23-08/07/23 as transfer from [facility] for concerns of NSTEMI. Initial EKG unremarkable, [...] 1 - Negative Pap HPV- 01/2022 w/ [facility] Keeley [place] Assessment & Plan (01/10/2023 10:35 AM EDT): PHQ: 15 already has psychiatrist and therapist. Here at [facility]. Dr. Naylor? Contraception: nexplanon [...] to poor prep. Eye exam: Goes to [facility], she reports her glasses are working well. Dental home: This year, extracted tooth, [facility] dental. Anemia 01/10/2023 Assessment & Plan (01/10/2023 [...] Encounters Date Type Department Care Team Description 11/20/2024 Orders Only GENERIC EXTERNAL DATA DEPARTMENT Provider, Generic External Data 11/18/2024 Refill [facility] MEDICINE [address] [place] [phone] Carolina Bailey ANP 11/15/2024 Refill [facility] MEDICINE [address] [place] [address] Carolina Bailey ANP Fibromyalgia 11/14/2024 9:30 AM EDT Office Visit [facility] OPTOMETRY [address] [place] [address] Kirill, Mandy, OD Presbyopia (Primary Dx) 11/13/2024 9:00 AM EDT Office Visit [facility] ADULT DENTAL [address] [place] [address] Light-Robin, Gladys, DDS Full voodoo of crown of tooth needed due to previous endodontic treatment (Primary Dx); Dental caries 10/30/2024 Refill [facility] MEDICINE [address] [place] [address] Carolina Bailey ANP 10/29/2024 11:30 AM EDT Office Visit [facility] ADULT DENTAL [address] [place] [address] Light-Robin, Gladys, DDS Loss of retention of dental crown (Primary Dx) 10/29/2024 9:00 AM EDT Office Visit [facility] ADULT DENTAL [address] [place] [address] Guille Arce DDS Severe dental caries (Primary Dx); Non-restorable tooth 10/23/2024 Telephone [facility] MEDICINE [address] [place] [address] Carolina Bailey ANP Med Refill 10/18/2024 Refill [facility] MEDICINE [address] [place] [address] Carolina Bailey ANP 10/17/2024 1:00 PM EDT Office Visit [facility] ADULT DENTAL [address] [place] [address] Light-Robin, Gladys, DDS Acute pulpitis (Primary Dx); Pain, dental 10/17/2024 Population Health Risk Score [facility] () Department [address] [place] [phone] Provider, Population Health Generic 10/17/2024 Telephone [facility] ADULT DENTAL [address] [place] [address] Gladys Dunne, DDS unable to post insurance 10/13/2024 9:00 AM EDT Office Visit [facility] OPTOMETRY [address] [place] [address] Kirill, Mandy, OD Diabetes type 2, 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) (Primary Dx); Presbyopia 10/13/2024 Travel 10/02/2024 Refill [facility] MEDICINE [address] [place] [address] Kashif Piedra MD Prediabetes; Intertrigo 10/02/2024 Refill [facility] MEDICINE [address] [place] [address] Madeline White MD 10/02/2024 Refill [facility] MEDICINE [address] [place] [address] Carolina Bailey ANP Intertrigo 09/29/2024 10:00 AM EST Office Visit [facility] ADULT DENTAL [address] [place] [address] Gladys Dunne DDS Necrosis of dental pulp (Primary Dx); Dental caries 09/26/2024 Refill [facility] MEDICINE [address] [place] [address] Carolina Bailey ANP Fibromyalgia 09/25/2024 Telephone [facility] ADULT DENTAL [address] [place] [address] Guille Arce DDS rs no show visit error on PAR side 09/24/2024 Refill [facility] MEDICINE [address] [place] [address] Carolina Bailey ANP Depression, unspecified depression type; Fibromyalgia 09/19/2024 Refill [facility] MEDICINE [address] [place] [address] Carolina Bailey ANP Type 2 diabetes mellitus with hyperlipidemia (CMS/HCC) (CMS/HCC) 09/19/2024 Telephone [facility] ADULT DENTAL [address] [place] [address] Guille Arce DDS rs cancelled appt 09/08/2024 Telephone [facility] MED[facility]INE [address] [facility] [address] Carolina Bailey ANP Durable Medical Equipment 09/04/2024 10:15 AM EST Office Visit [facility] MEDICINE [address] [place] [address] Carolina Bailey ANP Essential hypertension (Primary Dx); Type 2 diabetes mellitus with hyperlipidemia (CMS/HCC) (CMS/HCC); Bilateral carpal tunnel syndrome; Great toe pain, left; Chronic pain of both knees; Intertrigo 09/04/2024 Travel 09/03/2024 Telephone [facility] MEDICINE [address] [place] [address] Madeleine Mcknight MA chart prep 09/01/2024 3:00 PM EST Office Visit [facility] ADULT DENTAL [address] [place] [address] Hannah Ernst Dental plaque (Primary Dx); Dental calculus 09/01/2024 Refill [facility] MEDICINE [address] [place] [address] Kashif Piedra MD Prediabetes 08/22/2024 8:00 AM EST Office Visit [facility] ADULT DENTAL [address] [place] [address] Gladys Dunne DDS Encounter for dental examination (Primary Dx); Dental caries; Dental plaque; Dental calculus from Last 3 Months Immunizations Name Administration [...] Sign Reading Time Taken Comments Blood Pressure 142/78 11/13/2024 8:51 AM EDT Pulse 78 09/04/2024 10:08 AM EST Temperature [...] Description 11/27/2024 10:00 AM EDT Office Visit [facility] ADULT DENTAL [address] [place] [address] Gladys Dunne, DDS [address] [place] [address] 12/09/2024 11:30 AM EDT Office Visit [facility] MEDICINE [address] [place] [address] Carolina Bailey ANP [address] [place] [address] 03/05/2025 8:00 AM EDT Office Visit [facility] ADULT DENTAL [address] [place] [address] Delicia Borrego [address] [place] [phone] Health Maintenance Due Date Last Done Comments CT Colonography 1970 FIT DNA/Cologuard 1970 FIT 1970 FOBT 1970 Sigmoidoscopy 1970 Diabetes: Foot Exam 1980 Alcohol/Substance Use Screening 1982 Colonoscopy 10/11/2024 Colorectal Cancer Screening 10/11/2024 Diabetes: Hemoglobin A1C 12/03/2024 024, 02/29/2024, 10/05/2023, Additional history exists Dental Oral Exam 02/20/2025 08/22/2024, , 07/25/2022 Mammogram 02/24/2025 02/25/2024, 02/03, 08/04/2021, Additional history exists Depression Screening 02/28/2025 02/29/2024, 02/29/20 Dental Prophylaxis 03/02/2025 09/01/2024, 08/22/2022 DTaP/Tdap/Td Vaccines (2 - Td or Tdap) 07/29/2025 07/29/2015 SDOH Screening 09/04/2025 09/04/2024 Dental X-Ray: Bitewings 10/18/2025 10/18/19, 08/22/2024, 07/25/2022 Tobacco Screening 11/13/2025 11/13/2024 Diabetes: Urine Protein Screening 11/20/2025 11/20/2024, 10/05/2023, 01/19/2022, Additional history exists Lipid Panel 11/20/2025 11/20/2024, 04/0 04/2024, 10/05/2023, Additional history exists Eye Exam 10/13/2026 10/13/2024, 10/04, 10/13/2024, Additional history exists Cervical Cancer Screening 02/01/2027 HPV/Cotest 02/01/2027 02/01/2022, 01/05, 04/24/2019 Pap Smear 02/01/2027 02/01/2022 Dental X-Ray: Full Mouth 07/29/2027 07/28/2024 RSV Patients and Patients Aged 60 years or older (1 - 1-dose 75+ series) 2045 Hepatitis B Vaccines Completed 08/24/2016, 05/11/2016, 04/11/2016 Zoster Vaccines Completed 08/18/2021, 06/14/2021 Hepatitis A Vaccines Aged Out 08/29/2022, 03/25/20 16 No longer eligible based on patient's age to complete this topic Pneumococcal Vaccine: 50+ Years Completed 08/29/2022 HIV [...] 025 8:51 AM EDT) No Delores Romero, Reynaldo Procedures Procedure Name Priority Date/Time Associated Diagnosis Comments LIPID PANEL, STANDARD Routine 11/20/2024 2:38 PM EDT COMPREHENSIVE METABOLIC PANEL Routine 11/20/2024 2:38 PM EDT ALBUMIN, RANDOM URINE W/CREATININE Routine 11/20/2024 2:37 PM EDT Type 2 diabetes mellitus with hyperlipidemia (CMS/HCC) (CMS/HCC) 10 DL RESIN-BASED COMPOSITE - 2 SURF, ANTERIOR Routine 11/13/2024 9:00 AM EDT CASE PRESENTATION, DETAILED AND EXTENSIVE TREATMENT PLANNING Routine 11/13/2024 9:00 AM EDT 11 CROWN PREP Routine 11/13/2024 9:00 AM EDT 11 PREFABRICATED POST AND CORE IN ADDITION TO CROWN Routine 11/13/2024 9:00 AM EDT CASE PRESENTATION, DETAILED AND EXTENSIVE TREATMENT PLANNING Routine 10/29/2024 11:30 AM EDT Loss of retention of dental crown INTRAORAL - PERIAPICAL EACH ADDITIONAL RADIOGRAPHIC IMAGE Routine 10/29/2024 11:30 AM EDT Loss of retention of dental crown INTRAORAL - PERIAPICAL FIRST RADIOGRAPHIC IMAGE Routine 10/29/2024 11:30 AM EDT Loss of retention of dental crown 7 RE-CEMENT OR RE-COVINGTON CROWN Routine 10/29/2024 11:30 AM EDT Loss of retention of dental crown CASE PRESENTATION, DETAILED AND EXTENSIVE TREATMENT PLANNING Routine 10/29/2024 9:00 AM EDT 20 EXTRACTION, ERUPTED TOOTH OR EXPOSED ROOT (ELEVATION/FORCEPS REMOVAL) Routine 10/29/2024 9:00 AM EDT 12 EXTRACTION, ERUPTED TOOTH OR EXPOSED ROOT (ELEVATION/FORCEPS REMOVAL) Routine 10/29/2024 9:00 AM EDT CASE PRESENTATION, DETAILED AND EXTENSIVE TREATMENT PLANNING Routine 10/17/2024 1:00 PM EDT Acute pulpitis Pain, dental BITEWING - SINGLE RADIOGRAPHIC IMAGE Routine 10/17/2024 1:00 PM EDT Acute pulpitis Pain, dental INTRAORAL - PERIAPICAL FIRST RADIOGRAPHIC IMAGE Routine 10/17/2024 1:00 PM EDT Acute pulpitis Pain, dental PALLIATIVE (EMERGENCY) TREATMENT OF DENTAL PAIN - MINOR PROCEDURE Routine 10/17/2024 1:00 PM EDT Acute pulpitis Pain, dental CASE PRESENTATION, DETAILED AND EXTENSIVE TREATMENT PLANNING Routine 09/29/2024 10:00 AM EST Necrosis of dental pulp Dental caries 11 ENDODONTIC THERAPY, ANTERIOR TOOTH Routine 09/29/2024 10:00 AM EST Necrosis of dental pulp Dental caries CASE PRESENTATION, DETAILED AND EXTENSIVE TREATMENT PLANNING [...] examination Dental caries Dental plaque Dental calculus PANORAMIC RADIOGRAPHIC IMAGE Routine 07/28/2024 1:00 PM EST Dental caries Dental abscess POCT GLYCATED HEMOGLOBIN, TOTAL Routine 06/05/2024 1:37 PM EDT Prediabetes BI MAMMOGRAM SCREENING TOMOSYNTHESIS BILATERAL Routine 02/25/2024 12:44 PM EDT HEPATITIS C ANTIBODY Routine 05/30/2023 11:44 AM EDT HIV ANTIBODY/ANTIGEN ([place] DPH) Routine 05/30/2023 11:44 AM EDT ZZZ HISTORICAL HPV E6/E7 RFLX VAISHNAVI 16 Routine 02/01/2022 1:49 PM EDT PAP SMEAR Routine 02/01/2022 from Last 3 Months or Most Recently Relevant to Health Maintenance Results * (ABNORMAL) Lipid Panel, Standard (11/20/2024 2:38 PM EDT) Triglycerides 236(H) <150 mg/dL [facility] Comment:Desirable Triglyceri de: less than 150 mg/dLBorderline High Triglyceride 150-199 mg/dLHigh Triglyceride: 200-499 mg/dLVery High Triglyceride: greater than or equal to 5OO mg/dL Cholesterol 160 <200 mg/dL [facility] Comment:Desirable Cholestero l: less than 200 mg/dLBorderline High Cholesterol: 200-239 mg/dLHigh Cholesterol: greater than 239 mg/dL LDL Cholesterol Calculated 68 <100 mg/dL [facility] Comment:Desirable LDL: less than 100 mg/dLNear Optimal/Above Optimal LDL: 110- 129 mg/dLBorderline High LDL: 130-159 mg/dLHigh LDL: 160-189 mg/dLVery High LDL: greater than or equal to 190 mg/dL HDL Cholesterol 45 >40 mg/dL [facility] Comment:Desirable HDL: great er than 40 mg/dL Note: This HDL assay may give artificially low results in patients with liver disease. 11/20/2024 2:38 PM EDT 11/20/2024 2:38 PM EDT us Generic External Data Provider LAB BLOOD ORDERAB LES Final Result [facility] [address] [place] [address] [phone] * (ABNORMAL) Comprehensive Metabolic Panel (11/20/2024 2:38 PM EDT) Sodium 140 135 - 145 mmol/L [facility] Potassium 4.5 3.3 - 5.1 mmol/L [facility] Chloride 103 96 - 108 mmol/L [facility] Carbon Dioxide 30(H) 22 - 29 mmol/L [facility] Anion Gap 12 12 - 20 [facility] Urea Nitrogen (BUN) 6(L) 9 - 16 mg/dL [facility] Creatinine, Serum 0.66 0.5 - 1.4 mg/dL [facility] Estimated Glomerular Filt Rate >60 [facility] Comment:Chronic Kidney Disea se: Estimated GFR < 60 mL/min/1.63p2Tdmlmp Kidney Disease: Estimated GFR < 15 mL/min/1.73m2 Glucose 81 60 - 115 mg/dL [facility] Calcium 9.2 8.4 - 10.2 mg/dL [facility] Bilirubin, Total 0.7 0.0 - 1.0 mg/dL [facility] Aspartate Amino Transferase 27 5 - 31 U/L [facility] Alanine Aminotransferase 32(H) 0 - 31 U/L [facility] Total Protein 7.3 6.5 - 8.0 g/dL [facility] Albumin Level 4.0 3.5 - 5.0 g/dL [facility] Alkaline Phosphatase 94 39 - 117 U/L [facility] 11/20/2024 2:38 PM EDT 11/20/2024 2:38 PM EDT us Generic External Data Provider LAB BLOOD ORDERAB LES Final Result Performing Organization Address [facility] Co de Phone Number [facility] [address] [place] [address] [phone] * Albumin, Random Urine W/Creatinine (11/20/2024 2:37 PM EDT) Creatinine, Urine 20.11 mg/dL [facility] Microalbumin Urine <5.0 mg/L [facility] Microalbum Creatinine Ratio Ur TNP <30 ug/mg cr [facility] Comment:Unable to calculate albumin/creatinine ratio due to lowmicroalbumin or creatinine result. Urine (Urine, Random) 11/20/2024 2:37 PM EDT 11/20/2024 3:49 PM EDT us Carolina DORAN LAB URINE ORDERABLES Final Resul t Performing Organization Address [facility] Co de Phone Number [facility] [address] [place] [address] [phone] * POCT HGB A1C (06/05/2024 1:37 PM EDT) Hemoglobin A1C 6.0 4.0 - 6.0 % QC Media Lot # [id number] Lot# Expiration Date [id number] Blood 06/05/2024 1:37 PM EDT us Carolina DORAN POINT OF CARE TEST ENTER/EDIT OR DERABLES Final Result * BI Mammogram Screening Tomosynthesis Bilateral (02/25/2024 12:44 PM EDT) Anatomical Region Laterality Modality Breast Bilateral Mammography 02/25/2024 12:4 4 PM EDT Narrative 03/18/2024 9:38 PM EDT ? [facility] ? [address] ?[place] [address] ? Mammography Report ? Signed ? Patient: Conklin,Barb ?MR#: [id number] ?? 7 ? : 1970 ?Acct:[id number] ? Age/Sex: 53 / F ?ADM Date: 07/22/24 ? Loc: HO.MAMMO ? Attending Dr: Carolina Bailey TOW BAR DRIVER ? Ordering Physician: CAROLINA BAILEY NP ?Results: 1Negative ? Date of Service: 02/25/24 ?Follow Up: 1 Year From Orig ?? inal Mammogram ? Procedure(s): MM tomosynthesis screening BI ?? Accession Number(s): [id number] ? cc: CAROLINA BAILEY NP ? EXAMINATION: ?? MM SCREENING DIGITAL BREAST [...] 03/18/244 ? DD/ 1244 ? TD/TT: ? Timber Skidder: ? Procedure Note Donelmerter, Image - [facility]/20[facility] [address] [place] [address] Mammography Report Signed Patient: Sam Conklin#: [id number] 7 : 1970Acct:[id number] Age/Sex: 53 / FADM Date: 02/25/24 Loc: HO.MAMMO Attending Dr: Carolina Bailey NP Ordering Physician: CAROLINA BAILEYesults: 1Negative Date of Service: 02/25/24Follow Up: 1 Year From Orig inal Mammogram Procedure(s): MM tomosynthesis screening BI Accession Number(s): [id number] cc: CAROLINA BAILEY NP EXAMINATION: MM SCREENING [...] in OV> 03/18/24 2134 DD/ 1244 TD/TT: Timber Skidder: Carolina DORAN IMG BI PROCEDURES Edited Result - Final * Hepatitis C Ab (05/30/2023 11:44 AM EDT) Hepatitis C Antibody Nonreactive Nonreactive [facility] Comment:Antibodies to HCV no t detected; does not exclude early acuteHCV infection. 05/30/2023 11:4 4 AM EDT 05/30/2023 11:44 AM EDT us Generic External Data Provider LAB BLOOD ORDERAB LES Final Result Performing Organization Address [facility]/ZIP Co de Phone Number [facility] [address] [place] [phone] * HIV Ab/Ag ([facility]) (05/30/2023 11:44 AM EDT) HIV AB/AG Nonreactive Nonreactive [facility] Comment:HIV-1 p24 Ag and/or HIV-1/HIV-2 Ab not detected.A test result that is nonreactive does not exclude thepossibility of exposure to or infection with HIV-1 and/orHIV-2. Nonreactive results in this assay for individualswith prior exposure to HIV-1 and/or HIV-2 may be due toantigen and antibody levels that are below the limit ofdetection of this assay.The [employer] HIV Ag/Ab Combo assay result andsupplemental assay results should be interpreted inconjunction with the patient's clinical presentation,history and other laboratory results. If the results areinconsistent with clinical evidence, additional testing issuggested to confirm the result. 05/30/2023 11:4 4 AM EDT 05/30/2023 11:44 AM EDT us Generic External Data Provider LAB BLOOD ORDERAB LES Final Result Performing Organization Address City/[facility]/ZIP Co de Phone Number [facility] [address] [place] [address] [phone] * HPV E6/E7 RFLX VAISHNAVI 16 18/45 (02/01/2022 1:49 PM EDT) HPV mRNA E6/E7 rflx Not Detected Not Detected [facility] Comment: Methodology: Casting Chipper-Mediated Amplification This assay detects E6/E7 viral messenger RNA (mRNA) from 14 high-risk HPV types (16,18,31,33,35,39,45,51,52,56,58,59,66,68). Cervical sources are required for HPV testing. If a vaginal source from a patient who has had a total hysterectomy with removal of cervix was submitted, please contact the testing laboratory for alternative testing options. For additional information, please refer to http://education.Page2Images/faq/LQH159z6 (This link if provided for information/ educational purposes only.) THIS TEST WAS PERFORMED AT: [facility] [address] [facility] [address] [place], [place] ??[phone] ROBERT HARMAN MD 02/01/2022 1:49 PM EDT us [place] HISTORICAL/NON ORDERABLE LABS Fi nal Result [facility] [address] * Pap Smear (02/01/2022) Pap Smear 1. NILM 1. NILM Comment:NIL/HPV negative Swab 02/01/2022 Historical Provider LAB CYTOLOGY ORDERABLES F inal Result from Last 3 Months or Most Recently Relevant to Health Maintenance Insurance * Guarantor: Barb Conklin Account Type Relation to Patient Date of Phone Billing Address Personal/Family Self 1970 [address] [place] [address] [facility] * Guarantor: Barb Conklin Account Type Relation to Patient Date of Phone Billing Address Personal/Family Self [address] [place] [address] * Guarantor: Barb Conklin Account Type Relation to Patient Date of Phone Billing Address Personal/Family Self [address] [place] [address] * Guarantor: Barb Conklin Account Type Relation to Patient Date of Phone Billing Address Personal/Family Self [address] [place] [address] Care Teams [employer] Reading Teacher Relationship Specialty Start Date End Date Carolina Bailey ANP [address] [place] [phone] PCP - General Family Medicine 03/25/21
--- OUTSIDE RECORDS SUMMARY | 2024-11-20 17:32 | XMS_ITS | Encounter Summary ---
Demographics Address [address] [place] [address] Mobile Phone Work Phone Home Phone Email Address Preferred Language es Marital Status Church Affiliation Unknown Race Other Race Ethnic Group or Author Organization [employer] Address [address] [facility] [address] [place] [address] Care Team Providers Care Telemetry Tech Name Role Phone Clarisa Mars Primary Care Provider [phone] Reason for Visit * Reason Comments Med Refill Encounter Details Date Type Department Care Team ([facility] st Contact Info) Description 11/15/2024 Refill [facility] [address] [place] [address] Clarisa Mars ANP [address] [place] [address] Fibromyalgia Social History Tobacco Use Types Packs/Day Years [...] Description 11/27/2024 10:00 AM EDT Office Visit [facility] [address] [place] [address] Light-Gladys Robin, DDS [address] [place] [address] 12/09/2024 11:30 AM EDT Office Visit [facility] [address] [place] [address] Clarisa Mars ANP [address] [place] [address] 03/05/2025 8:00 AM EDT Office Visit [facility] [address] [place] [address] Delicia Borrego [address] [place] [address] [phone] documented as of this encounter Goals Goal Patient Goal Type Associated Problems Recent Progress Patient-Stated? Author Blood Pressure < 140/90 Blood Pressure 142/78( 025 8:51 AM EDT) No Delores Romero, PharmD documented as of this encounter Visit Diagnoses Diagnosis Fibromyalgia Unspecified myalgia and myositis documented in this encounter Additional Health Concerns Assessment Noted Time PHQ-9 Depression Total Score: 8 02/29/20 24 9:53 AM EDT documented as of this encounter Care Teams Telemetry Tech Relationship Specialty Start Date End Date Clarisa Mars ANP [address] [place] [address] PCP - General Family Medicine 03/25/21 documented as of this encounter
--- OUTSIDE RECORDS SUMMARY | 2024-11-20 17:32 | XMS_ITS | Encounter Summary ---
Demographics Address [address] [place] [address] Mobile Phone Work Phone Home Phone Email Address Preferred Language es Marital Status Denominational Affiliation Unknown Race Other Race Ethnic Group or Author Organization [employer] Address [address] [facility] [address] [place] [address] Care Team Providers Care Customer Care Team Coach Name Role Phone Clarisa Mars Primary Care Provider [phone] Encounter Details Date Type Department Care Team ([facility] st Contact Info) Description 05/26/2024 Telephone [facility] [address] [place], [place] [phone] Clarisa Mars ANP [address] [place] [address] Social History Tobacco Use Types Packs/Day Years [...] Description 11/27/2024 10:00 AM EDT Office Visit [facility] [address] [place] [phone] Gladys Dunne DDS [address] [place] [address] 12/09/2024 11:30 AM EDT Office Visit [facility] [address] [place] [phone] Clarisa Mars ANP [address] [place] [address] 03/05/2025 8:00 AM EDT Office Visit [facility] [address] [place] [address] Delicia Borrego [address] [place] [address] [phone] documented as of this encounter Goals Goal [...] documented as of this encounter Care Teams Customer Care Team Coach Relationship Specialty Start Date End Date Clarisa Mars ANP [address] [place] [address] PCP - General Family Medicine 03/25/21 documented as of this encounter
--- OUTSIDE RECORDS SUMMARY | 2024-11-20 17:32 | XMS_ITS | Encounter Summary ---
Demographics Address [address] [place] [address] Mobile Phone Work Phone Home Phone Email Address Preferred Language es Marital Status Sabianist Affiliation Unknown Race Other Race Ethnic Group or Author Organization [employer] Address [address] [facility] [address] [place] [address] Care Team Providers Care Physicist Astrophysics Name Role Phone Clarisa Mars Primary Care Provider [phone] Reason for Visit * Reason Comments Med Refill Encounter Details Date Type Department Care Team ([facility] st Contact Info) Description 10/18/2024 Refill [facility] [address] [place] [address] Clarisa Mars ANP [address] [place] [address] Social History Tobacco Use Types Packs/Day Years [...] 10:00 AM EDT Office Visit [facility] [address] [place] [address] Gladys Dunne, DDS [address] [place] [address] 12/09/2024 11:30 AM EDT Office Visit [facility] [address] [place] [address] Clarisa Mars ANP [address] [place] [address] 03/05/2025 8:00 AM EDT Office Visit [facility] [address] [place] [address] Delicia Borrego [address] [place] [address] [phone] documented as of this encounter Goals Goal [...] documented as of this encounter Care Teams Physicist Astrophysics Relationship Specialty Start Date End Date Clarisa Mars ANP [address] [place] [address] PCP - General Family Medicine 03/25/21 documented as of this encounter
--- OUTSIDE RECORDS SUMMARY | 2024-11-20 17:32 | XMS_ITS | Encounter Summary ---
Demographics Address [address] [place] [address] Mobile Phone Work Phone Home Phone Email Address Preferred Language es Marital Status Orthodoxy Affiliation Unknown Race Other Race Ethnic Group or Author Organization [employer] Address [address] [facility] [address] [address] [place] [address] Care Team Providers Care Investigations Director Name Role Phone Clarisa Mars Primary Care Provider [phone] Reason for Visit * Reason Comments Med Refill Encounter Details Date Type Department Care Team ([facility] st Contact Info) Description 10/30/2024 Refill [facility] [address] [place] [address] Clarisa Mars ANP [address] [place] [address] Social History Tobacco Use Types Packs/Day Years [...] 10:00 AM EDT Office Visit [facility] [address] [place] [address] Gladys Dunne, DDS [address] [place] [address] 12/09/2024 11:30 AM EDT Office Visit [facility] [address] [place] [address] Clarisa Mars ANP [address] [place] [address] 03/05/2025 8:00 AM EDT Office Visit [facility] [address] [place] [address] Delicia Borrego [address] [place] [address] [phone] documented as of this encounter Goals Goal [...] documented as of this encounter Care Teams Investigations Director Relationship Specialty Start Date End Date Clarisa Mars ANP [address] [place] [address] PCP - General Family Medicine 03/25/21 documented as of this encounter
--- OUTSIDE RECORDS SUMMARY | 2024-11-20 17:32 | XMS_ITS | Encounter Summary ---
Demographics Address [address] [place] [address] Mobile Phone Work Phone Home Phone Email Address Preferred Language es Marital Status Restorationist Affiliation Unknown Race Other Race Ethnic Group or Author Organization [employer] Address [address] [facility] [address] [place] [address] Care Team Providers Care Junior Analyst Name Role Phone Clarisa Mars Primary Care Provider [phone] Reason for Visit * Reason Comments Med Refill Encounter Details Date Type Department Care Team ([facility] st Contact Info) Description 11/18/2024 Refill [facility] [address] [place] [address] Clarisa Mars ANP [address] [place] [address] Social History Tobacco Use Types Packs/Day Years [...] Description 11/27/2024 10:00 AM EDT Office Visit [facility]ULT D[facility] [address] [place] [address] Gladys Dunne, DDS [address] [place] [address] 12/09/2024 11:30 AM EDT Office Visit [facility] [address] [place] [address] Clarisa Mars ANP [address] [place] [address] 03/05/2025 8:00 AM EDT Office Visit [facility] [address] [place] [address] Delicia Borrego [address] [place] [address] [phone] documented as of this encounter Goals Goal [...] documented as of this encounter Care Teams Junior Analyst Relationship Specialty Start Date End Date Clarisa Mars ANP [address] [place] [address] PCP - General Family Medicine 03/25/21 documented as of this encounter
--- OUTSIDE RECORDS SUMMARY | 2024-11-20 17:32 | XMS_ITS | Encounter Summary ---
Demographics Address [address] [place] [address] Mobile Phone Work Phone Home Phone Email Address Preferred Language es Marital Status Moravian Affiliation Unknown Race Other Race Ethnic Group or Author Organization [employer] Address [address] [facility] [address] [place] [address] Care Team Providers Care Ict Help Desk Technician Name Role Phone Clarisa Mars ANDREEA Primary Care Provider [phone] Reason for Visit * Reason Onset Date Comments rs no show visit error on PAR side 09/25/2024 Encounter Details Date Type Department Care Team (Late st Contact Info) Description 09/25/2024 Telephone [facility] [address] [place] [address] Guille Arce DDS [address] [place], [place] [phone] rs no show visit error on PAR side Social History Tobacco Use Types Packs/Day Years [...] your housing situation today? I have tato acraballo 09/04/[address] you li [...] encounter Miscellaneous Notes * Telephone Encounter - Elma Gregg - 09/25/2024 11:04 AM EST Patient has been rescheduled with dental for extraction with DR. Arce due to error on 09/19. Patient called in to reschedule appt for Dr. Arce . There were no appts available. Contacted front desk receptionist at [facility] and unable to connect. Message sent. However appt was not cancelled and shows up as no show. Patient did not no show appt. She called prior to. Appt has been rescheduled. She is due to come in on 10/29 at 9 am. documented in this encounter Plan of Treatment Upcoming Encounters Date Type Department Care Team (Late st Contact Info) Description 11/27/2024 10:00 AM EDT Office Visit [facility] [address] [place] [address] Gladys Dunne, CANDIDOS [address] [place] [address] 12/09/2024 11:30 AM EDT Office Visit [facility] [address] [place] [address] Clarisa Mars ANP [address] [place] [address] 03/05/2025 8:00 AM EDT Office Visit [facility] [address] [place] [address] Delicia Borrego [address] [place] [address] [phone] documented as of this encounter Goals Goal [...] documented as of this encounter Care Teams Ict Help Desk Technician Relationship Specialty Start Date End Date Clarisa Mars ANP 230 [place] [address] PCP - General Family Medicine 03/25/21 documented as of this encounter
--- OUTSIDE RECORDS SUMMARY | 2024-11-20 17:32 | XMS_ITS | Encounter Summary ---
Demographics Address [address] [place] [address] Mobile Phone Work Phone Home Phone Email Address Preferred Language es Marital Status Latter Day Affiliation Unknown Race Other Race Ethnic Group or Author Organization [employer] Address [address] [facility] [address] [place] [address] Care Team Providers Care Electrical Logging Engineer Name Role Phone Clarisa Mars Primary Care Provider [phone] Reason for Visit * Reason Comments Med Refill Encounter Details Date Type Department Care Team ([facility] st Contact Info) Description 09/24/[address] [facility] [address] [place] [address] Clarisa Mars ANP [address] [place] [address] Depression, unspecified depression type; Fibromyalgia Social History Tobacco Use Types Packs/Day [...] 11/27/2024 10:00 AM EDT Office Visit [facility] [address] [place] [phone] Kuldeep-Gladys Robin, DDS [address] [place] [address] 12/09/2024 11:30 AM EDT Office Visit [facility] [address] [place] [address] Clarisa Mars ANP [address] [place] [address] 03/05/2025 8:00 AM EDT Office Visit [facility] [address] [place] [address] Delicia Borrego [address] [place] [address] [phone] documented as of this encounter Goals Goal Patient Goal Type Associated Problems Recent Progress Patient-Stated? Author Blood Pressure < 140/90 Blood Pressure 142/78( 025 8:51 AM EDT) No Delores Romero, PharmD documented as of this encounter Visit Diagnoses Diagnosis Depression, unspecified depression type Fibromyalgia Unspecified myalgia and myositis documented in this encounter Additional Health Concerns Assessment Noted Time PHQ-9 Depression Total Score: 8 02/29/20 24 9:53 AM EDT documented as of this encounter Care Teams Electrical Logging Engineer Relationship Specialty Start Date End Date Clarisa Mars ANP [address] [place] [address] PCP - General Family Medicine 03/25/21 documented as of this encounter
== END 2024-11-20 13:50 | disposition home or self-care (01) ==
LOC: HO.LAB 13:49
PROVIDERS: PCP Nurse Practitioner Primary Care; Visit Provider Nurse Practitioner Family
DX: I21.4 Non-ST elevation (NSTEMI) myocardial infarction (principal); I25.10 Atherosclerotic heart disease of native coronary artery without angina pectoris; E11.69 Type 2 diabetes mellitus with other specified complication; E78.5 Hyperlipidemia, unspecified; Z98.890 Other specified postprocedural states; I10 Essential (primary) hypertension
CPT/HCPCS: 36415; 80053; 80061; 82043; 82570; 93005; 99212

== ENCOUNTER 2024-11-20 13:49 | Outpatient (AMB) | payer MEDICAID, SELFPAY ==
[2024-11-20 13:56] VITALS: BP 124/82; PULSE 62; BMI 42.7
--- NOTE | 2024-11-20 13:56 | MHC.OFFVIS ---
Vital Signs 11/20/24 13:56 Height 5 ft 1 in Weight 226 lb 3.108 oz BMI 42.7 BP 124/82 Blood Pressure Location Lt brachial Position Sitting Pulse 62 Pulse Source Monitor Intake Visit Reasons: 6m follow up Loan Underwriter Required: Yes Loan Underwriter Language: Dry Heat Cabinet Attendant Name: voice linares [id number] Allergies No Known Allergies Allergy (Verified 11/20/24 13:59) Medication List - Last Reconciled 11/20/24 by MICHAEL Luna acetaminophen ER 650 mg PO Q8H PRN albuterol sulfate 90 mcg/actuation 1 inh inhalation Q4-6H PRN aspirin (Adult Aspirin Regimen) 81 mg PO DAILY atorvastatin 80 mg PO BEDTIME calcium carbonate-vitamin D3 600 mg-10 mcg (400 unit) 1 tab PO QAM clonazepam 0.25 mg PO DAILY clotrimazole-betamethasone 1-0.05 % 1 appl topical BID 7 days cyanocobalamin (vitamin B-12) 1,000 mcg PO QPM cyclobenzaprine 5 mg PO BEDTIME diclofenac sodium 1% 4 - 6 grams topical QID PRN divalproex ER 250 mg PO BID docusate sodium (Dulcolax Stool Softener (docusate)) 1 cap PO DIRECTED dulaglutide (Trulicity) mg subcut QWEEK duloxetine 30 mg PO DAILY ezetimibe (Zetia) 10 mg PO DAILY ferrous sulfate (FeroSul) 1 tab PO BID gabapentin 600 mg PO TID lidocaine 5% (Lidoderm) 1 patch topical DAILY metformin 500 mg PO BID metoprolol succinate ER 25 mg PO DAILY pantoprazole 40 mg PO QAM prazosin (Minipress) 1 mg PO BEDTIME sumatriptan succinate 1 tab PO DAILY HPI HPI 6m follow up: Details: Barb is a 54 year-old female past medical history hypertension, pre diabetes, hyperlipidemia, obesity who presented to [facility] 08/04/23 with chest discomfort and ruled in for NSTEMI, who was transferred to [facility] and underwent cardiac catheterization showing only moderate LAD stenosis with normal IFR. She was managed medically. An outpt nuclear stress test was normal. She now presents for follow-up. Today she reports she has been getting a sharp pain in her left chest. She is able to point to the location. She says it hurts worse with deep inspiration and with palpation of the area. She also has discomfort in the left shoulder that is worse with raising her left arm upward. She has no other types of chest discomfort. She denies shortness of breath, lightheadedness, palpitations, presyncope, syncope, PND, orthopnea or edema. She drinks 1 caffeinated drink per day. She is taking meds as directed. Lives on the 2nd floor and is able to climb stairs slowly. She has issues with her knees. She is active with house cleaning and watching TV. She takes her meds as directed. Certified director software development used. [facility] Medical History Family history of breast cancer Atherosclerotic cardiovascular disease Ventral hernia Morbid obesity Hypertension Fibromyalgia Vitamin D deficiency Pre-diabetes Hypertriglyceridemia Vitamin B12 deficiency Sleep apnea STEVEN (iron deficiency anemia) Pulmonary embolism Surgical History H/O hernia repair Gastric bypass status for obesity deliv NOS-unsp Hx of endoscopy History of colonoscopy Family History Father No problems noted. Mother Stomach cancer Blood disorder Paternal Uncle Stomach cancer Pancreatic cancer Throat cancer Maternal Aunt Breast cancer Paternal Aunt Breast cancer Paternal Uncle Stomach cancer Maternal Grandmother Colon cancer Brother Blood disorder Social History Household Members: Spouse and Children Housing: House Are you a primary infant caregiver to a significant other at home: No Do you presently have visiting nurse or other home services: No Alcohol intake: former Patient Tobacco Use Status: Current everyday Tobacco user Tobacco use type: Cigarette Cigarettes Per Day: 5 Years Smoked: 30 service: No Current occupational status: unemployed Sexual orientation: Straight/Heterosexual Gender identity: Female Female Reproductive History Menstrual Age of Menarche: 10 Review of Systems Const All systems reviewed & are unremarkable except as noted in HPI and below ENT Denies dizziness Card Details: tenderness to left chest and shoulder to palpation and movement Denies chest pain, Denies chest pain at rest, Denies chest pain with activity, Denies rapid heart rate, Denies pedal edema, Denies edema, Denies leg edema, Denies lightheadedness, Denies palpitations, Denies dyspnea, Denies dyspnea on exertion and Denies orthopnea Resp Denies cough, Denies dyspnea and Denies dyspnea on exertion GI Denies hematochezia and Denies change in stool character Musc Denies abnormal gait, Denies limited range of motion, Denies muscle cramps, Denies muscle weakness, Denies numbness, Denies radiating pain into limb, Denies stiffness and Denies tingling Neuro Denies abnormal gait, Denies dizziness, Denies numbness and Denies tingling Endo Denies palpitations Physical Exam Vital Signs: Last Vital Signs Pulse 62 11/20/24 13:56 BP 124/82 11/20/24 13:56 BMI result Body Mass Index 42.7 Const General: cooperative, healthy appearing, comfortable and no acute distress Orientation/consciousness: patient oriented x3 Neck Neck: Yes normal visual inspection and Yes no JVD Chest Other: facial grimace to palpation left chest and with ROM left shoulder Resp Effort & Inspection: normal respiratory effort Auscultation: clear to auscultation bilaterally, no crackles, no rales, no rhonchi and no wheezes Cardio Jugular venous distension: no JVD Rate: regular rate Rhythm: regular rhythm Heart sounds: S1 normal heart sound present, S2 normal heart sound present, no murmurs and no rubs Neuro General: patient oriented x3 Extrem General: Yes normal to inspection and No no pedal edema Psych Appearance: grossly normal Mental Status: mental status grossly normal Speech and movement: Normal speech and movement present Office Procedures EKG Details: Today, read by me, , rate 65, Qtc 451ms [id number], Complete Assessment & Plan Assessment & Plan (1) Non-ST elevated myocardial infarction (non-STEMI): Code(s): I21.4 - Non-ST elevation (NSTEMI) myocardial infarction Category: Medical Plan: Presented to [facility] 08/04/23 with chest discomfort and ruled in for NSTEMI. Cardiac catheterization on 08/07/2023 showing moderate mid LAD stenosis with normal IFR. Unclear if this was the cause of her NSTEMI since she was still having chest discomfort with visible normal flow. She was managed medically. Outpatient nuclear stress test done on 10/31/2023 showed normal myocardial perfusion imaging, EF 58%. An echocardiogram done 10/29/2023 showed EF 60%, no valve abnormalities and no regional wall motion abnormalities. She currently reports noncardiac pain. Reviewed the findings of nonobstructive coronary artery disease reviewed with her. Risk factor modification again discussed. Continue on aspirin indefinitely. Continue atorvastatin and Zetia with ideal LDL goal less than 70. Recommend updated fasting lipid profile if not recently done. Continue metoprolol. Signs and symptoms of angina reviewed with her. Cardiology follow-up 6 months, sooner if needed (2) Hypertension: Code(s): I10 - Essential (primary) hypertension Category: Medical Plan: BP goal less than 130/80. Currently normal range. Continue low-dose metoprolol. (3) S/P cardiac catheterization: Comment: 08/07/2023, mid LAD 65% stenosis, MARTIN 3 flow, remaining vessels normal Code(s): Z98.890 - Other specified postprocedural states Category: Surgical Plan: As above (4) Atherosclerotic cardiovascular disease: Code(s): I25.10 - Atherosclerotic heart disease of hoopa coronary artery without angina pectoris Category: Medical Plan Time spent on chart review, documentation, interview and assessment Orders: Orders Comprehensive Met. Panel Today I25.10 - Atherosclerotic heart disease of hoopa coronary artery without angina pectoris Lipid Panel Today I25.10 - Atherosclerotic heart disease of hoopa coronary artery without angina pectoris Coding Level of Care Code Est Pt Level 4 (10911) Complex EM visit Add On G2211 Diagnoses Non-ST elevated myocardial infarction (non-STEMI) I21.4 Hypertension I10 S/P cardiac catheterization Z98.890 Atherosclerotic cardiovascular disease I25.10 CPT Codes EKG - CPT: [id number], Complete ([id number]) Time Spent (min) 28
== END 2024-11-20 14:22 | disposition home or self-care (01) ==
LOC: HO.HCS 13:49
PROVIDERS: PCP Nurse Practitioner Primary Care; Visit Provider Nurse Practitioner Family
DX: I21.4 Non-ST elevation (NSTEMI) myocardial infarction (principal); I10 Essential (primary) hypertension; Z98.890 Other specified postprocedural states; I25.10 Atherosclerotic heart disease of native coronary artery without angina pectoris
CPT/HCPCS: 93010; 99214

== ENCOUNTER 2024-12-01 08:23 | Outpatient (AMB) | payer MEDICAID, SELFPAY ==
--- NOTE | 2024-12-01 08:28 | MHC.OFFVIS ---
Vital Signs 12/01/24 08:46 Height 5 ft 1 in Weight 222 lb 10.67 oz BMI 42.1 BP 123/65 Blood Pressure Location Lt brachial Position Sitting Pulse 78 Intake Visit Reasons: 1 year follow up Intake Note: Barb presents in the office as a 1 year follow up CC: She is not having any concerns at this time. General Practitioner Required: Yes Allergies No Known Allergies Allergy (Verified 12/01/24 08:48) HPI HPI 1 year follow up: Details: 54 yr old f here for f/u RECAP: She had labs 02/2019 with HGB 11, and iron sat 5 %, ferritin 35. Hx of gastric bypass she also had acute spontanoeus PTE 12/2018, no precipitants, no smoking hx work up ongoing with hematology, on xarelto grand dad and paternal and mother uncle with stomach cancer she also has heavy periods never had EGD or colonoscopy denied abdo pain unless eats rice or overeats in epigastrium meditech shows h pylori in past, but she doesn;t knwo anything about it EGD/colonoscopy; diverticulosis, hemerrhoids with red wood, polyp, atrophic gastritis, mild esophagitis, bx:::mild chronic gastritis, no h pylori capsule-- normal (rept colon in 2-3 yrs due to fair prep) I placed her on tranexamic acid whilst she was awaiting manager social media review, she felt this helped reduce her heavy periods and was improved after she stopped xarelto for PTE I increased her PPI dose to pantoprazole 40 mg daily due to upset stomach, possibly related to her grandmothers but she stopped this as her heartburn improved TESTS: GES 07/26: rapid emptying EGD/colo: 10/2022 Endoscopy Findings: gastritis 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 Oropharynx red. Moist mucous membranes. Conjunctivae appear well perfused. No thyroid mass. CHEST: Chest wall is nontender. HEART: Regular rate and rhythm without murmurs. LUNGS: Clear to auscultation bilaterally. ABDOMEN: Soft, positive bowel sounds, tender RUQ, no organomegaly.no flank tenderness SKIN: tender bruised vein around back of her right knee NEUROLOGIC: Cranial nerves II-XII intact without motor/sensory deficit. Assessment & Plan 1/ Gastritis, controlled wt PPI 2/ fatty liver --possible mild MASH 3/ asymptomatic gallstones Plan: 1/ cont with PPI--taking MV and Vit D supplement 2/ repeat US and LFT , advised on weight loss, low fat diet, more veg and exercise -check urine as well 3/ repeat colon with suprep, hold trulicity for 1 week PFSH Medical History Family history of breast cancer Atherosclerotic cardiovascular disease Ventral hernia Morbid obesity Hypertension Fibromyalgia Vitamin D deficiency Pre-diabetes Hypertriglyceridemia Vitamin B12 deficiency Sleep apnea STEVEN (iron deficiency anemia) Pulmonary embolism Surgical History H/O hernia repair Gastric bypass status for obesity deliv NOS-unsp Hx of endoscopy History of colonoscopy Family History Father No problems noted. Mother Stomach cancer Blood disorder Paternal Uncle Stomach cancer Pancreatic cancer Throat cancer Maternal Aunt Breast cancer Paternal Aunt Breast cancer Paternal Uncle Stomach cancer Maternal Grandmother Colon cancer Brother Blood disorder Social History Household Members: Spouse and Children Housing: House Are you a primary healthcare translator to a significant other at home: No Do you presently have visiting nurse or other home services: No Alcohol intake: former Patient Tobacco Use Status: Current everyday Tobacco user Tobacco use type: Cigarette Cigarettes Per Day: 5 Years Smoked: 30 service: No Current occupational status: unemployed Sexual orientation: Straight/Heterosexual Gender identity: Female Female Reproductive History Menstrual Age of Menarche: 10 Physical Exam Vital Signs: Last Vital Signs Pulse 78 12/01/24 08:46 BP 123/65 12/01/24 08:46 BMI result Body Mass Index 42.1 Assessment & Plan Assessment & Plan (1) NAFLD (nonalcoholic fatty liver disease): Code(s): K76.0 - Fatty (change of) liver, not elsewhere classified Category: Medical Plan: as above Orders: Orders Complete Blood Count Auto Diff Today K76.0 - Fatty (change of) liver, not elsewhere classified Comprehensive Met. Panel Today K75.81 - Nonalcoholic steatohepatitis (NIX), K76.0 - Fatty (change of) liver, not elsewhere classified Prothrombin Time INR Today K76.0 - Fatty (change of) liver, not elsewhere classified Vitamin B1 Today K76.0 - Fatty (change of) liver, not elsewhere classified Vitamin B12 and Folate Today K76.0 - Fatty (change of) liver, not elsewhere classified Zinc Today K76.0 - Fatty (change of) liver, not elsewhere classified Ferritin Today K76.0 - Fatty (change of) liver, not elsewhere classified US abdomen comp w elastography Today K76.0 - Fatty (change of) liver, not elsewhere classified Vitamin D 25-OH Total Today K76.0 - Fatty (change of) liver, not elsewhere classified Vitamin A Today K76.0 - Fatty (change of) liver, not elsewhere classified Vitamin C Today K76.0 - Fatty (change of) liver, not elsewhere classified UA CC w/rflx Micro + Cult Today R30.0 - Dysuria Medications: New sodium,potassium,mag sulfates 17.5-3.13-1.6 gram (Suprep Bowel Prep Kit) DILUTE; drink 1/2 at 6-8 pm and half at 11 PM- 1AM 354 mL 0RF Coding Level of Care Code Est Pt Level 4 (17828) Diagnoses NAFLD (nonalcoholic fatty liver disease) K76.0
--- OUTSIDE RECORDS SUMMARY | 2024-12-01 08:45 | XMS_ITS | Encounter Summary ---
Demographics Address [address] [place] [address] Mobile Phone Work Phone Home Phone Email Address . [employer] Preferred Language es Marital Status Advent Affiliation Unknown Race Other Race Ethnic Group or Author Organization [employer] Address [address] [facility] [address] [place] [address] Care Team Providers Care Garage Laborer Name Role Phone Clarisa Mars Primary Care Provider [phone] Reason for Visit * Reason Comments Med Refill Encounter Details Date Type Department Care Team ([facility] st Contact Info) Description 10/30/2024 Refill [facility] MEDICINE [address] [place] [address] Clarisa Mars ANP 230 [place] [address] Social History Tobacco Use Types Packs/Day Years [...] Care Team (Late st Contact Info) Description 12/09/2024 11:30 AM EDT Office Visit [facility] MEDICINE [address] [place] [address] Clarisa Mars, ANP 230 [place] [address] 12/19/2024 8:30 AM EDT Office Visit [facility] ADULT DENTAL [address] [place] [address] Mart Villanueva, SANTO [address] [place] [address] 03/05/2025 8:00 AM EDT Office Visit [facility] ADULT DENTAL [address] [place] [address] Delicia Borrego [address] [place] [phone] documented as of this encounter Goals Goal [...] documented as of this encounter Care Teams Garage Laborer Relationship Specialty Start Date End Date Clarisa Mars ANP [address] [place] [phone] PCP - General Family Medicine 03/25/21 documented as of this encounter
--- OUTSIDE RECORDS SUMMARY | 2024-12-01 08:45 | XMS_ITS | Encounter Summary ---
Demographics Address [address] [place] [address] Mobile Phone Work Phone Home Phone Email Address Preferred Language es Marital Status Hoahaoism Affiliation Unknown Race Other Race Ethnic Group or Author Organization [employer] Address [address] [address] [place] [address] Care Team Providers Care Financial Planning Assistant Name Role Phone Clarisa Mars Primary Care Provider [phone] Reason for Visit * Reason Comments Med Refill Encounter Details Date Type Department Care Team ([facility] st Contact Info) Description 09/24/2024 Refill [facility] MEDICINE [address] [place] [address] Clarisa Mars ANP [address] [place] [address] Depression, unspecified depression type; Fibromyalgia Social History [...] Description 12/09/2024 11:30 AM EDT Office Visit [facility] MEDICINE [address] [place] [address] Clarisa Mars, ANP [address] [place] [address] 12/19/2024 8:30 AM EDT Office Visit [facility] ADULT DENTAL [address] [place] [address] Mart Villanueva, DMD 230 [place] [address] 03/05/2025 8:00 AM EDT Office Visit [facility] ADULT DENTAL [address] [place] [address] Delicia Borrego [address] [place] [address] [phone] documented as of this encounter Goals Goal [...] as of this encounter Care Teams Financial Planning Assistant Relationship Specialty Start Date End Date Clarisa Mars ANP 230 [place] [address] PCP - General Family Medicine 03/25/21 documented as of this encounter
--- OUTSIDE RECORDS SUMMARY | 2024-12-01 08:45 | XMS_ITS | Encounter Summary ---
Author Organization [employer] Address [address] [place] [address] Care Team Providers Care Senior Accounting Clerk Name Role Phone Clarisa Mars Primary Care Provider [phone] Encounter Details Date Type Department Care Team [...] Description 12/09/2024 11:30 AM EDT Office Visit [facility] MEDICINE 230 [place] [address] Clarisa Mars ANP 230 [place] [address] 12/19/2024 8:30 AM EDT Office Visit [facility] ADULT DENTAL [address] [place] [address] Mart Villanueva DMD 230 [place] [address] 03/05/2025 8:00 AM EDT Office Visit [facility] ADULT DENTAL [address] [place] [address] Delicia Borrego [address] [place] [address] [phone] documented as of this encounter Visit Diagnoses Not on filedocumented in this encounter Care Teams Senior Accounting Clerk Relationship Specialty Start Date End Date Clarisa Mars ANP [address] [place] [phone] PCP - General Family Medicine 03/25/21 documented as of this encounter
--- OUTSIDE RECORDS SUMMARY | 2024-12-01 08:45 | XMS_ITS | Encounter Summary ---
Author Organization [employer] Address [address] [facility] [address] [address] [place] [address] Care Team Providers Care Rail Car Operator Name Role Phone Clarisa Mars Primary Care Provider [phone] Encounter Details Date Type Department Care Team (Latest Contact Info) Description 11/23/[address] [facility] CONVERSIONS Dental, Provider, DDS Social History [...] Description 12/09/2024 11:30 AM EDT Office Visit [facility] MEDICINE [address] [place] [address] Clarisa Mars ANP 230 [place] [address] 12/19/2024 8:30 AM EDT Office Visit [facility] ADULT DENTAL [address] [place] [address] Mart Villanueva DMD 230 [place] [address] 03/05/2025 8:00 AM EDT Office Visit [facility] ADULT DENTAL [address] [place] [address] Delicia Borrego [address] [place] [phone] documented as of this encounter Visit Diagnoses Not on filedocumented in this encounter Care Teams Rail Car Operator Relationship Specialty Start Date End Date Clarisa Mars ANP [address] [place] [phone] PCP - General Family Medicine 03/25/21 documented as of this encounter
--- OUTSIDE RECORDS SUMMARY | 2024-12-01 08:45 | XMS_ITS | Encounter Summary ---
Demographics Address [address] [place] [address] Mobile Phone Work Phone Home Phone Email Address Preferred Language es Marital Status Worship Affiliation Unknown Race Other Race Ethnic Group or Author Organization [employer] Address [address] [place] [address] Care Team Providers Care Toe Pounder Name Role Phone Clarisa Mars Primary Care Provider [phone] Reason for Visit * Reason Comments Med Refill Encounter Details Date Type Department Care Team ([facility] st Contact Info) Description 11/28/2024 Refill [facility] MEDICINE [address] [place] [address] Clarisa Mars ANP 230 [place] [address] Chest pain, unspecified type Social History Tobacco Use Types Packs/Day Years [...] Description 12/09/2024 11:30 AM EDT Office Visit [facility] MEDICINE [address] [place] [address] Clarisa Mars, ANP [address] [place] [address] 12/19/2024 8:30 AM EDT Office Visit [facility] ADULT DENTAL [address] [place] [address] Mart Villanueva, DMD [address] [place] [address] 03/05/2025 8:00 AM EDT Office Visit [facility] ADULT DENTAL [address] [place] [address] Delicia Borrego [address] [place] [address] [phone] documented as of this encounter Goals Goal Patient Goal Type Associated Problems Recent Progress Patient-Stated? Author Blood Pressure < 140/90 Blood Pressure 142/78( 025 8:51 AM EDT) No Delores Romero, Reynaldo documented as of this encounter Visit Diagnoses Diagnosis Chest pain, unspecified type documented in this encounter Additional Health Concerns Assessment Noted Time PHQ-9 Depression Total Score: 8 02/29/20 24 9:53 AM EDT documented as of this encounter Care Teams Toe Pounder Relationship Specialty Start Date End Date Clarisa Mars ANP [address] [place] [address] PCP - General Family Medicine 03/25/21 documented as of this encounter
--- OUTSIDE RECORDS SUMMARY | 2024-12-01 08:45 | XMS_ITS | Encounter Summary ---
Demographics Address [address] [place] [address] Mobile Phone Work Phone Home Phone Email Address Preferred Language es Marital Status Christian Affiliation Unknown Race Other Race Ethnic Group or Author Organization [employer] Address [address] [place] [address] Care Team Providers Care Geothermal Operating Engineer Name Role Phone Clarisa Mars Primary Care Provider [phone] Encounter Details Date Type Department Care Team ([facility] st Contact Info) Description 05/26/[address] [facility] MEDICINE [address] [place], [place] [phone] Clarisa Mars ANP [address] [place] [address] Social History Tobacco Use Types Packs/Day Years [...] EDT Office Visit [facility] MEDICINE [address] [place] [address] Clarisa Mars ANP [address] [place] [address] 12/19/2024 8:30 AM EDT Office Visit [facility] ADULT DENTAL [address] [place] [phone] Mart Villanueva DMD 230 [place] [address] 03/05/2025 8:00 AM EDT Office Visit [facility] ADULT DENTAL [address] [place] [address] Delicia Borrego [address] [place] [address] [phone] documented as of this encounter Goals Goal [...] documented as of this encounter Care Teams Geothermal Operating Engineer Relationship Specialty Start Date End Date Clarisa Mars ANP [address] [place] [phone] PCP - General Family Medicine 03/25/21 documented as of this encounter
--- OUTSIDE RECORDS SUMMARY | 2024-12-01 08:45 | XMS_ITS | Encounter Summary ---
Demographics Address [address] [place] [address] Mobile Phone Work Phone Home Phone Email Address Preferred Language es Marital Status Yazidism Affiliation Unknown Race Other Race Ethnic Group or Author Organization [employer] Address [address] [facility] [facility] [address] [place] [address] Care Team Providers Care Party Plan Sales Director Name Role Phone Clarisa Mars ANDREEA Primary Care Provider [phone] Reason for Visit * Reason Onset Date Comments rs no show visit error on PAR side 09/25/2024 Encounter Details Date Type Department Care Team (Late st Contact Info) Description 09/25/2024 Telephone [facility] ADULT DENTAL [address] [place] [address] Guille Arce DDS [address] [place], [place] [phone] rs no show visit error on PAR [...] There were no appts available. Contacted front office medical assistant at [facility] and unable to connect. Message sent. However [...] Description 12/09/2024 11:30 AM EDT Office Visit [facility] MEDICINE [address] [place] [address] Clarisa Mars ANP [address] [place] [address] 12/19/2024 8:30 AM EDT Office Visit [facility] ADULT DENTAL [address] [place] [address] Mart Villanueva, DMD [address] [place] [address] 03/05/2025 8:00 AM EDT Office Visit [facility] ADULT DENTAL [address] [place], [place] [phone] Delicia Borrego [address] [place] [address] [phone] documented as of this encounter Goals Goal [...] documented as of this encounter Care Teams Party Plan Sales Director Relationship Specialty Start Date End Date Clarisa Mars ANP [address] [place] [address] PCP - General Family Medicine 03/25/21 documented as of this encounter
--- OUTSIDE RECORDS SUMMARY | 2024-12-01 08:45 | XMS_ITS | Clinical Summary ---
Demographics Address [address] [place] [address] Mobile Phone Work Phone Home Phone Email Address Preferred Language es Marital Status Adventism Affiliation Unknown Race Other Race Ethnic Group or Author Organization [email or web address] Address [address] [place] [address] Care Team Providers Care Winderman Name Role Phone Carolina Bailey ANDREEA Primary Care Provider [phone] Allergies No known active allergies Medications divalproex [...] EVENING 60 capsule 2 06/27/20 24 Active Calcium Carb-Cholecalcife rol 600-10 MG-MCG [...] cations:Type 2 diabetes mellitus with hyperlipidemia (CMS/HCC) ([facility]) Inject 1.5 mg under the [...] DIRECTED 30 patch 2 11/20/19 25 Active nitroglycerin (Nitrostat) 0.4 MG SL tabletIndications :Chest pain, unspecified type DISSOLVE 1 TABLET UNDER THE TONGUE EVERY 5 MINUTES NEEDED FOR CHEST PAIN. CALL 911 IF NO RELIEF 25 tablet 1 11/29/19 25 Active gabapentin (Neurontin) 300 MG capsuleIndication s:Fibromyalgia Take 1 capsule (300 mg) by mouth at bedtime. In addition to 600mg TID doses 90 capsule 1 06/05/20 24 025 Discontinued nitroglycerin (Nitrostat) 0.4 MG SL tabletIndications :Chest pain, unspecified type DISSOLVE 1 TABLET UNDER THE TONGUE EVERY 5 MINUTES NEEDED FOR CHEST PAIN. CALL 911 IF NO RELIEF 25 tablet 1 07/21/20 24 025 Discontinued amoxicillin (Amoxil) 500 MG capsuleIndication s:Severe dental caries,Non-restor able tooth Take 1 capsule (500 mg) by mouth every 8 (eight) hours for 7 days. 21 capsule 10/30/19 25 025 lidocaine (Lidoderm) 5 % patch APPLY 1 PATCH TOPICALLY TO SKIN, LEAVE ON FOR 12 HOURS AND OFF FOR 12 HOURS DIRECTED 09/25/19 025 Discontinued Active Problems Problem Noted Date [...] here for a HDF Patient presented to [facility] ER 08/04/2023 c/o left sided chest pain which started on day of arrival. Described as 10/10, no radiation, worse with movement and breathing. EKG was normal with elevated troponin (619.3 ng/L and 385.6 ng/L) believed to be NSTEMI. Patient started on heparin/nitroglycerin drip and was transferred to [facility]. Pt was admitted to [facility] from 08/04/23-08/07/23 as transfer from [facility] for concerns of NSTEMI. Initial EKG unremarkable, [...] infarction) 0 08/21/2023 Overview (02/29/2024): presented to [facility] 08/04/23 with chest discomfort and ruled in for NSTEMI, Troponin 619.3, who was transferred to [facility] and underwent cardiac catheterization showing moderate LAD stenosis with normal IFR. She was managed medically. Outpatient nuclear stress test done on 10/31/2023 showed normal myocardial perfusion imaging, EF 58%. An echocardiogram done 10/29/2023 showed EF 60%, no valve abnormalities and no regional wall motion abnormalities. She is to cont on ASA indefinitely, atorvastatin w/ LDL goal < 70, metoprolol Follows w/ [facility] Myles Kapadia NP 12/28/23 communication from Pt's smog technician 11/30/23: normal myocardial perfusion imaging on 10/30 [...] here for a HDF Patient presented to [facility] 08/04/2023 c/o left sided chest pain which started on day of arrival. Described as 10/10, no radiation, worse with movement and breathing. EKG was normal with elevated troponin (619.3 ng/L and 385.6 ng/L) believed to be NSTEMI. Patient started on heparin/nitroglycerin drip and was transferred to [facility]. Pt was admitted to [facility] from 08/04/23-08/07/23 as transfer from [facility] for concerns of NSTEMI. Initial EKG unremarkable, [...] 1 - Negative Pap HPV- 01/2022 w/ [facility] Keeley Nekoma Assessment & Plan (01/10/2023 10:35 AM EDT): PHQ: 15 already has psychiatrist and therapist. Here at [facility]. Dr. Naylor? Contraception: nexplanon Didn't have period [...] to poor prep. Eye exam: Goes to [facility], she reports her glasses are working well. Dental home: This year, extracted tooth, [facility] dental. 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 due to previous endodontic treatment (Primary Dx); Dental caries 11/20/2024 Orders Only GENERIC EXTERNAL DATA DEPARTMENT Provider, Generic External Data 11/18/2024 Refill [facility] [address] [place] [address] Carolina Bailey ANP 11/15/2024 Refill [facility] [address] [place] [address] Carolina Bailey ANP Fibromyalgia 11/14/2024 9:30 AM EDT Office Visit [facility] [address] [place] [address] Mandy Roy, OD Presbyopia (Primary Dx) 11/13/2024 9:00 AM EDT Office Visit [facility] [address] [place] [address] Light-Robin, Gladys, DDS Full confucianism of crown of tooth needed due to previous endodontic treatment (Primary Dx); Dental caries 10/30/2024 Refill [facility] [address] [place] [address] Carolina Bailey ANP 10/29/2024 11:30 AM EDT Office Visit [facility] [address] [place] [address] Light-Robin, Gladys, DDS Loss of retention of dental crown (Primary Dx) 10/29/2024 9:00 AM EDT Office Visit [facility] [address] [place] [address] Guille Arce, CANDIDOS Severe dental caries (Primary Dx); Non-restorable tooth 10/23/2024 Telephone [facility] [address] [place] [address] Carolina Bailey ANP Med Refill 10/18/2024 Refill [facility] [address] [place] [address] Carolina Bailey ANP 10/17/2024 1:00 PM EDT Office Visit [facility] [address] [place] [address] Light-Robin, Gladys, DDS Acute pulpitis (Primary Dx); Pain, dental 10/17/2024 Population Health Risk Score [facility] () Department [address] [place] [phone] Provider, Population Health Generic 10/17/2024 Telephone [facility] [address] [place] [address] Light-RobinJoshuaGladys, DDS unable to post insurance 10/13/2024 9:00 AM EDT Office Visit [facility] [address] [place] [address] Kirill, Mandy, OD Diabetes type 2, 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) (Primary Dx); Presbyopia 10/13/2024 Travel 10/02/2024 Refill [facility] [address] [place] [address] Kashif Piedra MD Prediabetes; Intertrigo 10/02/2024 Refill [facility] [address] [place] [address] Madeline White MD 10/02/2024 Refill [facility] [address] [place] [address] Carolina Bailey ANP Intertrigo 09/29/2024 10:00 AM EST Office Visit [facility] [address] [place] [address] Gladys Dunne DDS Necrosis of dental pulp (Primary Dx); Dental caries 09/26/2024 Refill [facility] [address] [place] [address] Carolina Bailey ANP Fibromyalgia 09/25/2024 Telephone [facility] [address] [place] [address] Guille Arce DDS rs no show visit error on PAR side 09/24/2024 Refill [facility] [address] [place] [address] Carolina Bailey ANP Depression, unspecified depression type; Fibromyalgia 09/19/2024 Refill [facility] [address] [place] [address] Carolina Bailey ANP Type 2 diabetes mellitus with hyperlipidemia (CMS/HCC) (CMS/HCC) 09/19/2024 Telephone [facility] [address] [place] [address] Guille Arce DDS rs cancelled appt 09/08/2024 Telephone [facility] [address] [place] [address] Carolina Bailey ANP Durable Medical Equipment 09/04/2024 10:15 AM EST Office Visit [facility] [address] [place] [address] Carolina Bailey ANP Essential hypertension (Primary Dx); Type 2 diabetes mellitus with hyperlipidemia (CMS/HCC) (CMS/HCC); Bilateral carpal tunnel syndrome; Great toe pain, left; Chronic pain of both knees; Intertrigo 09/04/2024 Travel 09/03/2024 Telephone [facility] [address] [place] [phone] Madeleine Mcknight MA chart prep from Last 3 Months Immunizations Name Administration [...] Description 12/09/2024 11:30 AM EDT Office Visit [facility] [address] [place] [address] Carolina Bailey, ANP [address] [place] [address] 12/19/2024 8:30 AM EDT Office Visit [facility] [address] [place], [place] [phone] Kay Mart, DMD [address] [place] [address] 03/05/2025 8:00 AM EDT Office Visit [facility] [address] [place], [place] [phone] Delicia Borrego [address] [place], [place] [phone] Health Maintenance Due Date Last Done Comments [...] Dental X-Ray: [facility] 10/18/2025 10/18/19, 08/22/2024, 07/25/2022 Diabetes: Urine Protein Screening 11/20/2025 11/20/2024, 10/05/2023, 01/19/2022, Additional history exists Lipid Panel 11/20/2025 11/20/2024, 04/0 04/2024, 10/05/2023, Additional history exists Tobacco Screening 11/27/2025 11/27/2024 Eye Exam 10/13/2026 10/13/2024, 03/1 , 10/13/2024, Additional history exists Cervical Cancer Screening [...] Blood Pressure 142/78( 025 8:51 AM EDT) Delores Rojas PharmD Procedures Procedure Name Priority Date/Time Associated Diagnosis Comments CASE PRESENTATION, DETAILED AND EXTENSIVE TREATMENT PLANNING Routine 11/27/2024 10:00 AM EDT INTRAORAL - PERIAPICAL FIRST RADIOGRAPHIC IMAGE Routine 11/27/2024 10:00 AM EDT 11 CROWN - PORCELAIN/CERAMIC Routine 11/27/2024 10:00 AM EDT LIPID PANEL, STANDARD Routine 11/20/2024 2:38 PM [...] EST Necrosis of dental pulp Dental caries PROPHYLAXIS - ADULT Routine 09/01/2024 3 :00 PM EST Dental plaque Dental calculus PERIODIC ORAL EVALUATION [...] 2:38 PM EDT) Triglycerides 236(H) <150 mg/dL [facility] Comment:Desirable Triglyceri de: less than 150 mg/dLBorderline High Triglyceride 150-199 mg/dLHigh Triglyceride: 200-499 mg/dLVery High Triglyceride: greater than or equal to 5OO mg/dL Cholesterol 160 <200 mg/dL [facility] Comment:Desirable Cholestero l: less than 200 mg/dLBorderline High Cholesterol: 200-239 mg/dLHigh Cholesterol: greater than 239 mg/dL LDL Cholesterol Calculated 68 <100 mg/dL [facility] Comment:Desirable LDL: less than 100 mg/dLNear Optimal/Above Optimal LDL: 110- 129 mg/dLBorderline High LDL: 130-159 mg/dLHigh LDL: 160-189 mg/dLVery High LDL: greater than or equal to 190 mg/dL HDL Cholesterol 45 >40 mg/dL [facility] Comment:Desirable HDL: great er than 40 mg/dL Note: This HDL assay may give artificially low results in patients with liver disease. 11/20/2024 2:38 PM EDT 11/20/2024 2:38 PM EDT us Generic External Data Provider LAB BLOOD ORDERAB LES Final Result [facility] [address] [place] [phone] * (ABNORMAL) Comprehensive Metabolic Panel (11/20/2024 2:38 PM EDT) Sodium 140 135 - 145 mmol/L [facility] Potassium 4.5 3.3 - 5.1 mmol/L [facility] Chloride 103 96 - 108 mmol/L [facility] Carbon Dioxide 30(H) 22 - 29 mmol/L [facility] Anion Gap 12 12 - 20 [facility] Urea Nitrogen (BUN) 6(L) 9 - 16 mg/dL [facility] Creatinine, Serum 0.66 0.5 - 1.4 mg/dL [facility] Estimated Glomerular Filt Rate >60 [facility] Comment:Chronic Kidney Disea se: Estimated GFR < 60 mL/min/1.57k2Ymnrqd Kidney Disease: Estimated GFR < 15 mL/min/1.73m2 Glucose 81 60 - 115 mg/dL [facility] Calcium 9.2 8.4 - 10.2 mg/dL [facility] Bilirubin, Total 0.7 0.0 - 1.0 mg/dL [facility] Aspartate Amino Transferase 27 5 - 31 U/L [facility] Alanine Aminotransferase 32(H) 0 - 31 U/L [facility] Total Protein 7.3 6.5 - 8.0 g/dL [facility] Albumin Level 4.0 3.5 - 5.0 g/dL [facility] Alkaline Phosphatase 94 39 - 117 U/L [facility] 11/20/2024 2:38 PM EDT 11/20/2024 2:38 PM EDT Generic External Data Provider LAB BLOOD ORDERAB LES Final Result Performing Organization Address [facility]/ZIP Co de Phone Number [facility] [address] [place] [phone] * Albumin, Random Urine W/Creatinine (11/20/2024 2:37 PM EDT) Creatinine, Urine 20.11 mg/dL [facility] Microalbumin Urine <5.0 mg/L [facility] Microalbum Creatinine Ratio Ur TNP <30 ug/mg cr [facility] Comment:Unable to calculate albumin/creatinine ratio due to lowmicroalbumin or creatinine result. Urine (Urine, Random) 11/20/2024 2:37 PM EDT 11/20/2024 3:49 PM EDT us [facility] LAB URINE ORDERABLES Final Resul t Performing Organization Address [facility]/ZIP Co de Phone Number [facility] [address] [place] [address] [phone] * POCT HGB A1C (06/05/2024 1:37 PM EDT) Hemoglobin A1C 6.0 4.0 - 6.0 % QC Media Lot # [id number] Lot# Expiration Date [id number] Blood 06/05/2024 1:37 PM EDT us Carolina Bailey ANP POINT OF CARE TEST ENTER/EDIT OR DERABLES Final Result * BI Mammogram Screening Tomosynthesis Bilateral (02/25/2024 12:44 PM EDT) Anatomical Region Laterality Modality Breast Bilateral Mammography 02/25/2024 12:4 4 PM EDT Narrative 03/18/2024 9:38 PM EDT ? [facility] ? [address] ?[place], [place] [address] ? Mammography Report ? Signed ? Patient: Rubin,Barb ?MR#: [id number] ?? 7 ? : 1970 ?Acct:[id number] ? Age/Sex: 53 / F ?ADM Date: 02/25/24 ? Loc: HO.MAMMO ? Attending Dr: Carloina Bailey CLINICAL RESOURCE DIRECTOR ? Ordering Physician: CAROLINA BAILEY NP ?Results: 1Negative ? Date of Service: 02/25/24 ?Follow Up: 1 Year From Orig ?? inal Mammogram ? Procedure(s): MM tomosynthesis screening BI ?? Accession Number(s): [id number] ? cc: CAROLINA BAILEY NP ? EXAMINATION: ?? MM SCREENING DIGITAL BREAST TOMOSYNTHESIS, BILATERAL ? CLINICAL INFORMATION: ? Screening. Asymptomatic. ? COMPARISON: ?? Mammography: This study is compared with prior exams dating back to ?? 2017. ? TECHNIQUE: ?? Digital breast tomosynthesis is [...] by Vicki Stoddard MD in OV> ? 03/18/242133 ? DD/ 1244 ? TD/TT: ? Patrol Deputy Sheriff: ? Procedure Note Adelaide Alaniz - 03/18/2024 [place] [facility] [address] [place] [address] Mammography Report Signed Patient: Evaristo ConklinR#: [id number] 7 : 1970Acct:[id number] Age/Sex: 53 / FADM Date: 02/25/24 Loc: HO.MAMMO Attending Dr: Carolina Bailey CLINICAL RESOURCE DIRECTOR Ordering Physician: CAROLINA BAILEY NPResults: 1Negative Date of Service: 02/25/24Follow Up: 1 Year From Orig inal Mammogram Procedure(s): MM tomosynthesis screening BI Accession Number(s): [id number] cc: CAROLINA BAILEY NP EXAMINATION: MM SCREENING [...] in OV> 03/18/24 2134 DD/ 1244 TD/TT: Patrol Deputy Sheriff: Carolina DORAN IM BI PROCEDURES Edited Result - Final * Hepatitis C Ab (05/30/2023 11:44 AM EDT) Hepatitis C Antibody Nonreactive Nonreactive [facility] Comment:Antibodies to HCV no t detected; does not exclude early acuteHCV infection. 05/30/2023 11:4 4 AM EDT 05/30/2023 11:44 AM EDT Generic External Data Provider LAB BLOOD ORDERAB LES Final Result [facility] [address] [place] [address] [phone] * HIV Ab/Ag ([facility]) (05/30/2023 11:44 AM EDT) HIV AB/AG Nonreactive Nonreactive [facility] Comment:HIV-1 p24 Ag and/or HIV-1/HIV-2 Ab not detected.A test result that is nonreactive does not exclude thepossibility of exposure to or infection with HIV-1 and/orHIV-2. Nonreactive results in this assay for individualswith prior exposure to HIV-1 and/or HIV-2 may be due toantigen and antibody levels that are below the limit ofdetection of this assay.The [employer] HIV Ag/Ab Combo assay result andsupplemental assay results should be interpreted inconjunction with the patient's clinical presentation,history and other laboratory results. If the results areinconsistent with clinical evidence, additional testing issuggested to confirm the result. 05/30/2023 11:4 4 AM EDT 05/30/2023 11:44 AM EDT us Generic External Data Provider LAB BLOOD ORDERAB LES Final Result Performing Organization Address [facility]/ZIP Co de Phone Number [facility] [address] [place] [phone] [phone] * HPV E6/E7 RFLX VAISHNAVI 16 18/45 (02/01/2022 1:49 PM EDT) [facility] HPV mRNA E6/E7 rflx Not Detected Not Detected [facility] Comment: Methodology: Commercial Announcer-Mediated Amplification This assay detects E6/E7 viral messenger RNA (mRNA) from 14 high-risk HPV types (16,18,31,33,35,39,45,51,52,56,58,59,66,68). Cervical sources are required for HPV testing. If a vaginal source from a patient who has had a total hysterectomy with removal of cervix was submitted, please contact the testing laboratory for alternative testing options. For additional information, please refer to http://education.E[employer]/faq/WII342y0 (This link if provided for information/ educational purposes only.) THIS TEST WAS PERFORMED AT: [facility] [address] [facility] [address] [place], [place] ??[phone] ROBERT HARMAN MD 02/01/2022 1:49 PM EDT us Keeley Nekoma HISTORICAL/NON ORDERABLE LABS Fi nal Result Performing Organization Address City/[facility]/ZIP Co de Phone Number [facility] [address] [place] [address] * Pap Smear (02/01/2022) Pap Smear 1. NILM 1. NILM Comment:NIL/HPV negative Swab 02/01/2022 us Historical Provider LAB CYTOLOGY ORDERABLES F inal Result from Last 3 Months or Most Recently Relevant to Health Maintenance Insurance * Guarantor: Barb Conklin Account Type Relation to Patient Date of Phone Billing Address Personal/Family Self 1970 [address] [place] [address] [place] STAND ADULT [facility] C3 [facility]AL-[facility] MEDICAID STAND ADULT * Guarantor: Barb Conklin Account Type Relation to Patient Date of Phone Billing Address Personal/Family Self [address] [place] [address] * Guarantor: Barb Conklin Account Type Relation to Patient Date of Phone Billing Address Personal/Family Self [address] [place] [address] * Guarantor: Barb Conklin Account Type Relation to Patient Date of Phone Billing Address Personal/Family Self [address] [place] [address] Care Teams Winderman Relationship Specialty Start Date End Date Carolina Bailey ANP [address] [place] [phone] PCP - General Family Medicine 03/25/21
--- OUTSIDE RECORDS SUMMARY | 2024-12-01 08:45 | XMS_ITS | Encounter Summary ---
Demographics Address [address] [place] [address] Mobile Phone Work Phone Home Phone Email Address Preferred Language es Marital Status Moravian Affiliation Unknown Race Other Race Ethnic Group or Author Organization [email or web address] Address [address] [place] [address] Care Team Providers Care Wood Patternmaker Name Role Phone Clarisa Mars Primary Care Provider [phone] Reason for Visit * Reason Comments Med Refill Encounter Details Date Type Department Care Team ([facility] st Contact Info) Description 10/18/2024 Refill [facility] [address] [place] [address] Clarisa Mars ANP [address] [place] [address] Social History Tobacco Use Types Packs/Day Years [...] Description 12/09/2024 11:30 AM EDT Office Visit [facility] [address] [place] [address] Clarisa Mars, ANP [address] [place] [address] 12/19/2024 8:30 AM EDT Office Visit [facility] [address] [place] [address] Mart Villanueva, SANTO [address] [place] [address] 03/05/2025 8:00 AM EDT Office Visit [facility] [address] [place] [address] Delicia Borrego [address] [place] [phone] documented as of this encounter Goals Goal [...] documented as of this encounter Care Teams Wood Patternmaker Relationship Specialty Start Date End Date Clarisa Mars ANP [address] [place] [phone] PCP - General Family Medicine 03/25/21 documented as of this encounter
--- OUTSIDE RECORDS SUMMARY | 2024-12-01 08:45 | XMS_ITS | Encounter Summary ---
Author Organization [employer] Address [address] [place] [address] Care Team Providers Care Top Inventory Control Executive Name Role Phone Clarisa Mars Primary Care Provider [phone] Encounter Details Date Type Department Care Team (Latest Contact Info) Description 10/06/[address] [facility] CONVERSIONS Dental, Provider, DDS Social History [...] Description 12/09/2024 11:30 AM EDT Office Visit [facility] [address] [place] [address] Clarisa Mars ANP [address] [place] [address] 12/19/2024 8:30 AM EDT Office Visit [facility] [address] [place] [address] Mart Villanueva DMD [address] [place] [address] 03/05/2025 8:00 AM EDT Office Visit [facility] [address] [place] [address] Delicia Borrego [address] [place] [phone] documented as of this encounter Visit Diagnoses Not on filedocumented in this encounter Care Teams Top Inventory Control Executive Relationship Specialty Start Date End Date Clarisa Mars ANP [address] [place] [phone] PCP - General Family Medicine 03/25/21 documented as of this encounter
--- OUTSIDE RECORDS SUMMARY | 2024-12-01 08:45 | XMS_ITS | Encounter Summary ---
Author Organization [employer] Address [address] [facility] 7t [place] [address] Care Team Providers Care Insurance Inspector Name Role Phone Clarisa Mars Primary Care Provider [phone] Reason for Visit * Reason Comments Med Refill Encounter Details Date Type Department Care Team ([facility] Contact Info) Description 10/21/2022 Refill [facility] [address] [place] [phone] Clarisa Mars ANP [address] [place] [address] Social History Tobacco Use Types Packs/Day Years [...] Upcoming Encounters Date Type Department Care Team ([facility] Contact Info) Description 12/09/2024 11:30 AM EDT Office Visit [facility] [address] [place] [phone] Clarisa Mars ANP [address] [place] [address] 12/19/2024 8:30 AM EDT Office Visit [facility] [address] [place] [address] Mart Villanueva, SANTO [address] [place] [address] 03/05/2025 8:00 AM EDT Office Visit [facility] [address] [place] [address] Delicia Borrego [address] [place] [address] [phone] documented as of this encounter Visit Diagnoses Not on filedocumented in this encounter Care Teams Insurance Inspector Relationship Specialty Start Date End Date Clarisa Mars ANP [address] [place] [address] PCP - General Family Medicine 03/25/21 documented as of this encounter
--- OUTSIDE RECORDS SUMMARY | 2024-12-01 08:45 | XMS_ITS | Encounter Summary ---
Demographics Address [address] [place] [address] Mobile Phone Work Phone Home Phone Email Address Preferred Language es Marital Status Christian Affiliation Unknown Race Other Race Ethnic Group or Author Organization [employer] Address [address] [facility] [address] [place] [address] Care Team Providers Care Second Facing Baster Name Role Phone Clarisa Mars ANDREEA Primary Care Provider [phone] Reason for Visit * Reason Comments crown insert #11 Encounter Details Date Type Department Care Team (Late st Contact Info) Description 11/27/2024 10:00 AM EDT Office Visit [facility] ADULT DENTAL [address] [place] [address] Gladys Dunne, DDS [address] [place] [address] Full caodaism of crown of tooth needed due to previous endodontic treatment (Primary Dx); Dental caries Social History Tobacco Use Types Packs/Day Years [...] of this encounter Progress Notes * Gladys Dunne DDS - 11/27/2024 10:00 AM EDT Patient ID: Barb Conklin is a 54 y.o. female. Time Out: Timeout Date: 11/27/24, Timeout Time: 910 (crown insert) Location: [facility] Tooth: #11 Procedure: [place] Delivery Verified the above with patient, assistant executive housekeeper, and provider. Confirmed via patient's chart, intraorally and by radiographs. Tourist Guide: not applicable Chief Complaint Patient presents with crown insert #11 Medical Hx: Vitals: There were no vitals taken for this visit. Medications, Med Hx reviewed with patient and updated in chart. Consent Obtained: The risks, benefits, indications, potential complications, and alternatives were explained to the patient and informed consent was obtained with good understanding. Treatment Provided: Dental procedures in this visit D2740 - CROWN - PORCELAIN/CERAMIC 11 (Completed) Service provider: Gladys Dunne DDS Billing provider: Gladys Dunne DDS D0220 - INTRAORAL - PERIAPICAL FIRST RADIOGRAPHIC IMAGE (Completed) Service provider: Gladys Dunne DDS Billing provider: Gladys Dunne DDS D9450 - CASE PRESENTATION, DETAILED AND EXTENSIVE TREATMENT PLANNING (Completed) Service provider: Gladys Dunne DDS Billing provider: Gladys Dunne DDS Isolation: high speed suction and cotton rolls Removed Provisional and cleaned excess cement, pumiced tooth as needed. Tried on final caodaism Verified interproximal contacts and margins BW taken to confirm margins and contacts Occlusion adjusted as needed Tooth Treatment: 37% Phosphoric Acid Etch and Hot Strip Mill Supervisor applied Cemented with: Relyx Unicem Cleaned excess cement, flossed Patient satisfied with comfort and esthetics. POI given. Patient discharged alert, oriented, and in stable condition NV: Impression RPDs Gynaecological Oncologist: Delia Gonzalez Dentist: Gladys Dunne DDS documented in this encounter Plan of Treatment Upcoming Encounters Date Type Department Care Team (Late st Contact Info) Description 12/09/2024 11:30 AM EDT Office Visit [facility] MEDICINE [address] [place] [address] Clarisa Mars ANP 230 [place] [address] 12/19/2024 8:30 AM EDT Office Visit [facility] ADULT DENTAL [address] [place] [address] Mart Villanueva DMD [address] [place] [address] 03/05/2025 8:00 AM EDT Office Visit [facility] ADULT DENTAL [address] [place] [address] Delicia Borrego [address] [place] [address] [phone] Scheduled Orders Name Type Priority Associated Diagnoses Orde r Schedule 25 F(V) 25 F(V) RESIN-BASED COMPOSITE - 1 SURF, ANTERIOR Dental Routine 1 Occurrences s tarting 11/27/2024 documented as of this encounter Goals Goal Patient Goal Type Associated Problems Recent Progress Patient-Stated? Author Blood Pressure < 140/90 Blood Pressure 142/78( 025 8:51 AM EDT) Delores Rojas, PharmD documented as of this encounter Procedures Procedure Name Priority Date/Time Associated Diagnosis Comments INTRAORAL - PERIAPICAL FIRST RADIOGRAPHIC IMAGE Routine 11/27/2024 10:00 AM EDT 11 CROWN - PORCELAIN/CERAMIC Routine 11/27/2024 10:00 AM EDT CASE PRESENTATION, DETAILED AND EXTENSIVE TREATMENT PLANNING Routine 11/27/2024 10:00 AM EDT documented in this encounter Visit Diagnoses Diagnosis Full caodaism of crown of tooth needed due to previous endodontic treatment- Primary Dental caries Unspecified dental caries documented in this encounter Additional Health Concerns Assessment Noted Time PHQ-9 Depression Total Score: 8 02/29/20 24 9:53 AM EDT documented as of this encounter Care Teams Second Facing Baster Relationship Specialty Start Date End Date Clarisa Mars ANP [address] [place] [phone] PCP - General Family Medicine 03/25/21 documented as of this encounter
[2024-12-01 08:46] VITALS: BP 123/65; PULSE 78; BMI 42.1
== END 2024-12-01 09:08 | disposition home or self-care (01) ==
LOC: HO.HGI 08:24
PROVIDERS: PCP Nurse Practitioner Primary Care; Visit Provider Internal Medicine Gastroenterology
DX: K76.0 Fatty (change of) liver, not elsewhere classified (principal)
CPT/HCPCS: 99214

== ENCOUNTER → 2024-12-01 08:23 | Outpatient (BNVA) | payer MEDICAID, SELFPAY | PROVIDERS: PCP Nurse Practitioner Primary Care; Visit Provider Internal Medicine Gastroenterology | DX: K76.0 Fatty (change of) liver, not elsewhere classified (principal) | CPT/HCPCS: 99212 ==

== ENCOUNTER 2024-12-02 07:33 | Outpatient (REF) | payer MEDICAID, SELFPAY ==
--- OUTSIDE RECORDS SUMMARY | 2024-12-02 07:36 | XMS_ITS | Encounter Summary ---
Author Organization [employer] Address [address] [facility] [facility] [address] [place] [address] Care Team Providers Care Electric Shipyard Operator Name Role Phone Clarisa Mars Primary Care Provider [phone] Encounter Details Date Type Department Care Team (Latest Contact Info) Description 11/23/2021 Abstract [facility] CONVERSIONS Dental, Provider, DDS Social History [...] 11:30 AM EDT Office Visit [facility] MEDICINE [address] [place] [address] Clarisa Mars ANP [address] [place] [address] 12/19/2024 8:30 AM EDT Office Visit [facility] ADULT DENTAL [address] [place] [address] Mart Villanueva DMD [address] [place] [address] 03/05/2025 8:00 AM EDT Office Visit [facility] ADULT DENTAL [address] [place] [address] Delicia Borrego [address] [place] [phone] documented as of this encounter Visit Diagnoses Not on filedocumented in this encounter Care Teams Electric Shipyard Operator Relationship Specialty Start Date End Date Clarisa Mars ANP [address] [place] [phone] PCP - General Family Medicine 03/25/21 documented as of this encounter
--- OUTSIDE RECORDS SUMMARY | 2024-12-02 07:36 | XMS_ITS | Encounter Summary ---
Demographics Address [address] [place] [address] Mobile Phone Work Phone Home Phone Email Address . [employer] Preferred Language es Marital Status Jew Affiliation Unknown Race Other Race Ethnic Group or Author Organization [employer] Address [address] [facility] [address] [place] [address] Care Team Providers Care Wet Wheeler Name Role Phone Clarisa Mars Primary Care Provider [phone] Reason for Visit * Reason Comments Med Refill Encounter Details Date Type Department Care Team ([facility] st Contact Info) Description 09/24/2024 Refill [facility] MEDICINE [address] [place] [address] Clarisa Mars ANP [address] [place] [address] Depression, unspecified depression type; Fibromyalgia Social History [...] Description 12/09/2024 11:30 AM EDT Office Visit [facility] MEDICINE [address] [place] [address] Clarisa Mars, ANP [address] [place] [address] 12/19/2024 8:30 AM EDT Office Visit [facility] ADULT DENTAL [address] [place] [address] Mart Villanueva, DMD [address] [place] [address] 03/05/2025 8:00 AM EDT Office Visit [facility] ADULT DENTAL [address] [place] [address] Delicia Borrego [address] [place] [address] [phone] documented as of this encounter Goals Goal [...] documented as of this encounter Care Teams Wet Wheeler Relationship Specialty Start Date End Date Clarisa Mars ANP 230 [place] [address] PCP - General Family Medicine 03/25/21 documented as of this encounter
--- OUTSIDE RECORDS SUMMARY | 2024-12-02 07:36 | XMS_ITS | Encounter Summary ---
Demographics Address [address] [place] [address] Mobile Phone Work Phone Home Phone Email Address Preferred Language es Marital Status Caodaism Affiliation Unknown Race Other Race Ethnic Group or Author Organization [employer] Address [address] [facility] [address] [place] [address] Care Team Providers Care Aluminum Boats Assembler Name Role Phone Clarisa Mars Primary Care Provider [phone] Reason for Visit * Reason Comments Med Refill Encounter Details Date Type Department Care Team ([facility] st Contact Info) Description 10/18/2024 Refill [facility] MEDICINE [address] [place] [address] Clarisa Mars ANP 230 [place] [address] Social History Tobacco Use Types Packs/Day Years [...] Description 12/09/2024 11:30 AM EDT Office Visit [facility] MEDICINE [address] [place] [address] Clarisa Mars, ANP [address] [place] [address] 12/19/2024 8:30 AM EDT Office Visit [facility] ADULT DENTAL [address] [place] [address] Mart Villanueva, SANTO [address] [place] [address] 03/05/2025 8:00 AM EDT Office Visit [facility] ADULT DENTAL [address] [place] [address] Delicia Borrego [address] [place] [phone] documented as of this encounter Goals Goal [...] documented as of this encounter Care Teams Aluminum Boats Assembler Relationship Specialty Start Date End Date Clarisa Mars ANP [address] [place] [phone] PCP - General Family Medicine 03/25/21 documented as of this encounter
--- OUTSIDE RECORDS SUMMARY | 2024-12-02 07:36 | XMS_ITS | Encounter Summary ---
Author Organization [employer] Address [address] [facility] 7t [place] [address] Care Team Providers Care Prototype Machinist Name Role Phone Clarisa Mars Primary Care Provider [phone] Reason for Visit * Reason Comments Med Refill Encounter Details Date Type Department Care Team ([facility] Contact Info) Description 10/21/2022 Refill [facility] MEDICINE [address] [place] [address] Clarisa Mars ANP [address] [place] [address] Social History Tobacco Use Types Packs/Day Years [...] Upcoming Encounters Date Type Department Care Team ([facility] Contact Info) Description 12/09/2024 11:30 AM EDT Office Visit [facility] MEDICINE [address] [place] [phone] Clarisa Mars ANP [address] [place] [address] 12/19/2024 8:30 AM EDT Office Visit [facility] ADULT DENTAL [address] [place] [address] Mart Villanueva, SANTO [address] [place] [address] 03/05/2025 8:00 AM EDT Office Visit [facility] ADULT DENTAL [address] [place] [address] Delicia Borrego [address] [place] [address] [phone] documented as of this encounter Visit Diagnoses Not on filedocumented in this encounter Care Teams Prototype Machinist Relationship Specialty Start Date End Date Clarisa Mars ANP [address] [place] [address] PCP - General Family Medicine 03/25/21 documented as of this encounter
--- OUTSIDE RECORDS SUMMARY | 2024-12-02 07:36 | XMS_ITS | Encounter Summary ---
Demographics Address [address] [place] [address] Mobile Phone Work Phone Home Phone Email Address Preferred Language es Marital Status Lutheran Affiliation Unknown Race Other Race Ethnic Group or Author Organization [employer] Address [address] [facility] [address] [place] [address] Care Team Providers Care Enterprise Data Architect Name Role Phone Clarisa Mars Primary Care Provider Encounter Details Date Type Department Care Team ([facility] st Contact Info) Description 05/26/2024 Telephone [facility] MED[facility]INE [address] [place], [place] [phone] Clarisa Mars ANP [address] [place] [address] Social History Tobacco Use Types Packs/Day Years [...] Description 12/09/2024 11:30 AM EDT Office Visit [facility] MEDICINE [address] [place] [address] Clarisa Mars ANP 230 [place] [address] 12/19/2024 8:30 AM EDT Office Visit [facility] ADULT DENTAL [address] [place] [address] Mart Villanueva DMD [address] [place] [address] 03/05/2025 8:00 AM EDT Office Visit [facility] ADULT DENTAL [address] [place] [address] Delicia Borrego [address] [place] [address] [phone] documented as of this encounter Goals Goal [...] documented as of this encounter Care Teams Enterprise Data Architect Relationship Specialty Start Date End Date Clarisa Mars ANP [address] [place] [phone] PCP - General Family Medicine 03/25/21 documented as of this encounter
--- OUTSIDE RECORDS SUMMARY | 2024-12-02 07:36 | XMS_ITS | Encounter Summary ---
Demographics Address [address] [place] [address] Mobile Phone Work Phone Home Phone Email Address Preferred Language es Marital Status Orthodox Affiliation Unknown Race Other Race Ethnic Group or Author Organization [employer] Address [address] [facility] [address] [place] [address] Care Team Providers Care It Security Architect Name Role Phone Clarisa Mars Primary Care Provider [phone] Reason for Visit * Reason Comments Med Refill Encounter Details Date Type Department Care Team ([facility] st Contact Info) Description 10/30/[address] [facility] MEDICINE [address] [place] [address] Clarisa Mars ANP [address] [place] [address] Social History Tobacco Use Types Packs/Day Years [...] Description 12/09/2024 11:30 AM EDT Office Visit [facility] MEDICINE [address] [place] [address] Clarisa Mars, ANP [address] [place] [address] 12/19/2024 8:30 AM EDT Office Visit [facility] ADULT DENTAL [address] [place] [address] Mart Villanueva, SANTO [address] [place] [address] 03/05/2025 8:00 AM EDT Office Visit [facility] ADULT DENTAL [address] [place] [address] Delicia Borrego [address] [place] [phone] documented as of this encounter Goals Goal [...] documented as of this encounter Care Teams It Security Architect Relationship Specialty Start Date End Date Clarisa Mars ANP [address] [place] [address] PCP - General Family Medicine 03/25/21 documented as of this encounter
--- OUTSIDE RECORDS SUMMARY | 2024-12-02 07:36 | XMS_ITS | Encounter Summary ---
Demographics Address [address] [place] [address] Mobile Phone Work Phone Home Phone Email Address Preferred Language es Marital Status Methodist Affiliation Unknown Race Other Race Ethnic Group or Author Organization [employer] Address [address] [place] [address] Care Team Providers Care Passport Application Examiner Name Role Phone Clarisa Mars Primary Care Provider [phone] Reason for Visit * Reason Comments Med Refill Encounter Details Date Type Department Care Team ([facility] st Contact Info) Description 11/28/2024 Refill [facility] MEDICINE [address] [place] [address] Clarisa Mars ANP [address] [place] [address] Chest pain, unspecified type Social History Tobacco [...] 12/09/2024 11:30 AM EDT Office Visit [facility] MEDICINE [address] [place] [address] Clarisa Mars, ANP [address] [place] [address] 12/19/2024 8:30 AM EDT Office Visit [facility] ADULT DENTAL [address] [place] [address] Mart Villanueva, DMD [address] [place] [address] 03/05/2025 8:00 AM EDT Office Visit [facility] ADULT DENTAL [address] [place] [address] Delicia Borrego [address] [place] [address] [phone] documented as of this encounter Goals Goal [...] documented as of this encounter Care Teams Passport Application Examiner Relationship Specialty Start Date End Date Clarisa Mars ANP 230 [place] [address] PCP - General Family Medicine 03/25/21 documented as of this encounter
--- OUTSIDE RECORDS SUMMARY | 2024-12-02 07:36 | XMS_ITS | Encounter Summary ---
Demographics Address [address] [place] [address] Mobile Phone Work Phone Home Phone Email Address Preferred Language es Marital Status Moravian Affiliation Unknown Race Other Race Ethnic Group or Author Organization [employer] Address [address] [facility] [place] [address] Care Team Providers Care Horticultural Agent Name Role Phone Clarisa Mars ANDREEA Primary Care Provider [phone] Reason for Visit * Reason Onset Date Comments rs no show visit error on PAR side 09/25/2024 Encounter Details Date Type Department Care Team (Late st Contact Info) Description 09/25/2024 Telephone [facility] ADULT DENTAL [address] [place] [address] Guille Arce DDS [address] [place], [place] [phone] rs no show visit error on PAR [...] There were no appts available. Contacted front edger at [facility] and unable to connect. Message sent. However [...] Description 12/09/2024 11:30 AM EDT Office Visit [facility] MEDICINE [address] [place] [address] Clarisa Mars ANP [address] [place] [address] 12/19/2024 8:30 AM EDT Office Visit [facility] ADULT DENTAL [address] [place] [address] Mart Villanueva, DMD [address] [place] [address] 03/05/2025 8:00 AM EDT Office Visit [facility] ADULT DENTAL [address] [place], [place] [phone] Delicia Borrego [address] [place] [address] [phone] documented as of this encounter Goals Goal [...] documented as of this encounter Care Teams Horticultural Agent Relationship Specialty Start Date End Date Clarisa Mars ANP [address] [place] [address] PCP - General Family Medicine 03/25/21 documented as of this encounter
--- OUTSIDE RECORDS SUMMARY | 2024-12-02 07:36 | XMS_ITS | Encounter Summary ---
Author Organization [employer] Address [address] [facility] 7t [place] [address] Care Team Providers Care Commercial Glazier Name Role Phone Clarisa Mars Primary Care Provider [phone] Encounter Details Date Type Department Care Team (Latest Contact Info) Description 11/19/2018 Abstract [facility] CONVERSIONS Dental, Provider, DDS Social History [...] Description 12/09/2024 11:30 AM EDT Office Visit [facility] MEDICINE [address] [place] [address] Clarisa Mars ANP [address] [place] [address] 12/19/2024 8:30 AM EDT Office Visit [facility] ADULT DENTAL [address] [place] [address] Mart Villanueva DMD [address] [place] [address] 03/05/2025 8:00 AM EDT Office Visit [facility] ADULT DENTAL [address] [place] [address] Delicia Borrego [address] [place] [address] [phone] documented as of this encounter Visit Diagnoses Not on filedocumented in this encounter Care Teams Commercial Glazier Relationship Specialty Start Date End Date Clarisa Mars ANP [address] [place] [address] PCP - General Family Medicine 03/25/21 documented as of this encounter
--- OUTSIDE RECORDS SUMMARY | 2024-12-02 07:36 | XMS_ITS | Clinical Summary ---
Demographics Address [address] [place] [address] Mobile Phone Work Phone Home Phone Email Address Preferred Language es Marital Status Congregational Affiliation Unknown Race Other Race Ethnic Group or Author Organization [employer] Address [address] [place] [address] Care Team Providers Care Waste Picker Name Role Phone Carolina Bailey ANDREEA Primary Care Provider [phone] Allergies No known active allergies Medications divalproex [...] cations:Type 2 diabetes mellitus with hyperlipidemia (CMS/HCC) ([facility]) Inject 1.5 mg under the skin 1 [...] longer demonstrated. She had non ST elevated FL in July 2023. She is now on baby aspirin. [....] 3. Thrombocytosis. She has persistent thrombocytosis in spite of correction of iron deficiency anemia. She recently had an FL and has a history of pulmonary embolism which raises suspicion for myeloproliferative disorder such as essential thrombocytosis. JAK2 mutations as well as reflex testing for CALR/MPL mutations were all negative. Hospital discharge follow-up 08/21/2023 Assessment & Plan (08/21/2023 9:48 AM EST): Patient of Carolina DORAN here for a HDF Patient presented to [facility] ER 08/04/2023 c/o left sided chest pain which started on day of arrival. Described as 10/10, no radiation, worse with movement and breathing. EKG was normal with elevated troponin (619.3 ng/L and 385.6 ng/L) believed to be NSTEMI. Patient started on heparin/nitroglycerin drip and was transferred to [facility]. Pt was admitted to [facility] from 08/04/23-08/07/23 as transfer from [facility] for concerns of NSTEMI. Initial EKG unremarkable, [...] 0 08/21/2023 Overview (02/29/2024): presented to [facility] 08/04/23 with chest discomfort and ruled in for NSTEMI, Troponin 619.3, who was transferred to [facility] and underwent cardiac catheterization showing moderate LAD stenosis with normal IFR. She was managed medically. Outpatient nuclear stress test done on 10/31/2023 showed normal myocardial perfusion imaging, EF 58%. An echocardiogram done 10/29/2023 showed EF 60%, no valve abnormalities and no regional wall motion abnormalities. She is to cont on ASA indefinitely, atorvastatin w/ LDL goal < 70, metoprolol Follows w/ [facility] Myles Kapadia NP 12/28/23 communication from Pt's psychology teacher 11/30/23: normal myocardial perfusion imaging on 10/30 [...] for a HDF Patient presented to [facility] 08/04/2023 c/o left sided chest pain which started on day of arrival. Described as 10/10, no radiation, worse with movement and breathing. EKG was normal with elevated troponin (619.3 ng/L and 385.6 ng/L) believed to be NSTEMI. Patient started on heparin/nitroglycerin drip and was transferred to [facility]. Pt was admitted to [facility] from 08/04/23-08/07/23 as transfer from [facility] for concerns of NSTEMI. Initial EKG unremarkable, [...] - Negative Pap HPV- 01/2022 w/ [facility] Keeley Pomona Assessment & Plan (01/10/2023 10:35 AM EDT): PHQ: 15 already has psychiatrist and therapist. Here at [facility]. Dr. Naylor? Contraception: nexplanon Didn't [...] to poor prep. Eye exam: Goes to [facility], she reports her glasses are working well. Dental home: This year, extracted tooth, [facility] dental. Anemia 01/10/2023 Assessment & [...] Type Department Care Team Description 11/28/2024 Refill [facility] MEDICINE [address] [place] [address] Carolina Bailey ANP Chest pain, unspecified type 11/27/2024 10:00 AM EDT Office Visit [facility] ADULT DENTAL [address] [place] [address] Gladys Dunne, DDS Full tenriism of crown of tooth needed due to previous endodontic treatment (Primary Dx); Dental caries 11/20/2024 Orders Only GENERIC EXTERNAL DATA DEPARTMENT Provider, Generic External Data 11/18/2024 Refill [facility] MEDICINE [address] [place] [address] Carolina Bailey ANP 11/15/2024 Refill [facility] MEDICINE [address] [place] [address] Carolina Bailey ANP Fibromyalgia 11/14/2024 9:30 AM EDT Office Visit [facility] OPTOMETRY [address] [place] [address] Mandy Roy, OD Presbyopia (Primary Dx) 11/13/2024 9:00 AM EDT Office Visit [facility] ADULT DENTAL [address] [place] [address] Light-Robin, Gladys, DDS Full tenriism of crown of tooth needed due to previous endodontic treatment (Primary Dx); Dental caries 10/30/2024 Refill [facility] MEDICINE [address] [place] [address] Carolina Bailey ANP 10/29/2024 11:30 AM EDT Office Visit [facility] ADULT DENTAL [address] [place] [address] Light-Robin, Gladys, DDS Loss of retention of dental crown (Primary Dx) 10/29/2024 9:00 AM EDT Office Visit [facility] ADULT DENTAL [address] [place] [address] Guille Arce, CANDIDOS Severe dental caries (Primary Dx); Non-restorable tooth 10/23/2024 Telephone [facility] MEDICINE [address] [place] [address] Carolina Bailey ANP Med Refill 10/18/2024 Refill [facility] MEDICINE [address] [place] [address] Carolina Bailey ANP 10/17/2024 1:00 PM EDT Office Visit [facility] ADULT DENTAL [address] [place] [address] Light-Robin, Gladys, DDS Acute pulpitis (Primary Dx); Pain, dental 10/17/2024 Population Health Risk Score [facility] () Department [address] [place] [phone] Provider, Population Health Generic 10/17/2024 Telephone [facility] ADULT DENTAL [address] [place] [address] Light-RobinJoshuaGladys, DDS unable to post insurance 10/13/2024 9:00 AM EDT Office Visit [facility] OPTOMETRY [address] [place] [address] Kirill, Mandy, OD Diabetes type 2, 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) (Primary Dx); Presbyopia 10/13/2024 Travel 10/02/2024 Refill [facility] MEDICINE [address] [place] [address] Kashif Piedra MD Prediabetes; Intertrigo 10/02/2024 Refill [facility] [address] [facility] [place] [address] Madeline White MD 10/02/2024 Refill [facility] MEDICINE [address] [facility] [place] [address] Carolina Bailey ANP Intertrigo 09/29/2024 10:00 AM EST Office Visit [facility] ADULT DENTAL [address] [place] [address] Gladys Dunne DDS Necrosis of dental pulp (Primary Dx); Dental caries 09/26/2024 Refill [facility] MEDICINE [address] [facility] [place] [address] Carolina Bailey ANP Fibromyalgia 09/25/2024 Telephone [facility] ADULT DENTAL [address] [facility] [place] [address] Guille Arce DDS rs no show visit error on PAR side 09/24/2024 Refill [facility] MEDICINE [address] [facility] [place] [address] Carolina Bailey ANP Depression, unspecified depression type; Fibromyalgia 09/19/2024 Refill [facility] MEDICINE [address] [facility] [place] [address] Carolina Bailey ANP Type 2 diabetes mellitus with hyperlipidemia (CMS/HCC) (CMS/HCC) 09/19/2024 Telephone [facility] ADULT DENTAL [address] [facility] [place] [address] Guille Arce DDS rs cancelled appt 09/08/2024 Telephone [facility] MEDICINE [address] [facility] [place] [address] Carolina Bailey ANP Durable Medical Equipment 09/04/2024 10:15 AM EST Office Visit [facility] MEDICINE [address] [facility] [place] [address] Carolina Bailey ANP Essential hypertension (Primary Dx); Type 2 diabetes mellitus with hyperlipidemia (CMS/HCC) (CMS/HCC); Bilateral carpal tunnel syndrome; Great toe pain, left; Chronic pain of both knees; Intertrigo 09/04/2024 Travel 09/03/2024 Telephone [facility] MEDICINE [address] [place] [phone] Madeleine Mcknight MA chart prep from [...] Description 12/09/2024 11:30 AM EDT Office Visit [facility] MEDICINE [address] [place] [address] Carolina Bailey, ANP [address] [place] [address] 12/19/2024 8:30 AM EDT Office Visit [facility] ADULT DENTAL [address] [place], [place] [phone] Kay Mart, DMD [address] [place] [address] 03/05/2025 8:00 AM EDT Office Visit [facility] ADULT DENTAL [address] [place], [place] [phone] Delicia Borrego [address] [place], [place] [phone] Health Maintenance Due Date Last Done Comments [...] 2:38 PM EDT) Triglycerides 236(H) <150 mg/dL [facility] Comment:Desirable Triglyceri de: less than 150 mg/dLBorderline High Triglyceride 150-199 mg/dLHigh Triglyceride: 200-499 mg/dLVery High Triglyceride: greater than or equal to 5OO mg/dL Cholesterol 160 <200 mg/dL [facility] Comment:Desirable Cholestero l: less than 200 mg/dLBorderline High Cholesterol: 200-239 mg/dLHigh Cholesterol: greater than 239 mg/dL LDL Cholesterol Calculated 68 <100 mg/dL [facility] Comment:Desirable LDL: less than 100 mg/dLNear Optimal/Above Optimal LDL: 110- 129 mg/dLBorderline High LDL: 130-159 mg/dLHigh LDL: 160-189 mg/dLVery High LDL: greater than or equal to 190 mg/dL HDL Cholesterol 45 >40 mg/dL [facility] Comment:Desirable HDL: great er than 40 mg/dL Note: This HDL assay may give artificially low results in patients with liver disease. 11/20/2024 2:38 PM EDT 11/20/2024 2:38 PM EDT us Generic External Data Provider LAB BLOOD ORDERAB LES Final Result [facility] [address] [place] [phone] * (ABNORMAL) Comprehensive Metabolic Panel (11/20/2024 2:38 PM EDT) Sodium 140 135 - 145 mmol/L [facility] Potassium 4.5 3.3 - 5.1 mmol/L [facility] Chloride 103 96 - 108 mmol/L [facility] Carbon Dioxide 30(H) 22 - 29 mmol/L [facility] Anion Gap 12 12 - 20 [facility] Urea Nitrogen (BUN) 6(L) 9 - 16 mg/dL [facility] Creatinine, Serum 0.66 0.5 - 1.4 mg/dL [facility] Estimated Glomerular Filt Rate >60 [facility] Comment:Chronic Kidney Disea se: Estimated GFR < 60 mL/min/1.05c3Hmifys Kidney Disease: Estimated GFR < 15 mL/min/1.73m2 Glucose 81 60 - 115 mg/dL [facility] Calcium 9.2 8.4 - 10.2 mg/dL [facility] Bilirubin, Total 0.7 0.0 - 1.0 mg/dL [facility] Aspartate Amino Transferase 27 5 - 31 U/L [facility] Alanine Aminotransferase 32(H) 0 - 31 U/L [facility] Total Protein 7.3 6.5 - 8.0 g/dL [facility] Albumin Level 4.0 3.5 - 5.0 g/dL [facility] Alkaline Phosphatase 94 39 - 117 U/L [facility] 11/20/2024 2:38 PM EDT 11/20/2024 2:38 PM EDT Generic External Data Provider LAB BLOOD ORDERAB LES Final Result Performing Organization Address [facility]/ZIP Co de Phone Number [facility] [address] [place] [phone] * Albumin, Random Urine W/Creatinine (11/20/2024 2:37 PM EDT) Creatinine, Urine 20.11 mg/dL [facility] Microalbumin Urine <5.0 mg/L [facility] Microalbum Creatinine Ratio Ur TNP <30 ug/mg cr [facility] Comment:Unable to calculate albumin/creatinine ratio due to lowmicroalbumin or creatinine result. Urine (Urine, Random) 11/20/2024 2:37 PM EDT 11/20/2024 3:49 PM EDT us [facility] URINE ORDERABLES Final Resul t Performing Organization Address [facility]/ZIP Co de Phone Number [facility] [address] [place] [address] [phone] * POCT HGB A1C (06/05/2024 1:37 PM EDT) Hemoglobin A1C 6.0 4.0 - 6.0 % QC Media Lot # [id number] Lot# Expiration Date [id number] Blood 06/05/2024 1:37 PM EDT us Carolina Bailey ANP POINT OF CARE TEST ENTER/EDIT OR DERABLES Final Result * BI Mammogram Screening Tomosynthesis Bilateral (02/25/2024 12:44 PM EDT) Anatomical Region Laterality Modality Breast Bilateral Mammography 02/25/2024 12:4 4 PM EDT Narrative 03/18/2024 9:38 PM EDT ? [facility] ? [address] ?[place], [place] [address] ? Mammography Report ? Signed ? Patient: Rubin,Barb ?MR#: [id number] ?? 7 ? : 1970 ?Acct:[id number] ? Age/Sex: 53 / F ?ADM Date: 02/25/24 ? Loc: HO.MAMMO ? Attending Dr: Carolina Bailey MANAGER BRAND ? Ordering Physician: CAROLINA BAILEY NP ?Results: 1Negative ? Date of Service: 02/25/24 ?Follow Up: 1 Year From Orig ?? inal Mammogram ? Procedure(s): MM tomosynthesis screening BI ?? Accession Number(s): [id number] ? cc: CAROLINA BAILEY NP ? EXAMINATION: [...] 03/18/242133 ? DD/ 1244 ? TD/TT: ? Medical Office Representative: ? Procedure Note Adeliade Alaniz - 03/18/2024 [place] [facility] [address] [place] [address] Mammography Report Signed Patient: Evaristo ConklinR#: [id number] 7 : 1970Acct:[id number] Age/Sex: 53 / FADM Date: 02/25/24 Loc: HO.MAMMO Attending Dr: Carolina Bailey MANAGER BRAND Ordering Physician: CAROLINA BAILEY NPResults: 1Negative Date of Service: 02/25/24Follow Up: 1 Year From Orig inal Mammogram Procedure(s): MM tomosynthesis screening BI Accession Number(s): [id number] cc: CAROLINA BAILEY NP EXAMINATION: MM SCREENING [...] in OV> 03/18/24 2134 DD/ 1244 TD/TT: Medical Office Representative: Carolina DORAN IM BI PROCEDURES Edited Result - Final * Hepatitis C Ab (05/30/2023 11:44 AM EDT) Hepatitis C Antibody Nonreactive Nonreactive [facility] Comment:Antibodies to HCV no t detected; does not exclude early acuteHCV infection. 05/30/2023 11:4 4 AM EDT 05/30/2023 11:44 AM EDT Generic External Data Provider LAB BLOOD ORDERAB LES Final Result [facility] [address] [place] [phone] [phone] * HIV Ab/Ag ([facility]) (05/30/2023 11:44 AM EDT) HIV AB/AG Nonreactive Nonreactive [facility] Comment:HIV-1 p24 Ag and/or HIV-1/HIV-2 Ab not detected.A test result that is nonreactive does not exclude thepossibility of exposure to or infection with HIV-1 and/orHIV-2. Nonreactive results in this assay for individualswith prior exposure to HIV-1 and/or HIV-2 may be due toantigen and antibody levels that are below the limit ofdetection of this assay.The [employer] HIV Ag/Ab Combo assay result andsupplemental assay results should be interpreted inconjunction with the patient's clinical presentation,history and other laboratory results. If the results areinconsistent with clinical evidence, additional testing issuggested to confirm the result. 05/30/2023 11:4 4 AM EDT 05/30/2023 11:44 AM EDT us Generic External Data Provider LAB BLOOD ORDERAB LES Final Result Performing Organization Address [facility]/ZIP Co de Phone Number [facility] [address] [place] [address] [phone] * HPV E6/E7 RFLX VAISHNAVI 16 18/45 (02/01/2022 1:49 PM EDT) [facility] HPV mRNA E6/E7 rflx Not Detected Not Detected [facility] Comment: Methodology: Strip Deburrer-Mediated Amplification This assay detects E6/E7 viral messenger RNA (mRNA) from 14 high-risk HPV types (16,18,31,33,35,39,45,51,52,56,58,59,66,68). Cervical sources are required for HPV testing. If a vaginal source from a patient who has had a total hysterectomy with removal of cervix was submitted, please contact the testing laboratory for alternative testing options. For additional information, please refer to http://education.[employer]/faq/EBD380f6 (This link if provided for information/ educational purposes only.) THIS TEST WAS PERFORMED AT: [employer] [address] [place], [place] ??[phone] ROBERT HARMAN MD 02/01/2022 1:49 PM EDT us Keeley Pomona HISTORICAL/NON ORDERABLE LABS Fi nal Result Performing Organization Address City/[facility]/ZIP Co de Phone Number [facility] [address] [place] [address] * Pap Smear (02/01/2022) Pap Smear 1. NILM 1. NILM Comment:NIL/HPV negative Swab 02/01/2022 us Historical Provider LAB CYTOLOGY ORDERABLES F inal Result from Last 3 Months or Most Recently Relevant to Health Maintenance Insurance * Guarantor: Barb Conklin Account Type Relation to Patient Date of Phone Billing Address Personal/Family Self 1970 [address] [place] [address] [place] STAND ADULT [facility] C[facility] D[facility]AL-[facility] STAND ADULT * Guarantor: Barb Conklin Account Type Relation to Patient Date of Phone Billing Address Personal/Family Self [address] [place] [address] * Guarantor: Barb Conklin Account Type Relation to Patient Date of Phone Billing Address Personal/Family Self [address] [place] [address] * Guarantor: Barb Conklin Account Type Relation to Patient Date of Phone Billing Address Personal/Family Self [address] [place] [address] Care Teams Waste Picker Relationship Specialty Start Date End Date Carolina Bailey ANP [address] [place] [phone] PCP - General Family Medicine 03/25/21
--- OUTSIDE RECORDS SUMMARY | 2024-12-02 07:36 | XMS_ITS | Encounter Summary ---
Demographics Address [address] [place] [address] Mobile Phone Work Phone Home Phone Email Address Preferred Language es Marital Status Taoist Affiliation Unknown Race Other Race Ethnic Group or Author Organization [employer] Address [address] [place] [address] Care Team Providers Care Right Of Way Manager Name Role Phone Clarisa Mars ANDREEA Primary Care Provider [phone] Reason for Visit * Reason Comments crown insert #11 Encounter Details Date Type Department Care Team (Late st Contact Info) Description 11/27/2024 10:00 AM EDT Office Visit [facility] ADULT DENTAL [address] [place] [address] Gladys Dunne, DDS [address] [place] [address] Full christianity of crown of tooth needed due to [...] 11/27/24, Timeout Time: 910 (crown insert) Location: [facility] Tooth: #11 Procedure: [place] Delivery Verified the above with patient, chemist assistant, and provider. Confirmed via patient's chart, intraorally and by radiographs. Assembler Body: not applicable Chief Complaint Patient presents with [...] pumiced tooth as needed. Tried on final christianity Verified interproximal contacts and margins BW taken to confirm margins and contacts Occlusion adjusted as needed Tooth Treatment: 37% Phosphoric Acid Etch and Scientific Informatics Leader applied Cemented with: Relyx Unicem Cleaned excess cement, flossed Patient satisfied with comfort and esthetics. POI given. Patient discharged alert, oriented, and in stable condition NV: Impression RPDs Component Prep Operator: Delia Gonzalez Dentist: Gladys Dunne DDS documented in this encounter Plan of Treatment Upcoming Encounters Date Type Department Care Team (Late st Contact Info) Description 12/09/2024 11:30 AM EDT Office Visit [facility] MEDICINE [address] [place] [address] Clarisa Mars ANP [address] [place] [address] 12/19/2024 8:30 AM EDT Office Visit [facility] ADULT DENTAL [address] [place] [address] Mart Villanueva DMD [address] [place] [address] 03/05/2025 8:00 AM EDT Office Visit [facility] ADULT DENTAL [address] [place] [address] Delicia Borrego [address] [place] [phone] Scheduled Orders Name Type Priority Associated Diagnoses [...] in this encounter Visit Diagnoses Diagnosis Full christianity of crown of tooth needed due to previous endodontic treatment- Primary Dental caries Unspecified dental caries documented in this encounter Additional Health Concerns Assessment Noted Time PHQ-9 Depression Total Score: 8 02/29/20 24 9:53 AM EDT documented as of this encounter Care Teams Right Of Way Manager Relationship Specialty Start Date End Date Clarisa Mars ANP [address] [place] [address] PCP - General Family Medicine 03/25/21 documented as of this encounter
--- OUTSIDE RECORDS SUMMARY | 2024-12-02 07:36 | XMS_ITS | Encounter Summary ---
Author Organization [employer] Address [address] [place] [address] Care Team Providers Care Lead Operator Name Role Phone Clarisa Mars Primary Care Provider [phone] Encounter Details Date Type Department Care Team (Latest Contact Info) Description 10/06/2020 Abstract [facility] CONVERSIONS Dental, Provider, DDS Social History [...] Description 12/09/2024 11:30 AM EDT Office Visit [facility] MEDICINE [address] [place] [address] Clarisa Mars ANP [address] [place] [address] 12/19/2024 8:30 AM EDT Office Visit [facility] ADULT DENTAL [address] [place] [address] Mart Villanueva DMD [address] [place] [address] 03/05/2025 8:00 AM EDT Office Visit [facility] ADULT DENTAL [address] [place] [address] Delicia Borrego [address] [place] [phone] documented as of this encounter Visit Diagnoses Not on filedocumented in this encounter Care Teams Lead Operator Relationship Specialty Start Date End Date Clarisa Mars ANP [address] [place] [phone] PCP - General Family Medicine 03/25/21 documented as of this encounter
[2024-12-02 07:55] LABS: MANUAL DIFF FLAG NO
[2024-12-02 08:25] LABS: Basophils Absolute Auto 0.1 X10*3/uL (0.0-0.2); Basophils Percent Auto 0.7 % (0-2); Eosinophils Absolute Auto 0.3 X10*3/uL (0.0-0.4); Eosinophils Percent Auto 4.4 % (0-4); Hematocrit 40.9 % (37.0-47.0); Hemoglobin 13.5 g/dl (12.0-16.0); Imm Gran Abs Auto 0.04 X10*3/uL (0.00-0.03); Imm Gran Pct Auto 0.6 % (0.0-0.4); Lymphocytes Absolute Auto 2.1 X10*3/uL (1.2-4.9); Lymphocytes Percent Auto 30.5 % (20-40); Mean Corpuscular Hemoglobin 28.5 pg (27.0-33.0); Mean Corpuscular Volume 86.3 fL (80.0-98.0); Mean Platelet Volume 9.8 fL (9.4-12.3); Monocytes Absolute Auto 0.4 X10*3/uL (0.1-1.2); Monocytes Percent Auto 6.3 % (2-11); Neutrophils Absolute Auto 3.9 x10*3/uL (2.0-8.3); Neutrophils Percent Auto 57.5 % (45-73); Platelet Count 344 X10*3/uL (160-400); Red Blood Count 4.74 X10*6/uL (4.20-5.50); Red Cell Distribution Width 14.6 % (11.0-16.0); White Blood Count 6.8 X10*3/uL (4.8-10.8)
[2024-12-02 08:29] LABS: Appearance Urine Clear; Color Urine Yellow; Glucose Urine UA Negative (Negative); Leukocyte Esterase Urine Negative (Negative); Nitrite Urine Negative (Negative); PH 6.5 (5.0-9.0); Specific Gravity - Urine 1.015 (1.005-1.025); Urine Blood Negative (Negative); Urine Ketones Negative (Negative); Urine Protein Negative (Neg-Trace)
[2024-12-02 08:35] LABS: Prothrombin Time 11.9 SEC (10.9-12.4)
[2024-12-02 09:30] LABS: Alanine Aminotransferase 27 U/L (0-31); Alkaline Phosphatase 86 U/L (39-117); Anion Gap 12 (12-20); Aspartate Amino Transferase 23 U/L (5-31); Blood Urea Nitrogen 7 mg/dL (9-16); Carbon Dioxide 26 mmol/L (22-29); Chloride 107 mmol/L (96-108); Estimated Glomerular Filt Rate > 60; Glucose Random 83 mg/dL (60-115); Sodium 140 mmol/L (135-145); Total Protein 7.1 g/dL (6.5-8.0)
[2024-12-02 09:31] LABS: Ferritin 42 ng/mL (10-250); Vitamin D 25-OH Total 20.3 ng/mL (>30)
[2024-12-02 09:46] LABS: Folate 5.4 ng/mL (> or = 4.0); Vitamin B12 354 pg/mL (200-900)
[2024-12-02 14:11] LABS: Alanine Aminotransferase 30 U/L (0-31); Albumin Level 4.2 g/dL (3.5-5.0); Alkaline Phosphatase 90 U/L (39-117); Anion Gap 12 (12-20); Aspartate Amino Transferase 24 U/L (5-31); Bilirubin Total 1.1 mg/dL (0.0-1.0); Blood Urea Nitrogen 7 mg/dL (9-16); Calcium 9.1 mg/dL (8.4-10.2); Carbon Dioxide 28 mmol/L (22-29); Chloride 106 mmol/L (96-108); Cholesterol 165 mg/dL (<200); Estimated Glomerular Filt Rate > 60; Glucose Random 83 mg/dL (60-115); HDL Cholesterol 41 mg/dL (>40); LDL Cholesterol Calculated 70 mg/dL (<100); Potassium 4.5 mmol/L (3.3-5.1); Sodium 141 mmol/L (135-145); Total Protein 7.5 g/dL (6.5-8.0); Triglycerides 274 mg/dL (<150)
[2024-12-04 23:29] LABS: Zinc 72 mcg/dL (60-130)
[2024-12-06 01:08] LABS: Vitamin A 42 mcg/dL (38-98)
[2024-12-10 16:48] LABS: Vitamin B1 7 nmol/L (8-30)
== END 2024-12-02 07:34 | disposition home or self-care (01) ==
LOC: HO.LAB 07:33
PROVIDERS: PCP Nurse Practitioner Primary Care; Visit Provider Internal Medicine Gastroenterology
DX: K75.81 Nonalcoholic steatohepatitis (NASH) (principal); R30.0 Dysuria; E11.69 Type 2 diabetes mellitus with other specified complication; E78.5 Hyperlipidemia, unspecified
CPT/HCPCS: 36415; 80053; 80061; 81003; 82180; 82306; 82607; 82728; 82746; 84425; 84590; 84630; 85025; 85610

== ENCOUNTER 2025-03-02 12:16 | Outpatient (REF) | payer MEDICAID, SELFPAY ==
--- OUTSIDE RECORDS SUMMARY | 2025-03-02 13:12 | XMS_ITS | Encounter Summary ---
Author Organization [employer] Address [address] [place] [address] [address] [place] [address] Care Team Providers Care Hoist Operator Name Role Phone Clarisa Mars Primary Care Provider [phone] Reason for Visit * Reason Comments Med Refill Encounter Details Date Type Department Care Team ([facility] Contact Info) Description 10/21/2022 Refill [facility] MEDICINE [address] [place] [address] Clarisa Mars ANP [address] [place] [address] Social History Tobacco Use Types Packs/Day Years [...] Upcoming Encounters Date Type Department Care Team ([facility] Contact Info) Description 03/05/2025 8:00 AM EDT Office Visit [facility] ADULT DENTAL [address] [place] [address] Delicia Borrego [address] [place] [phone] 03/12/2025 10:00 AM EDT Office Visit [facility] MEDICINE [address] [place] [address] Clarisa Mars ANP [address] [place] [phone] 04/22/2025 9:00 AM EDT Office Visit [address] [address] Odalys Marx CNM [address] [place] [address] documented as of this encounter Visit Diagnoses Not on filedocumented in this encounter Care Teams Hoist Operator Relationship Specialty Start Date End Date Clarisa Mars ANP [address] [place] [phone] PCP - General Family Medicine 03/25/21 documented as of this encounter
--- OUTSIDE RECORDS SUMMARY | 2025-03-02 13:12 | XMS_ITS | Clinical Summary ---
Author Organization [facility] Address [address] [place] [address] Phone Care Team Providers Care Paper Roll Machine Operator Name Role Phone Kashif Gamino MD Primary Care Provide r Social History Tobacco Use Types Packs/Day Years Used Date Smoking Tobacco: Never Assessed Education Answer Date Recorded Are you interested in more education? Not on cally e 08/13/2023 Are you concerned about learning? Not on file 08/13/2023 No 08/13/2023 No 08/13/2023 Digital Access Answer Date Recorded No 08/13/2023 No 08/13/2023 Reliable internet access at home? Not on file 08/13/2023 Device with a working camera? Not on file Comments Unknown Sex and Gender Information Value Date Recorded Sex Assigned at Not on file Legal Sex Female 1:20 PM EST Gender Identity Not on file Sexual Orientation Not on file Plan of Treatment Not on file Medical Devices Not on file Insurance [facility]UN[facility] CARE [facility]OPERAT[facility] C3 ACO C3 ACO C3 ACO C3 ACO [facility] C3 ACO [facility] C3 ACO Care Teams Paper Roll Machine Operator Relationship Specialty Start Date End Date Kashif Gamino MD [address] [place] [address] [address] [place] [phone] [email or web address] PCP - General Internal Medicine 08/13/23 Additional Source Comments The information contained in this document represents components of the legal health record. It is not the complete legal health record.[facility]
== END 2025-03-02 12:17 | disposition home or self-care (01) ==
LOC: HO.MAMMO 12:16
PROVIDERS: PCP Nurse Practitioner Primary Care; Visit Provider Nurse Practitioner Primary Care
DX: Z12.31 Encounter for screening mammogram for malignant neoplasm of breast (principal)
CPT/HCPCS: 77063; 77067

== ENCOUNTER → 2025-03-02 12:30 | Outpatient (BNV) | payer MEDICAID, SELFPAY | PROVIDERS: PCP Nurse Practitioner Primary Care; Visit Provider Internal Medicine | DX: Z12.31 Encounter for screening mammogram for malignant neoplasm of breast (principal) | CPT/HCPCS: 77063; 77067 ==

== ENCOUNTER 2025-03-26 11:08 | Outpatient (REF) | payer MEDICAID, SELFPAY ==
--- NOTE | ~2025-03-26 | US_ITS ---
EXAMINATION: US COMPLETE ABDOMEN WITH LIVER ELASTOGRAPHY CLINICAL INFORMATION: K76.0 - Fatty (change of) liver, not elsewhere classified COMPARISON: CT on 05/01/2023 TECHNIQUE: Real-time imaging of the abdominal viscera. Noninvasive ultrasound liver fibrosis assessment is performed using Gabriele ElastPQ point quantification shear wave elastography (pSWE) with a C5-2 MHz transducer. Multiple elastography samples are obtained. FINDINGS: PANCREAS: The visualized pancreatic head and body are normal in appearance. The remainder of the pancreas is obscured from visualization by the overlying bowel gas. ABDOMINAL AORTA: No aortic aneurysm is seen. INFERIOR VENA CAVA: Visualized portions are normal. LIVER: The liver demonstrates mildly increased echogenicity.. No focal lesion or intrahepatic biliary duct dilatation. The right lobe measures 20 cm in length. The left lobe measures 13 cm in length. The main portal vein is patent with a normal direction of flow and a continuous venous waveform. Shear wave liver elastography median stiffness is 1.35 m/s (reference: normal median stiffness is 1.3 m/s or less). IQR/median stiffness to assess sampling precision is 0.09 (reference: good quality data set is IQR/median stiffness of 0.15 or less). GALLBLADDER: The gallbladder contains numerous layering shadowing stones. There is no gallbladder wall thickening. COMMON BILE DUCT: Normal in caliber measuring 0.5 cm in diameter. RIGHT KIDNEY: No hydronephrosis. No renal calculi or focal parenchymal lesions. The kidney measures 10.5 cm in maximum dimension. LEFT KIDNEY: No hydronephrosis. No renal calculi or focal parenchymal lesions. The kidney measures 10.8 cm in maximum dimension. SPLEEN: Unremarkable. The spleen measures 9.4 cm in maximum dimension. FREE FLUID: None seen. US/US abdomen comp w elastography IMPRESSION: Liver demonstrates increased echogenicity which can be associated with fatty changes or diffuse hepatocellular disease. There is also suspected hepatomegaly. 2. Liver elastography: In the absence of other known clinical signs, measurements rule out compensated advanced chronic liver disease. If there are known clinical signs, further testing may be needed for confirmation. Cholelithiasis. REFERENCE: Society of Radiologists in Ultrasound Liver Stiffness Thresholds (2020): LIVER STIFFNESS THRESHOLDS: *Liver Stiffness equal or less than 1.3 m/s: High probability of being normal. *Liver Stiffness less than 1.7 m/s: In the absence of other known clinical signs, rules out compensated advanced chronic liver disease. *Liver Stiffness 1.7-2.1 m/s: Suggestive of compensated advanced chronic liver disease but need further test for confirmation. *Liver Stiffness over 2.1 m/s: Rules in compensated advanced chronic liver disease. *Liver Stiffness over 2.4 m/s: Suggestive of clinically significant portal hypertension. QUALITY OF DATA SET: *IQR/Median value equal or less than 0.15 implies a quality data set. *IQR/Median value over 0.15 implies a poor quality data set. SIGNIFICANT CHANGE FROM PRIOR EXAM: Significant change if liver stiffness measurement is 10% or greater from prior exam. OTHER CONSIDERATIONS: The stage of liver fibrosis may be overestimated in the setting of acute hepatitis, liver inflammation, elevated liver function tests, hepatic vascular congestion, obstructive cholestasis, non-fasting state, and infiltrative diseases such as amyloidosis and lymphoma. In some patients with NAFLD, the liver stiffness thresholds for compensated advanced chronic liver disease may be lower. In causes other than viral hepatitis and NAFLD, liver stiffness thresholds are not well established. Electronically signed by: Carrillo Aleman MD 03/26/2025 11:55 AM EDT
--- OUTSIDE RECORDS SUMMARY | 2025-03-26 12:50 | XMS_ITS | Encounter Summary ---
Author Organization [employer] Address [address] [facility] [address] [place] [address] Care Team Providers Care Adult Neuropsychologist Name Role Phone Clarisa Mars Primary Care Provider Sumaya Gray MD Unavailable [phone] William Christianson MD Unavailable [phone] Nayeli Kapadia Unavailable Reason for Visit * Reason Comments Med Refill Encounter Details Date Type Department Care Team (Late st Contact Info) Description 10/21/2022 Refill [facility] MEDICINE [address] [place], [place] [phone] Clarisa Mars ANP [address] [place], [place] [phone] Social History Tobacco Use Types Packs/Day Years [...] Care Team (Late st Contact Info) Description 04/08/2025 8:00 AM EDT Office Visit [facility] ADULT DENTAL [address] [place] [address] Light-Lobito Gladys, DDS [address] [place] [address] 04/22/2025 9:00 AM EDT Office Visit [facility] MEDICINE [address] [place] [address] Odalys Marx, CNM [address] [place] [address] documented as of this encounter Visit Diagnoses Not on filedocumented in this encounter Care Teams Adult Neuropsychologist Relationship Specialty Start Date End Date Clarisa Mars ANP [address] [place] [address] PCP - General Family Medicine 03/25/21 Sumaya Gray MD [address] [place] [phone] Hematology and Oncology 03/12/25 William Christianson MD [address] [place] [address] Gastroenterology 03/12/25 Nayeli Kapadia [address] [place] [phone] Cardiology 03/12/25 documented as of this encounter
--- OUTSIDE RECORDS SUMMARY | 2025-03-26 12:50 | XMS_ITS | Clinical Summary ---
Author Organization [facility] Address [address] [place] [phone] Phone Care Team Providers Care Pound Keeper Name Role Phone Kashif Gamino MD Primary [...] file Medical Devices Not on file Insurance [facility] COMMUNITY CARE COOPERATIVE C3 ACO C3 ACO C3 ACO C3 ACO [facility] C3 ACO [facility] C3 ACO Care Teams Pound Keeper Relationship Specialty Start Date End Date Kashif Gamino MD [address] [place] [address] [address] [place] [phone] [email or web address] PCP - General Internal Medicine 08/13/23 Additional Source Comments The information contained in this document represents components of the legal health record. It is not the complete legal health record.[facility]
== END 2025-03-26 11:09 | disposition home or self-care (01) ==
LOC: HO.US 11:08
PROVIDERS: PCP Nurse Practitioner Primary Care; Visit Provider Internal Medicine Gastroenterology
DX: K76.0 Fatty (change of) liver, not elsewhere classified (principal)
CPT/HCPCS: 76700; 76981

== ENCOUNTER → 2025-03-26 11:10 | Outpatient (BNV) | payer MEDICAID, SELFPAY | PROVIDERS: PCP Nurse Practitioner Primary Care; Visit Provider Radiology Diagnostic Radiology | DX: K76.0 Fatty (change of) liver, not elsewhere classified (principal); K80.20 Calculus of gallbladder without cholecystitis without obstruction | CPT/HCPCS: 76700 ==

== ENCOUNTER 2025-05-03 13:16 | Emergency (ER) | payer MEDICAID, SELFPAY ==
--- NOTE | ~2025-05-03 | US_ITS ---
CLINICAL HISTORY: swelling pain cramping, r o dvt Venous duplex ultrasound left lower extremity Comparison: US/SR - US LOWER EXTREMITY VEINS BILATERAL - 10/05/23 08:43 EST Findings: The visualized deep veins are fully compressible with normal Doppler color flow and spectral tracings. No popliteal cyst. IMPRESSION: 1. Negative for left lower extremity deep vein thrombosis. This document has been electronically signed by: Autumn Mcgowan MD on 05/03/2025 16:30:20
--- NOTE | ~2025-05-03 | XR_ITS ---
CLINICAL HISTORY: atraumatic pain 3 view left ankle Comparison: None provided Findings: No acute fractures. Ankle mortise intact. Calcaneal enthesophytes. There is soft tissue edema. No ankle effusion. No radiopaque foreign body. IMPRESSION: No acute fracture. This document has been electronically signed by: Autumn Mcgowan MD on 05/03/2025 15:03:44
[2025-05-03 13:26] VITALS: BP 140/82; PULSE 84; RESP 18; TEMP 36.6; O2SAT 99; BMI 42.9
--- NOTE | 2025-05-03 13:26 | ED.GENADULT ---
HPI - General Adult General Chief complaint: General Medical Stated complaint: Hands and L Ankle Pain Swelling Time Seen by Provider: 05/03/25 14:47 History of Present Illness HPI narrative: 54-year-old female with a history of arthritis, fibromyalgia, asthma, HTN, HLD, migraines, DM, GERD, h/o PE (2 yrs ago, not on AC therapy), carpal tunnel syndrome who presents emergency department for evaluation of pain, dry cracked skin in her hands and pain and swelling in her left foot and ankle with pain traveling up her leg to her hip area. The patient states that for the past 6 weeks, she developed pain and and pruritic sensation in her hands. She states that her skin has become very dry, cracked red and inflamed. She also is complaining of pain and swelling in her left foot and ankle x3 days with the pain traveling upper leg to her hip. She denies any numbness or weakness of her left lower extremity. She states she had 1 episode of left-sided chest pain associated with shortness of breath 2 days prior by has no chest pain or shortness of breath at this time. She denied fever, chills, cough. She has had nausea with no vomiting. Related Data Home Medications ?Medication ?Instructions ?Recorded ?Confirmed albuterol sulfate 90 mcg/actuation 1 inh inhalation Q4-6H PRN Wheezing 02/25/21 11/20/24 breath activated powder inhaler,sensor clonazepam 0.25 mg disintegrating 0.25 mg PO DAILY 02/25/21 11/20/24 tablet cyclobenzaprine 5 mg tablet 5 mg PO BEDTIME 02/25/21 11/20/24 sumatriptan succinate 50 mg tablet 1 tab PO DAILY migraine 07/12/21 11/20/24 ferrous sulfate 325 mg (65 mg 1 tab PO BID 01/11/22 11/20/24 iron) tablet (FeroSul) duloxetine 30 mg capsule,delayed 30 mg PO DAILY 02/01/22 11/20/24 release lidocaine 5 % topical patch 1 patch topical DAILY 02/01/22 05/23/24 (Lidoderm) docusate sodium 100 mg capsule 1 cap PO DIRECTED 04/18/22 11/20/24 (Dulcolax Stool Softener (docusate)) prazosin 1 mg capsule (Minipress) 1 mg PO BEDTIME 04/18/22 11/20/24 cyanocobalamin (vitamin B-12) 1,000 mcg PO QPM 05/08/22 11/20/24 1,000 mcg tablet divalproex 250 mg tablet,extended 250 mg PO BID 05/08/22 11/20/24 release 24 hr gabapentin 600 mg tablet 600 mg PO TID 11/29/22 11/20/24 acetaminophen 650 mg 650 mg PO Q8H PRN mild pain 07/23/23 11/20/24 tablet,extended release calcium 600 mg (as 1 tab PO QAM 07/23/23 11/20/24 carbonate)-vitamin D3 10 mcg (400 unit) tablet dulaglutide 0.75 mg/0.5 mL mg subcut QWEEK 11/20/24 11/20/24 subcutaneous pen injector ([facility]) fluphenazine HCl 2.5 mg tablet 2.5 mg PO 12/01/24 gabapentin 300 mg capsule 300 mg PO BEDTIME 12/01/24 isosorbide mononitrate 60 mg 60 mg PO QAM 12/01/24 tablet,extended release 24 hr metformin 500 mg tablet,extended 500 mg PO 12/01/24 release 24 hr Previous Rx's ?Medication ?Instructions ?Recorded diclofenac sodium 1 % topical gel 4 - 6 g topical QID PRN pain #100 10/03/23 grams pantoprazole 40 mg tablet,delayed 40 mg PO QAM #90 tabs 04/08/24 release clotrimazole-betamethasone 1 1 appl topical BID fungal rash 7 07/22/24 %-0.05 % topical cream days #45 grams aspirin 81 mg tablet,delayed 81 mg PO QAM #90 tabs 11/25/24 release atorvastatin 80 mg tablet 80 mg PO BEDTIME #90 tabs 11/25/24 ezetimibe 10 mg tablet 10 mg PO QAM #90 tabs 11/25/24 metoprolol succinate 25 mg 25 mg PO QAM #90 tabs 11/25/24 tablet,extended release 24 hr sodium,potassium,mag sulfates 17.5 See Rx Instructions PO .COMPLEX 12/01/24 gram-3.13 gram-1.6 gram oral soln #354 mL (Suprep Bowel Prep Kit) prednisone 10 mg tablet 10 mg PO DIRECTED #40 tabs 05/03/25 Allergies Allergy/AdvReac Type Severity Reaction Status Date / Time No Known Allergies Allergy Verified 05/03/25 13:28 Review of Systems Review of Systems: Yes all other systems are reviewed and are negative [facility] Past Medical History [facility] Narrative: Social history: Patient does smoke cigarettes. She states she occasionally drinks alcohol. She denies drug use Medical History Family history of breast cancer Atherosclerotic cardiovascular disease Ventral hernia Morbid obesity Hypertension Fibromyalgia Vitamin D deficiency Pre-diabetes Hypertriglyceridemia Vitamin B12 deficiency Sleep apnea STEVEN (iron deficiency anemia) Pulmonary embolism Surgical History H/O hernia repair Gastric bypass status for obesity deliv NOS-unsp Hx of endoscopy History of colonoscopy Family History Family History Father No problems noted. Mother Stomach cancer Blood disorder Paternal Uncle Stomach cancer Pancreatic cancer Throat cancer Maternal Aunt Breast cancer Paternal Aunt Breast cancer Paternal Uncle Stomach cancer Maternal Grandmother Colon cancer Brother Blood disorder Social History Social History Household Members: Spouse and Children Housing: House Are you a primary tire care manager to a significant other at home: No Do you presently have visiting nurse or other home services: No Alcohol intake: former Patient Tobacco Use Status: Current everyday Tobacco user Tobacco use type: Cigarette Years Smoked: 30 Advance Directives: Yes Advance Directives Information Provided: Yes Advance Directives on File: No Do you have a plan to hurt others: No Plan service: No Current occupational status: unemployed Sexual orientation: Straight/Heterosexual Gender identity: Female Physical Exam ED Vital Signs: Vital Signs - 24 hr 05/03/25 13:26 Temperature 98 F Pulse Rate 84 Respiratory Rate 18 Blood Pressure 140/82 H Pulse Oximetry 99 Oxygen Delivery Method Room Air BMI result Body Mass Index 42.9 Vital signs were normal Exam: General: Awake, alert in no distress Extremities: Patient has hands are erythematous, appeared to be swollen, skin is cracked and very dry. The patient's left foot and ankle appeared to be slightly swollen compared to the right Neuro: Awake, alert, oriented, normal speech, cranial nerves 2-12 intact, moves all extremities symmetrically Psych: Pleasant, cooperative Course Course Course Narrative: Sharon Pascucci DIELECTRIC TESTER 05/03 5168 This is a rapid medical exam. Deferred additional HPI, ROS, PE to primary provider. 54 yo female with PMH arthritis, fibromyalgia, asthma, HTN, HLD, migraines, DM, GERD, h/o PE (2 yrs ago, not on AC therapy), carpal tunnel syndrome here with multiple complaints. 1) Left lower leg/ankle pain and swelling x 3 days. No injury or trauma. 2) 1 month of bilateral hand pain/swelling. Has itchy rash to both hands. Has been taking cortisone cream and using topical antibiotic ointment. Will obtain x-ray left ankle, venous US VSS Medications Administered Discontinued Medications Generic Name Dose Route Start Last Admin Trade Name Chichoq PRN Reason Stop Dose Admin Acetaminophen 975 mg 05/03/25 15:19 05/03/25 15:31 Acetaminophen 325 Mg Tablet PO 05/03/25 15:20 975 mg ONCE ONE Administration Prednisone 40 mg 05/03/25 15:19 05/03/25 15:32 Prednisone 20 Mg Tablet PO 05/03/25 15:20 40 mg ONCE ONE Administration Medical Decision Making Medical Decision Making [facility] Narrative: 54-year-old female with a history of arthritis, fibromyalgia, asthma, HTN, HLD, migraines, DM, GERD, h/o PE (2 yrs ago, not on AC therapy), carpal tunnel syndrome who presents emergency department for evaluation of pain, dry cracked skin in her hands and pain and swelling in her left foot and ankle with pain traveling up her leg to her hip area. The patient states that for the past 6 weeks, she developed pain and and pruritic sensation in her hands. She states that her skin has become very dry, cracked red and inflamed. She also is complaining of pain and swelling in her left foot and ankle x3 days with the pain traveling upper leg to her hip. She denies any numbness or weakness of her left lower extremity. She states she had 1 episode of left-sided chest pain associated with shortness of breath 2 days prior by has no chest pain or shortness of breath at this time. She denied fever, chills, cough. She has had nausea with no vomiting. Vital signs were normal. Exam of the patient's hand revealed swelling, erythema, dry cracked skin. Exam of the right lower extremity revealed swelling of the ankle and foot otherwise unremarkable. Differential diagnosis: ?Includes but is not limited to: Hands: Nonspecific dermatitis, dry skin, cellulitis Left extremity: Inflammatory arthritis, peripheral edema, DVT Course: 15:27 The patient's left ankle x-ray revealed no acute findings to explain your symptoms. Patient was given Tylenol 975 mg orally for pain and prednisone 40 mg hand dermatitis. 16:38 The patient's duplex ultrasound of her left lower extremity was negative. I believe that the patient has a low likelihood of having a blood clot in her left leg. I did discuss this with the patient and I told her that if the swelling got worse or if she was not completely better in 4-7 days then she should have a repeat ultrasound to evaluate for possible propagation of the clot that has not seen today. My also told her that if she developed any symptoms such as chest pain, shortness of breath, lightheadedness, dizziness or passes out she should return to the emergency department for re-evaluation. Patient was starting on prednisone 40 mg once a day for 7 days then decrease by 1 pill every 2 days until she completes a tapering course for nonspecific dermatitis of her hands. She was also advised to apply a moisturizing cream twice a day to her hands for 2 weeks. She was advised to take Tylenol 1000 mg 3 times a day as needed for pain. She was given printed and verbal instructions and discharged home. Differential Diagnosis Differential Diagnoses: The differential diagnosis associated with the presentation includes (See above) Admission/Observation Consideration of admission/observation: Escalation of care including admission/observation considered (Yes) Radiology Impression Discussion of test interpretation with radiology: I have reviewed the radiologist's reading. Radiologist Impression: Venous duplex ultrasound left lower extremity Comparison: US/SR - US LOWER EXTREMITY VEINS BILATERAL - 10/05/23 08:43 EST Findings: The visualized deep veins are fully compressible with normal Doppler color flow and spectral tracings. No popliteal cyst. IMPRESSION: 1. Negative for left lower extremity deep vein thrombosis. This document has been electronically signed by: Autumn Mcgowan MD on 05/03/2025 16:30:20 Independent Historian Clinical information obtained from an independent historian. History obtained from or confirmed by: Other (Sister) Prescription Management I considered prescription management with: Other (Anti-inflammatory steroids: Prednisone) Chronic Conditions Patient?s care impacted by: Diabetes and Hypertension Discharge Plan Discharge Clinical Impression: Atopic dermatitis of both hands, Left ankle swelling, Swelling of left foot Patient Disposition: Home, Self-Care Additional Instructions: The x-rays of your left ankle were normal The duplex ultrasound of your left leg did not reveal any blood clots at this time. If the pain and swelling gets worse, if the swelling in his spreading up your leg or if you are not completely better after 4-7 days then you need to return to the emergency department for re-evaluation for possible blood clot that has not seen on the initial duplex ultrasound. The pain, redness and swelling of your hands are consistent with a nonspecific dermatitis. This should improve with prednisone. Take prednisone 10 mg pills, 4 pills once a day for 7 days then decrease by 1 pill every 2 days until you complete the prescription Take extra-strength Tylenol 500 mg pills, 2 pills every 6 hours as needed for pain. Do not take more than 6 pills per day. Continue taking medications as prescribed by your providers Follow-up with your doctor in 2 days. Please return to the emergency department if your symptoms get worse or if you develop any symptoms that are concerning to you. Prescriptions: New prednisone 10 mg tablet 10 mg PO DIRECTED Qty: 40 0RF Rx Instructions: Day 1-7, 4pills. Day 8-9, 3 pills. Day 10-11, 2 pills. Day 12-13, 1 pill No Action diclofenac sodium 1 % gel 4 - 6 g topical QID PRN (Reason: pain) Qty: 100 0RF pantoprazole 40 mg tablet,delayed release (DR/EC) 40 mg PO QAM Qty: 90 3RF ezetimibe 10 mg tablet 10 mg PO QAM Qty: 90 3RF atorvastatin 80 mg tablet 80 mg PO BEDTIME Qty: 90 3RF metoprolol succinate 25 mg tablet extended release 24 hr 25 mg PO QAM Qty: 90 3RF aspirin 81 mg tablet,delayed release (DR/EC) 81 mg PO QAM Qty: 90 3RF sumatriptan succinate 50 mg tablet 1 tab PO DAILY ferrous sulfate [FeroSul] 325 mg (65 mg iron) tablet 1 tab PO BID prazosin [Minipress] 1 mg Capsule 1 mg PO BEDTIME docusate sodium [Dulcolax Stool Softener (dss)] 100 mg capsule 1 cap PO DIRECTED gabapentin 600 mg tablet 600 mg PO TID cyclobenzaprine 5 mg tablet 5 mg PO BEDTIME albuterol sulfate 90 mcg/actuation aero powdr breath act w/sensor 1 inh inhalation Q4-6H PRN (Reason: Wheezing) clonazepam 0.25 mg tablet,disintegrating 0.25 mg PO DAILY duloxetine 30 mg capsule,delayed release(DR/EC) 30 mg PO DAILY lidocaine [Lidoderm] 5 % adhesive patch,medicated 1 patch topical DAILY Rx Instructions: leave on most painful area for up to 12 hrs cyanocobalamin (vitamin B-12) 1,000 mcg tablet 1,000 mcg PO QPM divalproex 250 mg tablet extended release 24 hr 250 mg PO BID calcium carbonate-vitamin D3 600 mg-10 mcg (400 unit) tablet 1 tab PO QAM acetaminophen 650 mg tablet extended release 650 mg PO Q8H PRN (Reason: mild pain) clotrimazole-betamethasone 1-0.05 % cream 1 appl topical BID 7 Days Qty: 45 1RF metformin 500 mg tablet extended release 24 hr 500 mg PO gabapentin 300 mg capsule 300 mg PO BEDTIME isosorbide mononitrate 60 mg tablet extended release 24 hr 60 mg PO QAM fluphenazine HCl 2.5 mg tablet 2.5 mg PO sodium,potassium,mag sulfates [Suprep Bowel Prep Kit] 17.5-3.13-1.6 gram recon soln See Rx Instructions PO .COMPLEX Qty: 354 0RF Rx Instructions: DILUTE; drink 1/2 at 6-8 pm and half at 11 PM- 1AM Trulicity 0.75 mg/0.5 mL pen injector subcut QWEEK Print Language: Khmer
--- OUTSIDE RECORDS SUMMARY | 2025-05-03 14:23 | XMS_ITS | Clinical Summary ---
Author Organization [facility] Address [address] [place] [phone] Phone Care Team Providers Care Clinical Unit Educator Name Role Phone Kashif Gamino MD Primary [...] file Medical Devices Not on file Insurance [facility]UN[facility] C[facility] COOPERATIVE C3 ACO C3 ACO C3 ACO C3 ACO [facility] C3 ACO [facility] C3 ACO Care Teams Clinical Unit Educator Relationship Specialty Start Date End Date Kashif Gamino MD [address] [place] [address] [address] [place] [phone] [email or web address] PCP - General Internal Medicine 08/13/23 Additional Source Comments The information contained in this document represents components of the legal health record. It is not the complete legal health record.[facility]
[2025-05-03 16:52] VITALS: BP 140/82; PULSE 84; RESP 18; TEMP 36.6; O2SAT 99
== END 2025-05-03 17:10 | disposition home or self-care (01) ==
PROVIDERS: Emergency Provider Emergency Medicine Emergency Medical Services; PCP Nurse Practitioner Primary Care
DX: L30.9 Dermatitis, unspecified (principal); R60.0 Localized edema; R11.0 Nausea; M25.572 Pain in left ankle and joints of left foot; E11.9 Type 2 diabetes mellitus without complications; I10 Essential (primary) hypertension; Z79.899 Other long term (current) drug therapy; F17.210 Nicotine dependence, cigarettes, uncomplicated
CPT/HCPCS: 73610; 93971; 99283; 99284

== ENCOUNTER → 2025-05-03 13:31 | Outpatient (BNV) | payer MEDICAID, SELFPAY | PROVIDERS: Emergency Provider Emergency Medicine Emergency Medical Services; PCP Nurse Practitioner Primary Care; Visit Provider Nuclear Medicine | DX: M79.662 Pain in left lower leg (principal); R22.42 Localized swelling, mass and lump, left lower limb; M25.572 Pain in left ankle and joints of left foot | CPT/HCPCS: 73610; 93971 ==

== ENCOUNTER 2025-05-15 10:18 | Outpatient (AMB) | payer MEDICAID, SELFPAY ==
--- NOTE | 2025-05-15 10:47 | MHC.OFFVIS ---
Intake Visit Reasons: migraine Allergies No Known Allergies Allergy (Verified 05/15/25 10:54) Medication List - Last Reconciled 05/15/25 by Mckenzie Cagle CNP acetaminophen ER 650 mg PO Q8H PRN albuterol sulfate 90 mcg/actuation 1 inh inhalation Q4-6H PRN aspirin 81 mg PO QAM atorvastatin 80 mg PO BEDTIME calcium carbonate-vitamin D3 600 mg-10 mcg (400 unit) 1 tab PO QAM clonazepam 0.25 mg PO DAILY clotrimazole-betamethasone 1-0.05 % 1 appl topical BID 7 days cyanocobalamin (vitamin B-12) 1,000 mcg PO QPM cyclobenzaprine 5 mg PO BEDTIME diclofenac sodium 1% 4 - 6 grams topical QID PRN divalproex ER 250 mg PO BID docusate sodium (Dulcolax Stool Softener (docusate)) 1 cap PO DIRECTED dulaglutide (Trulicity) mg subcut QWEEK duloxetine 30 mg PO DAILY ezetimibe 10 mg PO QAM ferrous sulfate (FeroSul) 1 tab PO BID fluphenazine HCl 2.5 mg PO gabapentin 600 mg PO TID gabapentin 300 mg PO BEDTIME isosorbide mononitrate ER 60 mg PO QAM lidocaine 5% (Lidoderm) 1 patch topical DAILY metformin ER 500 mg PO metoprolol succinate ER 25 mg PO QAM pantoprazole 40 mg PO QAM prazosin (Minipress) 1 mg PO BEDTIME prednisone 10 mg PO DIRECTED sodium,potassium,mag sulfates 17.5-3.13-1.6 gram (Suprep Bowel Prep Kit) DILUTE; drink 1/2 at 6-8 pm and half at 11 PM- 1AM HPI Comments Details: 54-year-old woman with obesity, UMAIR on CPAP, h/o 3 miscarriages, pulmonary embolism in December of 2018, and migraine headaches. She was doing so-so. She was having headaches about 3-4x/week, usually to front or back of head, moderate to severe throbbing-type pain with photophobia and sonophobia. No nausea and vomiting. She had to lay down in a dark, quiet room. Rizatriptan as needed did not help. She was taking Tylenol 650mg 2-3x/day for a long time. Sleep was okay with CPAP. [facility] Medical History Family history of breast cancer Atherosclerotic cardiovascular disease Ventral hernia Morbid obesity Hypertension Fibromyalgia Vitamin D deficiency Pre-diabetes Hypertriglyceridemia Vitamin B12 deficiency Sleep apnea STEVEN (iron deficiency anemia) Pulmonary embolism Surgical History H/O hernia repair Gastric bypass status for obesity deliv NOS-unsp Hx of endoscopy History of colonoscopy Family History Father No problems noted. Mother Stomach cancer Blood disorder Migraine Paternal Uncle Stomach cancer Pancreatic cancer Throat cancer Maternal Aunt Breast cancer Paternal Aunt Breast cancer Paternal Uncle Stomach cancer Maternal Grandmother Colon cancer Brother Blood disorder Migraine Brother Migraine Social History Household Members: Spouse and Children Housing: House Are you a primary care information associate to a significant other at home: No Do you presently have visiting nurse or other home services: No Alcohol intake: former Patient Tobacco Use Status: Current everyday Tobacco user Tobacco use type: Cigarette Years Smoked: 30 service: No Current occupational status: unemployed Sexual orientation: Straight/Heterosexual Gender identity: Female Female Reproductive History Menstrual Age of Menarche: 10 Review of Systems Const Denies chills, Denies daytime sleepiness, Denies difficulty sleeping, Denies fatigue, Denies fever(s), Denies frequent falls, Reports headache(s), Denies increased appetite, Denies poor appetite, Denies snoring, Denies weakness, Denies weight gain and Denies weight loss Eyes Denies loss of vision ENT Denies vertigo, Denies dizziness and Reports headache(s) Card Denies chest pain at rest, Denies chest pain with activity, Denies syncope, Denies leg edema and Denies palpitations Resp Denies snoring GI Denies constipation, Denies heartburn, Denies diarrhea and Denies nausea Denies urinary frequency, Denies urinary incontinence and Denies urinary urgency Musc Denies abnormal gait, Denies numbness and Denies tingling Skin/Breast Denies dry skin and Denies rash Neuro Denies abnormal gait, Denies vertigo, Denies dizziness, Denies syncope, Denies frequent falls, Reports headache(s), Denies lack of coordination, Denies loss of vision, Denies memory loss, Denies numbness, Denies restless legs, Denies seizure-like activity, Denies tingling, Denies paresthesias, Denies tremor(s) and Denies weakness Psych Denies anxiety, Denies depression, Denies auditory hallucinations, Denies memory loss, Denies visual hallucinations and Denies suicidal ideation Endo Denies fatigue and Denies palpitations Physical Exam Const Other: General Appearance:? normal, in no acute distress. Skin:? no rashes, no significant birthmarks. Heart:? S1, S2 normal, no murmurs. Lungs:? clear anteriorly and posteriorly. Extremities:? no edema. Psych:? alert, oriented, cognitive function intact, cooperative with exam. Neuro Other: Mental Status:?Normal attention, orientation, memory and affect.? Cranial Nerves:?Pupils are equal, round and reactive to light. External occular muscles are intact. Visual fabian are full. Face is symmetrical. Facial sensations are normal. Tongue is midline. Palate elevates symmetrically. Shoulder shrugging is normal. Hearing to bedside conversation is normal. Sensory Exam:?....? Coordination:?No ataxia,?no titubation.? Gait Exam: With cane. Extrapyramidal System:?No tremor, rigidity with normal facial expressions.? Pronator Drift:?Not present.? Involuntary Movements:?No tremors seen.? Speech:?Normal.? Assessment & Plan Assessment & Plan (1) Migraine without aura: Code(s): G43.009 - Migraine without aura, not intractable, without status migrainosus Category: Medical Qualifiers: Status migrainosus presence: without status migrainosus Intractability: not intractable Qualified Code(s): G43.009 - Migraine without aura, not intractable, without status migrainosus Plan: Increase Depakote ER 250mg 1 tablet in the morning and 2 tablets at bedtime. She tried and failed sumatriptan and rizatriptan. Start Nurtec 75mg 1 tablet as needed for migraines. (2) Medication overuse headache: Code(s): G44.40 - Drug-induced headache, not elsewhere classified, not intractable Category: Medical Plan: She was educated on this and advised to stop Tylenol completely (and avoid using other OTC analgesics). Plan Meds tried: topiramate, Depakote, sumatriptan Medications: New rimegepant (Nurtec ODT) 75 mg PO Q OTHER DAY PRN 8 tabs 2RF migraine headache 30 days Changed From divalproex ER 250 mg PO BID To divalproex ER 250 mg orally 1 tablet in the morning and 2 tablets at bedtime; 270 tabs 0RF 90 days Coding Level of Care Code Est Pt Level 4 (57199) Diagnoses Migraine without aura and without status migrainosus, not intractable G43.009 Status migrainosus presence: without status migrainosus Intractability: not intractable Medication overuse headache G44.40
== END 2025-05-15 11:06 | disposition home or self-care (01) ==
LOC: HO.HSM 10:19
PROVIDERS: PCP Nurse Practitioner Primary Care; Visit Provider Registered Nurse
DX: G43.009 Migraine without aura, not intractable, without status migrainosus (principal); G44.40 Drug-induced headache, not elsewhere classified, not intractable
CPT/HCPCS: 99214

== ENCOUNTER → 2025-05-15 10:18 | Outpatient (BNVA) | payer MEDICAID, SELFPAY | PROVIDERS: PCP Nurse Practitioner Primary Care; Visit Provider Registered Nurse | DX: G43.009 Migraine without aura, not intractable, without status migrainosus (principal); G44.40 Drug-induced headache, not elsewhere classified, not intractable | CPT/HCPCS: 99212 ==

== ENCOUNTER 2025-05-28 09:08 | Outpatient (AMB) | payer MEDICAID, SELFPAY ==
[2025-05-28 09:11] VITALS: BP 114/72; PULSE 78; BMI 43.7
--- NOTE | 2025-05-28 09:11 | A.OFFVIS_ITS ---
Vital Signs 05/28/25 09:11 Height 5 ft 1 in Weight 231 lb 0.711 oz BMI 43.7 BP 114/72 Blood Pressure Location Lt brachial Position Sitting Pulse 78 Pulse Source Pulse Oximeter Intake Visit Reasons: 6m follow up Gospel Worker Required: Yes Gospel Worker Language: Tankage Grinder Operator Name: salomón evangelista [id number] Allergies No Known Allergies Allergy (Verified 05/28/25 09:14) Medication List - Last Reconciled 05/28/25 by MICHAEL Luna acetaminophen ER 650 mg PO Q8H PRN albuterol sulfate 90 mcg/actuation 1 inh inhalation Q4-6H PRN aspirin 81 mg PO QAM atorvastatin 80 mg PO BEDTIME calcium carbonate-vitamin D3 600 mg-10 mcg (400 unit) 1 tab PO QAM clonazepam 0.25 mg PO DAILY clotrimazole-betamethasone 1-0.05 % 1 appl topical BID 7 days cyanocobalamin (vitamin B-12) 1,000 mcg PO QPM cyclobenzaprine 5 mg PO BEDTIME diclofenac sodium 1% 4 - 6 grams topical QID PRN divalproex ER 250 mg orally 1 tablet in the morning and 2 tablets at bedtime; 90 days docusate sodium (Dulcolax Stool Softener (docusate)) 1 cap PO DIRECTED dulaglutide (Trulicity) mg subcut QWEEK duloxetine 30 mg PO DAILY ezetimibe 10 mg PO QAM ferrous sulfate (FeroSul) 1 tab PO BID fluphenazine HCl 2.5 mg PO gabapentin 600 mg PO TID gabapentin 300 mg PO BEDTIME isosorbide mononitrate ER 60 mg PO QAM lidocaine 5% (Lidoderm) 1 patch topical DAILY metformin ER 500 mg PO metoprolol succinate ER 25 mg PO QAM pantoprazole 40 mg PO QAM prazosin (Minipress) 1 mg PO BEDTIME prednisone 10 mg PO DIRECTED rimegepant (Nurtec ODT) 75 mg PO Q OTHER DAY PRN 30 days sodium,potassium,mag sulfates 17.5-3.13-1.6 gram (Suprep Bowel Prep Kit) DILUTE; drink 1/2 at 6-8 pm and half at 11 PM- 1AM HPI HPI 6m follow up: Details: Barb is a 54 year-old female past medical history hypertension, pre diabetes, hyperlipidemia, obesity, sleep apnea with CPAP use who presented to [facility] 08/04/23 with chest discomfort and ruled in for NSTEMI, who was transferred to [facility] and underwent cardiac catheterization showing only moderate LAD stenosis with normal IFR that was managed medically. An outpt nuclear stress test was normal. She now presents for follow-up. Today she reports she still gets periodic sharp stabbing pains in her anterior chest. She says the episodes last 1-2 seconds. They have not increased in frequency or severity since last visit. She has no other types of chest discomfort. She still has some discomfort with her left shoulder. No shortness of breath, lightheadedness, palpitations, presyncope, syncope, PND, orthopnea or edema. Wears CPAP each night. She still drinks 1 caffeinated drink per day. She is taking meds as directed. Lives on the 2nd floor and is able to climb stairs slowly. She has issues with her knees. She is active with house cleaning and watching TV. She takes her meds as directed. 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 [facility] Medical History Family history of breast cancer Atherosclerotic cardiovascular disease Ventral hernia Morbid obesity Hypertension Fibromyalgia Vitamin D deficiency Pre-diabetes Hypertriglyceridemia Vitamin B12 deficiency Sleep apnea STEVEN (iron deficiency anemia) Pulmonary embolism Surgical History H/O hernia repair Gastric bypass status for obesity deliv NOS-unsp Hx of endoscopy History of colonoscopy Family History Father No problems noted. Mother Stomach cancer Blood disorder Migraine Paternal Uncle Stomach cancer Pancreatic cancer Throat cancer Maternal Aunt Breast cancer Paternal Aunt Breast cancer Paternal Uncle Stomach cancer Maternal Grandmother Colon cancer Brother Blood disorder Migraine Brother Migraine Social History Household Members: Spouse and Children Housing: House Are you a primary manager intensive care to a significant other at home: No Do you presently have visiting nurse or other home services: No Alcohol intake: former Patient Tobacco Use Status: Current everyday Tobacco user Tobacco use type: Cigarette Years Smoked: 30 service: No Current occupational status: unemployed Sexual orientation: Straight/Heterosexual Gender identity: Female Female Reproductive History Menstrual Age of Menarche: 10 Review of Systems Const All systems reviewed & are unremarkable except as noted in HPI and below ENT Denies dizziness Card Reports chest pain (stabbing pains - last 1-2 sec), Denies chest pain at rest, Denies chest pain with activity, Denies rapid heart rate, Denies pedal edema, Denies edema, Denies leg edema, Denies lightheadedness, Denies palpitations, Denies dyspnea, Denies dyspnea on exertion and Denies orthopnea Resp Denies cough, Denies dyspnea and Denies dyspnea on exertion GI Denies hematochezia and Denies change in stool character Musc Denies abnormal gait, Denies limited range of motion, Denies muscle cramps, Denies muscle weakness, Denies numbness, Denies radiating pain into limb, Denies stiffness and Denies tingling Neuro Denies abnormal gait, Denies dizziness, Denies numbness and Denies tingling Endo Denies palpitations Physical Exam Vital Signs: Last Vital Signs Pulse 78 05/28/25 09:11 BP 114/72 05/28/25 09:11 BMI result Body Mass Index 43.7 Const General: cooperative, healthy appearing, comfortable and no acute distress Orientation/consciousness: patient oriented x3 Neck Neck: Yes normal visual inspection and Yes no JVD Resp Effort & Inspection: normal respiratory effort Auscultation: clear to auscultation bilaterally, no crackles, no rales, no rhonchi and no wheezes Cardio Jugular venous distension: no JVD Rate: regular rate Rhythm: regular rhythm Heart sounds: S1 normal heart sound present, S2 normal heart sound present, no murmurs and no rubs Neuro General: patient oriented x3 Extrem General: Yes normal to inspection and No no pedal edema Psych Appearance: grossly normal Mental Status: mental status grossly normal Speech and movement: Normal speech and movement present Assessment & Plan Assessment & Plan (1) Non-ST elevated myocardial infarction (non-STEMI): Code(s): I21.4 - Non-ST elevation (NSTEMI) myocardial infarction Category: Medical Plan: Presented to [facility] 08/04/23 with chest discomfort and ruled in for NSTEMI. Cardiac catheterization on 08/07/2023 showing moderate mid LAD stenosis with normal IFR. Unclear if this was the cause of her NSTEMI since she was still having chest discomfort with visible normal flow. She was managed medically. Outpatient nuclear stress test done on 10/31/2023 showed normal myocardial per fusion imaging, EF 58%. Echocardiogram done 10/29/2023 showed EF 60%, no valve abnormalities and no regional wall motion abnormalities. She currently reports atypical chest pains which are not new. Continue with risk factor modification, Continue on aspirin indefinitely. Continue atorvastatin and Zetia with ideal LDL goal less than 70. Continue metoprolol and isosorbide. Signs and symptoms of angina reviewed with her. Cardiology follow-up 6 months, sooner if needed (2) Hypertension: Code(s): I10 - Essential (primary) hypertension Category: Medical Plan: BP goal less than 130/80. Well controlled at present.. Continue low-dose metoprolol and isosorbide. (3) S/P cardiac catheterization: Comment: 08/07/2023, mid LAD 65% stenosis, MARTIN 3 flow, remaining vessels normal Code(s): Z98.890 - Other specified postprocedural states Category: Surgical Plan: As above (4) Atherosclerotic cardiovascular disease: Code(s): I25.10 - Atherosclerotic heart disease of [place] coronary artery without angina pectoris Category: Medical Plan: Mild nonobstructive (5) Hyperlipidemia: Code(s): E78.5 - Hyperlipidemia, unspecified Category: Medical Plan: [place] LDL goal less than 70. Labs done 12/02/2024 showed LDL 70. Continue atorvastatin and Zetia. Plan I discussed with the patient that the stabbing chest pain is likely not cardiac in origin since it is not new or changing. I advised her to monitor the pain for any changes and to report if it worsens. We reviewed her previous cardiac testing, which showed some coronary vessel narrowing, but it was not severe. I recommended ongoing med management and continuing CPAP therapy for sleep apnea management. We agreed on a follow-up in six months, sooner if needed. Patient Instructions: - Monitor chest pain for changes in duration or frequency. - Continue using CPAP machine for sleep apnea. - Continue all current medications - Follow up in six months or sooner if symptoms worsen. Patient was informed and verbally consented to the use of an ambient scribe for clinic note documentation during this visit. Visit time spent on chart review, interview, assessment, orders, documentation. Coding Level of Care Code Est Pt Level 4 (04310) Complex EM visit Add On G2211 Diagnoses Non-ST elevated myocardial infarction (non-STEMI) I21.4 Hypertension I10 S/P cardiac catheterization Z98.890 Atherosclerotic cardiovascular disease I25.10 Hyperlipidemia E78.5 Time Spent (min) 30
== END 2025-05-28 09:38 | disposition home or self-care (01) ==
LOC: HO.HCS 09:09
PROVIDERS: PCP Nurse Practitioner Primary Care; Visit Provider Nurse Practitioner Family
DX: I21.4 Non-ST elevation (NSTEMI) myocardial infarction (principal); I10 Essential (primary) hypertension; Z98.890 Other specified postprocedural states; I25.10 Atherosclerotic heart disease of native coronary artery without angina pectoris; E78.5 Hyperlipidemia, unspecified
CPT/HCPCS: 99214

== ENCOUNTER → 2025-05-28 09:08 | Outpatient (BNVA) | payer MEDICAID, SELFPAY | PROVIDERS: PCP Nurse Practitioner Primary Care; Visit Provider Nurse Practitioner Family | DX: I21.4 Non-ST elevation (NSTEMI) myocardial infarction (principal); I10 Essential (primary) hypertension; I25.10 Atherosclerotic heart disease of native coronary artery without angina pectoris; E78.5 Hyperlipidemia, unspecified | CPT/HCPCS: 99212 ==

== ENCOUNTER 2025-06-23 10:16 | Outpatient (REF) | payer MEDICAID, SELFPAY ==
[2025-06-23 12:25] LABS: Alanine Aminotransferase 71 U/L (0-31); Albumin Level 4.6 g/dL (3.5-5.0); Alkaline Phosphatase 105 U/L (39-117); Anion Gap 15 (12-20); Aspartate Amino Transferase 55 U/L (5-31); Blood Urea Nitrogen 7 mg/dL (9-16); Calcium 9.4 mg/dL (8.4-10.2); Carbon Dioxide 26 mmol/L (22-29); Chloride 103 mmol/L (96-108); Cholesterol 235 mg/dL (<200); Estimated Glomerular Filt Rate > 60; HDL Cholesterol 45 mg/dL (>40); Potassium 4.1 mmol/L (3.3-5.1); Sodium 140 mmol/L (135-145); Total Protein 8.0 g/dL (6.5-8.0); Triglycerides 296 mg/dL (<150)
[2025-06-23 12:30] LABS: Cholesterol 245 mg/dL (<200); HDL Cholesterol 47 mg/dL (>40); Triglycerides 310 mg/dL (<150)
[2025-06-26 08:23] LABS: TS Negative Control Passed; TS Panel A 0; TS Panel B 0; TS Positive Control Passed; TSpotTB Negative (Negative)
== END 2025-06-23 10:17 | disposition home or self-care (01) ==
LOC: HO.HHCL 10:16
PROVIDERS: Nurse Practitioner Family; PCP Nurse Practitioner Primary Care; Visit Provider Nurse Practitioner Primary Care
DX: Z11.1 Encounter for screening for respiratory tuberculosis (principal); I83.12 Varicose veins of left lower extremity with inflammation; I25.10 Atherosclerotic heart disease of native coronary artery without angina pectoris; E11.69 Type 2 diabetes mellitus with other specified complication; E78.1 Pure hyperglyceridemia; E55.9 Vitamin D deficiency, unspecified
CPT/HCPCS: 36415; 80053; 80061; 82180; 82306; 86481

== ENCOUNTER 2025-07-20 13:53 | Emergency (ER) | payer MEDICAID, SELFPAY ==
--- NOTE | ~2025-07-20 | XR_ITS ---
EXAMINATION: X-ray left ankle X-ray left foot CLINICAL INFORMATION: Pain, injury COMPARISON: None TECHNIQUE: Ankle 3 views. Foot 3 views. FINDINGS: Ankle: No visible acute fracture, dislocation or suspicious bony lesion. Ankle mortise is congruent. No talar OCD. Subtalar articulation is maintained. Prominent plantar and posterior calcaneal spur. Soft tissue swelling. Fracture. Foot: Bone mineralization is decreased. No visible acute fracture, dislocation or suspicious bony lesion. Mild hallux valgus. Alignment is anatomic. No significant arthropathy is seen. No erosions. No abnormal soft tissue calcification. Plantar and posterior calcaneal spurring. Mild soft tissue swelling. XR/XR ankle LT min 3V IMPRESSION: No radiographic evidence of acute fracture. Electronically signed by: Ravi Meza MD 07/20/2025 03:42 PM SCOT
--- NOTE | ~2025-07-20 | XR_ITS ---
EXAMINATION: X-ray left ankle X-ray left foot CLINICAL INFORMATION: Pain, injury COMPARISON: None TECHNIQUE: Ankle 3 views. Foot 3 views. FINDINGS: Ankle: No visible acute fracture, dislocation or suspicious bony lesion. Ankle mortise is congruent. No talar OCD. Subtalar articulation is maintained. Prominent plantar and posterior calcaneal spur. Soft tissue swelling. Fracture. Foot: Bone mineralization is decreased. No visible acute fracture, dislocation or suspicious bony lesion. Mild hallux valgus. Alignment is anatomic. No significant arthropathy is seen. No erosions. No abnormal soft tissue calcification. Plantar and posterior calcaneal spurring. Mild soft tissue swelling. XR/XR foot LT min 3V IMPRESSION: No radiographic evidence of acute fracture. Electronically signed by: Ravi Meza MD 07/20/2025 03:42 PM SCOT PANG
--- NOTE | 2025-07-20 14:37 | ED.GENADULT ---
HPI - General Adult General Chief complaint: Extremity Problem Stated complaint: L leg pain Time Seen by Provider: 07/20/25 17:03 Source: patient and family Mode of arrival: ambulatory Limitations: language barrier (Sanjuanita) History of Present Illness HPI narrative: 54-year-old female who has a history of arthritis, fibromyalgia, asthma, HTN, HLD, migraines, DM, GERD, h/o PE (2 yrs ago, not on AC therapy), presents for evaluation of left foot pain. Patient states symptoms have been going on since at least April. She has been evaluated in the emergency department prior to this and has had negative imaging previously. Patient states she denies any initial trauma. No paresthesias or paralysis. She walks with a cane. She continues to ambulate on her left foot. She is scheduled with orthopedic follow-up in September. Patient reports close is controlled. She is otherwise feeling well. Related Data Home Medications ?Medication ?Instructions ?Recorded ?Confirmed albuterol sulfate 90 mcg/actuation 1 inh inhalation Q4-6H PRN Wheezing 02/25/21 05/28/25 breath activated powder inhaler,sensor clonazepam 0.25 mg disintegrating 0.25 mg PO DAILY 02/25/21 05/28/25 tablet ferrous sulfate 325 mg (65 mg 1 tab PO BID 01/11/22 05/28/25 iron) tablet (FeroSul) duloxetine 30 mg capsule,delayed 30 mg PO DAILY 02/01/22 05/28/25 release lidocaine 5 % topical patch 1 patch topical DAILY 02/01/22 05/28/25 (Lidoderm) docusate sodium 100 mg capsule 1 cap PO DIRECTED 04/18/22 05/28/25 (Dulcolax Stool Softener (docusate)) prazosin 1 mg capsule (Minipress) 1 mg PO BEDTIME 04/18/22 05/28/25 cyanocobalamin (vitamin B-12) 1,000 mcg PO QPM 05/08/22 05/28/25 1,000 mcg tablet gabapentin 600 mg tablet 600 mg PO TID 11/29/22 05/28/25 acetaminophen 650 mg 650 mg PO Q8H PRN mild pain 07/23/23 05/28/25 tablet,extended release calcium 600 mg (as 1 tab PO QAM 07/23/23 05/28/25 carbonate)-vitamin D3 10 mcg (400 unit) tablet fluphenazine HCl 2.5 mg tablet 2.5 mg PO 12/01/24 05/28/25 gabapentin 300 mg capsule 300 mg PO BEDTIME 12/01/24 05/28/25 isosorbide mononitrate 60 mg 60 mg PO QAM 12/01/24 05/28/25 tablet,extended release 24 hr metformin 500 mg tablet,extended 500 mg PO 12/01/24 05/28/25 release 24 hr dulaglutide 1.5 mg/0.5 mL mg subcut QWEEK 05/28/25 05/28/25 subcutaneous [facility] Previous Rx's ?Medication ?Instructions ?Recorded diclofenac sodium 1 % topical gel 4 - 6 g topical QID PRN pain #100 10/03/23 grams clotrimazole-betamethasone 1 1 appl topical BID fungal rash 7 07/22/24 %-0.05 % topical cream days #45 grams aspirin 81 mg tablet,delayed 81 mg PO QAM #90 tabs 11/25/24 release atorvastatin 80 mg tablet 80 mg PO BEDTIME #90 tabs 11/25/24 ezetimibe 10 mg tablet 10 mg PO QAM #90 tabs 11/25/24 metoprolol succinate 25 mg 25 mg PO QAM #90 tabs 11/25/24 tablet,extended release 24 hr sodium,potassium,mag sulfates 17.5 See Rx Instructions PO .COMPLEX 12/01/24 gram-3.13 gram-1.6 gram oral soln #354 mL (Suprep Bowel Prep Kit) prednisone 10 mg tablet 10 mg PO DIRECTED #40 tabs 05/03/25 pantoprazole 40 mg tablet,delayed 40 mg PO QAM #90 tabs 05/07/25 release divalproex 250 mg tablet,extended 250 mg PO .COMPLEX 90 days #270 05/15/25 release 24 hr tabs rimegepant 75 mg disintegrating 75 mg PO Q OTHER DAY PRN migraine 05/15/25 tablet (Nurtec ODT) headache 30 days #8 tabs diclofenac sodium 1 % topical gel 2 g topical QID PRN pain #50 grams 07/20/25 (Arthritis Pain (diclofenac)) methocarbamol 750 mg tablet 750 mg PO TID PRN muscle spasm #20 07/20/25 tabs Allergies Allergy/AdvReac Type Severity Reaction Status Date / Time No Known Allergies Allergy Verified 07/20/25 14:39 Review of Systems Review of Systems: Yes all other systems are reviewed and are negative Musculoskeletal: Musculoskeletal: Reports abnormal gait, Denies back pain and Reports arthralgias Neurologic: Reports abnormal gait PMFSH Past Medical History Medical History Family history of breast cancer Atherosclerotic cardiovascular disease Ventral hernia Morbid obesity Hypertension Fibromyalgia Vitamin D deficiency Pre-diabetes Hypertriglyceridemia Vitamin B12 deficiency Sleep apnea STEVEN (iron deficiency anemia) Pulmonary embolism Surgical History H/O hernia repair Gastric bypass status for obesity deliv NOS-unsp Hx of endoscopy History of colonoscopy Family History Family History Father No problems noted. Mother Stomach cancer Blood disorder Migraine Paternal Uncle Stomach cancer Pancreatic cancer Throat cancer Maternal Aunt Breast cancer Paternal Aunt Breast cancer Paternal Uncle Stomach cancer Maternal Grandmother Colon cancer Brother Blood disorder Migraine Brother Migraine Social History Social History Household Members: Spouse and Children Housing: House Are you a primary manager critical care unit to a significant other at home: No Do you presently have visiting nurse or other home services: No Alcohol intake: former Patient Tobacco Use Status: Current everyday Tobacco user Tobacco use type: Cigarette Years Smoked: 30 Advance Directives: No Advance Directives Information Provided: Yes service: No Current occupational status: unemployed Sexual orientation: Straight/Heterosexual Gender identity: Female Physical Exam ED Vital Signs: Vital Signs - 24 hr 07/20/25 14:38 Temperature 97 F Pulse Rate 82 Respiratory Rate 18 Blood Pressure 116/66 Pulse Oximetry 100 Oxygen Delivery Method Room Air BMI result Body Mass Index 42.3 Const General: cooperative, alert, awake and Physically active Back/Spine/Pelvis Other: diffuse soft tissue swelling surrounding the left foot. There are no open wounds. No erythema or discharge. There is diffuse tenderness along the left lateral malleolus and over the forefoot at the region of the 3rd and 4th metatarsal. There is no 5th metatarsal tenderness. No proximal tibial tenderness. No calf tenderness. Negative Homans sign. DP pulses are +2 equal bilaterally. Course Course Course Narrative: Rapid medical examination performed in triage by Shasha Taveras PA-C: Patient is a 54 year old female presenting to the emergency department with persistent left ankle pain. Patient states that she has been having pain in the ankle since April and it has not improved. Detailed physical exam and review of systems are deferred to the assembler steam and gas turbine. Imaging ordered. Patient placed back in the waiting room pending room availability and results. Medications Administered Discontinued Medications Generic Name Dose Route Start Last Admin Trade Name Freq PRN Reason Stop Dose Admin Methocarbamol 750 mg 07/20/25 17:19 07/20/25 17:26 Methocarbamol 750 Mg Tablet PO 07/20/25 17:20 750 mg ONCE ONE Administration Medical Decision Making Medical Decision Making MDM Narrative: 52-year-old female a history of chronic left foot and ankle pain, continued symptoms presents emergency department today. No indication for repeat trauma. No signs of infection. Concern for underlying ligamentous injury. X-rays are unremarkable at this time. They have been reviewed with the patient with secretary book keeper. Patient will continue with orthopedic follow-up. She has been advised to call to schedule her appointment. I have recommended rest, ice, elevate and avoiding strenuous activity. She is agreeable to air cast. She will continue using her cane. Trial of Robaxin and Voltaren cream. Patient expressed understanding of all discharge instructions and has no further questions at this time. Differential Diagnosis Differential Diagnoses: The differential diagnosis associated with the presentation includes Fracture Contusion Sprain Charcot foot Radiology Impression Discussion of test interpretation with radiology: I have reviewed the radiologist's reading. Prescription Management I considered prescription management with: Pain Medication Chronic Conditions Patient?s care impacted by: Diabetes Discharge Plan Discharge Clinical Impression: Acute pain of left foot Patient Disposition: Home, Self-Care Instructions: Metatarsalgia (DC) Additional Instructions: Rest. Ice. Avoid strenuous activity. Weightbear as tolerated. Air cast for comfort. Robaxin as directed pain. Diclofenac gel to the affected area. Follow-up with your orthopedist, call to schedule earlier appointment. Follow-up with your primary care provider. Call this week to schedule a follow-up appointment. Return to the emergency department if you have any worsening of symptoms, or any concerns. Get well soon! Prescriptions: New diclofenac sodium [Arthritis Pain (diclofenac)] 1 % gel 2 g topical QID PRN (Reason: pain) Qty: 50 0RF Rx Instructions: apply to foot on affected area. methocarbamol 750 mg tablet 750 mg PO TID PRN (Reason: muscle spasm) Qty: 20 0RF Discontinued cyclobenzaprine 5 mg tablet 5 mg PO BEDTIME No Action diclofenac sodium 1 % gel 4 - 6 g topical QID PRN (Reason: pain) Qty: 100 0RF ezetimibe 10 mg tablet 10 mg PO QAM Qty: 90 3RF atorvastatin 80 mg tablet 80 mg PO BEDTIME Qty: 90 3RF metoprolol succinate 25 mg tablet extended release 24 hr 25 mg PO QAM Qty: 90 3RF aspirin 81 mg tablet,delayed release (DR/EC) 81 mg PO QAM Qty: 90 3RF pantoprazole 40 mg tablet,delayed release (DR/EC) 40 mg PO QAM Qty: 90 3RF ferrous sulfate [FeroSul] 325 mg (65 mg iron) tablet 1 tab PO BID prazosin [Minipress] 1 mg Capsule 1 mg PO BEDTIME docusate sodium [Dulcolax Stool Softener (dss)] 100 mg capsule 1 cap PO DIRECTED gabapentin 600 mg tablet 600 mg PO TID prednisone 10 mg tablet 10 mg PO DIRECTED Qty: 40 0RF Rx Instructions: Day 1-7, 4pills. Day 8-9, 3 pills. Day 10-11, 2 pills. Day 12-13, 1 pill albuterol sulfate 90 mcg/actuation aero powdr breath act w/sensor 1 inh inhalation Q4-6H PRN (Reason: Wheezing) clonazepam 0.25 mg tablet,disintegrating 0.25 mg PO DAILY duloxetine 30 mg capsule,delayed release(DR/EC) 30 mg PO DAILY lidocaine [Lidoderm] 5 % adhesive patch,medicated 1 patch topical DAILY Rx Instructions: leave on most painful area for up to 12 hrs cyanocobalamin (vitamin B-12) 1,000 mcg tablet 1,000 mcg PO QPM calcium carbonate-vitamin D3 600 mg-10 mcg (400 unit) tablet 1 tab PO QAM acetaminophen 650 mg tablet extended release 650 mg PO Q8H PRN (Reason: mild pain) clotrimazole-betamethasone 1-0.05 % cream 1 appl topical BID 7 Days Qty: 45 1RF metformin 500 mg tablet extended release 24 hr 500 mg PO gabapentin 300 mg capsule 300 mg PO BEDTIME isosorbide mononitrate 60 mg tablet extended release 24 hr 60 mg PO QAM fluphenazine HCl 2.5 mg tablet 2.5 mg PO sodium,potassium,mag sulfates [Suprep Bowel Prep Kit] 17.5-3.13-1.6 gram recon soln See Rx Instructions PO .COMPLEX Qty: 354 0RF Rx Instructions: DILUTE; drink 1/2 at 6-8 pm and half at 11 PM- 1AM Trulicity 1.5 mg/0.5 mL pen injector subcut QWEEK divalproex 250 mg tablet extended release 24 hr 250 mg PO .COMPLEX 90 Days Qty: 270 0RF Rx Instructions: 250 mg orally 1 tablet in the morning and 2 tablets at bedtime; Nurtec ODT 75 mg tablet,disintegrating 75 mg PO Q OTHER DAY PRN (Reason: migraine headache) 30 Days Qty: 8 2RF Print Language: Sinhala
[2025-07-20 14:38] VITALS: BP 116/66; PULSE 82; RESP 18; TEMP 36.1; O2SAT 100; BMI 42.3
--- NOTE | 2025-07-20 17:39 | PC.NURSE ---
pt seen by PIT provider. medicated as charted. Aircast placed and pt discharged
--- OUTSIDE RECORDS SUMMARY | 2025-07-20 22:42 | XMS_ITS | Clinical Summary ---
Author Organization [facility] Address [address] [place] [id number] Phone Care Team Providers Care Bruise Trimmer Name Role Phone Kashif Gamino MD Primary [...] file Medical Devices Not on file Insurance [facility] C3 ACO C3 ACO C3 ACO C3 ACO [facility] C3 ACO [facility] C3 ACO Care Teams Bruise Trimmer Relationship Specialty Start Date End Date Kashif Gamino MD [address] [place] [address] [address] [place] [id number] [email or web address] PCP - General Internal Medicine 08/13/23 Additional Source Comments The information contained in this document represents components of the legal health record. It is not the complete legal health record.[facility]
--- OUTSIDE RECORDS SUMMARY | 2025-07-20 22:42 | XMS_ITS | Clinical Summary ---
Author Organization [address] [facility] Address [address] [place] [address] Phone Care Team Providers Care Chief Cardiopulmonary Technologist Name Role Phone Unavailable Primary Care Provider Unavailabl e Social History Tobacco Use Types Packs/Day Years Used Date Smoking Tobacco: Never Assessed Comments Unknown Sex and Gender Information Value Date Recorded Sex Assigned at Not on file Legal Sex Female 9:02 AM EST Gender Identity Not on file Sexual Orientation Not on file Plan of Treatment Upcoming Encounters Date Type Department Care Team ([facility] Contact Info) Description 09/14/2025 8:30 AM EST Consult Orthopedic Surgery - [place] [id number] [phone] Gerald Barry, DPM [address] [phone] Health Maintenance Due Date Last Done Comments Breast Cancer Screening 1970 Colorectal Cancer Screening: Colonoscopy 1970 DTaP,Tdap,and Td Vaccines (1 - Tdap) 1989 Hepatitis B Vaccines (1 of 3 - 19+ 3-dose series) 1989 Cervical Cancer Screening: P ap Smear 1991 Pneumococcal Vaccine: 50+ Ye ars (1 of 1 - PCV) 2020 Zoster Vaccines (1 of 2) 2020 Depression Screening 08/06/2024 COVID-19 Vaccine (1 - 2024-2 6 season) 2025 Influenza Vaccine (#1) 2025 HIV Screening 05/08/2025 Hepatitis C Screening 05/08/2025 Social Influencers of Health Screening 05/08/2025 RSV Immunization Adult Patie nts (1 - 1-dose 75+ series) 2045 HIB Vaccines Aged Out No longer eligi ble based on patient's age to complete this topic HPV Vaccines Aged Out No longer eligi ble based on patient's age to complete this topic Hepatitis A Vaccines Aged Out No long er eligible based on patient's age to complete this topic IPV Vaccines Aged Out No longer eligi ble based on patient's age to complete this topic MMR Vaccines Aged Out No longer eligi ble based on patient's age to complete this topic Meningococcal ACWY Vaccine Aged Out N o longer eligible based on patient's age to complete this topic Meningococcal B Vaccine Aged Out No l onger eligible based on patient's age to complete this topic RSV Immunization Patients Un wander 20 months Aged Out No longer eligible b ased on patient's age to complete this topic Varicella Vaccines Aged Out No longer eligible based on patient's age to complete this topic Insurance 62 [address]/ [address] [address] MEDICAID - [place]
== END 2025-07-20 17:30 | disposition home or self-care (01) ==
PROVIDERS: Emergency Provider Emergency Medicine; PCP Nurse Practitioner Primary Care
DX: M79.672 Pain in left foot (principal); I10 Essential (primary) hypertension; E11.9 Type 2 diabetes mellitus without complications; F17.210 Nicotine dependence, cigarettes, uncomplicated; Z86.711 Personal history of pulmonary embolism; Z79.02 Long term (current) use of antithrombotics/antiplatelets; Z79.82 Long term (current) use of aspirin; Z79.899 Other long term (current) drug therapy
CPT/HCPCS: 73610; 73630; 99281; 99283

== ENCOUNTER → 2025-07-20 14:38 | Outpatient (BNV) | payer MEDICAID, SELFPAY | PROVIDERS: PCP Nurse Practitioner Primary Care; Visit Provider Radiology Diagnostic Ultrasound | DX: M25.572 Pain in left ankle and joints of left foot (principal); M79.672 Pain in left foot | CPT/HCPCS: 73610; 73630 ==